=== PATIENT | female | born 1955 | race Caucasian/White ===

== ENCOUNTER 2022-08-07 12:31 | Emergency (ER) | payer MEDICARE, BC, SELFPAY ==
[2022-08-07 12:47] VITALS: BP 170/98; PULSE 79; RESP 18; TEMP 35.9; O2SAT 97
--- NOTE | 2022-08-07 13:27 | ED_ITS ---
HPI - General Adult General Chief complaint: Edema Stated complaint: Swollen legs from heart medication Time Seen by Provider: 08/07/22 13:05 History of Present Illness HPI narrative: This 67-year-old female comes in with a friend and states that she has bilateral lower extremity edema. She is on new medicines for blood pressure and believes that this may be causing some edema. She also has varicose veins and is scheduled for an appointment with a vein clinic in this regard. She does not report any shortness of breath or chest pain. She does not have any orthopnea. She has been wearing compression stockings which have helped her greatly. She has very thin legs and states that she is able to pull the compression stockings all way up to her groin. She states that this is helped and arrives here actually without any evidence of pedal edema. Related Data Home Medications Medication Instructions Recorded Confirmed albuterol sulfate 2.5 mg/3 mL 2.5 mg inhalation PRN 02/23/22 06/22/22 (0.083 %) solution for nebulization albuterol sulfate 90 mcg/actuation 2 inhalation PRN 02/23/22 06/22/22 aerosol inhaler divalproex 500 mg tablet,delayed mg PO DAILY 02/23/22 06/22/22 release esomeprazole magnesium 40 mg 40 mg PO DAILY 02/23/22 06/22/22 capsule,delayed release fluticasone furoate 200 1 inhalation DAILY 02/23/22 06/22/22 mcg-vilanterol 25 mcg/dose inhalation powder levothyroxine 112 mcg tablet 112 mcg PO DIRECTED 02/23/22 06/22/22 lorazepam 0.5 mg tablet 0.5 mg PO .as needed PRN 02/23/22 06/22/22 metoprolol tartrate 50 mg tablet 50 mg PO BID 02/23/22 06/22/22 mirtazapine 7.5 mg tablet 7.5 mg PO .Bedtime 02/23/22 06/22/22 ropinirole 1 mg tablet 1 mg PO DIRECTED 02/23/22 06/22/22 rosuvastatin 5 mg tablet 5 mg PO DAILY 02/23/22 06/22/22 diltiazem HCl 240 mg 240 mg PO QAM 06/22/22 06/22/22 capsule,extended release 24 hr, controlled (DILT-XR) Previous Rx's Medication Instructions Recorded cyclobenzaprine 10 mg tablet 10 mg PO .Bedtime as needed PRN 07/04/22 muscle spasm #30 tabs chlorthalidone 25 mg tablet 25 mg PO DAILY #90 tabs 07/31/22 Allergies Allergy/AdvReac Type Severity Reaction Status Date / Time gabapentin Allergy Intermediate Hives Verified 08/07/22 12:51 lisinopril Allergy Intermediate edema in Verified 08/07/22 12:51 face risperidone Allergy Unknown Verified 08/07/22 12:51 amlodipine AdvReac Mild leg Verified 08/07/22 12:51 swelling quetiapine AdvReac swelling Verified 08/07/22 12:51 Review of Systems Status of ROS: Reports: 10 or more systems reviewed and unremarkable except as noted in History and below Narrative: Constitutional: No fevers, no weight gain or loss. Eyes: No discharge. No vision changes. HENT: No congestion, no sore throat, no ear pain. Cardiovascular: No chest pain, no palpitations. Respiratory: No shortness of breath, no wheezes, no cough. Gastrointestinal: No abdominal pain, no vomiting, no diarrhea. Genitourinary: No dysuria, no hematuria. Musculoskeletal: Normal range of motion. Skin: No rashes, no pruritis. Neurological: No dizziness, weakness, sensory change, speech change. Endo/Heme/Allergies: No bruising or bleeding. No polydipsia. Pysch: no suicidality, no anxiety, no insomnia. All other systems reviewed and are negative. [facility] Medical History (Updated 08/07/22 @ 13:32 by Philip Ramires MD) Bilateral edema of lower extremity Bleeding internal hemorrhoids Chronic neck pain Elevated blood pressure reading Encounter for counseling regarding advance directives (06/21/15) Hepatitis C History of drug abuse (2013) Internal derangement of knee Obstructive chronic bronchitis with exacerbation Obstructive sleep apnea treated with continuous positive airway pressure (CPAP) (~2016) Osteoarthritis Osteopenia (2015) Rectal urgency Unintended weight loss (~11/2021) Varicose veins of both lower extremities Venous insufficiency of both lower extremities Surgical History (Updated 06/22/22 @ 14:44 by Kim Gardner MD) Colon cancer screening (~2015) H/O endoscopy History of abdominoplasty (1996) History of arthroplasty of right knee (2009) History of hysterectomy with oophorectomy (1984) History of medial meniscus repair of left knee (2013) History of ovarian cystectomy History of repair of right rotator cuff (2012) History of right knee joint replacement (2009) Hx of varicose vein ligation and stripping (~2016) Normal colonoscopy (2021) Status post left knee replacement (04/08/19) Family History (Updated 06/22/22 @ 12:41 by Kim Gardner MD) Aunt Breast cancer Mother Ovarian cancer Sister Stomach cancer Other Adopted person Social History (Updated 06/22/22 @ 12:41 by Kim Gardner MD) Narrative: Single, homemaker, lives with cat in town house NF Smokes- hx 30 pack years Does not drink alcohol Exercises 3 to 4 times per week- walks 3M Smoking Status: Current every day smoker What tobacco products do you use: cigarettes Do you use any of these nicotine containing products: None Second hand tobacco smoke exposure: No How often do you have a drink containing alcohol: never AUDIT-C Alcohol total score: 0 Non-prescribed substance use: denies use Exam Narrative: Exam Narrative: Constitutional: Well-developed, well-nourished, no acute distress. HEENT: Normocephalic, atraumatic. Neck: Normal range of motion. Nontender. Supple. Heart: Regular. No murmurs. Normal rate. Intact distal pulses. Lungs: Clear to auscultation. No chest discomfort. No wheezes, rhonchi, or rales. Abdomen: Normal bowel sounds. Nontender. No rebound tenderness. Genitalia: Deferred. Back: No midline tenderness. Normal range of motion. Extremities: Normal range of motion. No injury. She is wearing compression stockings. There is no evidence of pitting edema. Skin: Intact. No rash. Warm. No erythema or pallor. Neurologic: No altered sensation. No weakness. Alert and oriented. Psychiatric: No suicidality. No anxiety or depression. No insomnia. Nursing notes and vitals signs are reviewed. Const: Vital Signs, click to edit/add: Vital Signs - 24 hr 08/07/22 12:47 Temperature 96.7 F L Pulse Rate [Right Pulse Oximeter] 79 Respiratory Rate 18 Blood Pressure [Ri ght Upper Arm] 170/98 H Pulse Oximetry 97 Oxygen Delivery Me thod Room Air Course Vital Signs Vital signs: Initial Vital Signs Temperature 96.7 F L 08/07/22 12:47 Temperature Source Temporal Artery Scan 08/07/22 12:47 Pulse Rate 79 08/07/22 12:47 Pulse Rhythm 08/07/22 12:47 Respiratory Rate 18 08/07/22 12:47 Blood Pressure 170/98 H 08/07/22 12:47 Blood Pressure Mean 122 08/07/22 12:47 Blood Pressure Position Sitting 08/07/22 12:47 Pulse Oximetry 97 08/07/22 12:47 Oxygen Delivery Method 08/07/22 12:47 Vital Signs Temperature 96.7 F L 08/07/22 12:47 Pulse Rate 79 08/07/22 12:47 Respiratory Rate 18 08/07/22 12:47 Blood Pressure 170/98 H 08/07/22 12:47 Pulse Oximetry 97 08/07/22 12:47 Oxygen Delivery Method 08/07/22 12:47 Temperature 96.7 F L 08/07/22 12:47 Pulse Rate 79 08/07/22 12:47 Respiratory Rate 18 08/07/22 12:47 Blood Pressure 170/98 H 08/07/22 12:47 Pulse Oximetry 97 08/07/22 12:47 Oxygen Delivery Method 08/07/22 12:47 Medical Decision Making MDM Narrative Medical decision making narrative: This patient comes in reporting some increased pedal edema that has now been remedied with wearing compression stockings. She believes that this is related to new medication that she is on a for blood pressure. She is taking diltiazem which could explain some pedal edema. She reports that she did not take that medicine today. I did discuss lab and imaging options with the patient but indicated reassurance with normal vital signs and normal exam. In a process of shared decision making she declined any further studies here. She does have an appointment with her psychiatrist tomorrow and with her primary physician in 3 days. I advised her to discontinue the diltiazem and follow-up with her primary physician to review management of blood pressure and appropriate medicines. Discharge Plan Discharge Clinical Impression: Varicose veins of left lower extremity, Hypertension Patient Disposition: Home, Self-Care Condition: Stable Additional Instructions: Hold diltiazem and follow-up with primary physician as scheduled to review blood pressure medications. Return if worsening symptoms happen. Prescriptions: No Action lorazepam 0.5 mg tablet 0.5 mg PO .as needed PRN divalproex 500 mg tablet,delayed release (DR/EC) PO DAILY Rx Instructions: Take 1 tab in the AM and 2 tabs in the PM fluticasone furoate-vilanterol 200-25 mcg/dose blister with device 1 inhalation DAILY rosuvastatin 5 mg tablet 5 mg PO DAILY levothyroxine 112 mcg tablet 112 mcg PO DIRECTED Rx Instructions: 1 tab daily, except no tablet on Sundays metoprolol tartrate 50 mg tablet 50 mg PO BID esomeprazole magnesium 40 mg capsule,delayed release(DR/EC) 40 mg PO DAILY ropinirole 1 mg tablet 1 mg PO DIRECTED Rx Instructions: 1 tab at 1700, 2 tab at HS albuterol sulfate 90 mcg/actuation HFA aerosol inhaler 2 inhalation PRN mirtazapine 7.5 mg tablet 7.5 mg PO .Bedtime albuterol sulfate 2.5 mg /3 mL (0.083 %) solution for nebulization 2.5 mg inhalation PRN diltiazem HCl [DILT-XR] 240 mg capsule,ext.rel 24h degradable 240 mg PO QAM cyclobenzaprine 10 mg tablet 10 mg PO .Bedtime as needed PRN (Reason: muscle spasm) Qty: 30 0RF Rx Instructions: 1 tab at bed time, muscle relaxant chlorthalidone 25 mg tablet 25 mg PO DAILY Qty: 90 1RF Follow Up/Referrals: Kim Gardner MD [Primary Care Provider] - Stand Alone Forms: [facility] Info Instructions
--- NOTE | 2022-08-07 13:46 | ED.NURSE ---
Patient came out of room. Stated I have my discharge and have signed, can I go? Repeated to patient you have received your discharge? She stated yes and was shown to door. Later, assigned RN noted that patient had not received discharge paper work.
== END 2022-08-07 13:53 | disposition home or self-care (01) ==
LOC: ED 13:39
PROVIDERS: Emergency Provider Emergency Medicine Emergency Medical Services; PCP Family Medicine
DX: I83.892 Varicose veins of left lower extremity with other complications (principal)
CPT/HCPCS: 99283; 99284

== ENCOUNTER 2022-08-09 14:36 | Outpatient (CLI) | payer MEDICARE, BC, SELFPAY | END 2022-08-09 14:37 | disposition home or self-care (01) | PROVIDERS: PCP Family Medicine; Visit Provider Family Medicine | DX: I10 Essential (primary) hypertension (principal); E78.5 Hyperlipidemia, unspecified; E03.9 Hypothyroidism, unspecified; R22.40 Localized swelling, mass and lump, unspecified lower limb | CPT/HCPCS: 80053; 80061; 84443 ==

== ENCOUNTER 2022-09-15 09:45 | Outpatient (RCR) | payer MEDICARE, BC, SELFPAY ==
--- NOTE | 2022-05-19 10:52 | PT.OPEX ---
PT [facility] Eval PT [facility] Outpatient Eval Start: 05/19/22 10:36 Freq: Status: Active Protocol: Document 05/19/22 10:36 AC (Rec: 05/19/22 10:52 ACW [id number]) E-signed By Inga Pena, PT, ATC Physical Therapy Outpatient Evaluation Insurance Information Insurance Name Medicare B,Blue [employer] Medical Diagnosis right shoulder pain Treating Diagnosis tight muscles across g-h joint stiff thoracic spine and scapula Referring MD Gardner Subjective Pain Comments 0-9/10 Current Work Status Unemployed Preferred Name [employer] Precautions Weight Bearing Status Full Weight Bearing Therapy Limitations/Systems Review Not Limited Assessment Assessment/Impression pt is a pleasant 67 yo female who has been having right shoulder pain for about 1 year . AT about this same time she fell when standing on a chair and tried catching herself with her right hand. pt describes the pain as a sharp spasm almost in her shoulder than can be relieved if she bends over and shakes out her arm. It is not a constant pain, but she is apprehensive because she doesn't know what brings it on or when it will hit her. today she has full shoulder active ROM and MMTs. her neck is stiff, her spine is very stiff . She isn't able to vacuum, pull anything out of the refrigerator or rotate her arm without fear of the pain. pt will benefit from skilled PT for MT and TE Plan of Care Rehabilitation Potential Good Physical Therapy Goals 1. pt will be competent and compliant with home ex 2. in 4 wks pt will note less frequent and less intense ( max 6/10) pain when moving her arm. 3. in 6 wks pt will be able to reach into her refrigerator to retrieve an item without the sharp pain she has been having 4. in 6 wks pt will be able to pull up her pants with 3/10 max right shoulder pain LTG: to be achieved by the end of July: pt will return to all former ADLs with 2/10 max right shoulder pain Coordination/Communication With Referral Source Treatment Plan/Direct Interventions Manual Therapy,Therapeutic Exercises Patient Will Be Discharged From Therapy Independently Progressing Evaluation Billing Complexity Moderate Certification Information Initial Certification Date 05/19/22 Ending Certification Date 08/16/22 Provider Signature Shows Agreement With POC & Medical Necessity Physician Signature & Date Requested Please Sign/Date Here Physician Comment/Change : Physician NPI Number #
== END 2022-09-15 12:35 | disposition home or self-care (01) ==
PROVIDERS: PCP Family Medicine; Visit Provider Family Medicine
DX: M25.511 Pain in right shoulder (principal); Z51.89 Encounter for other specified aftercare
CPT/HCPCS: 97110; 97140; 97162

== ENCOUNTER 2022-11-07 16:52 | Outpatient (REF) | payer MEDICARE, BC, SELFPAY | END 2022-11-07 16:53 | disposition home or self-care (01) | LOC: NPINS 16:52 | PROVIDERS: PCP Family Medicine; Visit Provider Nurse Practitioner Psychiatric/Mental Health | DX: R19.7 Diarrhea, unspecified (principal); I10 Essential (primary) hypertension | CPT/HCPCS: 80164; 80165 ==

== ENCOUNTER 2023-02-02 13:51 | Outpatient (CLI) | payer MEDICARE, BC, SELFPAY ==
--- NOTE | 2023-02-02 14:00 | CRLHL7_ITS ---
For Patients: As a result of the Century Cures Act, medical imaging exams and procedure reports are released immediately into your electronic medical record. You may view this report before your referring provider. If you have questions, please contact your health care provider. INDICATION: Lung cancer screening. History of smoking. High risk patient with greater than 50 pack-year smoking history. TECHNIQUE: Low-dose lung cancer screening non-contrast CT chest. Dose reduction techniques were used. COMPARISON: 03/23/2021 FINDINGS: NODULES: None. LUNGS AND PLEURA: Mild anterior scarring noted bilaterally. No pleural effusion or infiltrate. MEDIASTINUM: No adenopathy. Vascular calcifications. CORONARY ARTERY CALCIFICATION: Present. LIMITED UPPER ABDOMEN: Normal. MUSCULOSKELETAL: Normal. IMPRESSION: Negative for lung cancer screening purposes. LUNG-RADS CATEGORY: 1: Negative. RADIOLOGIST RECOMMENDATION: Continue annual screening with low-dose CT chest in 12 months. Please note that all CT scans at this facility use dose modulation, iterative reconstruction, and/or weight-based dosing when appropriate to reduce radiation dose to as low as reasonably achievable. Dictated by Gil Jiang MD @ 02/05/2023 10:48:50 AM (Electronically Signed)
== END 2023-02-02 13:52 | disposition home or self-care (01) ==
LOC: CT 13:52
PROVIDERS: PCP Family Medicine; Visit Provider Family Medicine
DX: F17.210 Nicotine dependence, cigarettes, uncomplicated (principal); Z12.2 Encounter for screening for malignant neoplasm of respiratory organs
CPT/HCPCS: 71271

== ENCOUNTER 2023-03-18 16:26 | Inpatient (IN) | payer MEDICARE, BC, SELFPAY ==
[2023-03-18] VITALS (14 sets, daily range): BP systolic 125–160; BP diastolic 71–99; PULSE 73–93; RESP 16–20; TEMP 36.5–36.8; O2SAT 94–98; BMI 23.2; BMI 22.7
--- NOTE | 2023-03-18 17:00 | ED.GENADULT ---
HPI - General Adult General Time Seen by Provider: 17:00 Date Seen: 03/18/23 Chief complaint: Fall/Minor Trauma Stated complaint: fall Time Seen by Provider: 03/18/23 16:52 Source: patient and RN notes reviewed Mode of arrival: ambulatory Limitations: no limitations History of Present Illness HPI narrative: This 68-year-old female is brought in by a friend's that go to [place] with her with concern of her mental status. Berkley did answer her door for 1 of the friends today but this friend was concern. She has bruises on her arms, bruises on her knees. She reportedly fell in her garage last night, admits she may have taken an extra Ativan and Flexeril. Berkley cannot really remember anything. She thinks she may have fallen a couple times in the garage. She denies any alcohol use. She reportedly had the garage shot in the car running and was in the garage with the car this way. This was last night, at some point she must of made it into the house. She also endorses some marijuana use. Patient is somewhat tangential in her speech, will start talking about a blood pressure medicine and causing swelling, not really tracking with conversation. She denies any difficulty with breathing, no significant headache or visual changes, no chest pain. She has no abdominal pain now but her friends report that she has complaints of abdominal symptoms frequently. Had some sort of abdominal surgery and since then has complained of ongoing cramping and abdominal pain. Related Data Home Medications Medication Instructions Recorded Confirmed albuterol sulfate 2.5 mg/3 mL 2.5 mg inhalation PRN 02/23/22 02/21/23 (0.083 %) solution for nebulization divalproex 500 mg tablet,delayed mg PO DAILY 02/23/22 02/21/23 release fluticasone furoate 200 1 inhalation DAILY 02/23/22 02/21/23 mcg-vilanterol 25 mcg/dose inhalation powder lorazepam 0.5 mg tablet 0.5 mg PO .as needed PRN 02/23/22 02/21/23 mirtazapine 7.5 mg tablet 7.5 mg PO .Bedtime 02/23/22 02/21/23 Previous Rx's Medication Instructions Recorded metoprolol succinate 100 mg 100 mg PO BID #180 tabs 08/23/22 tablet,extended release 24 hr ropinirole 1 mg tablet 1 mg PO DIRECTED #270 tabs 08/30/22 loperamide 2 mg capsule (Imodium 4 mg (2 x 2 mg) PO QDAY PRN 11/07/22 A-D) diarrhea #30 caps levothyroxine 112 mcg tablet 112 mcg PO DIRECTED #90 tabs 12/18/22 esomeprazole magnesium 40 mg 40 mg PO DAILY #90 caps 12/27/22 capsule,delayed release rosuvastatin 5 mg tablet 5 mg PO DAILY #90 tabs 01/19/23 chlorthalidone 25 mg tablet 25 mg PO DAILY #90 tabs 01/26/23 hydralazine 25 mg tablet 25 mg PO BID #60 tabs 02/21/23 cyclobenzaprine 10 mg tablet 10 mg PO .Bedtime as needed PRN 02/27/23 muscle spasm #30 tabs albuterol sulfate 90 mcg/actuation 2 puff inhalation Q4H #8.5 grams 03/15/23 aerosol inhaler Allergies Allergy/AdvReac Type Severity Reaction Status Date / Time gabapentin Allergy Intermediate Hives Verified 02/21/23 14:40 lisinopril Allergy Intermediate edema in Verified 02/21/23 14:40 face risperidone Allergy Unknown Verified 02/21/23 14:40 amlodipine AdvReac Mild leg Verified 02/21/23 14:40 swelling quetiapine AdvReac swelling Verified 02/21/23 14:40 Review of Systems Status of ROS: Reports: 6 or more systems reviewed and unremarkable except as noted in History and below [facility] Medical History Obstructive sleep apnea treated with continuous positive airway pressure (CPAP) (~2016) ?G47.33 - Obstructive sleep apnea (adult) (pediatric) (ICD-10) ?Z99.89 - Dependence on other enabling machines and devices (ICD-10) Venous insufficiency of both lower extremities ?I87.2 - Venous insufficiency (chronic) (peripheral) (ICD-10) Varicose veins of both lower extremities ?I83.93 - Asymptomatic varicose veins of bilateral lower extremities (ICD-10) Unintended weight loss (~11/2021) ?R63.4 - Abnormal weight loss (ICD-10) Rectal urgency ?R15.2 - Fecal urgency (ICD-10) Osteopenia (2016) ?M85.80 - Other specified disorders of bone density and structure, unspecified site (ICD-10) Osteoarthritis ?M19.90 - Unspecified osteoarthritis, unspecified site (ICD-10) Obstructive chronic bronchitis with exacerbation ?J44.1 - Chronic obstructive pulmonary disease with (acute) exacerbation (ICD-10) Internal derangement of knee ?M23.90 - Unspecified internal derangement of unspecified knee (ICD-10) History of drug abuse (2013) ?F19.11 - Other psychoactive substance abuse, in remission (ICD-10) Hepatitis C ?B19.20 - Unspecified viral hepatitis C without hepatic coma (ICD-10) Encounter for counseling regarding advance directives (06/21/15) ?Z71.89 - Other specified counseling (ICD-10) Elevated blood pressure reading ?R03.0 - Elevated blood-pressure reading, without diagnosis of hypertension (ICD-10) Chronic neck pain ?M54.2 - Cervicalgia (ICD-10) ?G89.29 - Other chronic pain (ICD-10) Bleeding internal hemorrhoids ?K64.8 - Other hemorrhoids (ICD-10) Bilateral edema of lower extremity ?R60.0 - Localized edema (ICD-10) Surgical History Hx of varicose vein ligation and stripping (~2016) ?Z98.890 - Other specified postprocedural states (ICD-10) Colon cancer screening (~2015) ?Z12.11 - Encounter for screening for malignant neoplasm of colon (ICD-10) Status post left knee replacement (04/08/19) ?Z96.652 - Presence of left artificial knee joint (ICD-10) History of right knee joint replacement (2009) ?Z96.651 - Presence of right artificial knee joint (ICD-10) History of repair of right rotator cuff (~2011) ?Z98.890 - Other specified postprocedural states (ICD-10) History of ovarian cystectomy ?Z98.890 - Other specified postprocedural states (ICD-10) ?Z87.42 - Personal history of other diseases of the female genital tract (ICD-10) History of medial meniscus repair of left knee (2013) ?Z98.890 - Other specified postprocedural states (ICD-10) History of hysterectomy with oophorectomy (1984) History of arthroplasty of right knee (2009) ?Z96.651 - Presence of right artificial knee joint (ICD-10) History of abdominoplasty (1996) ?Z98.890 - Other specified postprocedural states (ICD-10) H/O endoscopy ?Z98.890 - Other specified postprocedural states (ICD-10) Normal colonoscopy (2021) Family History Aunt Breast cancer Mother Ovarian cancer Sister Stomach cancer Other Adopted person Social History Narrative: Single, homemaker, lives with cat in town house NF Smokes- hx 30 pack years Does not drink alcohol Exercises 3 to 4 times per week- walks 3M Smoking Status: Light tobacco smoker What tobacco products do you use: cigarettes Do you use any of these nicotine containing products: None Second hand tobacco smoke exposure: No How often do you have a drink containing alcohol: never AUDIT-C Alcohol total score: 0 Non-prescribed substance use: denies use Little interest or pleasure in doing things: several days Feeling down, depressed, or hopeless: several days Exam Const: Vital Signs, click to edit/add: Vital Signs - 24 hr 03/18/23 16:43 03/18/23 18:21 03/18/23 18:24 Temperature 98.2 F Pulse Rate 84 83 Pulse Rate [Pulse Oximeter] 93 Respiratory Rate 20 Blood Pressure 154/77 H Blood Pressure [Le ft Upper Arm] 132/89 Pulse Oximetry 94 97 95 Oxygen Delivery Me thod Room Air 03/18/23 18:30 03/18/23 18:47 Temperature Pulse Rate 80 83 Pulse Rate [Pulse Oximeter] Respiratory Rate Blood Pressure Blood Pressure [Le ft Upper Arm] Pulse Oximetry 96 96 Oxygen Delivery Me thod Berkley is a 68-year-old female that is alert, interactive. Speech is sometimes slurred. Tangential in her thoughts. She is wears that she is at [facility]. Pupils are equal round reactive, sclera clear, conjugate gaze. No drainage from nares or canals/ears. Symmetrical facial function, do note a bruise with some slight raising consistent with small hematoma on her right frontal forehead, no open skin. No midline tenderness of her neck or the rest of her spine. Does have some ecchymosis in the distribution of the right posterior back overlying the scapula area. Lungs are clear, good air entry, no wheezing or crackles, no tachypnea. No voice hoarseness. CV regular rate and rhythm, normal S1-S2 no S3-S4. No murmur. No anterior chest wall tenderness. Abdomen at this time is soft, nontender, nondistended, no organomegaly. She has bruising over both the medial forearms elbows, both her anterior knees. There is no joint line tenderness in any these joints, no effusions noted. She has full range of motion throughout her upper extremities and lower extremities. Feet look dirty. Documenting provider has reviewed patient's vital signs: yes Course Course ED Course: She does seem mildly altered, will be getting a head CT, full complement of labs. Will do carbon monoxide on her as well given she might have had an exposure to this. She is hemodynamically stable, afebrile. I think infection is less likely than possible ingestion or overuse of medicines. Will make sure she does not have carbon monoxide poisoning, will do toxicology on her as well. Her exam really is nonfocal and not suggestive of an ischemic event, rule out traumatic changes in the brain however with the head CT. Will look at the EKG and troponin. Ultimately this looks like an altered mental status. Reevaluation(s) Time of Reevaluation #1: 19:08 Reevaluation #1: Went in with hospitalist Dr. Lopez to see patient. Reviewed with her that she did have a small subdural hematoma which is a small brain bleed. I am not sure she understood this. She is conversing with us. She states her buttocks are quite sore. Did roll her onto her side, has bruising in the upper tailbone area and on the buttocks. There is no skin breakdown, no ulceration. She has been ambulatory to the bathroom here, does not have any pelvic or hip pain or actual lower extremity pain with ambulation. She also has acute kidney injury, rhabdomyolysis, did initiate IV fluids when I saw her CK come back elevated. Consultations Consultation #1: Waited to talk to the [facility] ED physician, Dr. Bautista. They are taking limited trauma, would only take her if she required actual surgical intervention at this time. He is going to talk to the Neurosurgery Chief on-call, show the head CT images that we have push through. Plan at this time will be for repeat CT in 6 hours, he will confirm any other changes or different plan with me. We will keep her here, our hospitalist is here while I talked to Dr. Bautista. 1929pm Dr. Bautista did call back from [facility]. Did speak with neurosurgery chief Dr. Alexis Cramer, recommended sodium within normal range, 135-145. Repeat head CT in 6 hours. If there is decompensation in neurologic status or significant changes on head CT, contact [facility] back. I have added on a 3 hour EKG and troponin. Her troponin is borderline at 0.04, may reflect her acute kidney injury and rhabdomyolysis. She has been accepted by the hospitalist, also did order her follow-up head CT at midnight. The hospitalist did inform me that when he was interviewing the patient, she did admit to taking a lot more Flexeril in Ativan than she had with her friends or with me. She was doing this because she was feeling depressed. She is not medically stable to do a transfer to psychiatric facility. Thus, no telehealth will be done at this time, hospitalists will be stabilizing her medically and will address mental health status as well. Time: 18:52 Vital Signs Vital signs: Initial Vital Signs Temperature 98.2 F 03/18/23 16:43 Temperature Source Temporal Artery Scan 03/18/23 16:43 Pulse Rate 93 03/18/23 16:43 Pulse Rhythm Regular 03/18/23 16:43 Respiratory Rate 20 03/18/23 16:43 Blood Pressure 132/89 03/18/23 16:43 Blood Pressure Mean 103 03/18/23 16:43 Blood Pressure Position Supine 03/18/23 16:43 Pulse Oximetry 94 03/18/23 16:43 Oxygen Delivery Method Room Air 03/18/23 16:43 Vital Signs Temperature 98.2 F 03/18/23 16:43 Pulse Rate 93 03/18/23 16:43 Respiratory Rate 20 03/18/23 16:43 Blood Pressure 132/89 03/18/23 16:43 Pulse Oximetry 94 03/18/23 16:43 Oxygen Delivery Method Room Air 03/18/23 16:43 Temperature 98.2 F 03/18/23 16:43 Pulse Rate 83 03/18/23 18:47 Respiratory Rate 20 03/18/23 16:43 Blood Pressure 154/77 H 03/18/23 18:24 Pulse Oximetry 96 03/18/23 18:47 Oxygen Delivery Method Room Air 03/18/23 16:43 Medical Decision Making Lab Data Lab results reviewed: Yes I reviewed the patient's lab results Labs: Lab Results 03/18/23 Range/Units 17:34 WBC 10.60 (4.50-11.00) K/uL RBC 3.74 L (4.00-5.20) m/uL Hgb 12.0 (12.0-16.0) gm/dL Hct 34.3 (33.0-51.0) % MCV 92 (80-100) fL MCH 32 (26-34) pg MCHC 35 (32-36) gm/dL RDW Coeff of Jaden 12.7 (11.5-15.5) % Plt Count 297 (140-440) K/uL Neut % (Auto) 68.1 (42.0-72.0) % Lymph % (Auto) 18.1 L (20-44) % Grainger % (Auto) 13.0 H (0.0-11.0) % Eos % (Auto) 0.4 (0.0-7.0) % Baso % (Auto) 0.2 (0.0-3.0) % Neut # (Auto) 7.22 H (1.7-7.0) K/uL Lymph # (Auto) 1.90 (0.90-2.90) K/uL Grainger # (Auto) 1.40 H (0.00-0.90) K/UL Eos # (Auto) 0.04 (0.00-0.50) K/uL Baso # (Auto) 0.02 (0.00-0.30) K/uL Abs Immat Gran (auto) 0.02 (0.00-0.30) K/uL Imm/Tot Granulo (auto) 0.2 % Carboxyhemoglobin 3.3 (0.0-5.0) % Sodium 130 L (135-149) mmol/L Potassium 3.5 L (3.6-5.1) mmol/L Chloride 94 L (96-114) mmol/L Carbon Dioxide 24 (20-32) mmol/L Anion Gap 12 (7-15) mEq/L BUN 40 H (7-30) mg/dL Creatinine 1.5 (0.5-1.5) mg/dL Estimated Creat Clear 30.57 Estimated GFR 37 ml/min Glucose 94 (60-115) mg/dL Lactate 1.0 (0.5-1.9) mmol/L Calcium 8.7 (8.4-10.6) mg/dL Magnesium 1.6 (1.5-2.6) mg/dL Total Bilirubin 1.7 H (0.1-1.5) mg/dL AST 113 H (12-35) U/L ALT 33 (4-35) U/L Alkaline Phosphatase 47 (40-150) U/L Ammonia 28.0 (13.1-30.0) umol/L Total Creatine Kinase 3879 H (41-117) U/L Troponin I 0.04 (0.01-0.04) ng/mL C-Reactive Protein 8.6 H (0.5-1.0) mg/dL Total Protein 7.4 (6.0-8.3) g/dL Albumin 4.2 (3.3-5.0) g/dL Salicylates < 1.0 L (1.0-10) mg/dL Acetaminophen < 10.0 L (10.0-30.0) ug/mL Ethyl Alcohol < 0.01 L (0.01-0.03) % Imaging Data CT scan - head: Attestation: I have reviewed the pertinent imaging results. Radiologist's impression: Patient: JULIANA MOE Facility:?[facility] Patient ID:?[id number] Site Patient ID:?[id number]. Site :?[id number] Study:?CT Head W/O-03/18/2023 6:00:55 PM Ordering Physician:Lou Hoskins Final Report: Indication: Fall, altered mental status Technique: Volumetric multidetector CT images of the head were obtained without the administration of low osmolar intravenous contrast. Comparison: None available Findings: There is demonstration of a left convexity subdural hematoma without evidence of significant mass effect. There is no midline shift. There is age-related cortical atrophy with mild sulcal widening and ex vacuo dilatation of the lateral ventricles. There are chronic small vessel disease changes in the subcortical and periventricular white matter without lost reese-white differentiation. The orbits and their contents are grossly within normal limits. There is a small frontal subgaleal soft tissue hematoma. The bony calvarium is grossly intact. The paranasal sinuses are clear. The mastoid air cells are well aerated. Impression: Small left convexity subdural hematoma without evidence of significant mass effect or midline shift at this time. Otherwise, age-related changes of the brain without acute intracranial abnormality. Findings were discussed with Aidee De La Vega at 6:33 p.m. March 18, [address] note [address] all CT scans at this facility use dose modulation, iterative reconstruction, and/or weight-based dosing when appropriate to reduce radiation dose to as low as reasonably achievable. Dictated by Joseph Atkinson MD @ 03/18/2023 6:35:21 PM (Electronic Signature) Chest x-ray: Attestation: I have reviewed the pertinent imaging results. Radiologist's impression: Patient: JULIANA MOE Facility:?[facility] Patient ID:?[id number] Site Patient ID:?[id number]. Site :?1955 Study:?XRay Chest 1 VIEW-03/18/2023 6:11:43 PM Ordering Physician:Lou Hoskins Final Report: INDICATION: Altered mental status TECHNIQUE: Single view chest. FINDINGS: The lungs are clear. The heart, mediastinum and pulmonary vessels are of normal size. There is no evidence of pleural disease. IMPRESSION: Negative chest. Dictated by Paola Gonzáles MD @ 03/18/2023 6:50:16 PM (Electronic Signature) Discharge Plan Discharge Prescriptions: No Action metoprolol succinate 100 mg tablet extended release 24 hr 100 mg PO BID Qty: 180 4RF loperamide [Imodium A-D] 2 mg capsule 4 mg PO QDAY PRN (Reason: diarrhea) Qty: 30 0RF chlorthalidone 25 mg tablet 25 mg PO DAILY Qty: 90 1RF lorazepam 0.5 mg tablet 0.5 mg PO .as needed PRN divalproex 500 mg tablet,delayed release (DR/EC) PO DAILY Rx Instructions: Take 1 tab in the AM and 2 tabs in the PM fluticasone furoate-vilanterol 200-25 mcg/dose blister with device 1 inhalation DAILY mirtazapine 7.5 mg tablet 7.5 mg PO .Bedtime albuterol sulfate 2.5 mg /3 mL (0.083 %) solution for nebulization 2.5 mg inhalation PRN hydralazine 25 mg tablet 25 mg PO BID Qty: 60 0RF ropinirole 1 mg tablet 1 mg PO DIRECTED Qty: 270 3RF Rx Instructions: 1 tab at 1700, 2 tab at HS levothyroxine 112 mcg tablet 112 mcg PO DIRECTED Qty: 90 2RF Rx Instructions: 1 tab daily, except no tablet on Sundays esomeprazole magnesium 40 mg capsule,delayed release(DR/EC) 40 mg PO DAILY Qty: 90 2RF rosuvastatin 5 mg tablet 5 mg PO DAILY Qty: 90 3RF cyclobenzaprine 10 mg tablet 10 mg PO .Bedtime as needed PRN (Reason: muscle spasm) Qty: 30 1RF Rx Instructions: 1 tab at bed time, muscle relaxant albuterol sulfate 90 mcg/actuation HFA aerosol inhaler 2 puff inhalation Q4H Qty: 8.5 1RF Follow Up/Referrals: Kim Gardner MD [Primary Care Provider] -
--- NOTE | 2023-03-18 17:11 | CRLHL7_ITS ---
For Patients: As a result of the Century Cures Act, medical imaging exams and procedure reports are released immediately into your electronic medical record. You may view this report before your referring provider. If you have questions, please contact your health care provider. Indication: Fall, altered mental status Technique: Volumetric multidetector CT images of the head were obtained without the administration of low osmolar intravenous contrast. Comparison: None available Findings: There is demonstration of a left convexity subdural hematoma without evidence of significant mass effect. There is no midline shift. There is age-related cortical atrophy with mild sulcal widening and ex vacuo dilatation of the lateral ventricles. There are chronic small vessel disease changes in the subcortical and periventricular white matter without lost reese-white differentiation. The orbits and their contents are grossly within normal limits. There is a small frontal subgaleal soft tissue hematoma. The bony calvarium is grossly intact. The paranasal sinuses are clear. The mastoid air cells are well aerated. Impression: Small left convexity subdural hematoma without evidence of significant mass effect or midline shift at this time. Otherwise, age-related changes of the brain without acute intracranial abnormality. Findings were discussed with Aidee De La Vega at 6:33 p.m. March 18, [address] Please note that all CT scans at this facility use dose modulation, iterative reconstruction, and/or weight-based dosing when appropriate to reduce radiation dose to as low as reasonably achievable. Dictated by Joseph Atkinson MD @ 03/18/2023 6:35:21 PM (Electronically Signed)
--- NOTE | 2023-03-18 17:24 | CRLHL7_ITS ---
For Patients: As a result of the Century Cures Act, medical imaging exams and procedure reports are released immediately into your electronic medical record. You may view this report before your referring provider. If you have questions, please contact your health care provider. INDICATION: Altered mental status TECHNIQUE: Single view chest. FINDINGS: The lungs are clear. The heart, mediastinum and pulmonary vessels are of normal size. There is no evidence of pleural disease. IMPRESSION: Negative chest. Dictated by Paola Gonzáles MD @ 03/18/2023 6:50:16 PM (Electronically Signed)
[2023-03-18 17:44] LABS: Basophils Absolute Auto 0.02 K/uL (0.00-0.30); Basophils Percent Auto 0.2 % (0.0-3.0); Carboxyhemoglobin* 3.3 % (0.0-5.0); Eosinophils Absolute Auto 0.04 K/uL (0.00-0.50); Eosinophils Percent Auto 0.4 % (0.0-7.0); Hematocrit 34.3 % (33.0-51.0); Immature Granulocytes Abs Auto 0.02 K/uL (0.00-0.30); Immature Granulocytes Pct Auto 0.2 %; Lymphocytes Percent Auto 18.1 % (20-44); Mean Corpuscular HGB Conc 35 gm/dL (32-36); Mean Corpuscular Hemoglobin 32 pg (26-34); Mean Corpuscular Volume 92 fL (80-100); Neutrophils Absolute Auto 7.22 K/uL (1.7-7.0); Neutrophils Percent Auto 68.1 % (42.0-72.0); Platelet Count* 297 K/uL (140-440); RDW Coefficient of Variation % 12.7 % (11.5-15.5); Red Blood Count 3.74 m/uL (4.00-5.20)
[2023-03-18 17:48] LABS: Slide Review Reflex No
[2023-03-18 18:03] LABS: Albumin* 4.2 g/dL (3.3-5.0); Chloride* 94 mmol/L (96-114); Sodium* 130 mmol/L (135-149)
[2023-03-18 18:04] LABS: Potassium* 3.5 mmol/L (3.6-5.1)
[2023-03-18 18:05] LABS: Magnesium* 1.6 mg/dL (1.5-2.6)
[2023-03-18 18:06] LABS: Alkaline Phosphatase* 47 U/L (40-150); Anion Gap 12 mEq/L (7-15); Aspartate Amino Transferase* 113 U/L (12-35); Bilirubin Total* 1.7 mg/dL (0.1-1.5); Carbon Dioxide* 24 mmol/L (20-32); Creatinine* 1.5 mg/dL (0.5-1.5); Est. Creatinine Clearance* 30.57; Estimated Glomerular Filt Rate 37 ml/min; Total Protein* 7.4 g/dL (6.0-8.3)
[2023-03-18 18:07] LABS: Alanine Aminotransferase* 33 U/L (4-35); Blood Urea Nitrogen* 40 mg/dL (7-30); Calcium* 8.7 mg/dL (8.4-10.6); Glucose* 94 mg/dL (60-115)
[2023-03-18 18:09] LABS: Acetaminophen* < 10.0 ug/mL (10.0-30.0); C Reactive Protein* 8.6 mg/dL (0.5-1.0); Ethanol* < 0.01 % (0.01-0.03); Salicylate* < 1.0 mg/dL (1.0-10)
[2023-03-18 18:18] LABS: Troponin I* 0.04 ng/mL (0.01-0.04)
[2023-03-18 18:24] LABS: Creatine Kinase* 3879 U/L (41-117)
--- OUTSIDE RECORDS SUMMARY | 2023-03-18 18:30 | XMS_ITS | Continuity of Care Document ---
Author Name Unknown Organization [facility] Address [address] [address] [place] [address] Phone Care Team Providers Care Label Printer Name Role Phone Brendan Larson MD, Harry Unavailable Unavailabl e Allergies, Adverse Reactions, Alerts Substance Reaction Status Criticality No Known Allergies Active No Inform ation Medications Medication Instructions Dosage Effective Dates (start - stop) Status Comments DEPAKOTE (unknown strength) take 2 tablet by oral route 2 times every day Not Available - Active KAPSPARGO SPRINKLE (unknown strength) take 0.5 capsule by oral route every day Not Available - Active THALITONE (unknown strength) take 1 tablet by oral route every day Not Available - Active levothyroxine 112 mcg capsule take by Oral route every day Not Available - Active ROSUVASTATIN CALCIUM (unknown strength) take 1 Tablet by ORAL route 3 times every week Not Available - Active mirtazapine 7.5 mg tablet take 1 Tablet by oral route every day at bedtime 7.5 MG - Active Procedures Procedure Date Colonoscopy Flex; W/bx 1/mx Ugi Endo; W/bx 1/mx Level Iv-surg Path Gross/micro Advance Directives Directive Yes / No Effective Date File Name No Information Encounters Encounter Description Practice Location Reason(s) For Visit Diagnoses Date Provider Providers Copied on Encounter [facility], [address] [address], [place], [id number], tel:[phone] [facility] No Information 2 Brendan Mcdonald. [address] [facility], [facility] [address], [place], [place], [id number] , [place]. tel:[phone] [facility], [address] [address], [place], [place], [id number], [place] tel:[phone] [facility] Symptoms or Concerns (chief complaint) Hiatal herniaDiverticulosi s of colonDiarrhea, unspecifiedDysphagi a, unspecifiedDvrtclos of lg int w/o perforation or abscess w/o bleedingDiaphragmat ic hernia without obstruction or gangreneDiarrhea, unspecified 2 Warner Lopez. [address] [facility], [facility] [address], [place], [place], [id number] , [place]. tel:[phone] Kim Gardner MD. tel:[phone] erring Provider: Kim Gardner MD, [address] [place], [address]. tel:[phone] [facility], [address] [address], [place], [id number], [place] tel:[phone] [facility] No Information 2 Brendan Mcdonald. [address] [facility], [facility] [address], [facility] [place], [id number] , [place]. [phone] Family History Family Member Type Diagnosis Age At Onset No Information Immunizations Vaccine Date Status Comments SARS-COV-2 (COVID-19) vaccin e, mRNA, spike protein, LNP, preservative free, 30 mcg/0.3mL dose administered Note: [facility] bi-direct ional interface ; Source: Other Registry influenza, high-dose seasona l, quadrivalent, .7mL dose, preservative free administered Note: [facility] bi-direct ional interface ; Source: Other Registry SARS-COV-2 (COVID-19) vaccin e, mRNA, spike protein, LNP, preservative free, 30 mcg/0.3mL dose administered Note: [facility] bi-direct ional interface ; Source: Other Registry SARS-COV-2 (COVID-19) vaccin e, mRNA, spike protein, LNP, preservative free, 30 mcg/0.3mL dose administered Note: [facility] bi-direct ional interface ; Source: Other Registry zoster vaccine recombinant administered N ote: [facility] bi-directional interface ; Source: Other Registry influenza, high-dose seasona l, quadrivalent, .7mL dose, preservative free administered Note: [facility] bi-direct ional interface ; Source: Other Registry zoster vaccine recombinant administered N ote: [facility] bi-directional interface ; Source: Other Registry influenza, high dose seasona l, preservative-free administered Note: [facility] bi-direct ional interface ; Source: Other Registry Afluria Qd administered Note: [facility] bi-directional interface ; Source: Other Registry Afluria Qd administered Note: [facility] bi-directional interface ; Source: Other Registry Afluria Qd administered Note: [facility] bi-directional interface ; Source: Other Registry tetanus toxoid, reduced diphtheria toxoid, and acellular pertussis vaccine, adsorbed administered Note: [facility] b i-directional interface ; Source: Other Registry Havrix administered Note: [facility] bi-d irectional interface ; Source: Other Registry zoster vaccine, live administered Note: [facility] bi-directional interface ; Source: Other Registry Afluria Qd administered Note: [facility] bi-directional interface ; Source: Other Registry Pneumovax 23 administered Note: [facility] bi-d irectional interface ; Source: Other Registry influenza, high dose seasona l, preservative-free administered Note: [facility] bi-direct ional interface ; Source: Other Registry influenza virus vaccine, unspecified formulation administered Note: [facility] bi-di rectional interface ; Source: Other Registry Influenza, seasonal, injectable administe red Note: [facility] bi- directional interface ; Source: Other Registry Influenza, seasonal, injecta ble, preservative free administered Note: [facility] bi-direct ional interface ; Source: Other Registry Influenza, seasonal, injectable administe red Note: [facility] bi- directional interface ; Source: Other Registry influenza virus vaccine, unspecified formulation administered Note: [facility] bi-di rectional interface ; Source: Other Registry tetanus toxoid, adsorbed administered Not e: [facility] bi-directional interface ; Source: Other Registry tetanus toxoid, reduced diphtheria toxoid, and acellular pertussis vaccine, adsorbed administered Note: [facility] b i-directional interface ; Source: Other Registry hepatitis B vaccine, unspeci fied formulation administered Note: [facility] bi-direct ional interface ; Source: Other Registry hepatitis B vaccine, unspeci fied formulation administered Note: [facility] bi-direct ional interface ; Source: Other Registry hepatitis B vaccine, unspeci fied formulation administered Note: [facility] bi-direct ional interface ; Source: Other Registry Havrix administered Note: [facility] bi-d irectional interface ; Source: Other Registry Payers Payer name Insurance type Covered libertarian ID Authoriza tion(s) [employer] [place] [employer] [id number] Social History Type Description Quantity Date Captured Comments Sex Female Smoking Status No Information Chief Complaint And Reason For Visit No Information Reason For Referral Reason For Referral No Information History Of Present Illness Encounter Date Complaint History Of Prese nt Illness GI Symptoms or Concerns Functional Status Date Functional Assessmen t No Information Instructions Date Instruction Additional Infor mation Diverticulosis/Diverticulitis Re lated to Diverticulosis of colon Colon Cancer Prevention Related to Diverticulosis of colon High Fiber Diet Related to Diver ticulosis of colon Assessments Type Assessment Date No Information Patient Care Teams Name Effective Dates (start - stop) Status Members No Information
--- NOTE | 2023-03-18 19:13 | ED.NURSE ---
pt has bruising bilaterally on wrist, elbows, knees, and feet. bruising also noted on left hip and buttock. pt does not recall any trama or mechanism of injury.
--- NOTE | 2023-03-18 19:22 | ED.NURSE ---
per hospitalist pt can eat. Pt offered a sandwich and drink at this time.
[2023-03-18 19:40] LABS: PCR FLU A Negative PCR FLU A (Negative); PCR FLU B Negative PCR FLU B (Negative); PCR RSV Negative PCR RSV (Negative)
[2023-03-18 19:41] LABS: SARS PCR* Negative SARS-CoV-2 (Negative)
[2023-03-18] MEDS: 0.9 % SODIUM CHLORIDE 1000 ml 1,000 ML 500 ML IV (19:49)
--- NOTE | 2023-03-18 20:19 | ED.NURSE ---
nurse to nurse report given to MS
--- NOTE | 2023-03-18 20:47 | PM.IMPN1 ---
Progress Note: A&P Assessment and plan (1) Fall: Problem details: -due to lorazepam and cyclobenzaprine overdose 03/17/2023 Status: Acute (2) Overdose by ingestion: Problem details: - Lorazepam and cyclobenzaprine on 03/17/2023 - Lorazepam 0.5 mg BID PRN - stop cyclobenzaprine Status: Acute (3) Lorazepam overdose of undetermined intent: Problem details: - on 03/17/2023 - if/when medically stabilized, then obtain DEC assessment Status: Acute (4) Traumatic subdural hematoma: Problem details: - CT head at 1800 on 03/18/2023, s/p fall 03/17/2023: left convexity acute subdural hematoma without mass effect or midline shift - Dr. Jean reviewed with [facility] neurosurgeon, Dr. Espinoza Do: repeat CT head in 6 hours and normalize hyponatremia - neurological assessments every 4 hours, and if worsening then consider repeat CT of head and call neurosurgeon Status: Acute (5) Traumatic ecchymosis of multiple sites: Problem details: - s/p fall 03/17/2023 after overdose of lorazepam and cyclobenzaprine - frontalis, bilateral upper and lower extremities, elbows, knees, right back overlying scapula, left lateral thigh, ischial tuberosities, pre-sacrum Status: Acute (6) Traumatic rhabdomyolysis: Problem details: - Creatine kinase 3,900 03/18/2023 - Normal saline IV infusion and monitor creatine kinase - monitore weight Status: Acute (7) Acute renal failure due to traumatic rhabdomyolysis: Problem details: - baseline Cr 0.5, and on 03/18/2023 Cr 1.5 - monitor creatinine and consider re-check urinalysis Status: Acute (8) Hyponatremia: Problem details: - Na 130 on 03/18/2023 - Normal saline IV infusion - moniotr Na Status: Acute (9) Hypokalemia: Problem details: - K 3.5 on 04/02/2023 - oral potassium supplementation and monitor K Status: Acute (10) Elevated AST (SGOT): Problem details: - AST 130 03/18/2023 - hold statin therapy - monitor Status: Acute (11) Total bilirubin, elevated: Problem details: - T Bili 1.7 03/18/2023 - D Bili is pending as of 03/18/2023 - rehydrate and monitor Status: Acute (12) Elevated troponin I level: Problem details: - Trop I 0.04 03/18/2023 without ischemic changes on ECG - suspect due to TACO - continue to monitor trop I and ECG serially - telemetry for now Status: Acute (13) Marijuana smoker, episodic: Status: Acute (14) Ineffective coping: Problem details: - DEC assessment when medically stable - Continue to work with psychiatrist and therapist in outpatient setting Status: Acute (15) Obstructive sleep apnea treated with continuous positive airway pressure (CPAP): Problem details: - continue with home CPAP Status: Acute (16) Bipolar affective disorder: Problem details: sees Dr gavin Jack, therapist Jada Marker Status: Chronic Subjective Time Seen by Provider: 19:30 Date Seen: 03/18/23 Exam Const: Vital Signs, click to edit/add: Vital Signs - 24 hr 03/18/23 16:43 03/18/23 18:21 03/18/23 18:24 Temperature 98.2 F Pulse Rate 84 83 Pulse Rate [Pulse Oximeter] 93 Respiratory Rate 20 Blood Pressure 154/77 H Blood Pressure [Le ft Upper Arm] 132/89 Pulse Oximetry 94 97 95 Oxygen Delivery Me thod Room Air 03/18/23 18:30 03/18/23 18:47 03/18/23 19:42 Temperature Pulse Rate 80 83 86 Pulse Rate [Pulse Oximeter] Respiratory Rate 18 Blood Pressure 160/78 H Blood Pressure [Le ft Upper Arm] Pulse Oximetry 96 96 97 Oxygen Delivery Me thod 03/18/23 19:43 03/18/23 19:45 03/18/23 20:00 Temperature Pulse Rate 88 84 76 Pulse Rate [Pulse Oximeter] Respiratory Rate Blood Pressure Blood Pressure [Le ft Upper Arm] Pulse Oximetry 97 98 96 Oxygen Delivery Me thod 03/18/23 20:15 03/18/23 20:30 Temperature Pulse Rate 76 73 Pulse Rate [Pulse Oximeter] Respiratory Rate Blood Pressure Blood Pressure [Le ft Upper Arm] Pulse Oximetry 95 96 Oxygen Delivery Me thod Labs Labs: Laboratory Results - last 24 hr 03/18/23 03/18/23 17:34 17:42 WBC 10.60 RBC 3.74 L Hgb 12.0 Hct 34.3 MCV 92 MCH 32 MCHC 35 RDW Coeff of Jaden 12.7 Plt Count 297 Neut % (Auto) 68.1 Lymph % (Auto) 18.1 L Campbell % (Auto) 13.0 H Eos % (Auto) 0.4 Baso % (Auto) 0.2 Neut # (Auto) 7.22 H Lymph # (Auto) 1.90 Campbell # (Auto) 1.40 H Eos # (Auto) 0.04 Baso # (Auto) 0.02 Abs Immat Gran (auto) 0.02 Imm/Tot Granulo (auto) 0.2 Carboxyhemoglobin 3.3 Sodium 130 L Potassium 3.5 L Chloride 94 L Carbon Dioxide 24 Anion Gap 12 BUN 40 H Creatinine 1.5 Estimated Creat Clear 30.57 Estimated GFR 37 Glucose 94 Lactate 1.0 Calcium 8.7 Magnesium 1.6 Total Bilirubin 1.7 H AST 113 H ALT 33 Alkaline Phosphatase 47 Ammonia 28.0 Total Creatine Kinase 3879 H Troponin I 0.04 C-Reactive Protein 8.6 H Total Protein 7.4 Albumin 4.2 Salicylates < 1.0 L Acetaminophen < 10.0 L Ethyl Alcohol < 0.01 L SARS-CoV-2 (PCR) Negative SARS-CoV-2 Influenza Type A (PCR) Negative PCR FLU A Influenza Type B (PCR) Negative PCR FLU B RSV (PCR) Negative PCR RSV
--- NOTE | 2023-03-18 21:03 | P.IMHP_ITS ---
Hospitalist- H&P: HPI History of Present Illness Time Seen by Provider: 19:30 Date Seen: 03/18/23 Chief complaint: fall Narrative: Yamileth Amaya is a 68 year old woman is brought into the emergency department today by 1 of her friends due to concern about the patient's altered mental status. Friend visited the patient this afternoon because of not having seen her earlier in the day. Patient open the door and had multiple bruises on her body and then seemed to be thinking clearly. Friend thus brought patient in for assessment. Patient indicates she has been feeling down since her brother 1 and half years ago. She tells me she has bipolar disorder and she has become gradually increasingly depressed. She tells me she is not suicidal but is having a difficult time coping. She indicates that while she was at home last night she took a lot of extra lorazepam and cyclobenzaprine. She did not want to hurt herself, so she tells me, so she only took 3 tabs of each at a time, but took multiple tabs of both over multiple intervals. She is not able to be more clear with me than this. She vaguely remembers being in the garage and falling over. She thinks she may have left the car running at 1 time and she asked me if she has carbon monoxide poisoning. She vaguely remembers getting back in the house. Our emergency department physician did check a carbon monoxide level and the patient did not have abnormally elevated carbon monoxide levels. Also, she smoked marijuana yesterday. Denies alcohol use. Tells me she has been sober for some time now. Denies any other street or recreational drug use. She does not recall much of what happened last night or today. Review of Systems Status of ROS: Reports: 10 or more systems reviewed and unremarkable except as noted in History and below Narrative: Denies chest heaviness, pressure, tightness, or pain. Denies syncope or near- syncope. Denies nausea or vomiting. Only food she ate all day today was a piece of toast. Did not take her medications today that she is aware of. Denies cough or dyspnea. Denies palpitations or chest fluttering. Denies f ahmet, rigors, diaphoresis. Denies dysuria, urgency, frequency, hematuria. Denies diarrhea or constipation. Does have chronic intermittent abdominal cramping and pain since surgery she had a number of years ago. No focal motor neurologic deficits. [facility] Medical History Obstructive sleep apnea treated with continuous positive airway pressure (CPAP) (~2016) ?G47.33 - Obstructive sleep apnea (adult) (pediatric) (ICD-10) ?Z99.89 - Dependence on other enabling machines and devices (ICD-10) Venous insufficiency of both lower extremities ?I87.2 - Venous insufficiency (chronic) (peripheral) (ICD-10) Varicose veins of both lower extremities ?I83.93 - Asymptomatic varicose veins of bilateral lower extremities (ICD-10) Unintended weight loss (~11/2021) ?R63.4 - Abnormal weight loss (ICD-10) Rectal urgency ?R15.2 - Fecal urgency (ICD-10) Osteopenia (2015) ?M85.80 - Other specified disorders of bone density and structure, unspecified site (ICD-10) Osteoarthritis ?M19.90 - Unspecified osteoarthritis, unspecified site (ICD-10) Obstructive chronic bronchitis with exacerbation ?J44.1 - Chronic obstructive pulmonary disease with (acute) exacerbation (ICD-10) Internal derangement of knee ?M23.90 - Unspecified internal derangement of unspecified knee (ICD-10) History of drug abuse (2013) ?F19.11 - Other psychoactive substance abuse, in remission (ICD-10) Hepatitis C ?B19.20 - Unspecified viral hepatitis C without hepatic coma (ICD-10) Encounter for counseling regarding advance directives (06/21/15) ?Z71.89 - Other specified counseling (ICD-10) Elevated blood pressure reading ?R03.0 - Elevated blood-pressure reading, without diagnosis of hypertension (ICD-10) Chronic neck pain ?M54.2 - Cervicalgia (ICD-10) ?G89.29 - Other chronic pain (ICD-10) Bleeding internal hemorrhoids ?K64.8 - Other hemorrhoids (ICD-10) Bilateral edema of lower extremity ?R60.0 - Localized edema (ICD-10) Surgical History Hx of varicose vein ligation and stripping (~2016) ?Z98.890 - Other specified postprocedural states (ICD-10) Colon cancer screening (~2015) ?Z12.11 - Encounter for screening for malignant neoplasm of colon (ICD-10) Status post left knee replacement (04/08/19) ?Z96.652 - Presence of left artificial knee joint (ICD-10) History of right knee joint replacement (2009) ?Z96.651 - Presence of right artificial knee joint (ICD-10) History of repair of right rotator cuff (~2011) ?Z98.890 - Other specified postprocedural states (ICD-10) History of ovarian cystectomy ?Z98.890 - Other specified postprocedural states (ICD-10) ?Z87.42 - Personal history of other diseases of the female genital tract (ICD-10) History of medial meniscus repair of left knee (2013) ?Z98.890 - Other specified postprocedural states (ICD-10) History of hysterectomy with oophorectomy (1984) History of arthroplasty of right knee (2009) ?Z96.651 - Presence of right artificial knee joint (ICD-10) History of abdominoplasty (1996) ?Z98.890 - Other specified postprocedural states (ICD-10) H/O endoscopy ?Z98.890 - Other specified postprocedural states (ICD-10) Normal colonoscopy (2021) Family History Aunt Breast cancer Mother Ovarian cancer Sister Stomach cancer Other Adopted person Social History Narrative: Single, homemaker, lives with cat in town house NF Smokes- hx 30 pack years Does not drink alcohol Exercises 3 to 4 times per week- walks 3M Smoking Status: Light tobacco smoker What tobacco products do you use: cigarettes Do you use any of these nicotine containing products: None Second hand tobacco smoke exposure: No How often do you have a drink containing alcohol: never AUDIT-C Alcohol total score: 0 Non-prescribed substance use: denies use Little interest or pleasure in doing things: several days Feeling down, depressed, or hopeless: several days Meds Home Medications and Allergies Home Medications Medication Instructions Recorded Confirmed Type albuterol sulfate 2.5 mg/3 mL 2.5 mg inhalation PRN 02/23/22 02/21/23 History (0.083 %) solution for nebulization divalproex 500 mg tablet,delayed mg PO DAILY 02/23/22 02/21/23 History release fluticasone furoate 200 1 inhalation DAILY 02/23/22 02/21/23 History mcg-vilanterol 25 mcg/dose inhalation powder lorazepam 0.5 mg tablet 0.5 mg PO .as needed PRN 02/23/22 02/21/23 History mirtazapine 7.5 mg tablet 7.5 mg PO .Bedtime 02/23/22 02/21/23 History Allergies Allergy/AdvReac Type Severity Reaction Status Date / Time gabapentin Allergy Intermediate Hives Verified 02/21/23 14:40 lisinopril Allergy Intermediate edema in Verified 02/21/23 14:40 face risperidone Allergy Unknown Verified 02/21/23 14:40 amlodipine AdvReac Mild leg Verified 02/21/23 14:40 swelling quetiapine AdvReac swelling Verified 02/21/23 14:40 Exam Narrative: Exam Narrative: I 1st examined the patient in the emergency department. She appears comfortable and in no acute distress. Vision and hearing are grossly normal. Alert, oriented to self, place, time, in part to situation. Again has loss of recollection of several things that happened last night and this morning. Friendly, articulate. Tearful at times and seemingly afraid. States that she was not and is not suicidal but did not know how to cope. Tympanic membranes normal bilaterally. Midline nasal septum. Dry buccal mucosa . Dentition in fair repair. No icterus or conjunctival injection. Conjugate gaze. Pupils equally round and reactive to light and accommodation. No head and neck lymphadenopathy. Neck is supple. Midline trachea. No JVD or hepatojugular reflux. No carotid bruits. Lungs are clear to auscultation bilaterally. Large area of ecchymosis over right scapula in the back. No CVA tenderness. Heart tones with regular rhythm, normal S1-S2, without murmur, gallop, or rub. PMI not laterally displaced. Abdomen with active bowel sounds, soft, nontender. No rebound or guarding. Multiple contusions and ecchymoses including over the frontalis right around the hairline, bilateral elbows and knees, bilateral upper and lower extremities, left lateral proximal thigh, presacral area bilaterally, issue tuberosity bilaterally. No focal motor neurologic deficits. Ambulates with standby assist only. No tremor, asterixis, or ataxia. Const: Vital Signs, click to edit/add: Vital Signs - 24 hr 03/18/23 16:43 03/18/23 18:21 03/18/23 18:24 Temperature 98.2 F Pulse Rate 84 83 Pulse Rate [Pulse Oximeter] 93 Respiratory Rate 20 Blood Pressure 154/77 H Blood Pressure [Le ft Upper Arm] 132/89 Pulse Oximetry 94 97 95 Oxygen Delivery Me thod Room Air 03/18/23 18:30 03/18/23 18:47 03/18/23 19:42 Temperature Pulse Rate 80 83 86 Pulse Rate [Pulse Oximeter] Respiratory Rate 18 Blood Pressure 160/78 H Blood Pressure [Le ft Upper Arm] Pulse Oximetry 96 96 97 Oxygen Delivery Me thod 03/18/23 19:43 03/18/23 19:45 03/18/23 20:00 Temperature Pulse Rate 88 84 76 Pulse Rate [Pulse Oximeter] Respiratory Rate Blood Pressure Blood Pressure [Le ft Upper Arm] Pulse Oximetry 97 98 96 Oxygen Delivery Me thod 03/18/23 20:15 03/18/23 20:30 03/18/23 20:45 Temperature Pulse Rate 76 73 75 Pulse Rate [Pulse Oximeter] Respiratory Rate Blood Pressure Blood Pressure [Le ft Upper Arm] Pulse Oximetry 95 96 98 Oxygen Delivery Me thod Documenting provider has reviewed patient's vital signs: yes Hospitalist - H&P: Result Labs Labs: Short CBC 03/18/23 Range/Units 17:34 WBC 10.60 (4.50-11.00) K/uL Hgb 12.0 (12.0-16.0) gm/dL Hct 34.3 (33.0-51.0) % Plt Count 297 (140-440) K/uL BMP 03/18/23 17:34 Sodium 130 L Potassium 3.5 L Chloride 94 L Carbon Dioxide 24 BUN 40 H Creatinine 1.5 Glucose 94 Calcium 8.7 Cardiac Enzymes 03/18/23 Range/Units 17:34 Total Creatine Kinase 3879 H (41-117) U/L Troponin I 0.04 (0.01-0.04) ng/mL Liver Function 03/18/23 Range/Units 17:34 Total Bilirubin 1.7 H (0.1-1.5) mg/dL AST 113 H (12-35) U/L ALT 33 (4-35) U/L Alkaline Phosphatase 47 (40-150) U/L Albumin 4.2 (3.3-5.0) g/dL ECG Attestation: I personally reviewed and interpreted this ECG as follows: ECG interpretation date: 03/18/23 ECG interpretation time: 19:30 Prior ECG tracings: not available for review Interpretation: Normal sinus rhythm. Nonspecific T-wave abnormalities inferiorly. No ischemic or infarct pattern. Imaging CT scan - head: Attestation: I have reviewed the pertinent imaging results. Radiologist's impression: Impression: Small left convexity subdural hematoma without evidence of significant mass effect or midline shift at this time. Otherwise, age-related changes of the brain without acute intracranial abnormality. Chest x-ray: Attestation: I have reviewed the pertinent imaging results. Radiologist's impression: No acute cardiopulmonary process. No obvious fractures. Assessment and Plan Assessment and plan (1) Fall: Problem comment: -due to lorazepam and cyclobenzaprine overdose 03/17/2023 Status: Acute (2) Overdose by ingestion: Problem comment: - Lorazepam and cyclobenzaprine on 03/17/2023 - Lorazepam 0.5 mg BID PRN - stop cyclobenzaprine Status: Acute (3) Lorazepam overdose of undetermined intent: Problem comment: - on 03/17/2023 - if/when medically stabilized, then obtain DEC assessment Status: Acute (4) Ineffective coping: Problem comment: - DEC assessment when medically stable - Continue to work with psychiatrist and therapist in outpatient setting Status: Acute (5) Traumatic subdural hematoma: Problem comment: - CT head at 1800 on 03/18/2023, s/p fall 03/17/2023: left convexity acute subdural hematoma without mass effect or midline shift - Dr. Jean reviewed with [facility] neurosurgeon, Dr. Espinoza Do: repeat CT head in 6 hours and normalize hyponatremia - neurological assessments every 4 hours, and if worsening then consider repeat CT of head and call neurosurgeon Status: Acute (6) Traumatic ecchymosis of multiple sites: Problem comment: - s/p fall 03/17/2023 after overdose of lorazepam and cyclobenzaprine - frontalis, bilateral upper and lower extremities, elbows, knees, right back overlying scapula, left lateral thigh, ischial tuberosities, pre-sacrum Status: Acute (7) Traumatic rhabdomyolysis: Problem comment: - Creatine kinase 3,900 03/18/2023 - Normal saline IV infusion and monitor creatine kinase - monitore weight Status: Acute (8) Acute renal failure due to traumatic rhabdomyolysis: Problem comment: - baseline Cr 0.5, and on 03/18/2023 Cr 1.5 - monitor creatinine and consider re-check urinalysis Status: Acute (9) Hyponatremia: Problem comment: - Na 130 on 03/18/2023 - Normal saline IV infusion - moniotr Na Status: Acute (10) Hypokalemia: Problem comment: - K 3.5 on 04/02/2023 - oral potassium supplementation and monitor K Status: Acute (11) Elevated AST (SGOT): Problem comment: - AST 130 03/18/2023 - hold statin therapy - monitor Status: Acute (12) Total bilirubin, elevated: Problem comment: - T Bili 1.7 03/18/2023 - D Bili is pending as of 03/18/2023 - rehydrate and monitor Status: Acute (13) Elevated troponin I level: Problem comment: - Trop I 0.04 03/18/2023 without ischemic changes on ECG - suspect due to TACO - continue to monitor trop I and ECG serially - telemetry for now Status: Acute (14) Marijuana smoker, episodic: Status: Acute (15) Bipolar affective disorder: Problem comment: sees Dr gavin Jack, therapist Jada Marker Status: Chronic (16) Obstructive sleep apnea treated with continuous positive airway pressure (CPAP): Problem comment: - continue with home CPAP Status: Acute Plan 1. Reviewed above with patient. Answered her questions. 2. Patient agreeable with above stated plans and recommendations.
[2023-03-18 21:06] LABS: Appearance Urine Clear (Clear); Bilirubin Urine Negative (Negative); Blood Urine Negative (Negative); Color Urine Orange (Yellow); Glucose Urine Negative (Negative); Ketones Urine Negative (Negative); Leukocyte Esterase Urine Negative (Negative); Nitrite Urine Negative (Negative); Protein Urine Negative (Negative); Specific Gravity Urine 1.015 (1.000-1.030); Urobilinogen Urine 0.2 (0.2-1.0); pH Urine 5.5 (5.0-8.5)
[2023-03-18 21:12] LABS: Amphetamine Screen Urine Negative (Negative); Barbiturate Screen Urine Negative (Negative); Benzodiazepines Screen Urine POSITIVE (Negative); Cannabinoid Screen Urine POSITIVE (Negative); Cocaine Screen Urine Negative (Negative); Methadone Screen Urine Negative (Negative); Methamphetamines Screen Urine Negative (Negative); Opiate Screen Urine Negative (Negative); Oxycodone Screen Urine Negative (Negative); Phencyclidine Screen Urine Negative (Negative); Tricyclic Antidepressant Urine POSITIVE (Negative)
[2023-03-18 21:18] LABS: Troponin I* 0.03 ng/mL (0.01-0.04)
[2023-03-18 21:19] LABS: RBC Urine 0-2 (0-2); WBC Urine 0-2 (0-5)
[2023-03-18] MEDS: DIVALPROEX DELAYED RELEASE 250 MG TABLET 1000 MG PO (22:13)
[2023-03-18] MEDS: POTASSIUM BICARB 25 MEQ EFFERVESCENT TAB PO (22:13)
[2023-03-18] MEDS: MIRTAZAPINE 15 MG TABLET 7.5 MG PO (22:14)
[2023-03-18] MEDS: METOPROLOL SUCCINATE (XL) 100 MG TAB PO (22:14)
[2023-03-18] MEDS: 0.9 % SODIUM CHLORIDE 1000 ml 1,000 ML 125 ML IV (22:15)
[2023-03-18] MEDS: ALBUTEROL INHALER 2 PUFF IH (22:22)
[2023-03-18] MEDS: HYDRALAZINE 25 MG TABLET PO (22:23)
[2023-03-18] MEDS: ACETAMINOPHEN 325 MG TABLET 650 MG PO (22:26)
[2023-03-18 23:03] LABS: Bilirubin Direct* 0.4 mg/dL (0.0-0.5)
[2023-03-18] MEDS: ROPINIROLE HCL 1 MG TABLET PO (23:54)
[2023-03-19] VITALS (8 sets, daily range): BP systolic 117–163; BP diastolic 57–82; PULSE 64–73; RESP 16–18; TEMP 36.5–36.7; O2SAT 94–97
--- NOTE | 2023-03-19 | CRLHL7_ITS ---
For Patients: As a result of the Century Cures Act, medical imaging exams and procedure reports are released immediately into your electronic medical record. You may view this report before your referring provider. If you have questions, please contact your health care provider. INDICATION: Follow-up subdural hemorrhage COMPARISON: 03/18/2023 TECHNIQUE: A CT volumetric acquisition was performed of the brain without IV contrast. Please note that all CT scans at this facility use dose modulation, iterative reconstruction, and/or weight-based dosing when appropriate to reduce radiation dose to as low as reasonably achievable. FINDINGS: Left extra-axial lobular hemorrhage is similar, measuring up to 7 millimeters. No midline shift or herniation. Right frontal scalp soft tissue swelling. No fracture. IMPRESSION: Similar left extra-axial subdural hemorrhage. Please note that all CT scans at this facility use dose modulation, iterative reconstruction, and/or weight-based dosing when appropriate to reduce radiation dose to as low as reasonably achievable. Dictated by Gil Jiang MD @ 03/19/2023 9:43:23 AM (Electronically Signed)
[2023-03-19] MEDS: ACETAMINOPHEN 325 MG TABLET 650 MG PO ×3 (05:18→22:48)
[2023-03-19] MEDS: 0.9 % SODIUM CHLORIDE 1000 ml 1,000 ML 125 ML IV ×3 (05:19→21:50)
[2023-03-19] MEDS: ALBUTEROL INHALER 2 PUFF IH ×5 (05:26→20:47)
[2023-03-19] MEDS: LEVOTHYROXINE 112 MCG TABLET PO (05:26)
[2023-03-19 07:43] LABS: HCO3 VBG 25 mmol/L (21-28); Lactate* 0.5 mmol/L (0.5-1.9); PCO2 VBG 35 mmHG (40-50); PO2 VBG 53.9 mmHG (25-47); pH VBG 7.457 (7.32-7.43)
[2023-03-19 07:49] LABS: Hematocrit 28.7 % (33.0-51.0); Hemoglobin* 9.8 gm/dL (12.0-16.0); Mean Corpuscular HGB Conc 34 gm/dL (32-36); Mean Corpuscular Hemoglobin 32 pg (26-34); Mean Corpuscular Volume 94 fL (80-100); Platelet Count* 240 K/uL (140-440); Red Blood Count 3.05 m/uL (4.00-5.20); White Blood Count* 7.04 K/uL (4.50-11.00)
[2023-03-19 07:52] LABS: Slide Review Reflex No
[2023-03-19 07:59] LABS: Chloride* 98 mmol/L (96-114); Sodium* 129 mmol/L (135-149)
[2023-03-19 08:00] LABS: Albumin* 3.2 g/dL (3.3-5.0); Potassium* 3.1 mmol/L (3.6-5.1)
[2023-03-19 08:02] LABS: Creatinine* 0.7 mg/dL (0.5-1.5); Est. Creatinine Clearance* 45.85; Estimated Glomerular Filt Rate 94 ml/min
[2023-03-19 08:03] LABS: Alanine Aminotransferase* 28 U/L (4-35); Alkaline Phosphatase* 38 U/L (40-150); Anion Gap 6 mEq/L (7-15); Aspartate Amino Transferase* 83 U/L (12-35); Bilirubin Direct* 0.2 mg/dL (0.0-0.5); Bilirubin Total* 1.3 mg/dL (0.1-1.5); Blood Urea Nitrogen* 26 mg/dL (7-30); Carbon Dioxide* 25 mmol/L (20-32); Glucose* 83 mg/dL (60-115)
--- NOTE | 2023-03-19 08:03 | PC.NURSE ---
Pt up with SBA. VSS . voiding without difficulty. Minimal pain reported per pt.
[2023-03-19 08:04] LABS: Magnesium* 1.7 mg/dL (1.5-2.6); Phosphorus* 2.6 mg/dL (2.5-4.5)
[2023-03-19 08:15] LABS: Troponin I* 0.02 ng/mL (0.01-0.04)
[2023-03-19 08:17] LABS: NT Pro B Type NatriureticPept* 213 pg/mL
[2023-03-19] MEDS: METOPROLOL SUCCINATE (XL) 100 MG TAB PO ×2 (09:26→20:47)
[2023-03-19] MEDS: DIVALPROEX DELAYED RELEASE 250 MG TABLET 500 MG PO (09:26)
[2023-03-19] MEDS: OMEPRAZOLE 20 MG CAPSULE DR 40 MG PO (09:26)
[2023-03-19] MEDS: HYDRALAZINE 25 MG TABLET PO ×2 (11:32→20:49)
--- NOTE | 2023-03-19 12:02 | P.IMPN_ITS ---
Progress Note: A&P Assessment and plan (1) Fall: Problem details: -reported as multiple resulting in several bruises -due to lorazepam and cyclobenzaprine overdose 03/17/2023 -PT/OT consults Status: Acute (2) Overdose by ingestion: Problem details: - Lorazepam and cyclobenzaprine on 03/17/2023. Patient not forthcoming on accidental versus intentional. Admits to increased stressors, worsening dep ression - continue Lorazepam 0.5 mg BID PRN, monitor for withdrawal symptoms - stop cyclobenzaprine Status: Acute (3) Ineffective coping: Problem details: - Poorly managed depression, increasing stressors - DEC assessment ordered - Continue to work with psychiatrist and therapist in outpatient setting Status: Acute (4) Traumatic subdural hematoma: Problem details: - CT head at 1800 on 03/18/2023, s/p fall 03/17/2023: left convexity acute subdural hematoma without mass effect or midline shift - Dr. Jean reviewed with [facility] neurosurgeon, Dr. Espinoza Do: repeat CT head in 6 hours and normalize hyponatremia - neurological assessments every 4 hours, and if worsening then consider repeat CT of head and call neurosurgeon - stable neuro assessments - repeat [address] unchanged. Mild headache Status: Acute (5) Traumatic ecchymosis of multiple sites: Problem details: - s/p fall 03/17/2023 after overdose of lorazepam and cyclobenzaprine - frontalis, bilateral upper and lower extremities, elbows, knees, right back overlying scapula, left lateral thigh, ischial tuberosities, pre-sacrum - stable Status: Acute (6) Traumatic rhabdomyolysis: Problem details: - Creatine kinase 3,900 03/18/2023, repeat CK pending - IVF hydration - monitor weight Status: Acute (7) Acute renal failure due to traumatic rhabdomyolysis: Problem details: - creatinine 0.7, baseline Cr 0.5. On admission was 1.5 - monitor creatinine Status: Acute (8) Hyponatremia: Problem details: - Na 129, down from 130 on admission - IVF hydration - continue to monitor Status: Acute (9) Hypokalemia: Problem details: - K 3.1 down from 3.5 - oral potassium supplementation and monitor K Status: Acute (10) Elevated AST (SGOT): Problem details: - AST 130 03/18/2023, down trending - hold statin therapy - monitor Status: Acute (11) Total bilirubin, elevated: Problem details: - T Bili 1.3, down from 1.7 on 03/18/2023 - D Bili 0.2 - rehydrate and continue to monitor Status: Acute (12) Elevated troponin I level: Problem details: - Trop I 0.04 03/18/2023 without ischemic changes on ECG - suspect due to TACO - troponin 0.02 on 03/19 - continue telemetry Status: Acute (13) Marijuana smoker, episodic: Problem details: -likely contributing to falls Status: Acute (14) Bipolar affective disorder: Problem details: -current not well managed, sees Dr Lobo Jack, therapist Jada Gregg -will need outpatient follow-up Status: Chronic (15) Obstructive sleep apnea treated with continuous positive airway pressure (CPAP): Problem details: - continue with home CPAP Status: Acute Plan CODE: Full VTE PPX: SCDs, chemical prophylaxis contraindicated in subdural bleed Disposition: Inpatient. Awaiting DEC assessment for further recommendations Time Spent With Patient Total time spent: Total time spent caring for the patient today was 45 minutes. This includes time spent for the visit reviewing the chart, time spent during the visit, time spent after the visit and documentation and planning in coordination of care. Subjective Date Seen: 03/19/23 Interval history: Patient is feeling a little better this morning. Mentation is clearing. Remembers some falls at home and in her garage. Recognizes she is quite bruised. Denies any new pain or injuries. Has a slight headache this morning. Otherwise denies dizziness. Denies chest pain or shortness of breath. Tolerating orals without nausea vomiting. Patient tells me she has been off of her antidepressant and has been feeling more anxious with increase in stressors as of late. Admits taking anxiolytics but is not forthcoming as to whether she took too many by accident or on purpose. Does not directly answer the question of self-harm or wishing to be . Exam Narrative: Exam Narrative: PHYSICAL EXAM General: Sitting up in bed, flat affect, appears in NAD HEENT: Normocephalic, atraumatic, sclera white, EOMI, oral mucosa moist Cardiovascular: RRR, S1S2. No pitting edema Pulmonary: CTA bilaterally without rhonchi, rales, expiratory wheezes. No dyspnea Neurological: Alert, answering questions appropriately, though vague, cranial nerves intact, no focal findings Extremities: No gross joint deformity or swelling. AROMI. Neurovascularly intact Skin: Warm, dry. Const: Vital Signs, click to edit/add: Vital Signs - 24 hr 03/18/23 16:43 03/18/23 18:21 03/18/23 18:24 Temperature 98.2 F Pulse Rate 84 83 Pulse Rate [Pulse Oximeter] 93 Respiratory Rate 20 Blood Pressure 154/77 H Blood Pressure [Le ft Arm] Blood Pressure [Le ft Upper Arm] 132/89 Pulse Oximetry 94 97 95 Oxygen Delivery Me thod Room Air 03/18/23 18:30 03/18/23 18:47 03/18/23 19:42 Temperature Pulse Rate 80 83 86 Pulse Rate [Pulse Oximeter] Respiratory Rate 18 Blood Pressure 160/78 H Blood Pressure [Le ft Arm] Blood Pressure [Le ft Upper Arm] Pulse Oximetry 96 96 97 Oxygen Delivery Me thod 03/18/23 19:43 03/18/23 19:45 03/18/23 20:00 Temperature Pulse Rate 88 84 76 Pulse Rate [Pulse Oximeter] Respiratory Rate Blood Pressure Blood Pressure [Le ft Arm] Blood Pressure [Le ft Upper Arm] Pulse Oximetry 97 98 96 Oxygen Delivery Me thod 03/18/23 20:15 03/18/23 20:30 03/18/23 20:45 Temperature Pulse Rate 76 73 75 Pulse Rate [Pulse Oximeter] Respiratory Rate Blood Pressure Blood Pressure [Le ft Arm] Blood Pressure [Le ft Upper Arm] Pulse Oximetry 95 96 98 Oxygen Delivery Me thod 03/18/23 21:09 03/18/23 23:00 03/18/23 23:00 Temperature 97.7 F 98 F Pulse Rate Pulse Rate [Pulse Oximeter] 79 80 Respiratory Rate 16 Blood Pressure Blood Pressure [Le ft Arm] 152/99 H 125/71 Blood Pressure [Le ft Upper Arm] Pulse Oximetry 97 95 95 Oxygen Delivery Me thod Room Air Room Air Room Air 03/19/23 03:00 03/19/23 04:00 03/19/23 07:00 Temperature 97.7 F Pulse Rate 65 Pulse Rate [Pulse Oximeter] 65 66 Respiratory Rate 18 18 Blood Pressure Blood Pressure [Le ft Arm] 117/57 L Blood Pressure [Le ft Upper Arm] Pulse Oximetry 95 Oxygen Delivery Me thod Room Air 03/19/23 07:00 03/19/23 07:00 03/19/23 07:00 Temperature 97.7 F Pulse Rate 64 Pulse Rate [Pulse Oximeter] 66 Respiratory Rate 18 18 Blood Pressure Blood Pressure [Le ft Arm] 142/61 H Blood Pressure [Le ft Upper Arm] Pulse Oximetry 96 96 Oxygen Delivery Me thod Room Air Room Air 03/19/23 11:00 Temperature 98.0 F Pulse Rate Pulse Rate [Pulse Oximeter] 66 Respiratory Rate 16 Blood Pressure Blood Pressure [Le ft Arm] 140/67 H Blood Pressure [Le ft Upper Arm] Pulse Oximetry 97 Oxygen Delivery Me thod Room Air Labs Labs: Laboratory Results - last 24 hr 03/18/23 03/18/23 03/18/23 17:34 17:42 20:44 WBC 10.60 RBC 3.74 L Hgb 12.0 Hct 34.3 MCV 92 MCH 32 MCHC 35 RDW Coeff of Jaden 12.7 Plt Count 297 Neut % (Auto) 68.1 Lymph % (Auto) 18.1 L Clarke % (Auto) 13.0 H Eos % (Auto) 0.4 Baso % (Auto) 0.2 Neut # (Auto) 7.22 H Lymph # (Auto) 1.90 Clarke # (Auto) 1.40 H Eos # (Auto) 0.04 Baso # (Auto) 0.02 Abs Immat Gran (auto) 0.02 Imm/Tot Granulo (auto) 0.2 VBG pH VBG pCO2 VBG pO2 VBG HCO3 Carboxyhemoglobin 3.3 Sodium 130 L Potassium 3.5 L Chloride 94 L Carbon Dioxide 24 Anion Gap 12 BUN 40 H Creatinine 1.5 Estimated Creat Clear 30.57 Estimated GFR 37 Glucose 94 Lactate 1.0 Calcium 8.7 Phosphorus Magnesium 1.6 Total Bilirubin 1.7 H Direct Bilirubin 0.4 AST 113 H ALT 33 Alkaline Phosphatase 47 Ammonia 28.0 Total Creatine Kinase 3879 H Troponin I 0.04 0.03 C-Reactive Protein 8.6 H NT-Pro-B Natriuret Pep Total Protein 7.4 Albumin 4.2 Urine Color Urine Appearance Urine pH Ur Specific [place] Urine Protein Urine Glucose (UA) Urine Ketones Urine Blood Urine Nitrite Urine Bilirubin Urine Urobilinogen Ur Leukocyte Esterase Urine RBC Urine WBC Ur Squamous Epith Cells Urine Bacteria Salicylates < 1.0 L Urine Opiates Screen Ur Oxycodone Screen Urine Methadone Screen Ur Propoxyphene Screen Acetaminophen < 10.0 L Ur Barbiturates Screen U Tricyclic Antidepress Ur Phencyclidine Scrn Ur Amphetamines Screen U Methamphetamines Scrn U Benzodiazepines Scrn Urine Cocaine Screen U Marijuana (THC) Screen Ur Drug Screen Comment Ethyl Alcohol < 0.01 L SARS-CoV-2 (PCR) Negative SARS-CoV-2 Influenza Type A (PCR) Negative PCR FLU A Influenza Type B (PCR) Negative PCR FLU B RSV (PCR) Negative PCR RSV Lab Acknowledgement 03/18/23 03/18/23 03/19/23 20:55 21:08 07:37 WBC 7.04 RBC 3.05 L Hgb 9.8 L Hct 28.7 L MCV 94 MCH 32 MCHC 34 RDW Coeff of Jaden Plt Count 240 Neut % (Auto) Lymph % (Auto) Clarke % (Auto) Eos % (Auto) Baso % (Auto) Neut # (Auto) Lymph # (Auto) Clarke # (Auto) Eos # (Auto) Baso # (Auto) Abs Immat Gran (auto) Imm/Tot Granulo (auto) VBG pH 7.457 H VBG pCO2 35 L VBG pO2 53.9 H VBG HCO3 25 Carboxyhemoglobin Sodium 129 L Potassium 3.1 L Chloride 98 Carbon Dioxide 25 Anion Gap 6 L BUN 26 Creatinine 0.7 Estimated Creat Clear 45.85 Estimated GFR 94 Glucose 83 Lactate 0.5 Calcium 8.0 L Phosphorus 2.6 Magnesium 1.7 Total Bilirubin 1.3 Direct Bilirubin 0.2 AST 83 H ALT 28 Alkaline Phosphatase 38 L Ammonia Total Creatine Kinase Troponin I 0.02 C-Reactive Protein 19.0 H NT-Pro-B Natriuret Pep 213 Total Protein 6.0 Albumin 3.2 L Urine Color [place] A Urine Appearance Clear Urine pH 5.5 Ur Specific [place] 1.015 Urine Protein Negative Urine Glucose (UA) Negative Urine Ketones Negative Urine Blood Negative Urine Nitrite Negative Urine Bilirubin Negative Urine Urobilinogen 0.2 Ur Leukocyte Esterase Negative Urine RBC 0-2 Urine WBC 0-2 Ur Squamous Epith Cells None Urine Bacteria None Salicylates Urine Opiates Screen Negative Ur Oxycodone Screen Negative Urine Methadone Screen Negative Ur Propoxyphene Screen Negative Acetaminophen Ur Barbiturates Screen Negative U Tricyclic Antidepress POSITIVE A Ur Phencyclidine Scrn Negative Ur Amphetamines Screen Negative U Methamphetamines Scrn Negative U Benzodiazepines Scrn POSITIVE A Urine Cocaine Screen Negative U Marijuana (THC) Screen POSITIVE A Ur Drug Screen Comment See Note Ethyl Alcohol SARS-CoV-2 (PCR) Influenza Type A (PCR) Influenza Type B (PCR) RSV (PCR) Lab Acknowledgement Test Added 03/19/23 12:01 WBC RBC Hgb Hct MCV MCH MCHC RDW Coeff of Jaden Plt Count Neut % (Auto) Lymph % (Auto) Clarke % (Auto) Eos % (Auto) Baso % (Auto) Neut # (Auto) Lymph # (Auto) Clarke # (Auto) Eos # (Auto) Baso # (Auto) Abs Immat Gran (auto) Imm/Tot Granulo (auto) VBG pH VBG pCO2 VBG pO2 VBG HCO3 Carboxyhemoglobin Sodium Potassium Chloride Carbon Dioxide Anion Gap BUN Creatinine Estimated Creat Clear Estimated GFR Glucose Lactate Calcium Phosphorus Magnesium Total Bilirubin Direct Bilirubin AST ALT Alkaline Phosphatase Ammonia Total Creatine Kinase Troponin I C-Reactive Protein NT-Pro-B Natriuret Pep Total Protein Albumin Urine Color Urine Appearance Urine pH Ur Specific [place] Urine Protein Urine Glucose (UA) Urine Ketones Urine Blood Urine Nitrite Urine Bilirubin Urine Urobilinogen Ur Leukocyte Esterase Urine RBC Urine WBC Ur Squamous Epith Cells Urine Bacteria Salicylates Urine Opiates Screen Ur Oxycodone Screen Urine Methadone Screen Ur Propoxyphene Screen Acetaminophen Ur Barbiturates Screen U Tricyclic Antidepress Ur Phencyclidine Scrn Ur Amphetamines Screen U Methamphetamines Scrn U Benzodiazepines Scrn Urine Cocaine Screen U Marijuana (THC) Screen Ur Drug Screen Comment Ethyl Alcohol SARS-CoV-2 (PCR) Influenza Type A (PCR) Influenza Type B (PCR) RSV (PCR) Lab Acknowledgement Test Added
[2023-03-19 12:19] LABS: Creatine Kinase* 2083 U/L (41-117)
[2023-03-19] MEDS: ROPINIROLE HCL 1 MG TABLET PO (16:28)
[2023-03-19] MEDS: POTASSIUM CHLORIDE 10 MEQ CAPSULE ER 40 MEQ PO (19:15)
--- NOTE | 2023-03-19 19:27 | PC.NURSE ---
pt is alert and oriented, VSS, RA, sba with walker and GB to BR, hallway and to chair for meals, IV patent. Denies any pain, pt has bruising bilaterally on wrist, elbows, knees, and feet. bruising also noted on left hip and buttock. pt does not recall how they got there only admits she fell at some point.
[2023-03-19] MEDS: DIVALPROEX DELAYED RELEASE 250 MG TABLET 1000 MG PO (20:48)
[2023-03-19] MEDS: ROPINIROLE HCL 1 MG TABLET 2 MG PO (20:48)
[2023-03-19] MEDS: MIRTAZAPINE 15 MG TABLET 7.5 MG PO (20:49)
--- NOTE | 2023-03-19 22:48 | PC.NURSE ---
[facility] called and spoke with to around 1630. Per MD [facility] stated they were not able to do exam yet. [employer] called around 2130 to get update and [facility] states they were waiting on a call from us because they couldn't get through and there was currently a 3-4 hour wait. Instructed to have our staff call right away in the morning to attempt DEC assessment on 03/20 as patient was going to sleep.
[2023-03-19] MEDS: LORazepam 0.5 MG TABLET PO (23:08)
[2023-03-20] MEDS: ALBUTEROL INHALER 2 PUFF IH ×3 (01:26→08:42)
[2023-03-20 03:00] VITALS: BP 150/71; PULSE 73; RESP 16; TEMP 36.6; O2SAT 97
--- NOTE | 2023-03-20 04:45 | PC.NURSE ---
Shift note:Pt is doing well ambulating with A1, walker and GB. Very steady when up on the walker. At 2230 pt complained of headache and Tylenol 1g was given, icepack applied to forehead. Pt insisted to sit in the recliner. Nurse found patient crying while sitting in the recliner at 2300. Pt said I can do this anymore, I am feeling anxious. Lorazepam 0.5mg PRN was given and this help helped patient ti sleep after going to the BR. Pt demonstrate occasional confusion. Vitally stable. Pt had visited BR 3x [id number]. Refused SCD.
[2023-03-20] MEDS: 0.9 % SODIUM CHLORIDE 1000 ml 1,000 ML 125 ML IV (06:15)
[2023-03-20] MEDS: ACETAMINOPHEN 325 MG TABLET 650 MG PO (06:16)
[2023-03-20] MEDS: LEVOTHYROXINE 112 MCG TABLET PO (06:16)
[2023-03-20 07:00] VITALS: BP 153/77; PULSE 75; RESP 16; TEMP 36.7; O2SAT 96
[2023-03-20 07:19] LABS: Hematocrit 30.3 % (33.0-51.0); Hemoglobin* 10.4 gm/dL (12.0-16.0); Mean Corpuscular HGB Conc 34 gm/dL (32-36); Mean Corpuscular Hemoglobin 33 pg (26-34); Mean Corpuscular Volume 95 fL (80-100); Platelet Count* 281 K/uL (140-440); Red Blood Count 3.19 m/uL (4.00-5.20); White Blood Count* 7.07 K/uL (4.50-11.00)
[2023-03-20 07:22] LABS: Slide Review Reflex No
[2023-03-20 07:28] LABS: Chloride* 99 mmol/L (96-114)
[2023-03-20 07:29] LABS: Potassium* 3.9 mmol/L (3.6-5.1); Sodium* 133 mmol/L (135-149)
[2023-03-20 07:31] LABS: Creatinine* 0.5 mg/dL (0.5-1.5); Est. Creatinine Clearance* 45.85; Estimated Glomerular Filt Rate 101 ml/min
[2023-03-20 07:32] LABS: Anion Gap 5 mEq/L (7-15); Blood Urea Nitrogen* 13 mg/dL (7-30); Calcium* 8.4 mg/dL (8.4-10.6); Carbon Dioxide* 29 mmol/L (20-32); Glucose* 89 mg/dL (60-115)
[2023-03-20 07:35] LABS: Creatine Kinase* 949 U/L (41-117)
[2023-03-20 07:39] LABS: C Reactive Protein* 7.4 mg/dL (0.5-1.0)
[2023-03-20] MEDS: POTASSIUM CHLORIDE 10 MEQ CAPSULE ER 40 MEQ PO (08:42)
[2023-03-20] MEDS: HYDRALAZINE 25 MG TABLET PO (08:42)
[2023-03-20] MEDS: OMEPRAZOLE 20 MG CAPSULE DR 40 MG PO (08:43)
[2023-03-20] MEDS: METOPROLOL SUCCINATE (XL) 100 MG TAB PO (08:43)
[2023-03-20] MEDS: DIVALPROEX DELAYED RELEASE 250 MG TABLET 500 MG PO (08:43)
[2023-03-20] MEDS: SODIUM CHLORIDE 0.9 % (FLUSH) 10 ML SYRINGE 5 ML IVF (08:43)
--- NOTE | 2023-03-20 13:27 | PM.DS1 ---
DS: Providers Provider Date Seen: 03/20/23 Date of admission: 03/18/23 21:08 Primary care physician: Kim Gardner MD Admitting Clinician: Joe Lopez MD Consults: 03/18/23 21:08 Consult to Occupational Therapy [CONS] Routine Comment: Reason(s) for OT Consult:: Evaluate and Treat Any Restrictions?:: No Restrictions Consult to Physical Therapy [CONS] Routine Comment: Reason(s) for PT Consult:: Evaluate and Treat Any Restrictions?:: No Restrictions Consult to [employer] [CONS] Routine Comment: Reason for Consult:: Social Service Consult 03/18/23 21:29 Consult to Physical Therapy [CONS] Routine Comment: Reason(s) for PT Consult:: Recent Falls Any Restrictions?:: No Restrictions Consult to [employer] [CONS] Routine Comment: pt states talia talks down to her Reason for Consult:: Social Service Consult Attending Physician on discharge[facility] JUNE Thomas, [facility] [place] Date of Discharge: 03/20/23 DS: Diagnosis Discharge Diagnosis (1) Overdose by ingestion: Status: Acute Problem details: - Lorazepam and cyclobenzaprine on 03/17/2023. Patient not forthcoming on accidental versus intentional. Admits to increased stressors, worsening depression - continue Lorazepam 0.5 mg BID PRN, monitor for withdrawal symptoms. Tolerated well without withdrawals. - stop cyclobenzaprine - assessed by [facility] telehealth. Per irrigation tax assessor collector, patient does not meet inpatient mental health criteria. Suspect overdose to be accidental in setting of acute pain and stressors. Patient reported not to be of risk to self or others. Reported as not being acutely suicidal. Recommend outpatient follow-up with therapist as scheduled on 03/21/2023 with outpatient follow-up with psychiatrist as soon as possible for further medication management. -recommend outpatient follow-up with therapist and psychiatrist (2) Fall: Status: Acute Problem details: -reported as multiple resulting in several bruises and a subdural hematoma -due to lorazepam and cyclobenzaprine overdose 03/17/2023 -PT/OT consulted. Discharged with a walker. -outpatient follow-up with PCP (3) Traumatic subdural hematoma: Status: Acute Problem details: - CT head at 1800 on 03/18/2023, s/p fall 03/17/2023: left convexity acute subdural hematoma without mass effect or midline shift - Dr. Jean reviewed with [facility] neurosurgeon, Dr. Espinoza Do: repeat CT head in 6 hours and normalize hyponatremia - neurological assessments every 4 hours, and if worsening then consider repeat CT of head and call neurosurgeon - stable neuro assessments - repeat [address] unchanged. Mild headache, intermittent, appropriately managed with Tylenol p.r.n. No new neurological changes. -close outpatient follow-up with PCP (4) Traumatic rhabdomyolysis: Status: Acute Problem details: - Creatine kinase 3,900 03/18/2023 improved to 949 following aggressive IV hydration. -close outpatient follow-up with PCP (5) Acute renal failure due to traumatic rhabdomyolysis: Status: Acute Problem details: - creatinine on admission was 1.5. Nephrotoxic medications were avoided and IV hydration implemented. Improved to baseline, 0.5, on discharge. (6) Hypokalemia: Status: Acute Problem details: - K 3.1 down from 3.5 - oral potassium supplementation -resolved, improved to 3.9 on day of discharge (7) Hyponatremia: Status: Acute Problem details: - Na 129, down from 130 on admission, improving to 133 on day of discharge - IVF hydration, daily monitoring (8) Total bilirubin, elevated: Status: Acute Problem details: - T Bili 1.3, trending down from 1.7 on 03/18/2023 - D Bili 0.2 - rehydrated with IV fluids (9) Elevated AST (SGOT): Status: Acute Problem details: - AST 130 03/18/2023, down trending - hold statin therapy. Follow-up with PCP to restart statin (10) Bipolar affective disorder: Status: Chronic Problem details: -current not well managed, sees Dr Lobo Jack, therapist Jada Gregg -will need outpatient follow-up -continue current home medications including lorazepam 0.5 mg b.i.d. p.r.n.. -Have discontinued cyclobenzaprine as increased risks for sedation, confusion, falls with current medications. (11) Ineffective coping: Status: Acute Problem details: - Poorly managed depression, increasing stressors - DEC assessment recommendations as above - Continue to work with psychiatrist and therapist in outpatient setting - has support group in local friends and scientologist who are willing to help in the short term - social services director assisted with discharge planning. Patient interested in finding [facility] arrangement and medication management assistance. (12) Traumatic ecchymosis of multiple sites: Status: Acute Problem details: - s/p fall 03/17/2023 after overdose of lorazepam and cyclobenzaprine - frontalis, bilateral upper and lower extremities, elbows, knees, right back overlying scapula, left lateral thigh, ischial tuberosities, pre-sacrum - stable -symptomatic cares with Tylenol, ice, rest (13) Hypertension: Status: Chronic Problem details: - increase metoprolol to 100 mg twice a day in addition to chlorthalidone 25 mg daily, hydralazine -outpatient follow-up with PCP DS: Summary Hospital Course Hospital Course: [age] year old female past medical history significant for chronic pain, restless legs syndrome, hypertension, poorly controlled bipolar disorder, marijuana use, COPD, GERD, hypothyroidism was admitted to the medical floor for further management following accidental overdose of lorazepam and cyclobenzaprine resulting in multiple falls resulting in subdural hematoma, rhabdomyolysis, electrolyte derangement, multiple bodily contusions. Course of care and details as noted above. Remainder of chronic medical comorbidities were monitored and managed with home medications. Status at Discharge Overall status at discharge: patient is progressing back to baseline Time Spent with Patient Time attestation: Total time spent providing and/or coordinating discharge services: Time spent: Greater than 30 minutes Exam Narrative: Exam Narrative: PHYSICAL EXAM General: Patient appears much more clear, brighter this morning. NAD HEENT: Contusions, aging. EOMI, oral mucosa moist Cardiovascular: RRR, S1S2. No pitting edema Pulmonary: CTA bilaterally without rhonchi, rales, expiratory wheezes. No dyspnea Neurological: Alert, answering questions appropriately, cranial nerves intact, no focal findings Extremities: No gross joint deformity or swelling. Bruises as previously noted. AROMI. Neurovascularly intact Skin: Warm, dry. Const: Vital Signs, click to edit/add: Vital Signs - 24 hr 03/19/23 14:32 03/19/23 14:32 03/19/23 19:00 Temperature 97.9 F Pulse Rate Pulse Rate [Pulse Oximeter] 73 72 Respiratory Rate 16 16 16 Blood Pressure [Le ft Arm] 141/68 H Pulse Oximetry 97 94 Oxygen Delivery Me thod Room Air Room Air 03/19/23 22:30 03/19/23 22:36 03/19/23 22:36 Temperature 97.9 F Pulse Rate 69 Pulse Rate [Pulse Oximeter] 71 Respiratory Rate 16 16 Blood Pressure [Le ft Arm] 163/82 H Pulse Oximetry 95 95 Oxygen Delivery Me thod Room Air Room Air 03/20/23 03:00 03/20/23 07:00 03/20/23 07:00 Temperature 97.8 F Pulse Rate Pulse Rate [Pulse Oximeter] 73 75 Respiratory Rate 16 16 16 Blood Pressure [Le ft Arm] 150/71 H Pulse Oximetry 97 96 Oxygen Delivery Me thod Room Air Room Air 03/20/23 07:00 Temperature 98.0 F Pulse Rate Pulse Rate [Pulse Oximeter] 75 Respiratory Rate 16 Blood Pressure [Le ft Arm] 153/77 H Pulse Oximetry 96 Oxygen Delivery Me thod Room Air DS: Data Data Completed and Pending Pending studies at discharge: None Labs on day of discharge: Labs from last 24 hours 03/20/23 05:45 WBC 7.07 RBC 3.19 L Hgb 10.4 L Hct 30.3 L MCV 95 MCH 33 MCHC 34 Plt Count 281 Sodium 133 L Potassium 3.9 Chloride 99 Carbon Dioxide 29 Anion Gap 5 L BUN 13 Creatinine 0.5 Estimated Creat Clear 45.85 Estimated GFR 101 Glucose 89 Calcium 8.4 Total Creatine Kinase 949 H C-Reactive Protein 7.4 H Discharge Plan Discharge Disposition: Home, Self-Care Date of Admission: 03/18/23 21:08 Attending Provider on Discharge: Adelaide Lyons Primary Care Provider: Kim Gardner Condition: Improved Anticipated Discharge Date/Time: 03/20/23 12:47 Discharge Medications: Continued metoprolol succinate 100 mg tablet extended release 24 hr 100 mg PO BID Qty: 180 4RF loperamide [Imodium A-D] 2 mg capsule 4 mg PO QDAY PRN (Reason: diarrhea) Qty: 30 0RF chlorthalidone 25 mg tablet 25 mg PO DAILY Qty: 90 1RF lorazepam 0.5 mg tablet 0.5 mg PO .as needed PRN divalproex 500 mg tablet,delayed release (DR/EC) PO DAILY Rx Instructions: Take 1 tab in the AM and 2 tabs in the PM fluticasone furoate-vilanterol 200-25 mcg/dose blister with device 1 inh inhalation DAILY mirtazapine 7.5 mg tablet 7.5 mg PO .Bedtime albuterol sulfate 2.5 mg /3 mL (0.083 %) solution for nebulization 2.5 mg inhalation Q4H PRN hydralazine 25 mg tablet 25 mg PO BID Qty: 60 0RF ropinirole 1 mg tablet 1 mg PO DIRECTED Qty: 270 3RF Rx Instructions: 1 tab at 1700, 2 tab at HS levothyroxine 112 mcg tablet 112 mcg PO DIRECTED Qty: 90 2RF Rx Instructions: 1 tab daily, except no tablet on Sundays esomeprazole magnesium 40 mg capsule,delayed release(DR/EC) 40 mg PO DAILY Qty: 90 2RF albuterol sulfate 90 mcg/actuation HFA aerosol inhaler 2 puff inhalation Q4H Qty: 8.5 1RF Held rosuvastatin 5 mg tablet 5 mg PO DAILY Qty: 90 3RF Hold Instructions: Resume on 03/27/23. Transaminitis on admission. Hold until PCP recommends to restart. Discontinued cyclobenzaprine 10 mg tablet 10 mg PO .Bedtime as needed PRN (Reason: muscle spasm) Qty: 30 1RF Rx Instructions: 1 tab at bed time, muscle relaxant Discharge Orders: Discharge Order (Routine); Ordered 03/20/23 Ordered By: Adelaide Lyons Patient Education: Rhabdomyolysis (GEN), Concussion (GEN), Intracranial Hematoma (GEN), Contusion in Adults (GEN) Additional Instructions: You have a brain bleed and a concussion, in addition to multiple bodily bruises, following multiple falls related to medication misuse. It is important to get plenty of rest. Avoid strenuous physical or mental activity, avoiding long periods of reading, screen time. Stay hydrated. You may take Tylenol as needed for headaches. Do not take any ibuprofen or naproxen products. If you have any new or worsening headache not resolved with Tylenol, rest, ice it is important to follow-up in the emergency department. It is recommended that you get assistance with your medications as there is concern you are not taking your medications as prescribed. FOLLOW-UP WITH YOUR THERAPY APPOINTMENT ON Sunday03/21/2023 PREVIOUSLY SCHEDULED. HAVE SOMEONE DRIVE YOU TO THIS APPOINTMENT. Recommend outpatient follow-up with her psychiatrist in the next 5-7 days. Let them know you were in the hospital. MEDICATION CHANGES HAVE BEEN MADE AT DISCHARGE, PLEASE REVIEW THESE CAREFULLY. IT IS RECOMMENDED YOU USE TYLENOL, LIDOCAINE PATCH, ICE/HEAT FOR YOUR PAIN. AVOID USING NARCOTICS AND MUSCLE RELAXANTS YOU ARE ON MEDICATIONS WHICH CAN CAUSE INCREASED CONFUSION, SEDATION, FALLS. Rosuvastatin has been held until your PCP recommends you restart it as your liver function tests were high. Activity Level: No strenuous activity Discharge Diet: Regular Follow Up Appointments: Kim Gardner MD [Primary Care Provider] - 03/21/23 2:00 pm ([facility] for follow-up.) Forms: [employer] Info Instructions
--- NOTE | 2023-03-20 14:21 | PC.NURSE ---
pt is alert and oriented, VSS, RA, sba with walker and GB to BR, hallway and to chair for meals, IV removed intact. Denies any pain, pt has bruising bilaterally on wrist, elbows, knees, and feet. bruising also noted on left hip. Patient discharged to home today accompanied by friend. Discharge instructions given and patient verbalized understanding of instructions. Patient signed belongings sheet and discharge instructions.
== END 2023-03-20 14:40 | disposition home or self-care (01) | DRG 964 ==
LOC: ED 18:34 → MEDSURG 20:53
PROVIDERS: Physician Assistant; Admitting Provider Internal Medicine; Emergency Provider Family Medicine; PCP Family Medicine; Visit Provider Internal Medicine
DX: S06.5XAA Traumatic subdural hemorrhage with loss of consciousness status unknown, initial encounter (principal); E87.1 Hypo-osmolality and hyponatremia; T79.6XXA Traumatic ischemia of muscle, initial encounter; N17.9 Acute kidney failure, unspecified; T48.1X1A Poisoning by skeletal muscle relaxants [neuromuscular blocking agents], accidental (unintentional), initial encounter; T42.4X1A Poisoning by benzodiazepines, accidental (unintentional), initial encounter; W19.XXXA Unspecified fall, initial encounter; Y92.015 Private garage of single-family (private) house as the place of occurrence of the external cause; E87.6 Hypokalemia; E86.0 Dehydration; R74.01 Elevation of levels of liver transaminase levels; F31.9 Bipolar disorder, unspecified; F43.29 Adjustment disorder with other symptoms; T14.8XXA Other injury of unspecified body region, initial encounter; I10 Essential (primary) hypertension; R41.82 Altered mental status, unspecified; Z72.0 Tobacco use; R77.8 Other specified abnormalities of plasma proteins; F12.929 Cannabis use, unspecified with intoxication, unspecified; E80.7 Disorder of bilirubin metabolism, unspecified; G47.33 Obstructive sleep apnea (adult) (pediatric); J44.9 Chronic obstructive pulmonary disease, unspecified
CPT/HCPCS: 36415; 70450; 71045; 80048; 80053; 80076; 80143; 80179; 80306; 81001; 82077; 82140; 82248; 82375; 82550; 82803; 83605; 83735; 83880; 84100; 84484; 85025; 85027; 86140; 87631; 93005; 94664; 94761; 97110; 97116; 97161; 97166; 97535; 99285; A9270; J7030

== ENCOUNTER 2023-03-21 09:19 | Emergency (ER) | payer MEDICARE, BC, SELFPAY ==
[2023-03-21] VITALS (9 sets, daily range): BP systolic 188–210; BP diastolic 91–96; PULSE 76–85; RESP 18; TEMP 36.6; O2SAT 93–97; BMI 22.3
--- NOTE | 2023-03-21 09:35 | CRLHL7_ITS ---
For Patients: As a result of the Century Cures Act, medical imaging exams and procedure reports are released immediately into your electronic medical record. You may view this report before your referring provider. If you have questions, please contact your health care provider. INDICATION: Recheck subdural hematoma TECHNIQUE: Head CT without contrast. COMPARISON: March 19, 2023 FINDINGS: Evolving left frontoparietal subdural hematoma with decreased density and decreased size, measuring 6 mm, previously 7 mm. No evidence of midline shift. No intraparenchymal hemorrhage. No evidence of herniation. Stable ventricle size. The visualized paranasal sinuses and mastoid air cells demonstrate no acute or significant findings. The visualized orbits are grossly unremarkable. No skull fractures. Decreased right frontal scalp contusion. IMPRESSION: Evolving left frontoparietal subdural hematoma with decreased density and decreased size, measuring 6 mm, previously 7 mm. No evidence of midline shift or herniation. Please note that all CT scans at this facility use dose modulation, iterative reconstruction, and/or weight-based dosing when appropriate to reduce radiation dose to as low as reasonably achievable. Dictated by Bishop Persaud MD @ 03/21/2023 10:52:34 AM (Electronically Signed)
--- NOTE | 2023-03-21 09:40 | ED.GENADULT ---
HPI - General Adult General Chief complaint: Nausea/Vomiting Stated complaint: vomiting Time Seen by Provider: 03/21/23 09:29 History of Present Illness HPI narrative: Patient is a 68 year white female with bipolar disorder, and recent subdural hematoma that was managed in the [facility] with Neurosurgery consult from [facility], and was discharged yesterday to home. Since then she has had nausea and vomiting. No new falls. She reports continued headache. States she has had this for few days. No other significant illness, no chest pain, no shortness of breath, no neurologic complaints. Patient's chart past medical history reviewed Related Data Home Medications Medication Instructions Recorded Confirmed albuterol sulfate 2.5 mg/3 mL 2.5 mg inhalation Q4H PRN 02/23/22 03/19/23 (0.083 %) solution for nebulization divalproex 500 mg tablet,delayed mg PO DAILY 02/23/22 02/21/23 release fluticasone furoate 200 1 inh inhalation DAILY 02/23/22 03/19/23 mcg-vilanterol 25 mcg/dose inhalation powder lorazepam 0.5 mg tablet 0.5 mg PO .as needed PRN 02/23/22 03/19/23 mirtazapine 7.5 mg tablet 7.5 mg PO .Bedtime 02/23/22 03/19/23 Previous Rx's Medication Instructions Recorded metoprolol succinate 100 mg 100 mg PO BID #180 tabs 08/23/22 tablet,extended release 24 hr ropinirole 1 mg tablet 1 mg PO DIRECTED #270 tabs 08/30/22 loperamide 2 mg capsule (Imodium 4 mg (2 x 2 mg) PO QDAY PRN 11/07/22 A-D) diarrhea #30 caps levothyroxine 112 mcg tablet 112 mcg PO DIRECTED #90 tabs 12/18/22 esomeprazole magnesium 40 mg 40 mg PO DAILY #90 caps 12/27/22 capsule,delayed release rosuvastatin 5 mg tablet 5 mg PO DAILY #90 tabs 01/19/23 chlorthalidone 25 mg tablet 25 mg PO DAILY #90 tabs 01/26/23 hydralazine 25 mg tablet 25 mg PO BID #60 tabs 02/21/23 albuterol sulfate 90 mcg/actuation 2 puff inhalation Q4H #8.5 grams 03/15/23 aerosol inhaler Allergies Allergy/AdvReac Type Severity Reaction Status Date / Time gabapentin Allergy Intermediate Hives Verified 02/21/23 14:40 lisinopril Allergy Intermediate edema in Verified 02/21/23 14:40 face risperidone Allergy Unknown Verified 02/21/23 14:40 amlodipine AdvReac Mild leg Verified 02/21/23 14:40 swelling quetiapine AdvReac swelling Verified 02/21/23 14:40 Review of Systems Status of ROS: Reports: 6 or more systems reviewed and unremarkable except as noted in History and below [facility] Medical History Obstructive sleep apnea treated with continuous positive airway pressure (CPAP) (~2016) ?G47.33 - Obstructive sleep apnea (adult) (pediatric) (ICD-10) ?Z99.89 - Dependence on other enabling machines and devices (ICD-10) Venous insufficiency of both lower extremities ?I87.2 - Venous insufficiency (chronic) (peripheral) (ICD-10) Varicose veins of both lower extremities ?I83.93 - Asymptomatic varicose veins of bilateral lower extremities (ICD-10) Unintended weight loss (~11/2021) ?R63.4 - Abnormal weight loss (ICD-10) Rectal urgency ?R15.2 - Fecal urgency (ICD-10) Osteopenia (2015) ?M85.80 - Other specified disorders of bone density and structure, unspecified site (ICD-10) Osteoarthritis ?M19.90 - Unspecified osteoarthritis, unspecified site (ICD-10) Obstructive chronic bronchitis with exacerbation ?J44.1 - Chronic obstructive pulmonary disease with (acute) exacerbation (ICD-10) Internal derangement of knee ?M23.90 - Unspecified internal derangement of unspecified knee (ICD-10) History of drug abuse (2013) ?F19.11 - Other psychoactive substance abuse, in remission (ICD-10) Hepatitis C ?B19.20 - Unspecified viral hepatitis C without hepatic coma (ICD-10) Encounter for counseling regarding advance directives (06/21/15) ?Z71.89 - Other specified counseling (ICD-10) Elevated blood pressure reading ?R03.0 - Elevated blood-pressure reading, without diagnosis of hypertension (ICD-10) Chronic neck pain ?M54.2 - Cervicalgia (ICD-10) ?G89.29 - Other chronic pain (ICD-10) Bleeding internal hemorrhoids ?K64.8 - Other hemorrhoids (ICD-10) Bilateral edema of lower extremity ?R60.0 - Localized edema (ICD-10) Surgical History Hx of varicose vein ligation and stripping (~2016) ?Z98.890 - Other specified postprocedural states (ICD-10) Colon cancer screening (~2015) ?Z12.11 - Encounter for screening for malignant neoplasm of colon (ICD-10) Status post left knee replacement (04/08/19) ?Z96.652 - Presence of left artificial knee joint (ICD-10) History of right knee joint replacement (2009) ?Z96.651 - Presence of right artificial knee joint (ICD-10) History of repair of right rotator cuff (~2011) ?Z98.890 - Other specified postprocedural states (ICD-10) History of ovarian cystectomy ?Z98.890 - Other specified postprocedural states (ICD-10) ?Z87.42 - Personal history of other diseases of the female genital tract (ICD-10) History of medial meniscus repair of left knee (2013) ?Z98.890 - Other specified postprocedural states (ICD-10) History of hysterectomy with oophorectomy (1984) History of arthroplasty of right knee (2009) ?Z96.651 - Presence of right artificial knee joint (ICD-10) History of abdominoplasty (1996) ?Z98.890 - Other specified postprocedural states (ICD-10) H/O endoscopy ?Z98.890 - Other specified postprocedural states (ICD-10) Normal colonoscopy (2021) Family History Aunt Breast cancer Mother Ovarian cancer Sister Stomach cancer Other Adopted person Social History Narrative: Single, homemaker, lives with cat in town house NF Smokes- hx 30 pack years Does not drink alcohol Exercises 3 to 4 times per week- walks 3M What is your current living situation?: I presently have a place to live Problems where you live: no known problems Problems where you live details: none In the past 12 months, utilities in danger of being shut off: no In past 12 months, lack of transportation kept you from medical appts, meetings, work, or getting things needed for daily living: no In the past 12 mos, have been you worried that your food would run out before you had money to buy more?: never true In the past 12 mos, the food you bought just didn't last and you didn't have money to buy more?: never true Smoking Status: Former smoker What tobacco products do you use: cigarettes Years smoked: 50 Smoking quit date/years: <= 15 years ago Do you use any of these nicotine containing products: None Second hand tobacco smoke exposure: No How often do you have a drink containing alcohol: never AUDIT-C Alcohol total score: 0 Non-prescribed substance use: marijuana (any form) Caffeine: Yes How often does anyone, including family, friends and others, physically hurt you: never How often does anyone, including family, friends and others, insult or talk down to you: sometimes How often does anyone, including family, friends and others, threaten you with harm: never How often does anyone, including family, friends and others, scream or curse at you: never Little interest or pleasure in doing things: several days Feeling down, depressed, or hopeless: several days service: No Exam Narrative: Exam Narrative: Objective: Patient's vital signs show elevated blood pressure 200/96 Alert orient x3, no facial asymmetry Multiple bruises over her forehead back chest from her prior falls. She also had rhabdomyolysis. PulseRegular chest clear heart rhythm regular with 2/6 systolic ejection murmur Abdomen benign soft Pelvis stable Lower extremities moves well no marked edema Good peripheral perfusion noted, skin warm and dry. Const: Vital Signs, click to edit/add: Vital Signs - 24 hr 03/21/23 09:25 03/21/23 09:36 03/21/23 10:15 Temperature 97.8 F Pulse Rate 84 79 Pulse Rate [Pulse Oximeter] 85 Respiratory Rate 18 Blood Pressure Blood Pressure [Ri ght Upper Arm] 200/96 H Pulse Oximetry 97 97 93 Oxygen Delivery Me thod Room Air 03/21/23 10:21 03/21/23 10:22 03/21/23 10:30 Temperature Pulse Rate 80 79 76 Pulse Rate [Pulse Oximeter] Respiratory Rate Blood Pressure 188/96 H Blood Pressure [Ri ght Upper Arm] Pulse Oximetry 95 96 94 Oxygen Delivery Me thod 03/21/23 10:31 03/21/23 11:00 03/21/23 11:01 Temperature Pulse Rate 78 81 81 Pulse Rate [Pulse Oximeter] Respiratory Rate Blood Pressure 188/95 H 210/91 H Blood Pressure [Ri ght Upper Arm] Pulse Oximetry 94 95 93 Oxygen Delivery Me thod Course Vital Signs Vital signs: Initial Vital Signs Temperature 97.8 F 03/21/23 09:25 Temperature Source Temporal Artery Scan 03/21/23 09:25 Pulse Rate 85 03/21/23 09:25 Respiratory Rate 18 03/21/23 09:25 Blood Pressure 200/96 H 03/21/23 09:25 Blood Pressure Mean 130 H 03/21/23 09:25 Blood Pressure Position Supine 03/21/23 09:25 Pulse Oximetry 97 03/21/23 09:25 Oxygen Delivery Method Room Air 03/21/23 09:25 Vital Signs Temperature 97.8 F 03/21/23 09:25 Pulse Rate 85 03/21/23 09:25 Respiratory Rate 18 03/21/23 09:25 Blood Pressure 200/96 H 03/21/23 09:25 Pulse Oximetry 97 03/21/23 09:25 Oxygen Delivery Method Room Air 03/21/23 09:25 Temperature 97.8 F 03/21/23 09:25 Pulse Rate 81 03/21/23 11:01 Respiratory Rate 18 03/21/23 09:25 Blood Pressure 210/91 H 03/21/23 11:01 Pulse Oximetry 93 03/21/23 11:01 Oxygen Delivery Method Room Air 03/21/23 09:25 Medical Decision Making MDM Narrative Medical decision making narrative: [age] year white female with recent admission for rhabdomyolysis fall and subdural hematoma. Now with nausea and vomiting. No new falls reported. I think at this point be reasonable to repeat her head CT make sure this has not changed, IV fluid, IV Ativan and Zofran. Will check her labs, if is able to ambulate and feels better likely can go home if hers situation has unchanged with her CT of her head, may need admission for IV fluid and additional nausea treatment for her subdural. Addendum 11:06 a.m.. Patient's EKG by my read shows normal sinus rhythm no acute ST T wave changes some artifact noted possible LVH. The patient's head CT shows the subdural hematoma to be smaller, not enlarging. She feels markedly better after fluids and medication. She can take her morning medications at home today, and light activity light diet recommended. She does have a visiting home nurse that helps her. She can recheck with her primary care doctor in the next couple of days return to ED as needed. Her troponin was negative as well CRP still elevated 4.9, her CK is down from what it was on discharge at 7:38 a.m. she still has multiple bruises and I think [place] is still [place] [address] and hemoglobin is 11.6 her renal function shows a creatinine to be 0.4 her BUN to be 7 her sodium is slightly low at 128. Would recommend recheck with her regular physician within the next few days, to recheck labs, particularly her sodium and potassium. And renal function. She was also asked to restrict her fluid intake to perhaps 4-5 glasses of water a day. She will recheck with Dr. Acevedo in [place] the next few days. Lab Data Labs: Lab Results 03/21/23 Range/Units 09:50 WBC 10.81 (4.50-11.00) K/uL RBC 3.63 L (4.00-5.20) m/uL Hgb 11.6 L (12.0-16.0) gm/dL Hct 33.3 (33.0-51.0) % MCV 92 (80-100) fL MCH 32 (26-34) pg MCHC 35 (32-36) gm/dL RDW Coeff of Jaden 12.6 (11.5-15.5) % Plt Count 290 (140-440) K/uL Neut % (Auto) 85.4 H (42.0-72.0) % Lymph % (Auto) 6.3 L (20-44) % [place] % (Auto) 8.0 (0.0-11.0) % Eos % (Auto) 0.0 (0.0-7.0) % Baso % (Auto) 0.1 (0.0-3.0) % Neut # (Auto) 9.20 H (1.7-7.0) K/uL Lymph # (Auto) 0.70 L (0.90-2.90) K/uL [place] # (Auto) 0.90 (0.00-0.90) K/UL Eos # (Auto) 0.00 (0.00-0.50) K/uL Baso # (Auto) 0.01 (0.00-0.30) K/uL Abs Immat Gran (auto) 0.02 (0.00-0.30) K/uL Imm/Tot Granulo (auto) 0.2 % INR 0.91 (0.91-1.10) APTT 28 (23-33) Seconds Sodium 128 L (135-149) mmol/L Potassium 3.4 L (3.6-5.1) mmol/L Chloride 88 L (96-114) mmol/L Carbon Dioxide 28 (20-32) mmol/L Anion Gap 12 (7-15) mEq/L BUN 7 (7-30) mg/dL Creatinine 0.4 L (0.5-1.5) mg/dL Estimated Creat Clear 45.85 Estimated GFR 107 ml/min Glucose 125 H (60-115) mg/dL Calcium 9.3 (8.4-10.6) mg/dL Total Bilirubin 1.3 (0.1-1.5) mg/dL Direct Bilirubin 0.2 (0.0-0.5) mg/dL AST 84 H (12-35) U/L ALT 39 H (4-35) U/L Alkaline Phosphatase 51 (40-150) U/L Total Creatine Kinase 738 H (41-117) U/L Troponin I < 0.01 L (0.01-0.04) ng/mL C-Reactive Protein 4.9 H (0.5-1.0) mg/dL Total Protein 7.9 (6.0-8.3) g/dL Albumin 4.4 (3.3-5.0) g/dL Amylase 50 (18-89) U/L Discharge Plan Discharge Clinical Impression: Increased nausea and vomiting, Bipolar disorder, SDH (subdural hematoma) Patient Disposition: Home w/ Parent or Adult Condition: Improved Additional Instructions: Light activity, restrict her water intake to perhaps 4 glasses of water a day. Recommend recheck your blood work kidney function and sodium level a as well as potassium in the next week with your regular doctor. Return to the ED sooner problems or concerns. He can take her morning medications today when he got home. Activity Level: Light activity Discharge Diet: Regular Prescriptions: No Action metoprolol succinate 100 mg tablet extended release 24 hr 100 mg PO BID Qty: 180 4RF loperamide [Imodium A-D] 2 mg capsule 4 mg PO QDAY PRN (Reason: diarrhea) Qty: 30 0RF chlorthalidone 25 mg tablet 25 mg PO DAILY Qty: 90 1RF lorazepam 0.5 mg tablet 0.5 mg PO .as needed PRN divalproex 500 mg tablet,delayed release (DR/EC) PO DAILY Rx Instructions: Take 1 tab in the AM and 2 tabs in the PM fluticasone furoate-vilanterol 200-25 mcg/dose blister with device 1 inh inhalation DAILY mirtazapine 7.5 mg tablet 7.5 mg PO .Bedtime albuterol sulfate 2.5 mg /3 mL (0.083 %) solution for nebulization 2.5 mg inhalation Q4H PRN hydralazine 25 mg tablet 25 mg PO BID Qty: 60 0RF ropinirole 1 mg tablet 1 mg PO DIRECTED Qty: 270 3RF Rx Instructions: 1 tab at 1700, 2 tab at HS levothyroxine 112 mcg tablet 112 mcg PO DIRECTED Qty: 90 2RF Rx Instructions: 1 tab daily, except no tablet on Sundays esomeprazole magnesium 40 mg capsule,delayed release(DR/EC) 40 mg PO DAILY Qty: 90 2RF rosuvastatin 5 mg tablet 5 mg PO DAILY Qty: 90 3RF Hold Instructions: Resume on 03/27/23. Transaminitis on admission. Hold until PCP recommends to restart. albuterol sulfate 90 mcg/actuation HFA aerosol inhaler 2 puff inhalation Q4H Qty: 8.5 1RF Follow Up/Referrals: Kim Gardner MD [Primary Care Provider] - Stand Alone Forms: SCOUPY Info Instructions
[2023-03-21 09:55] LABS: Basophils Absolute Auto 0.01 K/uL (0.00-0.30); Basophils Percent Auto 0.1 % (0.0-3.0); Hematocrit 33.3 % (33.0-51.0); Hemoglobin* 11.6 gm/dL (12.0-16.0); Immature Granulocytes Abs Auto 0.02 K/uL (0.00-0.30); Immature Granulocytes Pct Auto 0.2 %; Lymphocytes Percent Auto 6.3 % (20-44); Mean Corpuscular HGB Conc 35 gm/dL (32-36); Mean Corpuscular Hemoglobin 32 pg (26-34); Mean Corpuscular Volume 92 fL (80-100); Neutrophils Percent Auto 85.4 % (42.0-72.0); Platelet Count* 290 K/uL (140-440); RDW Coefficient of Variation % 12.6 % (11.5-15.5); Red Blood Count 3.63 m/uL (4.00-5.20); White Blood Count* 10.81 K/uL (4.50-11.00)
[2023-03-21 09:57] LABS: Slide Review Reflex No
[2023-03-21 10:09] LABS: Albumin* 4.4 g/dL (3.3-5.0); Chloride* 88 mmol/L (96-114)
[2023-03-21 10:10] LABS: Potassium* 3.4 mmol/L (3.6-5.1); Sodium* 128 mmol/L (135-149)
[2023-03-21] MEDS: ONDANSETRON 2 MG/ML inj 4 MG IVP (10:11)
[2023-03-21] MEDS: LORazepam 2 MG/ML inj 0.5 MG IVP (10:11)
[2023-03-21] MEDS: 0.9 % SODIUM CHLORIDE 500 ML 500 ML IV (10:11)
[2023-03-21 10:12] LABS: Amylase* 50 U/L (18-89); Creatinine* 0.4 mg/dL (0.5-1.5); Est. Creatinine Clearance* 45.85; Estimated Glomerular Filt Rate 107 ml/min; INR 0.91 (0.91-1.10); Prothrombin Time 12.8 Seconds
[2023-03-21 10:13] LABS: Alanine Aminotransferase* 39 U/L (4-35); Alkaline Phosphatase* 51 U/L (40-150); Anion Gap 12 mEq/L (7-15); Aspartate Amino Transferase* 84 U/L (12-35); Bilirubin Direct* 0.2 mg/dL (0.0-0.5); Bilirubin Total* 1.3 mg/dL (0.1-1.5); Blood Urea Nitrogen* 7 mg/dL (7-30); Calcium* 9.3 mg/dL (8.4-10.6); Carbon Dioxide* 28 mmol/L (20-32); Creatine Kinase* 738 U/L (41-117); Glucose* 125 mg/dL (60-115); Partial Thromboplastin Time* 28 Seconds (23-33); Total Protein* 7.9 g/dL (6.0-8.3)
[2023-03-21 10:16] LABS: C Reactive Protein* 4.9 mg/dL (0.5-1.0)
[2023-03-21 10:27] LABS: Troponin I* < 0.01 ng/mL (0.01-0.04)
== END 2023-03-21 11:30 | disposition home or self-care (01) ==
PROVIDERS: Emergency Provider Family Medicine; PCP Family Medicine
DX: R11.2 Nausea with vomiting, unspecified (principal); F31.9 Bipolar disorder, unspecified; I62.00 Nontraumatic subdural hemorrhage, unspecified
CPT/HCPCS: 36415; 70450; 80048; 80076; 82150; 82550; 84484; 85025; 85610; 85730; 86140; 93005; 96374; 96375; 99284; 99285; J2060; J2405; J7120

== ENCOUNTER 2023-03-26 10:16 | Emergency (ER) | payer MEDICARE, BC, SELFPAY ==
--- NOTE | 2023-03-26 14:21 | W.ED.CHARTNO ---
ED Chart Note Chart Note Details Date: 03/26/23 Details: Patient refused services and was not seen by provider
== END 2023-03-26 11:25 | disposition left against medical advice (07) ==
PROVIDERS: Emergency Provider Student in an Organized Health Care Education/Training Program; PCP Family Medicine
DX: Z53.21 Procedure and treatment not carried out due to patient leaving prior to being seen by health care provider (principal)

== ENCOUNTER 2023-03-28 09:16 | Outpatient (CLI) | payer MEDICARE, BC, SELFPAY | END 2023-03-28 09:17 | disposition home or self-care (01) | PROVIDERS: PCP Family Medicine; Visit Provider Family Medicine | DX: R53.83 Other fatigue (principal); E87.1 Hypo-osmolality and hyponatremia; E87.6 Hypokalemia; T79.6XXA Traumatic ischemia of muscle, initial encounter | CPT/HCPCS: 80053; 82550 ==

== ENCOUNTER 2023-03-30 10:44 | Outpatient (RCR) | payer SELFPAY | END 2023-04-23 15:46 | disposition home or self-care (01) | LOC: MOW 10:44 | PROVIDERS: PCP Family Medicine; Visit Provider Family Medicine | DX: Z76.0 Encounter for issue of repeat prescription (principal) | CPT/HCPCS: S5170 ==

== ENCOUNTER 2023-04-02 10:27 | Outpatient (CLI) | payer MEDICARE, BC, SELFPAY ==
--- NOTE | 2023-04-02 11:00 | CRLHL7_ITS ---
For Patients: As a result of the Century Cures Act, medical imaging exams and procedure reports are released immediately into your electronic medical record. You may view this report before your referring provider. If you have questions, please contact your health care provider. INDICATION: Traumatic subdural hemorrhage with loss of consciousness follow up COMPARISON: 03/21/2023, 03/19/2023 TECHNIQUE: A CT volumetric acquisition was performed of the brain without IV contrast. Please note that all CT scans at this facility use dose modulation, iterative reconstruction, and/or weight-based dosing when appropriate to reduce radiation dose to as low as reasonably achievable. FINDINGS: Complete or near-complete resolution of the previously noted left convexity subdural hemorrhage. No new hemorrhage. No hydrocephalus. Mild generalized cortical atrophy. No midline shift. No herniation. IMPRESSION: Complete or near complete resolution of the previously noted left-sided subdural hemorrhage. Please note that all CT scans at this facility use dose modulation, iterative reconstruction, and/or weight-based dosing when appropriate to reduce radiation dose to as low as reasonably achievable. Dictated by Gil Jiang MD @ 04/02/2023 12:58:11 PM (Electronically Signed)
== END 2023-04-02 10:28 | disposition home or self-care (01) ==
LOC: CT 10:27
PROVIDERS: PCP Family Medicine; Visit Provider Family Medicine
DX: S06.5XAA Traumatic subdural hemorrhage with loss of consciousness status unknown, initial encounter (principal)
CPT/HCPCS: 70450

== ENCOUNTER 2023-04-27 13:15 | Outpatient (RCR) | payer MEDICARE, BC, SELFPAY ==
--- NOTE | 2023-04-16 07:42 | PT.OPEX ---
PT [place] Outpatient Eval PT [facility] Outpatient Eval Start: 04/13/23 13:14 Freq: Status: Active Protocol: Document 04/13/23 13:14 AMS (Rec: 04/13/23 17:36 AMS [id number]) E-signed By Zainab Bonilla PT Physical Therapy Outpatient Evaluation Insurance Information Recert Due Date 07/07/23 Insurance Name Medicare B,Other; See Comments Insurance Information/Comments [place] Medical Diagnosis Low back pain s/p fall 03/17/23 Treating Diagnosis Low back pain Muscle weakness Impaired balance Referring MD Kim Gardner Subjective Subjective This is a 68 year old patient , who is here today for follow -up on recent hospitalization as well as then another ED visit. Patient was hospitalized at [facility] between March 18 and . She had been falling and was confused she had taken too much Ativan and cyclobenzaprine. Possibly some marijuana which she has been using with the agreement of her therapist. She was falling and was found in the garage. She had hit her head and had a subdural hematoma it was then repeated the CT scan in the emergency room the day after and it has gotten for smaller. She still has a bruising but she has no headaches nausea vomiting She cannot say if she took extra tablets on purpose but she has a does say that her depression has been worse lately. She has bipolar depression and she is having an appointment with her psychiatrist in 2 days this week. She also had acute kidney failure and traumatic rhabdomyolysis does values have improved. Most recently she was hyponatremic in the emergency room Her biggest concern right now is back pain. This is a problem she has had in the past but not so much she has been using some cyclobenzaprine at times for it. After falling as she has now pain in her tailbone and lumbar spine it is not sciatica but she does have some stiffness on the gluteal muscles and the thigh muscles. No bladder or bowel problems . -Dr. Gardner, 03/28/23; confirmed by patient Pt presents to physical therapy after fall on 03/17/23 related to substance use, resulting in hospitalization and subdural hematoma/TACO/ rhabdomyolysis. She was discharged from the hospital on 03/20 with FWW, although still feels a little wobbly today. She also hit her low back/tailbone when she fell, although she can't remember for sure, which is the reason for her visit today. Has had pain in her low back for many years prior to this - forever . Localizes the pain to low back midline/tailbone and describes it as achy. Easing factors include ice, heating pad, and firmer mattress. The pain impacts her sleep. She also describes bilateral leg tightness in the thigh and posterior leg that is terrible. Something is frozen and thawing out slowly. Functional limitations/aggravating factors include reaching, sitting, lifting, sleeping and standing longer periods. Has tried the chiropractor for many years, which was helpful. Sometimes she takes extra strength Tylenol as needed for the pain, but hasn't needed it very much. Used to have N/T unilaterally a few years ago associated with her back pain, but this has not occurred for many years. X-rays were done of pelvis, hip and back, showing no acute fracture or concern; some DDD of lumbar spine noted. Also describes ongoing bilateral lower extremity weakness since being hospitalized as well; has HEP the PT gave her but hasn't done it yet. Used to belong to [employer] and attend personal training/classes; she would like to get back to this. Not able to drive right now, so utilizes bus. Lives in a townhouse alone. PMHx significant for bilateral knee replacements in 2009 and 2021 , bipolar disorder, HTN, COPD, and osteopenia. Pain Comments 6/10 in low back at worst, 2 or 3/10 current 3/10 tightness in legs Date of Last Physician Visit 04/06/23 Current Work Status Retired Preferred Name [employer] Precautions Treatment Precautions/Contraindications Acute kidney failure and rhabdomyolysis 03/17/23 with hyponatremia s/p fall, subdural hematoma 03/17/23 (now stable), bipolar disorder, HTN, COPD, osteopenia Therapy Limitations/Systems Review Affect Objective Other/Pertinent Objective Posture Assessment: Forward head, rounded shoulders. Gait Assessment: Ambulates with mild postural sway, heel- toe gait. No AD. Able to heel and toe walk without difficulty. BALANCE Single leg stance: 3.5 sec B FUNCTIONAL MOBILITY Double leg squat: To 70 deg, no pain LUMBAR ROM Flexion: Fingertips to floor, 100%, no pain Extension: 75% Right Sidebendin% Left Sidebendin%, mild pain Right rotation: 100% Left rotation: 100% HIP ROM (R/L) Flexion: 100/100 Extension: 15/15 Internal Rotation: 10/10 External Rotation: WNL Abduction: WNL KNEE ROM R: 0-0-114 L: 0-0-120 LE MMT Hip flexion: R 4-/5 L 4-/5 Hip Extension: R 4/5 L 4/5 Hip abduction: R 3+/5 L 3+/5 Knee extension: R 4/5 L 4/5 Knee Flexion: R 5/5 L 5/5 Dorsiflexion/heel walk: R 5/5 L 5/5 Plantarflexion/toe walk: Able to toe walk 30 sec STS: 13 Abdominal Strength: fair TrA activation in hooklying JOINT MOBILITY/PALPATION Mild tenderness to palpation over L5-S1 as well as sacrum, TTP over right gluteal region. No other TTP noted SPECIAL TESTS -Straight leg raise: - SI/HIP tests -LORETTA: -, pain in ipsilateral posterior hip bilateral -FADIR: + bilateral for pain -Scour: - -Log roll: - -Stinchfield's: - -Humberto finger sign: - -Hamstring 90-90: + bilateral Functional Test Performed & Score MARK ANTHONY: 13/50 = 26% Assessment Assessment/Impression Pt is a 68-year-old female who presents with concerns of acute on chronic low back/ tailbone pain and low to moderate severity and irritability after a fall related to substance use on , resulting in 3-day hospitalization d/t subdural hematoma, TACO, and traumatic rhabdomyolysis. X-ray of pelvic, hip, and spine show no acute fracture or pathology. On exam, patient also demonstrates notable objective findings including limited hip/knee range of motion, pain with left lumbar sidebending, negative SLR, impaired balance, and decreased bilateral LE strength, leading to difficulties with reaching , sitting longer periods, lifting, sleeping, and standing longer periods. Symptoms also may be influenced by stress in patient's personal life, as she describes mental health concerns and long teran for her brother's estate. Good response to today's session with patient noting decrease in symptoms. Patient is appropriate for skilled physical therapy services to address the above deficits. Pt was agreeable with plan of care and goals established. Primary Functional Limitations reaching, sitting, lifting, sleeping and standing longer periods (enjoys quilting at [employer]) Plan of Care Rehabilitation Potential Good Physical Therapy Goals In 2 sessions: Pt will demonstrate compliance to HEP for self-management of symptoms. In 8-10 sessions: Pt will demonstrate improved hip flexion range of motion to 110 degrees bilaterally for improved hip mobility. Pt will sit for > 1 hour with <2/10 low back pain for improved ability to quilt at [employer]. Pt will lift 10-lb object from the ground with <2/10 pain for improved functional mobility/ability to perform ADLs. Pt will demonstrate SLS to 8 sec bilaterally for improved balance/gait stability and decreased fall risk. Coordination/Communication With Referral Source Treatment Plan/Direct Interventions Gait Training,Joint Mobilization,Manual Therapy, Neuromuscular Re-ed,Self-Care/ Home Management,Therapeutic Activities,Therapeutic Exercises Frequency/Duration 1x/week for 8-10 sessions Patient Will Be Discharged From Therapy Completion of LTG(s), Independent w/HEP, Independently Progressing Evaluation Billing Untimed Code Treatment Minutes 30 Complexity Moderate Certification Information Initial Certification Date 04/13/23 Ending Certification Date 07/07/23 Provider Signature Shows Agreement With POC & Medical Necessity Physician Signature & Date Requested Please Sign/Date Here Physician Comment/Change : Physician NPI Number #
== END 2023-08-25 23:59 | disposition home or self-care (01) ==
PROVIDERS: PCP Family Medicine; Visit Provider Family Medicine
DX: M54.50 Low back pain, unspecified (principal); R26.89 Other abnormalities of gait and mobility; R26.81 Unsteadiness on feet; M62.81 Muscle weakness (generalized); Z51.89 Encounter for other specified aftercare
CPT/HCPCS: 97110; 97162

== ENCOUNTER 2023-05-09 12:15 | Outpatient (REF) | payer MEDICARE, BC, SELFPAY | END 2023-05-09 12:16 | disposition home or self-care (01) | LOC: NPINS 12:15 | PROVIDERS: PCP Family Medicine; Visit Provider Nurse Practitioner Psychiatric/Mental Health | DX: Z79.899 Other long term (current) drug therapy (principal) | CPT/HCPCS: 80053; 80164; 80165; 84443 ==

== ENCOUNTER 2023-05-18 12:53 | Outpatient (CLI) | payer MEDICARE, BC, SELFPAY ==
--- OUTSIDE RECORDS SUMMARY | 2023-05-18 12:57 | XMS_ITS | Continuity of Care Document ---
Author Name Unknown Organization [facility] Address [address] [place] [address] Phone Care Team Providers Care Industrial Health And Safety Professor Name Role Phone Unavailable Unavailable Unavailable Advance Directives Directive Yes / No Effective Date File Name No Information Encounters Encounter Description Practice Location Reason(s) For Visit Diagnoses Date Provider Providers Copied on Encounter [facility], [address], [place], [place], [id number], [place] tel:[phone] [facility] No Information 6200 4 No Information Family History Family Member Type Diagnosis Age At Onset No Information Payers Payer name Insurance type Covered constitution party ID Authoriza tion(s) No Information Social History Type Description Quantity Date Captured Comments Sex Female Smoking Status No Information Chief Complaint And Reason For Visit No Information Reason For Referral Reason For Referral No Information History Of Present Illness Encounter Date Complaint History Of Prese nt Illness No Information Functional Status Date Functional Assessmen t No Information Instructions Date Instruction Additional Infor mation No Information Assessments Type Assessment Date No Information Patient Care Teams Name Effective Dates (start - stop) Status Members No Information
--- NOTE | 2023-05-18 13:00 | CRLHL7_ITS ---
For Patients: As a result of the Cures Act, medical imaging exams and procedure reports are released immediately into your electronic medical record. You may view this report before your referring provider. If you have questions, please contact your health care provider. BILATERAL SCREENING MAMMOGRAM WITH COMPUTER-AIDED DETECTION AND TOMOSYNTHESIS TECHNIQUE: CC and MLO views were obtained. These mammographic images have been obtained using full-field digital technique. These mammographic images were interpreted with the benefit of computer-aided detection. Breast Tomosynthesis was used in this interpretation. COMPARISON FILM: 11/17/21, 10/06/20, 06/18/18. FINDINGS: There are scattered areas of fibroglandular density IMPRESSION: There is no radiographic evidence for malignancy. ASSESSMENT: BI-RADS Category 1: Negative RECOMMENDATION: Routine screening mammogram in 1 year. A lay language report of this examination will be provided to the patient. Gil Jiang M.D. Diagnostic Radiologist [email or web address] DESIREE/marimar / be/Dictated by: Gil Jiang MD @ 05/21/2023 10:00:00 AM (Electronically Signed)
== END 2023-05-18 12:54 | disposition home or self-care (01) ==
LOC: MAMMO 12:55
PROVIDERS: PCP Family Medicine; Visit Provider Family Medicine
DX: Z12.31 Encounter for screening mammogram for malignant neoplasm of breast (principal)
CPT/HCPCS: 77063; 77067

== ENCOUNTER 2023-05-23 09:35 | Day surgery (SDC) | payer MEDICARE, BC, SELFPAY ==
[2023-05-23 10:09] VITALS: BP 171/86; PULSE 69; RESP 16; TEMP 36.3; O2SAT 96; BMI 22.6
[2023-05-23] MEDS: SODIUM CHLORIDE 0.9 % (FLUSH) 10 ML SYRINGE IVF (10:19)
[2023-05-23] MEDS: LACTATED RINGERS 1000 ML 1,000 ML 100 ML IV (10:43)
[2023-05-23] MEDS: TETRACAINE 0.5% OPHTH 1 DROP EYE-LEFT (11:00)
[2023-05-23] MEDS: TETRACAINE 0.5% OPHTH 1 DROP EYE-RIGHT (11:00)
[2023-05-23] MEDS: BUPIVACAINE 0.5 %/EPI 1:200K 30 ML INJECTION (11:02)
[2023-05-23 11:45] VITALS: BP 159/83; PULSE 63; RESP 16; TEMP 36.3; O2SAT 95
--- NOTE | 2023-05-23 11:47 | W.PM.OPTPROC ---
Procedure Note Date of procedure: 05/23/23 Will [facility] bill your pro fee for this procedure?: Yes Procedure Description: SURGEON: Jeannine Garcia MD PREOPERATIVE DIAGNOSIS: Dermatochalasis, bilateral upper eyelids. POSTOPERATIVE DIAGNOSIS: Dermatochalasis, bilateral upper eyelids. NAME OF OPERATION: Bilateral upper eyelid blepharoplasty. ANESTHESIA: Local monitored anesthesia care. ESTIMATED BLOOD LOSS: Less than 2 cc. COMPLICATIONS: None. IMPLANTS: None. INDICATIONS: The patient is seen today for bilateral upper eyelid blepharoplasty. The patient complains of upper eyelids interfering with vision. I reviewed the visual alvarado and facial photographs. Surgery was indicated for functional improvement of vision. The risks, benefits and alternatives were discussed pre-operatively. The risks included pain, infection, bleeding, poor cosmetic result, scarring, asymmetry, need for further treatment including surgery, inability to close lids, dry eyes, decreased vision, loss of vision and loss of eye. The benefits included improvement of symptoms. The alternative was observation and no surgery. All questions were answered to the patient's satisfaction, and the patient elected to proceed with the bilateral upper eyelid blepharoplasty. Informed consent was obtained. PROCEDURE: In a sitting position, the upper eyelid crease was marked with a marking pen, and the pinch technique was used to determine the amount of upper eyelid skin to be excised. A calipers was used to measure for symmetry and to confirm an appropriate amount of remaining skin. The patient was taken to the operating room. 4 cc of anesthetic was injected subcutaneously along the full extent of each upper eyelid. This anesthetic was made with 1:1 of 2% lidocaine with epinephrine and 0.5% bupivacaine. Both eyes were prepped and draped in the usual sterile ophthalmic fashion. The following was performed on both the right and left upper eyelid: A #15 blade was used to incise the skin. Bishops and Carmelo scissors were used to excise the skin and orbicularis muscle. Handheld cautery was used to achieve hemostasis. The eyelids were examined for symmetry. The skin was closed with a running 6-0 nylon suture. Erythromycin ointment was applied to the wounds. The patient tolerated the procedure well. DISPOSITION: The patient was sent to the recovery room and discharged to home in stable condition. The patient was given my postoperative instructions handout. The patient was told to ice as directed. The patient will apply erythromycin ophthalmic ointment to the eyelids three times a day until the sutures are removed, then for another three days. The patient will follow up in one week for suture removal or sooner as needed. The patient was instructed to call me or go to the emergency department with any sudden change, including dramatic loss of vision, excessive bleeding, redness or discharge from the incisions, or severe pain in the eye.
--- NOTE | 2023-05-23 11:47 | W.ANESCHARGE ---
Anesthesia Charges Start Date/Time Anesthesia Start Date: 05/23/23 Anesthesia Start Time: 10:44 Stop Date/Time Anesthesia Stop Date: 05/23/23 Anesthesia Stop Time: 11:48
--- NOTE | 2023-05-23 12:28 | W.ANESCHARGE ---
Anesthesia Charges Start Date/Time Anesthesia Start Date: 05/23/23 Anesthesia Start Time: 10:44 Stop Date/Time Anesthesia Stop Date: 05/23/23 Anesthesia Stop Time: 11:48
== END 2023-05-23 12:29 | disposition home or self-care (01) ==
LOC: OR 09:35
PROVIDERS: PCP Family Medicine; Visit Provider Ophthalmology
PROC: (CPT 15823; principal; 2023-05-23 09:30)
DX: H02.831 Dermatochalasis of right upper eyelid (principal); H02.834 Dermatochalasis of left upper eyelid; H53.8 Other visual disturbances
CPT/HCPCS: 15823; 00103; A9270; J2250; J2704; J3490; J7120

== ENCOUNTER 2023-07-24 10:55 | Outpatient (CLI) | payer MEDICARE, BC, SELFPAY | END 2023-07-24 10:56 | disposition home or self-care (01) | LOC: NFLDREF 07-25 06:22 | PROVIDERS: PCP Family Medicine; Referring Provider Family Medicine; Visit Provider Nurse Practitioner Psychiatric/Mental Health | DX: I10 Essential (primary) hypertension (principal); N18.1 Chronic kidney disease, stage 1; R53.83 Other fatigue; E78.5 Hyperlipidemia, unspecified; E03.9 Hypothyroidism, unspecified; E87.1 Hypo-osmolality and hyponatremia | CPT/HCPCS: 80069; 80164; 80165; 82043; 82088; 82150; 82570; 83835; 84244; 84450; 84460; 87086 ==

== ENCOUNTER 2023-08-17 14:29 | Outpatient (CLI) | payer MEDICARE, BC, SELFPAY ==
--- NOTE | 2023-08-17 15:00 | US_ITS ---
Patient: JULIANA MOE Facility:?[facility] Patient ID:?[id number] Site Patient ID:?[id number]. Site :?[id number] Study:?US-Abdomen/Pelvis RENAL DOPPLER / INTERVENT RAD TO R-08/17/2023 3:55:34 PM Ordering Physician:?DESI XIE JR Final Report: HISTORY: Chronic kidney disease, stage 1 TECHNIQUE: Grayscale ultrasound examination of the kidneys with 2D and spectral analysis and color Doppler interrogation of the renal vessels. COMPARISON: CT 11/23/2021 FINDINGS: Aorta peak systolic velocity 92.7 cm/second. Right renal artery peak systolic velocity measures up to 51 cm/second. Right renal artery ratio 0.6. Normal patency of the renal vein. Resistive indices 0.6- 0.7. Two left renal arteries are present. Peak systolic velocities are 46 cm/second and 59 cm/second. Renal artery ratio 0.6. Renal vein patent. Resistive indices 0.7. The kidneys are normal in size. The right kidney measures 9.7 cm and the left kidney measures 10.4 cm. Right renal cortex measures 1.1 cm and left renal cortex measures 1.2 cm. Simple cyst right kidney measuring 2.2 x 2.3 x 2.4 cm. Normal echogenicity is seen in both kidneys. There is no hydronephrosis. No shadowing echogenic focus is identified to suggest nephrolithiasis. IMPRESSION: No evidence of significant renal artery stenosis. Dictated by Gil Jiang MD @ 08/20/2023 9:17:46 AM Signed by:?Gil Jiang MD @08/20/2023 9:17:46 AM (Electronic Signature)
== END 2023-08-17 14:30 | disposition home or self-care (01) ==
LOC: US 14:31
PROVIDERS: PCP Family Medicine; Visit Provider Internal Medicine Nephrology
DX: N18.1 Chronic kidney disease, stage 1 (principal)
CPT/HCPCS: 76775; 93975

== ENCOUNTER 2023-11-08 14:47 | Outpatient (CLI) | payer MEDICARE, BC, SELFPAY ==
--- OUTSIDE RECORDS SUMMARY | 2023-11-08 14:51 | XMS_ITS | Clinical Summary ---
Author Organization [facility] Address [address] [place] [address] Care Team Providers Care Service Center Supervisor Name Role Phone Jacob Lorenzo MD Unavailable Yon Eason MD Unavailable [phone] Allergies Active Allergy Reactions Criticality Noted Date Comments Cyclobenzaprine Hcl Fatigue Low 12/24/2007 Lisinopril Other (See Comments) 07/04/2019 Facial swelling Risperidone Swelling Medium 12/24/2007 Retain fluid Quetiapine Fumarate Rash Medium 12/22/2010 Carisoprodol Swelling High 12/24/2007 Medications Medication Sig Dispensed Refills Start Date End Date Status SYNTHROID 88 MCG OR TABS 1 TABLET DAILY Active divalproex sodium extended-release (DEPAKOTE ER) 500 MG 24 hr tablet Take 2,000 mg by mouth daily Twice daily Active ibuprofen (ADVIL/MOTRIN) 200 MG tablet Take 200 mg by mouth every 4 hours as needed. Active Multiple Vitamin (MULTI-VITAMIN) per tablet Take 1 tablet by mouth daily. Active albuterol (PROAIR HFA/PROVENTIL HFA/VENTOLIN HFA) 108 (90 Base) MCG/ACT inhaler Inhale 2 puffs into the lungs every 4 hours as needed 03/06/2022 Active chlorthalidone (HYGROTON) 25 MG tablet Take 1 tablet by mouth daily at 2 pm 05/10/2022 Active cyclobenzaprine (FLEXERIL) 10 MG tablet 07/05/2022 Active esomeprazole (NEXIUM) [address] capsule Take 40 mg by mouth daily 05/10/2022 Active fluticasone-vilantero l (BREO ELLIPTA) 200-25 MCG/ACT inhaler Inhale 1 puff into the lungs daily 02/15/2022 Active metoprolol tartrate (LOPRESSOR) 50 MG tablet Take 1 tablet by mouth 2 times daily 07/05/2022 Active mirtazapine (REMERON) 7.5 MG tablet Take 7.5 mg by mouth At Bedtime 06/02/2022 Active rOPINIRole (REQUIP) 1 MG tablet TAKE 1 TABLET BY MOUTH AT 5 PM AND 2 AT BEDTIME DIRECTED 05/10/2022 Active cariprazine (VRAYLAR) 1.5 MG capsule Take by mouth daily A ctive LORazepam (ATIVAN) 0.5 MG tablet Take 0.5 mg by mouth every 6 hours as needed for anxiety Active Active Problems Problem Noted Date Diagnosed Date Bipolar affective disorder, mixed 01/03/2008 Overview: Sees Dr. Del Toro , [facility] [place] ADD (attention deficit disorder) 01/03/2008 Polysubstance dependence 01/03/2008 Overview: In remission Mild intermittent asthma 01/03/2008 Overview: Albuterol prn Back pain 12/24/2007 Immunizations Name Administration Dates Next Due HEPA 03/11/1998 HepB 09/23/1998,04/12/1998,03/12/1998 Influenza (IIV3) PF 03/22/2010,06/14/2009 TDAP Vaccine (Adacel) 10/19/2005 Social History Tobacco Use Types Packs/Day Years Used Date Smoking Tobacco: Some Days Cigarettes Last attempted to quit: 11/11/2012 Smokeless Tobacco: Never Tobacco Cessation:Ready to Q uit: Not Asked; Counseling Given: Not Answered Comments:currentlu using chantix--cut down to 3-4 cigs/day 04/29/10 declined smoking hotline Alcohol Use Standard Drinks/Week Comments No 0 (1 standard drink = 0.6 oz pur e alcohol) Adolescent Education Answer Date Record ed Getting School Help Needed Not on file 03/12 Sex and Gender Information Value Date Recorded Sex Assigned at Not on file Gender Identity Not on file Sexual Orientation Not on file Last Filed Vital Signs Vital Sign Reading Time Taken Comments Blood Pressure 160/100 04/29/2010 3:21 PM [employer] Pulse 72 04/29/2010 3:21 PM [employer] Temperature 36.3 ??C (97.3 ??F) 04/29/2010 3:21 PM CS T Respiratory Rate - - Oxygen Saturation - - Inhaled Oxygen Concentration - - Weight 58.5 kg (129 lb) 04/29/2010 3:21 PM [employer] Height 162.6 cm (5' 4) 04/29/2010 3:21 PM [employer] Body Mass Index 22.14 04/29/2010 3:21 PM [employer] Plan of Treatment Health Maintenance Due Date Last Done Comments ADVANCE CARE PLANNING 1955 ANNUAL REVIEW OF HM ORDERS 1955 ASTHMA ACTION PLAN [address] ASTHMA [address] COLONOGRAPHY 1955 DEXA 1955 FIT 1955 FLEX SIG 1955 sDNA (Cologuard) 1955 HEPATITIS C SCREENING 01/23/1972 LIPID 1994 LUNG CANCER SCREENING 01/23/2004 TSH W/FREE T4 REFLEX 01/21/2012 01/20/2011 RSV VACCINE ( & 60+) (1 - 1-dose 60+ series) 2014 MAMMO SCREENING 10/17/2014 10/17/2012 GLUCOSE 10/17/2015 10/16/2012, 01/09, 01/20/2011 HEPATITIS A IMMUNIZATION (2 of 2 - Risk 2-dose series) 08/16/2016 02/17/2016, 02/17/2016, 03/11/1998, Additional history exists FALL RISK ASSESSMENT 2019 MEDICARE ANNUAL WELLNESS VISIT 2019 Pneumococcal Vaccine: 65+ Years (3 of 3 - PPSV23 or PCV20) 2019 06/28/2013, 03/26/2013 COVID-19 Vaccine ( - season) 2023 04/20/2022, 03/29/2021, 09/14/2020, Additional history exists PHQ-2 (once per calendar year) 2023 INFLUENZA VACCINE (Season Ended) 2024 04/12/2022, 03/24/2021, 05/25/2020, Additional history exists DTAP/TDAP/TD IMMUNIZATION (4 - Td or Tdap) 02/16/2026 02/17/2016, 10/23/2005, 10/19/2005, Additional history exists COLONOSCOPY 12/07/2031 12/06/2021, 06/12/2006 COLORECTAL CANCER SCREENING 12/07/2031 ZOSTER IMMUNIZATION Completed 07/27/2020, 05/25/2020, 02/17/2016 HPV IMMUNIZATION Aged Out No longer e ligible based on patient's age to complete this topic IPV IMMUNIZATION Aged Out No longer e ligible based on patient's age to complete this topic MENINGITIS IMMUNIZATION Aged Out No l onger eligible based on patient's age to complete this topic RSV MONOCLONAL ANTIBODY Aged Out No l onger eligible based on patient's age to complete this topic Procedures Procedure Name Priority Date/Time Associated Diagnosis Comments MA SCREENING DIGITAL BILATERAL Routine 10/17/2012 COMPREHENSIVE METABOLIC PANEL Routine 10/16/2012 TSH Routine 01/20/2011 6:54 AM CDT COLONOSCOPY Routine 06/12/2006 from Last 3 Months or Most Recently Relevant to Health Maintenance Results * MA Screening Digital Bilateral (10/17/2012) MAMMOGRAM Negative [facility] Anatomical Region Laterality Modality Breast Bilateral Other [employer] [facility] MAMMOGRAPHY LONNIE CASTRO * (ABNORMAL) Comprehensive metabolic panel (10/16/2012) Sodium 137.1 mmol/L [facility] Potassium 4.2 mmol/L [facility] Chloride 98 mmol/L [facility] CO2, TOTAL 31.0 mmol/L [facility] Anion Gap 8 mmol/L [facility] Glucose 111(A) 60 - 99 mg/dL [facility] Urea Nitrogen 20 mg/dL [facility] Creatinine 0.70 mg/dL [facility] Calcium 10.1 mg/dL [facility] Protein Total g/dL [facility] Albumin g/dL [facility] Bilirubin Total mg/dL [facility] Alkaline Phosphatase U/L [facility] AST U/L [facility] ALT U/L [facility] Blood specimen (specimen) [employer] LAB - BLOOD ORDERABL ES Performing Organization Address City/[facility]/ZIP Co de Phone Number [facility] * TSH (01/20/2011 6:54 AM CDT) TSH 0.93 0.4 - 5.0 mU/L [facility] 01/20/2011 6:54 AM CDT 01/20/2011 7:01 AM CDT Jairon Gunter MD LAB - BLOOD ORDERABL ES Performing Organization Address [facility]/ZIP Co de Phone Number [facility] [place] [address] * COLONOSCOPY (06/12/2006) [employer] PROCEDURES from Last 3 Months or Most Recently Relevant to Health Maintenance Care Teams Service Center Supervisor Relationship Specialty Start Date End Date Jacob Lorenzo MD PCP - Orthopaedics Orthopedics 02/28/11 Yon Eason MD [address] [place] [address] Assigned Heart and Vascular Provider 08/19/22
--- OUTSIDE RECORDS SUMMARY | 2023-11-08 14:52 | XMS_ITS | Encounter Summary ---
Author Organization [facility] Address [address] [place] [address] Care Team Providers Care Operations Intern Name Role Phone Tesha Nunez MD Primary Care Provider Unavail able Bernard Parekh MD Unavailable Unavailable Encounter Details Date Type Department Care Team (Late st Contact Info) Description 01/19/2011 6:27 AM T [facility] in [address] [phone] Jacob Lorenzo MD [address] [phone] Social History Tobacco Use Types Packs/Day Years Used Date Smoking Tobacco: Some Days Cigarettes Last attempted to quit: 11/11/2012 Smokeless Tobacco: Never Comments:currentlu using baljit ntix--cut down to 3-4 cigs/day 04/29/10 declined smoking hotline Alcohol Use Standard Drinks/Week Comments No 0 (1 standard drink = 0.6 oz pur e alcohol) Sex and Gender Information Value Date Recorded [...] closed using #1 Vicryl in an interrupted [id number]-[id number] fashion followed by copious irrigation of the [...] end of the case. Jacob Lorenzo M.D. [facility]/wong cc: documented in this encounter Plan of Treatment Not on file documented as of this encounter Procedures Procedure Name Priority Date/Time Associated Diagnosis Comments SURGICAL PATHOLOGY EXAM Routine 01/19/2011 8:00 AM CDT documented in this encounter Results * Surgical pathology exam (01/19/2011 8:00 AM CDT) Copath Report Patient Name: YAMILETH AMAYA MR#: [id number] Specimen #: [id number] Collected: 01/19/2011 Received: 01/19/2011 Reported: 01/20/2011 17:47 Ordering Phy(s): JACOB LORENZO SPECIMEN(S): Right knee bone FINAL DIAGNOSIS: Bone from right knee, resected: ? - ??Bone from knee with degenerative articular changes. Electronically signed out by: Alexander Preciado M.D. CLINICAL HISTORY: Specimen, bone from right knee. ??Persistent right knee pain post right knee unicompartmental arthroplasty three years ago. GROSS: The container is labeled with the patient's name, medical record number, date of , and is designated as bone from right knee. ??There are multiple portions of bone aggregated to approximately 70 x 70 x 50 mm. The largest portion of bone is part of the tibial plateau up to 50 x 50 x 20 mm. ??Degenerative articular changes are noted. ??No sections are submitted. MICROSCOPIC: Microscopic examination is not performed. Alexander Preciado MD/luis 01/19/2011 TESTING LAB LOCATION: [address] [address] COLLECTION SITE: Client: [facility] Location: 40 (W) COPATH 01/19/2011 8:00 AM CDT 01/19/2011 12:12 PM CDT Jacob Lorenzo MD LAB - [facility] Organization Address City/State/ZIP Co de Phone Number COPATH documented in this encounter Visit Diagnoses Not on filedocumented in this encounter Care Teams Operations Intern Relationship Specialty Start Date End Date Tesha Nunez MD PCP - General 07/03/00 04/16/13 Bernard Parekh MD RETIRED PCP - Orthopaedics Orthopedics 05/20/10 01/26/11 documented as of this encounter
--- OUTSIDE RECORDS SUMMARY | 2023-11-08 14:52 | XMS_ITS | Clinical Summary ---
Author Organization [facility] Address [place], [place] [address] Care Team Providers Care Food Service Helper Name Role Phone Kim Gardner MD Primary Care Provider + Allergies Active Allergy Reactions Criticality Noted Date Comments Lisinopril Other - Describe In Comment Field 07/04/2019 Facial swelling Risperidone Analogues 12/16/2007 Quetiapine Edema 08/18/2017 Medications Medication Sig Dispensed Refills Start Date End Date Status albuterol HFA (PRO-AIR,VENTOLIN,PRO VENTIL) 90 mcg/actuation inhalerIndications:CO PD (chronic obstructive pulmonary disease) with acute bronchitis (HC) Inhale 2 Puffs by mouth 4 times daily if needed. 1 Inhaler 3 03/09/2015 Active omeprazole (PRILOSEC-OTC) 20 mg tabletIndications:Gas troesophageal reflux disease without esophagitis Take 1 tablet by mouth once daily. 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 30 capsule 11 04/13/2015 Active rOPINIRole (REQUIP) 1 mg tabletIndications:Res tless leg One full pill by mouth at 9pm, half a pill at 4pm. 45 tablet 5 06/16/2015 Active buprenorphine-naloxon e 8 mg-2 mg (SUBOXONE) film sublingual film Place 1 Film under the tongue 2 times daily. Cuts this in half, taking 1/2 in the morning and 1/2 in the evening 0 07/26/2015 Active cyclobenzaprine (FLEXERIL) 10 mg tabletIndications:Low back pain, unspecified back pain laterality, with sciatica presence unspecified Take 1 tablet by mouth 3 times daily if needed for Muscle Spasm. 30 tablets must last 3 months 30 tablet 0 08/06/2015 Active calcium carbonate-cholecalcif abe, 600mg-200 units, (CALTRATE-600 + VIT D) tablet Twice A Day Active fluticasone furoate-vilanterol (BREO ELLIPTA) 200mcg/25mcg inhaler Daily 04/25/2017 Acti ve levothyroxine (SYNTHROID) 112 mcg tablet Daily 07/11/2017 Active escitalopram oxalate (LEXAPRO) 10 mg tabletIndications:Bip olar 1 disorder (HC) Take 1 tablet by mouth once daily. 30 tablet 5 10/09/2018 Active cariprazine (VRAYLAR) 1.5 mg capsule Take 1 capsule by mouth 2 times daily. 0 02/11/2019 Active traZODone (DESYREL) 100 mg tablet Take 1 tablet by mouth at bedtime. 0 07/04/2019 Active metoprolol succinate (TOPROL XL) 100 mg Sustained-Release tablet 07/03/2019 Active LORazepam (ATIVAN) 0.5 mg tab 06/24/2019 Active dilTIAZem (DILACOR XR; DILTIA XT) 240 mg Extended-Release capsuleIndications:HT N (hypertension) Take 1 Capsule (240 mg) by mouth once daily. 90 Capsule 08/01/2022 Active Active Problems Problem Noted Date Diagnosed Date Chronic hepatitis C without hepatic coma 019 Chronic anxiety 08/31/2017 Chronic insomnia 08/31/2017 Bipolar 1 disorder 08/31/2017 Cognitive disorder 08/16/2015 Chronic gout of knee 07/05/2015 Routine adult health maintenance 06/17/2015 Overview: Colonoscopy 06/2015 diverticulosis incomplete to 50 cm, recommend CT colonography Chronic edema 03/04/2015 Gastroesophageal reflux disease without esophagi tis 10/27/2014 ADD (attention deficit disorder) 09/23/2014 Elevated BP 09/23/2014 Hypertension 08/28/2014 History of mixed drug abuse 08/28/2014 Overview: Last relapse 12/2014- opiates. Hypothyroid 06/24/2014 Tobacco abuse 05/25/2014 COPD (chronic obstructive pu lmonary disease) with acute bronchitis 05/12/2014 Back pain 04/28/2010 Hepatitis C carrier 05/13/2009 Resolved Problems Problem Noted Date Diagnosed Date Resolved Date Bipolar disorder, current ep isode mixed, severe, with psychotic features 01/06/2015 04/14/20 Bipolar disorder 09/23/2014 01/06/2015 Major depression 09/23/2014 03/03/2015 Immunizations Name Administration Dates Next Due DTaP 10/19/2005 Hepatitis A (Adult) 02/17/2016,03/11/1998 Hepatitis A, Unspecified 02/17/2016,03/11/1998 Hepatitis B (Adult) 09/23/1998,04/12/1998,1997 Hepatitis B (Peds) 09/23/1998,04/12/1998, 998 Hepatitis B, Unspecified 09/23/1998,09/09,04/12/1998,1997,03/12/1998,03/12/1998 Influenza Virus, Unspecified 03/06/2013, 04/17/2012,03/11/2011,2009,06/14/2009 Influenza, High-dose Inactivated 03/26/2013 Influenza, IIV3 (Age 6-35 mos) 03/07/2011 Influenza, IIV3 (Age >=3 years) 02/17/20 17,03/16/2016,03/22/2014,2012,04/17/2012,03/11/2011,03/22/2010,0 06/14/2009 Influenza, IIV4 02/16/2017,03/16/2016,04/16/2015 Pneumococcal Poly,23-Valent (Pneumovax) 06/28/2013 Pneumococcal, Unspecified 03/26/2013 Tdap 02/17/2016,02/17/2016,10/19/2005 Tetanus Toxoid 10/23/2005 Tetanus/Diptheria 10/19/2005 Zoster (Zostavax-ZVL, live) 02/17/2016, 6 Family History * Patient is adopted Medical History Relation Name Comments Cancer-breast Maternal Aunt materna l aunt Cancer-ovarian Mother mother Relation Name Status Comments Father Maternal Aunt Mother Social History Tobacco Use Types Packs/Day Years Used Date Smoking Tobacco: Former Cigarettes 0.5 15 0 10/11/2002 - 10/11/2017 Smokeless Tobacco: Never Tobacco Cessation:Counseling Given: Yes Alcohol Use Standard Drinks/Week Comments No 0 (1 standard drink = 0.6 oz pur e alcohol) PHQ-2 Answer Date Recorded PHQ-2 Score 3 10/09/2018 Social Connections Answer Date Recorded Frequency of Communication with Friends and Fami ly Not on file 06/11/2021 Financial Resource Strain Answer Date R ecorded Difficulty of Paying Living Expenses Not on file 06/11/2021 Difficulty of Paying Living Expenses Not on file 06/11/2021 Sex and Gender Information Value Date Recorded Sex Assigned at Not on file Gender Identity Not on file Sexual Orientation Not on file Obstetrics History Para Term AB IAB SAB Ectopic Multiple Livin g Live Births 0 0 0 0 0 0 0 0 0 0 Last Filed Vital Signs Vital Sign Reading Time Taken Comments Blood Pressure 121/75 07/04/2019 1:38 PM ADZING AND BORING MACHINE OPERATOR Pulse 62 07/04/2019 1:38 PM ADZING AND BORING MACHINE OPERATOR Temperature 36.3 ??C (97.4 ??F) 08/02/2017 1:24 PM CS T Respiratory Rate 22 10/09/2018 7:59 AM CDT Oxygen Saturation 94% 07/04/2019 1:38 PM ADZING AND BORING MACHINE OPERATOR Inhaled Oxygen Concentration - - Weight 66 kg (145 lb 9.6 oz) 07/04/2019 1:38 PM ADZING AND BORING MACHINE OPERATOR Height 162 cm (5' 3.78) 12/25/2018 12:18 PM CDT Body Mass Index 25.16 12/25/2018 12:18 PM CDT Plan of Treatment Health Maintenance Due Date Last Done Comments Mammogram for age 45-75 12/24/2015 12/23/2014, 12/03 Zoster (shingles) series for age 50+ (2 of 3) 04/13/2016 02/17/2016, 02/17/2016 DEXA/DXA scan for age 65+ 2019 Medicare Wellness for age 65+ 2019 Pneumococcal series for age 65+ (2 of 2 - PCV) 2019 06/28/2013, 03/26/2013 Lipids for age 45-75 07/20/2019 07/20/2014 Depression screening for age 12+ 10/10/2019 10/09/2018, 10/09/2018, 06/19/2018, Additional history exists BMI (ht and wt on same day) for age 18+ 12/26/2019 12/25/2018, 07/12/2018, 08/18/2017, Additional history exists COVID-19 vaccine series (2022- season) 2023 Influenza for age 65+ 02/10/2024 02/16/2017 , 02/16/2017, 03/16/2016, Additional history exists Colonoscopy through age 75 08/08/2025, 06/17/2015, 06/12/2006 (Completed outside of [facility]) Tetanus booster 02/16/2026 02/17/2016, 01/2016, 10/19/2005 Tdap Completed 02/17/2016, 01/2016, 10/19/2005 Hepatitis C screening for ag e 18-79 Completed 07/04/2019, 02/11/2019, 07/24/2018, Additional history exists Procedures Procedure Name Priority Date/Time Associated Diagnosis Comments HCV RNA QUANT Routine 07/04/2019 2:06 PM ADZING AND BORING MACHINE OPERATOR Hepatitis C virus infection without hepatic coma, unspecified chronicity SCAN-COLONOSCOPY 08/09/2015 12:0 0 AM ADZING AND BORING MACHINE OPERATOR XR MAMMO BILAT SCREEN FFDM (IA) Routine 12/23/2014 10:21 AM CDT Other screening mammogram LIPID PANEL W REFLEX MEASURED LDL Routine 07/20/2014 7:59 AM ADZING AND BORING MACHINE OPERATOR Chest pain from Last 3 Months or Most Recently Relevant to Health Maintenance Results * HCV RNA QUANT (07/04/2019 2:06 PM ADZING AND BORING MACHINE OPERATOR) HCV RNA RT-PCR HCV RNA not detected HCV RNA not detected IU/mL 07/08/2019 4:00 PM ADZING AND BORING MACHINE OPERATOR [facility] Blood BLOOD SPECIMEN / Unknown Venipuncture / Unknown 07/04/2019 2:06 PM ADZING AND BORING MACHINE OPERATOR 07/04/2019 2:07 PM ADZING AND BORING MACHINE OPERATOR Narrative [facility] - 07/08/2019 4:00 PM ADZING AND BORING MACHINE OPERATOR Method: ??Abigail HCV Test Prateek Liang MD SEND OUTS [facility] [address] [place] [address], [place] * SCAN-COLONOSCOPY (08/09/2015 12:00 AM ADZING AND BORING MACHINE OPERATOR) Scanner OTHER * XR MAMMO BILAT SCREEN FFDM (12/23/2014 10:21 AM CDT) Anatomical Region Laterality Modality BREASTS, Breast Left, Breast Right Bilateral Mammography Impressions 12/29/2014 12:29 PM CDT ??There is no radiographic evidence for malignancy. ??Recommend annual mammograms. A lay language report of this examination will be provided to the patient. MAMMOGRAM ASSESSMENT: ??ACR 2 Benign Narrative 12/29/2014 12:29 PM CDT XR MAMMO BILAT SCREEN FFDM [G0202.0] CLINICAL HISTORY: ??This is an asymptomatic 59 y.o. patient. INDICATION FOR EXAM: Mammogram Screening. TECHNIQUE: CC & MLO views were obtained. ??This digital study was evaluated with the assistance of Computer-Aided Detection. COMPARISON FILMS: Yes 12/03/13 [facility] 10/17/12 [facility] FINDINGS: ??Mammographically, the breast tissue is almost entirely fat. ??No suspicious masses or microcalcifications. ??Benign appearing asymmetry within left breast. Regina Moulton MD MAMMO * LIPID PANEL W REFLEX MEASURED LDL (07/20/2014 7:59 AM ADZING AND BORING MACHINE OPERATOR) CHOLESTEROL,TOTAL 145 100 - 199 mg/dL 07/20/2014 9:25 AM ADZING AND BORING MACHINE OPERATOR [facility] TRIGLYCERIDES 95 <150 mg/dL 07/20/2014 9:25 AM ADZING AND BORING MACHINE OPERATOR [facility] HDL CHOLESTEROL 51 >40 mg/dL 5 9:25 AM ADZING AND BORING MACHINE OPERATOR [facility] NON-HDL CHOLESTEROL 94 <145 mg/dl 07/20/2014 9:25 AM ADZING AND BORING MACHINE OPERATOR [facility] CHOL/HDL RATIO 2.84 <4.50 07/20/2014 9:25 AM ADZING AND BORING MACHINE OPERATOR [facility] LDL CHOLESTEROL 75 <=130 mg/dL 07/20/2014 9:25 AM ADZING AND BORING MACHINE OPERATOR [facility] PATIENT STATUS FASTING 07/20/2014 9:25 AM ADZING AND BORING MACHINE OPERATOR [facility] Blood specimen (specimen) BLOOD SPECIMEN / Unknown Venipuncture / Unknown 07/20/2014 7:59 AM ADZING AND BORING MACHINE OPERATOR 07/20/2014 7:59 AM ADZING AND BORING MACHINE OPERATOR Regina Moulton MD CHEMISTRY [facility] [address] [facility] [place] [address], [place] [phone] from Last 3 Months or Most Recently Relevant to Health Maintenance Advance Directives Documents on File Type Date Recorded Patient Wooling Machine Operator Expl anation Healthcare Directive 08/02/2018 10:59 AM H EALTHCARE DIRECTIVE, [facility], 06/21/15 Care Teams Food Service Helper Relationship Specialty Start Date End Date Kim Gardner MD [address] [place] [address] PCP - General Family Practice 09/06/15
--- OUTSIDE RECORDS SUMMARY | 2023-11-08 14:52 | XMS_ITS | Referral Summary ---
Author Organization [facility] Address [address] [place] [address] Care Team Providers Care Safety Sealer Name Role Phone Jacob Lorenzo MD Unavailable [phone] Yon Eason MD Unavailable [phone] Allergies Active Allergy Reactions Criticality Noted Date [...] Overview: Sees Dr. Del Toro , Psych Brain ADD (attention deficit disorder) 01/03/2008 Polysubstance dependence [...] Comments Blood Pressure 160/100 04/29/2010 3:21 PM CAMPUS RECEPTIONIST Pulse 72 04/29/2010 3:21 PM CAMPUS RECEPTIONIST Temperature 36.3 ??C (97.3 ??F) 04/29/2010 3:21 PM CS T Respiratory Rate - - Oxygen Saturation - - Inhaled Oxygen Concentration - - Weight 58.5 kg (129 lb) 04/29/2010 3:21 PM CAMPUS RECEPTIONIST Height 162.6 cm (5' 4) 04/29/2010 3:21 PM CAMPUS RECEPTIONIST Body Mass Index 22.14 04/29/2010 3:21 PM CAMPUS RECEPTIONIST Plan of Treatment Not on file Procedures Procedure Name Priority Date/Time Associated Diagnosis Comments MA SCREENING DIGITAL BILATERAL Routine 10/17/2012 COMPREHENSIVE METABOLIC PANEL Routine 10/16/2012 TSH Routine 01/20/2011 6:54 AM CDT COLONOSCOPY Routine 06/12/2006 from Last 3 Months or Most Recently Relevant to Health Maintenance Results * MA Screening Digital Bilateral (10/17/2012) MAMMOGRAM Negative [facility] Anatomical Region Laterality Modality Breast Bilateral Other [employer] [facility] ORDNarendra CASTRO * (ABNORMAL) Comprehensive metabolic panel (10/16/2012) [...] ALT U/L MISYS Blood specimen (specimen) [employer] LAB - BLOOD ORDERABL ES MISYS * TSH (01/20/2011 6:54 AM CDT) TSH 0.93 0.4 - 5.0 mU/L [facility] 01/20/2011 6:54 AM CDT 01/20/2011 7:01 AM CDT Jairon Gunter MD LAB - [facility]LOOD [facility]ABL [facility] [place] [place] [address] * COLONOSCOPY (06/12/2006) [employer] PROCEDURES from Last 3 Months or Most Recently Relevant to Health Maintenance Care Teams Safety Sealer Relationship Specialty Start Date End Date Jacob Lorenzo MD PCP - Orthopaedics Orthopedics 02/28/11 Yon Eason MD [address] [address] Assigned Heart and Vascular Provider 08/19/22
--- OUTSIDE RECORDS SUMMARY | 2023-11-08 14:52 | XMS_ITS | Encounter Summary ---
Author Organization [facility] Address [address] [place] [address] Care Team Providers Care Wellness Nurse Rn Name Role Phone Tesha Nunez MD Primary Care Provider Unavail able Bernard Parekh MD Unavailable Unavailable Deuce Wyman MD Unavailable Jacob Lorenzo MD Unavailable [phone] Kaila Castro MD Primary Care Provider Nayana Bowie MD Primary Care Provider Madison Yon Zelaya MD Unavailable [phone] Encounter Details Date Type Department Care Team (Late st Contact Info) Description 01/19/2011 [facility] in [place] Inpatient Dept [address] [place] [address] Frw, Inpatient Provider Status post total knee replacement (Primary Dx) Social History Tobacco Use Types Packs/Day Years [...] documented as of this encounter Visit Diagnoses Diagnosis Status post total knee replacement- Primary Knee joint replacement by other means documented in this encounter Care Teams Wellness Nurse Rn Relationship Specialty Start Date End Date Tesha Nunez MD PCP - General 07/03/00 04/16/13 Bernard Parekh MD RETIRED PCP - Orthopaedics Orthopedics 05/20/10 01/26/11 Deuce Wyman MD [facility] [place] [address] [place] [address] PCP - Orthopaedics Orthopedics 01/27/11 02/27/11 Jacob Lorenzo MD [facility] [place] [address] [place] [address] PCP - Orthopaedics Orthopedics 02/28/11 Kaila Castro MD [facility] [place] [address] [place] [address] PCP - General Family Practice 04/17/13 05/29/13 Nayana Bowie MD [facility] [place] [address] [place] [address] PCP - General Surgery 07/13/16 07/13/16 Yon Eason MD [address] [address] Assigned Heart and Vascular Provider 08/19/22 documented as of this encounter
--- OUTSIDE RECORDS SUMMARY | 2023-11-08 14:52 | XMS_ITS | Encounter Summary ---
Author Organization [facility] Address [address] [place] [address] Care Team Providers Care Police Sergeant Name Role Phone Tesha Nunez MD Primary Care Provider Unavail able Encounter Details Date Type Department Care Team (Late st Contact Info) Description 03/22/2010 12:19 PM T [facility] in [address] [address] Pierce Hernandes MD NO INFO [...] on filedocumented in this encounter Care Teams Police Sergeant Relationship Specialty Start Date End Date Tesha Nunez MD PCP - General 07/03/00 04/16/13 documented as of this encounter
--- OUTSIDE RECORDS SUMMARY | 2023-11-08 14:52 | XMS_ITS | Continuity of Care Document ---
Author Organization [facility] Address [address] [place] [address] Phone Care Team Providers Care Offbearer Name Role Phone Unavailable Unavailable Unavailable Advance Directives Directive Yes / No Effective Date File Name No Information Encounters Encounter Description Practice Location Reason(s) For Visit Diagnoses Date Provider Providers Copied on Encounter [facility], [address], [place], [place], [id number], [place] tel:[phone] [facility] No Information 6 4 No Information Family History Family Member Type Diagnosis Age At Onset No Information Payers Payer name Insurance type Covered democrat ID Authoriza tion(s) No Information Social History [...]
== END 2023-11-08 14:48 | disposition home or self-care (01) ==
PROVIDERS: PCP Family Medicine; Visit Provider Family Medicine
DX: I10 Essential (primary) hypertension (principal); R53.83 Other fatigue; N18.1 Chronic kidney disease, stage 1; E78.5 Hyperlipidemia, unspecified; R25.2 Cramp and spasm
CPT/HCPCS: 80053; 83735

== ENCOUNTER 2023-12-19 21:35 | Emergency (ER) | payer MEDICARE, BC, SELFPAY ==
--- NOTE | 2023-12-19 21:36 | ED_ITS ---
HPI - General Adult General Chief complaint: Shortness of Breath/Dyspnea Stated complaint: difficulty breathing, oxygen level low Time Seen by Provider: 12/19/23 21:36 History of Present Illness HPI narrative: CC: Shortness of Breath, Cough pt. with h/o COPD, smoker. started having [facility] shortness of breath since this morning. denies fevers, chest pain, n/v , diarrhea. 68-year-old woman presenting to the emergency department with concern of difficulty breathing. Review of records shows she does have a history of COPD. Does have a nebulizer. She does not need oxygen. It sounds as though is only using albuterol for her medication. She does not describe any controller medications. She does also seem to have congested face and she describes using Flonase occasionally. Admittedly when she was 1st prescribed and using it regularly was actually helpful she admits. Records would indicate a controller medication but she there does not seem to be anything else that she describes that she is using daily. She describes some jags of coughing. She did vomit ?g ot sick? the other night but she thinks that was bad pizza or ?I can eat pizza?. She does describe jags of coughing though to the point of needing to throw up. Unclear really help along some of the symptoms have been going on ?over a long time?. Baseline oxygen she thinks is around 94% after a fit of coughing though she thought she should check her oxygen she noted to be about 80%. Has not had any fever. Does admit that chest feels quite tight. She just thought that she should wait any longer and be checked tonight. With reference to her respiratory cares she does note that she is anticipating placement soon to [facility]. I do note initial blood pressure to be rather high. She says she is meeting with the specialist from [place] some point soon. Blood pressure on presentation 197/133 though recheck now 185/88 Related Data Home Medications ?Medication ?Instructions ?Recorded ?Confirmed divalproex 500 mg tablet,delayed 500 mg PO DIRECTED PRN 02/23/22 01/18/24 release fluticasone furoate 200 1 inh inhalation DAILY 02/23/22 01/18/24 mcg-vilanterol 25 mcg/dose inhalation powder mirtazapine 7.5 mg tablet 7.5 mg PO .Bedtime 02/23/22 01/18/24 lorazepam 0.5 mg tablet 0.5 mg PO QDAY PRN 06/06/23 01/18/24 carvedilol 25 mg tablet 12.5 mg PO BID 09/04/23 01/18/24 Previous Rx's ?Medication ?Instructions ?Recorded ropinirole 1 mg tablet 1 mg PO DIRECTED #270 tabs 08/30/23 albuterol sulfate 90 mcg/actuation 2 puff inhalation Q4H #8.5 grams 10/12/23 aerosol inhaler cyclobenzaprine 5 mg tablet 5 mg PO QHS PRN muscle spasm #30 11/08/23 tabs levothyroxine 112 mcg tablet 112 mcg PO DIRECTED #90 tabs 11/21/23 esomeprazole magnesium 40 mg 40 mg PO DAILY #90 caps 11/28/23 capsule,delayed release hydralazine 50 mg tablet 50 mg PO BID #180 tabs 12/05/23 rosuvastatin 5 mg tablet 5 mg PO QDAY #90 tabs 12/11/23 fluticasone furoate 100 1 inh inhalation DAILY #30 ea 12/19/23 mcg-vilanterol 25 mcg/dose inhalation powder ipratropium 0.5 mg-albuterol 3 mg 3 ml inhalation TID PRN #90 mL 12/19/23 (2.5 mg base)/3 mL nebulization soln loperamide 2 mg capsule (Imodium 4 mg (2 x 2 mg) PO QDAY PRN 12/24/23 A-D) diarrhea #30 caps estradiol 0.01% (0.1 mg/gram) 1 g vaginal 2XW #42.5 grams 01/18/24 vaginal cream (Estrace) Allergies Allergy/AdvReac Type Severity Reaction Status Date / Time gabapentin Allergy Intermediate Hives Verified 01/18/24 10:40 lisinopril Allergy Intermediate edema in Verified 01/18/24 10:40 face risperidone Allergy Unknown Verified 01/18/24 10:40 aripiprazole AdvReac Intermediate leg Verified 01/18/24 10:40 swelling amlodipine AdvReac Mild leg Verified 01/18/24 10:40 swelling quetiapine AdvReac swelling Verified 01/18/24 10:40 Review of Systems Status of ROS: Reports: 6 or more systems reviewed and unremarkable except as noted in History and below [facility] Medical History COPD (chronic obstructive pulmonary disease) ?J44.9 - Chronic obstructive pulmonary disease, unspecified (ICD-10) Ineffective coping ?R45.89 - Other symptoms and signs involving emotional state (ICD-10) Hyponatremia ?E87.1 - Hypo-osmolality and hyponatremia (ICD-10) Overdose by ingestion ?T50.901A - Poisoning by unspecified drugs, medicaments and biological substances, accidental (unintentional), initial encounter (ICD-10) Traumatic rhabdomyolysis (~03/2023) ?T79.6XXA - Traumatic ischemia of muscle, initial encounter (ICD-10) Traumatic subdural hematoma ?S06.5XAA - Traumatic subdural hemorrhage with loss of consciousness status unknown, initial encounter (ICD-10) Cigarette smoker ?F17.210 - Nicotine dependence, cigarettes, uncomplicated (ICD-10) Hypokalemia ?E87.6 - Hypokalemia (ICD-10) Acute renal failure due to traumatic rhabdomyolysis ?N17.9 - Acute kidney failure, unspecified (ICD-10) ?T79.6XXA - Traumatic ischemia of muscle, initial encounter (ICD-10) Traumatic ecchymosis of multiple sites ?T14.8XXA - Other injury of unspecified body region, initial encounter (ICD- 10) Marijuana smoker, episodic ?F12.90 - Cannabis use, unspecified, uncomplicated (ICD-10) Elevated troponin I level ?R79.89 - Other specified abnormal findings of blood chemistry (ICD-10) Total bilirubin, elevated ?R17 - Unspecified jaundice (ICD-10) Lorazepam overdose of undetermined intent ?T42.4X4A - Poisoning by benzodiazepines, undetermined, initial encounter (ICD-10) Obstructive sleep apnea treated with continuous positive airway pressure (CPAP) (~2017) ?G47.33 - Obstructive sleep apnea (adult) (pediatric) (ICD-10) ?Z99.89 - Dependence on other enabling machines and devices (ICD-10) Venous insufficiency of both lower extremities ?I87.2 - Venous insufficiency (chronic) (peripheral) (ICD-10) Varicose veins of both lower extremities ?I83.93 - Asymptomatic varicose veins of bilateral lower extremities (ICD-10) Unintended weight loss (~11/2021) ?R63.4 - Abnormal weight loss (ICD-10) Rectal urgency ?R15.2 - Fecal urgency (ICD-10) Osteopenia (2016) ?M85.80 - Other specified disorders of bone density and structure, unspecified site (ICD-10) Osteoarthritis ?M19.90 - Unspecified osteoarthritis, unspecified site (ICD-10) Obstructive chronic bronchitis with exacerbation ?J44.1 - Chronic obstructive pulmonary disease with (acute) exacerbation (ICD-10) Internal derangement of knee ?M23.90 - Unspecified internal derangement of unspecified knee (ICD-10) History of drug abuse (2013) ?F19.11 - Other psychoactive substance abuse, in remission (ICD-10) Hepatitis C ?B19.20 - Unspecified viral hepatitis C without hepatic coma (ICD-10) Encounter for counseling regarding advance directives (06/21/15) ?Z71.89 - Other specified counseling (ICD-10) Elevated blood pressure reading ?R03.0 - Elevated blood-pressure reading, without diagnosis of hypertension (ICD-10) Chronic neck pain ?M54.2 - Cervicalgia (ICD-10) ?G89.29 - Other chronic pain (ICD-10) Bleeding internal hemorrhoids ?K64.8 - Other hemorrhoids (ICD-10) Bilateral edema of lower extremity ?R60.0 - Localized edema (ICD-10) Surgical History Hx of varicose vein ligation and stripping (~2016) ?Z98.890 - Other specified postprocedural states (ICD-10) Colon cancer screening (~2015) ?Z12.11 - Encounter for screening for malignant neoplasm of colon (ICD-10) Status post left knee replacement (04/08/19) ?Z96.652 - Presence of left artificial knee joint (ICD-10) History of right knee joint replacement (2009) ?Z96.651 - Presence of right artificial knee joint (ICD-10) History of repair of right rotator cuff (~2011) ?Z98.890 - Other specified postprocedural states (ICD-10) History of ovarian cystectomy ?Z98.890 - Other specified postprocedural states (ICD-10) ?Z87.42 - Personal history of other diseases of the female genital tract (I CD-10) History of medial meniscus repair of left knee (2013) ?Z98.890 - Other specified postprocedural states (ICD-10) History of hysterectomy with oophorectomy (1984) History of arthroplasty of right knee (2009) ?Z96.651 - Presence of right artificial knee joint (ICD-10) History of abdominoplasty (1996) ?Z98.890 - Other specified postprocedural states (ICD-10) H/O endoscopy ?Z98.890 - Other specified postprocedural states (ICD-10) Normal colonoscopy (2021) Family History Aunt Breast cancer Mother Ovarian cancer Sister Stomach cancer Other Adopted person Social History Narrative: Single, homemaker, lives with Clara in [facility] house [place]. Smokes- hx 30 pack years Does not drink alcohol Exercises 3 to 4 times per week- walks 3M What is your current living situation?: I presently have a place to live Problems where you live: no known problems Problems where you live details: none In the past 12 months, utilities in danger of being shut off: no In past 12 months, lack of transportation kept you from medical appts, meetings, work, or getting things needed for daily living: no In the past 12 mos, have been you worried that your food would run out before you had money to buy more?: never true In the past 12 mos, the food you bought just didn't last and you didn't have money to buy more?: never true Smoking Status: Current every day smoker What tobacco products do you use: cigarettes Years smoked: 50 Do you use any of these nicotine containing products: None Second hand tobacco smoke exposure: No How often do you have a drink containing alcohol: never AUDIT-C Alcohol total score: 0 Non-prescribed substance use: marijuana (any form) Caffeine: Yes How often does anyone, including family, friends and others, physically hurt you : never How often does anyone, including family, friends and others, insult or talk down to you: sometimes How often does anyone, including family, friends and others, threaten you with harm: never How often does anyone, including family, friends and others, scream or curse at you: never Little interest or pleasure in doing things: more than half the days Feeling down, depressed, or hopeless: more than half the days service: No Exam Narrative: Exam Narrative: Does sound rather congested in the nasopharynx. Left TM has a little fluid at least less than the right but both are without inflammation nor are they particularly full. There is no facial swelling erythema or tenderness. Oropharynx is sticky. No JVD. Heart in regular rate and rhythm. Rather distant but without murmur rub or gallop as far as I can determine. Extremities are thin and lower extremities being without edema. She is well-perfused. Mildly labored in her breathing. Generally diminished breath sounds. No wheeze. Abdomen is soft. Little tender across the upper abdomen though I think that is more of a ?sensitive tummy?. Const: Vital Signs, click to edit/add: Vital Signs - 24 hr 12/19/23 21:38 12/19/23 21:40 12/19/23 21:40 Temperature 98.1 F Pulse Rate 86 Pulse Rate [Right Pulse Oximeter] 80 Respiratory Rate 24 Blood Pressure 197/132 H Blood Pressure [Ri ght Upper Arm] 185/88 H Pulse Oximetry 92 92 Oxygen Delivery Me thod Room Air 12/19/23 22:00 12/19/23 22:02 Temperature Pulse Rate 77 Pulse Rate [Right Pulse Oximeter] Respiratory Rate Blood Pressure Blood Pressure [Ri ght Upper Arm] Pulse Oximetry 92 91 Oxygen Delivery Me thod Documenting provider has reviewed patient's vital signs: yes Course Vital Signs Vital signs: Initial Vital Signs Pulse Rate 86 12/19/23 21:38 Pulse Oximetry 92 12/19/23 21:38 Vital Signs Pulse Rate 86 12/19/23 21:38 Pulse Oximetry 92 12/19/23 21:38 Temperature 98.1 F 12/19/23 21:40 Pulse Rate 72 12/19/23 22:30 Respiratory Rate 24 12/19/23 21:40 Blood Pressure 185/88 H 12/19/23 21:40 Pulse Oximetry 95 12/19/23 22:30 Oxygen Delivery Method Room Air 12/19/23 21:40 Medications Administered Medications: Discontinued Medications Generic Name Dose Route Start Last Admin Trade Name Freq PRN Reason Stop Dose Admin Albuterol/Ipratropium 1 neb 12/19/23 22:00 12/19/23 22:20 Iprat-Albut 0.5-2.5 Mg/3 Ml Neb IH 12/19/23 22:01 1 neb ONCE ONE Administration Medical Decision Making MDM Narrative Medical decision making narrative: Differential includes heart failure, pulmonary effusion, pneumonia, ?bronchitis?, cardiovascular injury, COPD exacerbation being most likely. She could also be complicating this with nasopharyngeal congestion. Mucous plugging might be contributing setting of COPD. Unclear she is receiving or at least taking optimal treatment. Will check labs. Chest x-ray. Provide DuoNeb and reassess. Oxygenation improves following DuoNeb. Chest x-ray reviewed by me is without infiltrate and with normal cardiac silhouette. Do not see effusion or edema. Labs are reassuring with normal white count, D-dimer, low normal magnesium, CRP mildly elevated at 2.1 Overall improved. Vitally well/stable. There may been some confusion or inability to obtain refill for controller medications for COPD. Trying to represcribed. Might need to be in a different format for coverage/affordability. See patient discharge plan for further discussion Medical Records Medical records reviewed: Yes I reviewed the patient's medical records Lab Data Lab results reviewed: Yes I reviewed the patient's lab results Labs: Lab Results 12/19/23 12/19/23 Range/Units 22:05 22:08 WBC 10.34 (4.50-11.00) K/uL RBC 4.28 (4.00-5.20) m/uL Hgb 13.4 (12.0-16.0) gm/dL Hct 39.8 (33.0-51.0) % MCV 93 (80-100) fL MCH 31 (26-34) pg MCHC 34 (32-36) gm/dL RDW Coeff of Jaden 12.5 (11.5-15.5) % Plt Count 263 (140-440) K/uL Neut % (Auto) 69.7 (42.0-72.0) % Lymph % (Auto) 19.6 L (20-44) % [place] % (Auto) 8.6 (0.0-11.0) % Eos % (Auto) 1.4 (0.0-7.0) % Baso % (Auto) 0.0 (0.0-3.0) % Neut # (Auto) 7.21 H (1.7-7.0) K/uL Lymph # (Auto) 2.00 (0.90-2.90) K/uL [place] # (Auto) 0.90 (0.00-0.90) K/UL Eos # (Auto) 0.14 (0.00-0.50) K/uL Baso # (Auto) 0.00 (0.00-0.30) K/uL Abs Immat Gran (auto) 0.07 (0.00-0.30) K/uL Imm/Tot Granulo (auto) 0.7 % D-Dimer Quant (PE/DVT) 0.41 (0.00-0.50) ug/ml Sodium 138 (135-149) mmol/L Potassium 3.4 L (3.6-5.1) mmol/L Chloride 99 (96-114) mmol/L Carbon Dioxide 31 (20-32) mmol/L Anion Gap 8 (7-15) mEq/L BUN 21 (7-30) mg/dL Creatinine 0.6 (0.5-1.5) mg/dL Estimated Creat Clear 45.85 Estimated GFR 97 ml/min Glucose 96 (60-115) mg/dL Calcium 9.3 (8.4-10.6) mg/dL Magnesium 1.5 (1.5-2.6) mg/dL Total Bilirubin 0.7 (0.1-1.5) mg/dL Direct Bilirubin 0.4 (0.0-0.5) mg/dL AST 26 (12-35) U/L ALT 12 (4-35) U/L Alkaline Phosphatase 62 (40-150) U/L Troponin I < 0.01 L (0.01-0.04) ng/mL C-Reactive Protein 2.1 H (0.5-1.0) mg/dL NT-Pro-B Natriuret Pep 441 pg/mL Total Protein 7.8 (6.0-8.3) g/dL Albumin 4.5 (3.3-5.0) g/dL POC Troponin I 0.00 L (0.01-0.04) ng/ml Discharge Plan Discharge Clinical Impression: COPD exacerbation, Environmental allergies Patient Disposition: Home, Self-Care Condition: Improved Additional Instructions: Take the neb tubing and a cup with you that you used here today. I am prescribing some new nebulizer medication for you. Is called albuterol- ipratropium bromide. Also known as DuoNebs I would like you to to nebulize this 3 times daily regularly over the next 3 days. Starting you also on prednisone. First dose you can get from the [facility]. It appears to me that you should be on a daily controller medication for your lungs likely called fluticasone furoate - vilanterol. I will send a new prescription for you but if there is a problem getting it filled, will have to discuss this with your primary care provider. Verify also the dosing; that is the same as what you are receiving before. I can not see that at this time. You can use albuterol nebulizer or inhaler for breakthrough shortness of breath. Do not do more than 9 treatments of albuterol in a 24 hour period. Be seen again for persistent and increasing shortness of breath, associated chest pain, fever. Prescriptions: New ipratropium-albuterol 0.5 mg-3 mg(2.5 mg base)/3 mL solution for nebulization 3 ml inhalation TID PRNQty: 90 0RF Rx Instructions: for 3 doses fluticasone furoate-vilanterol 100-25 mcg/dose blister with device 1 inh inhalation DAILY Qty: 30 0RF Rx Instructions: Rinse mouth after inhalation No Action carvedilol 25 mg tablet 12.5 mg PO BID Rx Instructions: must administer with a meal/food estradiol [Estrace] 0.01 % (0.1 mg/gram) cream 1 g vaginal 2XW Qty: 42.5 1RF divalproex 500 mg tablet,delayed release (DR/EC) 500 mg PO DIRECTED PRN Rx Instructions: Take 1 tab in the AM and 2 tabs in the PM fluticasone furoate-vilanterol 200-25 mcg/dose blister with device 1 inh inhalation DAILY mirtazapine 7.5 mg tablet 7.5 mg PO .Bedtime lorazepam 0.5 mg tablet 0.5 mg PO QDAY PRN cyclobenzaprine 5 mg tablet 5 mg PO QHS PRN (Reason: muscle spasm) Qty: 30 0RF Rx Instructions: Use infrequently 1 tablet for muscle cramps will cause sedation. ropinirole 1 mg tablet 1 mg PO DIRECTED Qty: 270 0RF Rx Instructions: 1 tab at 1700, 2 tab at HS albuterol sulfate 90 mcg/actuation HFA aerosol inhaler 2 puff inhalation Q4H Qty: 8.5 1RF levothyroxine 112 mcg tablet 112 mcg PO DIRECTED Qty: 90 0RF Rx Instructions: 1 tab daily, except no tablet on Sundays esomeprazole magnesium 40 mg capsule,delayed release(DR/EC) 40 mg PO DAILY Qty: 90 3RF hydralazine 50 mg tablet 50 mg PO BID Qty: 180 1RF rosuvastatin 5 mg tablet 5 mg PO QDAY Qty: 90 0RF loperamide [Imodium A-D] 2 mg capsule 4 mg PO QDAY PRN (Reason: diarrhea) Qty: 30 0RF Follow Up/Referrals: Kim Gardner MD [Primary Care Provider] - Stand Alone Forms: [employer] Info Instructions
[2023-12-19 21:38] VITALS: PULSE 86; O2SAT 92
[2023-12-19 21:40] VITALS: BP 185/88; BP 197/132; PULSE 80; RESP 24; TEMP 36.7; O2SAT 92; BMI 22.3
[2023-12-19 22:00] VITALS: O2SAT 92
--- NOTE | 2023-12-19 22:00 | CRLHL7_ITS ---
For Patients: As a result of the Cures Act, medical imaging exams and procedure reports are released immediately into your electronic medical record. You may view this report before your referring provider. If you have questions, please contact your health care provider. INDICATION: Shortness of breath. History of COPD. COMPARISON: None. TECHNIQUE: Coronal view of the chest. FINDINGS: Lungs are clear. No pleural effusions. No pneumothorax. Normal cardiomediastinal silhouette. Partially visualized advanced degenerative changes of the right shoulder. Impression : 1. No acute findings. Dictated by Rolando Villalpando MD @ 12/19/2023 10:27:23 PM (Electronically Signed)
[2023-12-19 22:02] VITALS: PULSE 77; O2SAT 91
--- OUTSIDE RECORDS SUMMARY | 2023-12-19 22:04 | XMS_ITS | Clinical Summary ---
Author Organization [facility] Address [address] [place] [address] Care Team Providers Care Electric Motor Fitter Name Role Phone Jacob Lorenzo MD Unavailable [phone] Yon Eason MD Unavailable [phone] Allergies Active Allergy Reactions Criticality Noted Date [...] Comments Blood Pressure 160/100 04/29/2010 3:21 PM DRILL PRESS OPERATOR HELPER Pulse 72 04/29/2010 3:21 PM DRILL PRESS OPERATOR HELPER Temperature 36.3 ??C (97.3 ??F) 04/29/2010 3:21 PM CS T Respiratory Rate - - Oxygen Saturation - - Inhaled Oxygen Concentration - - Weight 58.5 kg (129 lb) 04/29/2010 3:21 PM DRILL PRESS OPERATOR HELPER Height 162.6 cm (5' 4) 04/29/2010 3:21 PM DRILL PRESS OPERATOR HELPER Body Mass Index 22.14 04/29/2010 3:21 PM DRILL PRESS OPERATOR HELPER Plan of Treatment Health Maintenance Due Date [...] or PCV20) 2019 06/28/2013, 03/26/2013 COVID-19 Vaccine (5 - season) 2023 04/20/2022, 03/29/2021, 09/14/2020, Additional history exists PHQ-2 (once per calendar year) 2023 INFLUENZA VACCINE (#1) 2024 2, 03/24/2021, 05/25/2020, Additional history exists DTAP/TDAP/TD IMMUNIZATION [...] Region Laterality Modality Breast Bilateral Other L.C. Tar Processing Technician [facility] LONNIE CASTRO * (ABNORMAL) Comprehensive metabolic [...] ALT U/L MISYS Blood specimen (specimen) L.C. Tar Processing Technician LAB - BLOOD ORDERABL ES Performing Organization Address City/[facility]/ZIP Co de Phone Number MISYS * TSH (01/20/2011 6:54 AM CDT) TSH 0.93 0.4 - 5.0 mU/L [facility] 01/20/2011 6:54 AM CDT 01/20/2011 7:01 AM CDT Jairon Gunter MD LAB - BLOOD ORDERABL ES Performing Organization Address [facility]/ZIP Co de Phone Number [facility] [place] [address] * COLONOSCOPY (06/12/2006) L.C. Tar Processing Technician PROCEDURES from Last 3 Months or Most Recently Relevant to Health Maintenance Care Teams Electric Motor Fitter Relationship Specialty Start Date End Date Jacob Lorenzo MD PCP - Orthopaedics Orthopedics 02/28/11 Yon Eason MD [address] [address] Assigned Heart and Vascular Provider 08/19/22
--- OUTSIDE RECORDS SUMMARY | 2023-12-19 22:04 | XMS_ITS | Encounter Summary ---
Author Organization [facility] Address [address] [place] [address] Care Team Providers Care Radio Dispatcher Name Role Phone Tesha Nunez MD Primary Care Provider Unavail able Bernard Parekh MD Unavailable Unavailable Deuce Wyman MD Unavailable Jacob Lorenzo MD Unavailable [phone] Kaila Castro MD Primary Care Provider [phone] Nayana Bowie MD Primary Care Provider Madison Yon Zelaya MD Unavailable [phone] Encounter Details Date Type Department Care Team (Late st Contact Info) Description 01/19/2011 [facility] [place] Inpatient Dept [address] [place] [address] Frw, Inpatient Provider Status post [...] means documented in this encounter Care Teams Radio Dispatcher Relationship Specialty Start Date End Date Tesha Nunez MD PCP - General 07/03/00 04/16/13 Bernard Parekh MD RETIRED PCP - Orthopaedics Orthopedics 05/20/10 01/26/11 Deuce Wyman MD RETIRED PCP - Orthopaedics Orthopedics 01/27/11 02/27/11 Jacob Lorenzo MD RETIRED PCP - Orthopaedics Orthopedics 02/28/11 Kaila Castro MD [facility] [address] [place] [address] PCP - General Family Practice 04/17/13 05/29/13 Nayana Bowie MD [facility] [address] [place] [address] PCP - General Surgery 07/13/16 07/13/16 Yon Eason MD [address] [address] Assigned Heart and Vascular Provider 08/19/22 documented as of this encounter
--- OUTSIDE RECORDS SUMMARY | 2023-12-19 22:04 | XMS_ITS | Encounter Summary ---
Author Organization [facility] Address [address] [place] [address] Care Team Providers Care Preforms Laminator Name Role Phone Tesha Nunez MD Primary Care Provider Unavail able Bernard Parekh MD Unavailable Unavailable Encounter Details Date Type Department Care Team (Late st Contact Info) Description 01/19/2011 6:27 AM T [facility] in [address] [phone] Jacob Lorenzo MD [address] [phone] Social History Tobacco Use Types Packs/Day Years [...] closed using #1 Vicryl in an interrupted [id number] fashion followed by copious irrigation of the [...] at the end of the case. Jacob Lorenoz M.D. [facility]/wong cc: documented in this encounter Plan of Treatment Not on file documented as of this encounter Procedures Procedure Name Priority Date/Time Associated Diagnosis Comments SURGICAL PATHOLOGY EXAM Routine 01/19/2011 8:00 AM CDT documented in this encounter Results * Surgical pathology exam (01/19/2011 8:00 AM CDT) Copath Report Patient Name: YAMILETH AMAYA MR#: [id number] Specimen #: [id number] Collected: 01/19/2011 Received: 01/19/2011 Reported: 01/20/2011 17:47 [...] Alexander Preciado MD/luis 01/19/2011 TESTING LAB LOCATION: [address] [address] COLLECTION SITE: Client: [facility] Location: 40 (W) COPATH 01/19/2011 8:00 AM CDT 01/19/2011 12:12 PM CDT Jacob Lorenzo MD LAB - [facility] Organization Address City/State/ZIP Co de Phone Number COPATH documented in this encounter Visit Diagnoses Not on filedocumented in this encounter Care Teams Preforms Laminator Relationship Specialty Start Date End Date Tesha Nunez MD PCP - General 07/03/00 04/16/13 Bernard Parekh MD RETIRED PCP - Orthopaedics Orthopedics 05/20/10 01/26/11 documented as of this encounter
--- OUTSIDE RECORDS SUMMARY | 2023-12-19 22:04 | XMS_ITS | Referral Summary ---
Author Organization [facility] Address [address] [place] [address] Care Team Providers Care Dietitian Research Name Role Phone Jacob Lorenzo MD Unavailable [phone] Yon Eason MD Unavailable [phone] Allergies Active Allergy Reactions Criticality Noted Date [...] Overview: Sees Dr. Del Toro , [facility] [place] ADD (attention deficit disorder) 01/03/2008 Polysubstance dependence [...] Comments Blood Pressure 160/100 04/29/2010 3:21 PM ALGORITHM DESIGN ENGINEER Pulse 72 04/29/2010 3:21 PM ALGORITHM DESIGN ENGINEER Temperature 36.3 ??C (97.3 ??F) 04/29/2010 3:21 PM CS T Respiratory Rate - - Oxygen Saturation - - Inhaled Oxygen Concentration - - Weight 58.5 kg (129 lb) 04/29/2010 3:21 PM ALGORITHM DESIGN ENGINEER Height 162.6 cm (5' 4) 04/29/2010 3:21 PM ALGORITHM DESIGN ENGINEER Body Mass Index 22.14 04/29/2010 3:21 PM ALGORITHM DESIGN ENGINEER Plan of Treatment Not on file Procedures [...] Region Laterality Modality Breast Bilateral Other L.C. Paint Roller Covermaker [facility] [place] ORDNarendra CASTRO * (ABNORMAL) Comprehensive metabolic [...] ALT U/L [facility] Blood specimen (specimen) L.C. Paint Roller Covermaker LAB - BLOOD ORDERABL ES [facility] * TSH (01/20/2011 6:54 AM CDT) TSH 0.93 0.4 - 5.0 mU/L [facility] 01/20/2011 6:54 AM CDT 01/20/2011 7:01 AM CDT Jairon Gunter MD LAB - BLOOD ORDERABL ES [facility] [place] [place] [address] * COLONOSCOPY (06/12/2006) L.C. Paint Roller Covermaker PROCEDURES from Last 3 Months or Most Recently Relevant to Health Maintenance Care Teams Dietitian Research Relationship Specialty Start Date End Date Jacob Lorenzo MD PCP - Orthopaedics Orthopedics 02/28/11 Yon Eason MD [address] [address] Assigned Heart and Vascular Provider 08/19/22
--- OUTSIDE RECORDS SUMMARY | 2023-12-19 22:05 | XMS_ITS | Encounter Summary ---
Author Organization [facility] Address [address] [place] [address] Care Team Providers Care Dean Of Chapel Name Role Phone Tesha Nunez MD Primary Care Provider Unavail able Encounter Details Date Type Department Care Team ([facility] st Contact Info) Description 03/22/2010 12:19 PM T [facility] in [address] [address] Pierce Hernandes MD NO INFO [...] on filedocumented in this encounter Care Teams Dean Of Chapel Relationship Specialty Start Date End Date Tesha Nunez MD PCP - General 07/03/00 04/16/13 documented as of this encounter
--- OUTSIDE RECORDS SUMMARY | 2023-12-19 22:05 | XMS_ITS | Clinical Summary ---
Author Organization [facility] Address [place], [place] [address] Care Team Providers Care Auto Body Straightener Name Role Phone Kim Gardner MD Primary [...] tablet by mouth once daily. Ok for detention use 30 tablet 5 04/13/2015 Active omega-3 [...] Comments Blood Pressure 121/75 07/04/2019 1:38 PM RADIOLOGIC TECHNOLOGY PROGRAM DIRECTOR Pulse 62 07/04/2019 1:38 PM RADIOLOGIC TECHNOLOGY PROGRAM DIRECTOR Temperature 36.3 ??C (97.4 ??F) 08/02/2017 1:24 PM CS T Respiratory Rate 22 10/09/2018 7:59 AM CDT Oxygen Saturation 94% 07/04/2019 1:38 PM RADIOLOGIC TECHNOLOGY PROGRAM DIRECTOR Inhaled Oxygen Concentration - - Weight 66 kg (145 lb 9.6 oz) 07/04/2019 1:38 PM RADIOLOGIC TECHNOLOGY PROGRAM DIRECTOR Height 162 cm (5' 3.78) 12/25/2018 12:18 [...] 75 08/08/2025, 06/17/2015, 06/12/2006 (Completed outside of [facility]) Tetanus booster 02/16/2026 02/17/2016, 01/2016, 10/19/2005 Tdap Completed 02/17/2016, 01/2016, 10/19/2005 Hepatitis C screening for ag e 18-79 Completed 07/04/2019, 02/11/2019, 07/24/2018, Additional history exists Procedures Procedure Name Priority Date/Time Associated Diagnosis Comments HCV RNA QUANT Routine 07/04/2019 2:06 PM RADIOLOGIC TECHNOLOGY PROGRAM DIRECTOR Hepatitis C virus infection without hepatic coma, unspecified chronicity SCAN-COLONOSCOPY 08/09/2015 12:0 0 AM RADIOLOGIC TECHNOLOGY PROGRAM DIRECTOR XR MAMMO BILAT SCREEN FFDM (IA) Routine 12/23/2014 10:21 AM CDT Other screening mammogram LIPID PANEL W REFLEX MEASURED LDL Routine 07/20/2014 7:59 AM RADIOLOGIC TECHNOLOGY PROGRAM DIRECTOR Chest pain from Last 3 Months or Most Recently Relevant to Health Maintenance Results * HCV RNA QUANT (07/04/2019 2:06 PM RADIOLOGIC TECHNOLOGY PROGRAM DIRECTOR) HCV RNA RT-PCR HCV RNA not detected HCV RNA not detected IU/mL 07/08/2019 4:00 PM RADIOLOGIC TECHNOLOGY PROGRAM DIRECTOR [facility] Blood BLOOD SPECIMEN / Unknown Venipuncture / Unknown 07/04/2019 2:06 PM RADIOLOGIC TECHNOLOGY PROGRAM DIRECTOR 07/04/2019 2:07 PM RADIOLOGIC TECHNOLOGY PROGRAM DIRECTOR Narrative [facility] - 07/08/2019 4:00 PM RADIOLOGIC TECHNOLOGY PROGRAM DIRECTOR Method: ??Abigail HCV Test Prateek Liang MD SEND OUTS [facility] [address] [place] [address], [place] * SCAN-COLONOSCOPY (08/09/2015 12:00 AM RADIOLOGIC TECHNOLOGY PROGRAM DIRECTOR) Scanner OTHER * XR MAMMO BILAT SCREEN [...] of Computer-Aided Detection. COMPARISON FILMS: Yes 12/03/13 [facility] 10/17/12 [facility] FINDINGS: ??Mammographically, the breast tissue is almost entirely fat. ??No suspicious masses or microcalcifications. ??Benign appearing asymmetry within left breast. Regina Moulton MD MAMMO * LIPID PANEL W REFLEX MEASURED LDL (07/20/2014 7:59 AM RADIOLOGIC TECHNOLOGY PROGRAM DIRECTOR) CHOLESTEROL,TOTAL 145 100 - 199 mg/dL 07/20/2014 9:25 AM RADIOLOGIC TECHNOLOGY PROGRAM DIRECTOR [facility] TRIGLYCERIDES 95 <150 mg/dL 07/20/2014 9:25 AM RADIOLOGIC TECHNOLOGY PROGRAM DIRECTOR [facility] HDL CHOLESTEROL 51 >40 mg/dL 5 9:25 AM RADIOLOGIC TECHNOLOGY PROGRAM DIRECTOR [facility] NON-HDL CHOLESTEROL 94 <145 mg/dl 07/20/2014 9:25 AM RADIOLOGIC TECHNOLOGY PROGRAM DIRECTOR [facility] CHOL/HDL RATIO 2.84 <4.50 07/20/2014 9:25 AM RADIOLOGIC TECHNOLOGY PROGRAM DIRECTOR [facility] LDL CHOLESTEROL 75 <=130 mg/dL 07/20/2014 9:25 AM RADIOLOGIC TECHNOLOGY PROGRAM DIRECTOR [facility] PATIENT STATUS FASTING 07/20/2014 9:25 AM RADIOLOGIC TECHNOLOGY PROGRAM DIRECTOR [facility] Blood specimen (specimen) BLOOD SPECIMEN / Unknown Venipuncture / Unknown 07/20/2014 7:59 AM RADIOLOGIC TECHNOLOGY PROGRAM DIRECTOR 07/20/2014 7:59 AM RADIOLOGIC TECHNOLOGY PROGRAM DIRECTOR Regina Moulton MD CHEMISTRY [facility] [address] [place] [address], [place] [phone] from Last 3 Months or Most Recently Relevant to Health Maintenance Advance Directives Documents on File Type Date Recorded Patient Coin Machine Servicer Repairer Expl anation Healthcare Directive 08/02/2018 10:59 AM H EALTHCARE DIRECTIVE, [facility], 06/21/15 Care Teams Auto Body Straightener Relationship Specialty Start Date End Date Kim Gardner MD [address] [place] [address] PCP - General Family Practice 09/06/15
[2023-12-19] MEDS: IPRAT-ALBUT 0.5-2.5 MG/3 ML NEB 1 NEB IH (22:20)
[2023-12-19 22:30] VITALS: PULSE 72; O2SAT 95
[2023-12-19 22:36] LABS: Albumin* 4.5 g/dL (3.3-5.0); Chloride* 99 mmol/L (96-114); Sodium* 138 mmol/L (135-149)
[2023-12-19 22:37] LABS: Potassium* 3.4 mmol/L (3.6-5.1)
[2023-12-19 22:38] LABS: Creatinine* 0.6 mg/dL (0.5-1.5); Est. Creatinine Clearance* 45.85; Estimated Glomerular Filt Rate 97 ml/min
[2023-12-19 22:39] LABS: Alanine Aminotransferase* 12 U/L (4-35); Alkaline Phosphatase* 62 U/L (40-150); Anion Gap 8 mEq/L (7-15); Aspartate Amino Transferase* 26 U/L (12-35); Bilirubin Direct* 0.4 mg/dL (0.0-0.5); Bilirubin Total* 0.7 mg/dL (0.1-1.5); Blood Urea Nitrogen* 21 mg/dL (7-30); Carbon Dioxide* 31 mmol/L (20-32); Glucose* 96 mg/dL (60-115); Total Protein* 7.8 g/dL (6.0-8.3)
[2023-12-19 22:40] LABS: Calcium* 9.3 mg/dL (8.4-10.6); Magnesium* 1.5 mg/dL (1.5-2.6)
[2023-12-19 22:41] LABS: Eosinophils Absolute Auto 0.14 K/uL (0.00-0.50); Eosinophils Percent Auto 1.4 % (0.0-7.0); Hematocrit 39.8 % (33.0-51.0); Hemoglobin* 13.4 gm/dL (12.0-16.0); Immature Granulocytes Abs Auto 0.07 K/uL (0.00-0.30); Immature Granulocytes Pct Auto 0.7 %; Lymphocytes Percent Auto 19.6 % (20-44); Mean Corpuscular HGB Conc 34 gm/dL (32-36); Mean Corpuscular Hemoglobin 31 pg (26-34); Mean Corpuscular Volume 93 fL (80-100); Monocytes Percent Auto 8.6 % (0.0-11.0); Neutrophils Absolute Auto 7.21 K/uL (1.7-7.0); Neutrophils Percent Auto 69.7 % (42.0-72.0); Platelet Count* 263 K/uL (140-440); RDW Coefficient of Variation % 12.5 % (11.5-15.5); Red Blood Count 4.28 m/uL (4.00-5.20); White Blood Count* 10.34 K/uL (4.50-11.00)
[2023-12-19 22:42] LABS: C Reactive Protein* 2.1 mg/dL (0.5-1.0)
[2023-12-19 22:46] LABS: D Dimer Quantitative* 0.41 ug/ml (0.00-0.50)
[2023-12-19 22:52] LABS: NT Pro B Type NatriureticPept* 441 pg/mL; Slide Review Reflex No; Troponin I* < 0.01 ng/mL (0.01-0.04)
== END 2023-12-19 23:35 | disposition home or self-care (01) ==
PROVIDERS: Emergency Provider Family Medicine; PCP Family Medicine
DX: J44.1 Chronic obstructive pulmonary disease with (acute) exacerbation (principal); J30.2 Other seasonal allergic rhinitis
CPT/HCPCS: 36415; 71045; 80048; 80076; 83735; 83880; 84484; 85025; 85379; 86140; 94640; 94761; 99284

== ENCOUNTER 2024-01-18 10:32 | Outpatient (CLI) | payer MEDICARE, BC, SELFPAY ==
--- OUTSIDE RECORDS SUMMARY | 2024-01-22 18:43 | XMS_ITS | Clinical Summary ---
Author Organization [facility] Address [address] [place] [address] Care Team Providers Care Dye Range Operator Name Role Phone Jacob Lorenzo MD Unavailable [phone] Yon Eason MD Unavailable [phone] Allergies Active Allergy Reactions Criticality Noted Date [...] Comments Blood Pressure 160/100 04/29/2010 3:21 PM DRUG ENFORCEMENT AGENT Pulse 72 04/29/2010 3:21 PM DRUG ENFORCEMENT AGENT Temperature 36.3 ??C (97.3 ??F) 04/29/2010 3:21 PM CS T Respiratory Rate - - Oxygen Saturation - - Inhaled Oxygen Concentration - - Weight 58.5 kg (129 lb) 04/29/2010 3:21 PM DRUG ENFORCEMENT AGENT Height 162.6 cm (5' 4) 04/29/2010 3:21 PM DRUG ENFORCEMENT AGENT Body Mass Index 22.14 04/29/2010 3:21 PM DRUG ENFORCEMENT AGENT Plan of Treatment Health Maintenance Due Date [...] Region Laterality Modality Breast Bilateral Other L.C. Base Draw Operator [facility] LONNIE CASTRO * (ABNORMAL) Comprehensive metabolic [...] ALT U/L [facility] Blood specimen (specimen) L.C. Base Draw Operator LAB - BLOOD ORDERABL ES Performing Organization Address City/[facility]/ZIP Co de Phone Number MISYS * TSH (01/20/2011 6:54 AM CDT) TSH 0.93 0.4 - 5.0 mU/L [facility] [place] [facility]/RAD 01/20/2011 6:54 AM CDT 01/20/2011 7:01 AM CDT Jairon Gunter MD LAB - BLOOD ORDERABL ES Performing Organization Address [facility]/ZIP Co de Phone Number [facility] LAB/[place] [address] * COLONOSCOPY (06/12/2006) L.C. Base Draw Operator PROCEDURES from Last 3 Months or Most Recently Relevant to Health Maintenance Care Teams Dye Range Operator Relationship Specialty Start Date End Date Jacob Lorenzo MD PCP - Orthopaedics Orthopedics 02/28/11 Yon Eason MD [address] [address] Assigned Heart and Vascular Provider 08/19/22
--- OUTSIDE RECORDS SUMMARY | 2024-01-22 18:44 | XMS_ITS | Clinical Summary ---
Author Organization [facility] Address [place], [place] [address] Care Team Providers Care Mortgage Loan Processor Name Role Phone Kim Gardner MD Primary [...] tablet by mouth once daily. Ok for penitentiary use 30 tablet 5 04/13/2015 Active omega-3 [...] Comments Blood Pressure 121/75 07/04/2019 1:38 PM FIELD SUPPORT SPECIALIST Pulse 62 07/04/2019 1:38 PM FIELD SUPPORT SPECIALIST Temperature 36.3 ??C (97.4 ??F) 08/02/2017 1:24 PM CS T Respiratory Rate 22 10/09/2018 7:59 AM CDT Oxygen Saturation 94% 07/04/2019 1:38 PM FIELD SUPPORT SPECIALIST Inhaled Oxygen Concentration - - Weight 66 kg (145 lb 9.6 oz) 07/04/2019 1:38 PM FIELD SUPPORT SPECIALIST Height 162 cm (5' 3.78) 12/25/2018 12:18 [...] 75 08/08/2025, 06/17/2015, 06/12/2006 (Completed outside of [facility]) Tetanus booster 02/16/2026 02/17/2016, 01/2016, 10/19/2005 Tdap Completed 02/17/2016, 01/2016, 10/19/2005 Hepatitis C screening for ag e 18-79 Completed 07/04/2019, 02/11/2019, 07/24/2018, Additional history exists Procedures Procedure Name Priority Date/Time Associated Diagnosis Comments HCV RNA QUANT Routine 07/04/2019 2:06 PM FIELD SUPPORT SPECIALIST Hepatitis C virus infection without hepatic coma, unspecified chronicity SCAN-COLONOSCOPY 08/09/2015 12:0 0 AM FIELD SUPPORT SPECIALIST XR MAMMO BILAT SCREEN FFDM (IA) Routine 12/23/2014 10:21 AM CDT Other screening mammogram LIPID PANEL W REFLEX MEASURED LDL Routine 07/20/2014 7:59 AM FIELD SUPPORT SPECIALIST Chest pain from Last 3 Months or Most Recently Relevant to Health Maintenance Results * HCV RNA QUANT (07/04/2019 2:06 PM FIELD SUPPORT SPECIALIST) HCV RNA RT-PCR HCV RNA not detected HCV RNA not detected IU/mL 07/08/2019 4:00 PM FIELD SUPPORT SPECIALIST [facility] Blood BLOOD SPECIMEN / Unknown Venipuncture / Unknown 07/04/2019 2:06 PM FIELD SUPPORT SPECIALIST 07/04/2019 2:07 PM FIELD SUPPORT SPECIALIST Narrative [facility] - 07/08/2019 4:00 PM FIELD SUPPORT SPECIALIST Method: ??Abigail HCV Test Prateek Liang MD SEND OUTS [facility] [address] [place] [address], [place] * SCAN-COLONOSCOPY (08/09/2015 12:00 AM FIELD SUPPORT SPECIALIST) Scanner OTHER * XR MAMMO BILAT SCREEN [...] of Computer-Aided Detection. COMPARISON FILMS: Yes 12/03/13 [facility] 10/17/12 [facility] FINDINGS: ??Mammographically, the breast tissue is almost entirely fat. ??No suspicious masses or microcalcifications. ??Benign appearing asymmetry within left breast. Regina Moulton MD MAMMO * LIPID PANEL W REFLEX MEASURED LDL (07/20/2014 7:59 AM FIELD SUPPORT SPECIALIST) CHOLESTEROL,TOTAL 145 100 - 199 mg/dL 07/20/2014 9:25 AM FIELD SUPPORT SPECIALIST [facility] TRIGLYCERIDES 95 <150 mg/dL 07/20/2014 9:25 AM FIELD SUPPORT SPECIALIST [facility] HDL CHOLESTEROL 51 >40 mg/dL 5 9:25 AM FIELD SUPPORT SPECIALIST [facility] NON-HDL CHOLESTEROL 94 <145 mg/dl 07/20/2014 9:25 AM FIELD SUPPORT SPECIALIST [facility] CHOL/HDL RATIO 2.84 <4.50 07/20/2014 9:25 AM FIELD SUPPORT SPECIALIST [facility] LDL CHOLESTEROL 75 <=130 mg/dL 07/20/2014 9:25 AM FIELD SUPPORT SPECIALIST [facility] PATIENT STATUS FASTING 07/20/2014 9:25 AM FIELD SUPPORT SPECIALIST [facility] Blood specimen (specimen) BLOOD SPECIMEN / Unknown Venipuncture / Unknown 07/20/2014 7:59 AM FIELD SUPPORT SPECIALIST 07/20/2014 7:59 AM FIELD SUPPORT SPECIALIST Regina Moulton MD CHEMISTRY [facility] [address] [facility] [place] [address], [place] [phone] from Last 3 Months or Most Recently Relevant to Health Maintenance Advance Directives Documents on File Type Date Recorded Patient Sr. Manager Marketing Expl anation Healthcare Directive 08/02/2018 10:59 AM H EALTHCARE DIRECTIVE, [facility], 06/21/15 Care Teams Mortgage Loan Processor Relationship Specialty Start Date End Date Kim Gardner MD [address] [place] [address] PCP - General Family Practice 09/06/15
--- OUTSIDE RECORDS SUMMARY | 2024-01-22 18:44 | XMS_ITS | Referral Summary ---
Author Organization [facility] Address [address] [place] [address] Care Team Providers Care Track Machine Operator Repairer Name Role Phone Jacob Lorenzo MD Unavailable [phone] Yon Eason MD Unavailable [phone] Allergies Active Allergy Reactions Criticality Noted Date [...] Comments Blood Pressure 160/100 04/29/2010 3:21 PM PENS AND PENCILS DIPPER Pulse 72 04/29/2010 3:21 PM PENS AND PENCILS DIPPER Temperature 36.3 ??C (97.3 ??F) 04/29/2010 3:21 PM CS T Respiratory Rate - - Oxygen Saturation - - Inhaled Oxygen Concentration - - Weight 58.5 kg (129 lb) 04/29/2010 3:21 PM PENS AND PENCILS DIPPER Height 162.6 cm (5' 4) 04/29/2010 3:21 PM PENS AND PENCILS DIPPER Body Mass Index 22.14 04/29/2010 3:21 PM PENS AND PENCILS DIPPER Plan of Treatment Not on file Procedures [...] Region Laterality Modality Breast Bilateral Other L.C. Environmental Health Aide [facility] MAMMOGRAPHY ORDNarendra CASTRO * (ABNORMAL) Comprehensive metabolic [...] ALT U/L [facility] Blood specimen (specimen) L.C. Environmental Health Aide LAB - BLOOD ORDERABL ES [facility] * TSH (01/20/2011 6:54 AM CDT) TSH 0.93 0.4 - 5.0 mU/L [facility] 01/20/2011 6:54 AM CDT 01/20/2011 7:01 AM CDT Jairon Gunter MD LAB - [facility]LOOD [facility]ABL [facility] [place] [address] * COLONOSCOPY (06/12/2006) L.C. Environmental Health Aide PROCEDURES from Last 3 Months or Most Recently Relevant to Health Maintenance Care Teams Track Machine Operator Repairer Relationship Specialty Start Date End Date Jacob Lorenzo MD PCP - Orthopaedics Orthopedics 02/28/11 Yon Eason MD [address] [address] Assigned Heart and Vascular Provider 08/19/22
--- OUTSIDE RECORDS SUMMARY | 2024-01-22 18:44 | XMS_ITS | Encounter Summary ---
Author Organization [facility] Address [address] [place] [address] Care Team Providers Care Privacy Manager Name Role Phone Tesha Nunez MD Primary Care Provider Unavail able Bernard Parekh MD Unavailable Unavailable Deuce Wyman MD Unavailable Jacob Lorenzo MD Unavailable [phone] Kaila Castro MD Primary Care Provider [phone] Nayana Bowie MD Primary Care Provider Madison Yon Zelaya MD Unavailable [phone] Encounter Details Date Type Department Care Team (Late st Contact Info) Description 01/19/2011 [facility] in [place] Inpatient Dept [address] [place] [address] Frw, Inpatient Provider Status post [...] means documented in this encounter Care Teams Privacy Manager Relationship Specialty Start Date End Date Tesha Nunez MD PCP - General 07/03/00 04/16/13 Bernard Parekh MD RETIRED PCP - Orthopaedics Orthopedics 05/20/10 01/26/11 Deuce Wyman MD RETIRED PCP - Orthopaedics Orthopedics 01/27/11 02/27/11 Jacob Lorenzo MD RETIRED PCP - Orthopaedics Orthopedics 02/28/11 Kaila Castro MD [facility] [address] [place] [address] PCP - General Family Practice 04/17/13 05/29/13 Nayana Bowie MD [facility] [address] [place] [address] PCP - General Surgery 07/13/16 07/13/16 Yon Eason MD [address] [address] Assigned Heart and Vascular Provider 08/19/22 documented as of this encounter
--- OUTSIDE RECORDS SUMMARY | 2024-01-22 18:44 | XMS_ITS | Encounter Summary ---
Author Organization [facility] Address [address] [place] [address] Care Team Providers Care Loader Unloader Name Role Phone Tesha Nunez MD Primary Care Provider Unavail able Bernard Parekh MD Unavailable Unavailable Encounter Details Date Type Department Care Team (Late st Contact Info) Description 01/19/2011 6:27 AM T [facility] in [address] [phone] Jacob Lorenzo MD [address] [phone] Social History Tobacco Use Types Packs/Day Years [...] closed using #1 Vicryl in an interrupted [id number] fashion followed by copious irrigation of the [...] end of the case. Jacob Lorenzo M.D. [facility]/wong cc: documented in this encounter Plan of Treatment Not on file documented as of this encounter Procedures Procedure Name Priority Date/Time Associated Diagnosis Comments SURGICAL PATHOLOGY EXAM Routine 01/19/2011 8:00 AM CDT documented in this encounter Results * Surgical pathology exam (01/19/2011 8:00 AM CDT) Copath Report Patient Name: YAMILETH AMAYA MR#: [id number] Specimen #: [id number] Collected: 01/19/2011 Received: 01/19/2011 Reported: 01/20/2011 17:47 [...] Alexander Preciado MD/luis 01/19/2011 TESTING LAB LOCATION: [address] [address] COLLECTION SITE: Client: [facility] Location: 40 (W) COPATH 01/19/2011 8:00 AM CDT 01/19/2011 12:12 PM CDT Jacob Lorenzo MD LAB - [facility] Organization Address City/State/ZIP Co de Phone Number COPATH documented in this encounter Visit Diagnoses Not on filedocumented in this encounter Care Teams Loader Unloader Relationship Specialty Start Date End Date Tesha Nunez MD PCP - General 07/03/00 04/16/13 Bernard Parekh MD RETIRED PCP - Orthopaedics Orthopedics 05/20/10 01/26/11 documented as of this encounter
--- OUTSIDE RECORDS SUMMARY | 2024-01-22 18:44 | XMS_ITS | Encounter Summary ---
Author Organization [facility] Address [address] [place] [address] Care Team Providers Care Broadcast Operations Director Name Role Phone Tesha Nunez MD Primary Care Provider Unavail able Encounter Details Date Type Department Care Team ([facility] st Contact Info) Description 03/22/2010 12:19 PM T [facility] in [address] [address] Pierce Hernandes MD NO INFO [...] on filedocumented in this encounter Care Teams Broadcast Operations Director Relationship Specialty Start Date End Date Tesha Nunez MD PCP - General 07/03/00 04/16/13 documented as of this encounter
== END 2024-01-18 10:33 | disposition home or self-care (01) ==
LOC: NFLDREF 01-22 18:42
PROVIDERS: PCP Family Medicine; Referring Provider Family Medicine; Visit Provider Obstetrics & Gynecology
DX: N39.41 Urge incontinence (principal)
CPT/HCPCS: 87086

== ENCOUNTER 2024-03-05 08:24 | Outpatient (CLI) | payer MEDICARE, BC, SELFPAY ==
--- OUTSIDE RECORDS SUMMARY | 2024-03-09 05:44 | XMS_ITS | Clinical Summary ---
Author Organization [facility] Address [address] [place] [address] Care Team Providers Care Stack Yield Engineer Name Role Phone Unavailable Primary Care Provider Unavailabl e Source Comments Patient records contain information from all sites at [facility]. For routine questions regarding patient records, call [phone] during business hours, M-F 8:00 AM - 5:00 PM Central Time. Record requests for emergency care only can be directed to [phone] at any time.[facility] Allergies Active Allergy Reactions Criticality Noted Date Comments Amlodipine Edema 07/24/2023 Lisinopril Angioedema with othe r systemic symptoms especially skin reaction High 07/24/2023 Medications Medication Sig Dispensed Refills Start Date End Date Status carvediloL (COREG) 25 mg tablet Take 0.5 tablets (12.5 mg total) by mouth 2 (two) times a day with meals. 90 tablet 3 07/24/2023 07/23/2024 Active hydrALAZINE (APRESOLINE) 50 mg tablet Take 1 tablet (50 mg total) by mouth 2 (two) times a day. 07/24/2023 07/23/2024 Active Active Problems Problem Noted Date Diagnosed Date Hypertension Essential Primary 07/24/2023 Asthma NOS 09/06/2013 Overview (10/31/2016): Asthma, Unspecified Mild intermittent asthma Albuterol prn Bipolar I Mixed 06/18/2013 Depression/Zohreh/Bipolar NOS 01/16/2007 Overview (10/31/2016): Mood Disorder Dependence Polysubstance 04/22/2004 Bipolar Disorder Encounters Date Type Department Care Team Description 01/09/2024 3:30 PM CDT External Outreach Division of Nephrology and Hypertension in [place], [place] [address] [place] [address] Rm Camacho Jr., D.O. 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) from Last 3 Months Immunizations Name Administration Dates Next Due DTaP (Infanrix, Tripedia) 10/19/2005 HepA Adult 03/11/1998,03/11/1998 HepB (discontinued) adolesce nt/high risk infant 09/23/1998,04/12/1998,03/12/1998 Influenza Split 03/26/2013 Influenza, Unspecified 03/06/2013,2011,03/11/2011,2009,06/14/2009 PPSV23 06/28/2013 Pneumococcal, Unspecified 03/26/2013 Tdap 10/19/2005 Tetanus Toxoid, Adsorbed (discontinued) 10/23/2005 Family History Medical History Relation Name Comments Ovarian cancer Mother Cancer Sister Relation Name Status Comments Mother Sister Social History Tobacco Use Types Packs/Day Years Used Date Smoking Tobacco: Some Days Nutrition Answer Date Recorded Nutrition: EVOO Fat Source Unknown 08/09 Nutrition: Servings of Fruits/Vegetables per Day Not on file 08/09/2020 Dental Answer Date Recorded Dental: Regular Dentist Unknown 08/10/19 21 Sex and Gender Information Value Date Recorded Sex Assigned at Not on file Gender Identity Not on file Sexual Orientation Not on file Last Filed Vital Signs Vital Sign Reading Time Taken Comments Blood Pressure 183/92 01/09/2024 3:50 PM CDT Pulse 88 01/09/2024 3:50 PM CDT Temperature - - Respiratory Rate 16 07/29/2015 1:50 PM ASSISTANT COMMUNITY DIRECTOR Oxygen Saturation - - Inhaled Oxygen Concentration - - Weight 56.2 kg (123 lb 14.4 oz) 01/09/2024 3:50 PM CDT Height 162 cm (5' 3.78) 07/24/2023 10: 38 AM ASSISTANT COMMUNITY DIRECTOR Body Mass Index 21.41 07/24/2023 10:38 AM ASSISTANT COMMUNITY DIRECTOR Plan of Treatment Health Maintenance Due Date Last Done Comments CT Colonography 1954 Cologuard 1954 FIT 1954 Tobacco Cessation counseling 1954 Pneumococcal vaccine (65+ ye ars) (2 of 2 - PCV) 06/28/2014 06/28/2013, 03/26/2013, 03/26/2013 Mammogram 12/03/2014 12/03/2013, 0502/2013, 09/18/2011, Additional history exists Creatinine Level (Kidney Fun ction Test) 03/02/2015 03/02/2014, 11/13/2013, 07/23/2013, Additional history exists Potassium Level 03/02/2015 03/02/2014, 10/2013, 07/23/2013, Additional history exists Sodium Level 03/02/2015 03/02/2014, 060 10/2013, 07/23/2013, Additional history exists Fasting Glucose for Diabetes Screening 03/02/2017 03/02/2014, 11/13/2013, 07/23/2013, Additional history exists Depression Screening (Annual PHQ-2) 06/11/2023 Fall Risk Screen (Annual) 06/11/2023 COVID-19 Vaccine (2023-2 5 season) 2024 09/04/2023, 04/06/2023, 04/20/2022, Additional history exists Influenza Vaccine (#1) 2024 , 04/12/2022, 03/24/2021, Additional history exists Office Visit for Blood Press ure Check / Re-check 04/10/2024 01/09/2024 Colonoscopy 08/08/2025 08/09/2015, 07/13, 07/29/2015, Additional history exists Colorectal Cancer Screening 08/08/2025 DTaP,Tdap,and Td Vaccines (4 - Td or Tdap) 02/16/2026 02/17/2016, 10/19/2005, 10/19/2005 Hepatitis C Screening Completed 05/14/2002 Hepatitis A Vaccines Completed 02/17/2016, 03/11/1998, 03/11/1998 Zoster Vaccines Completed 07/27/2020, 05/11, 02/17/2016 Medical Devices Implanted Type Area Steam Tender Device Identifier Shelf Expiration Date Model / Serial / Lot Conversions - Default Historical Implant Device Implanted:2015 (Quantity not on file) Knee Implant Description:Device Status Te xt - Knee Imp. right knee. Procedures Procedure Name Priority Date/Time Associated Diagnosis Comments COLONOSCOPY Routine 08/09/2015 12:32 PM ASSISTANT COMMUNITY DIRECTOR COMPREHENSIVE METABOLIC PANEL, S/P Routine 03/02/2014 3:00 PM CDT BI BREAST SCREENING BILATERAL Routine 12/03/2013 10:29 AM CDT from Last 3 Months or Most Recently Relevant to Health Maintenance Results * Colonoscopy (08/09/2015 12:32 PM ASSISTANT COMMUNITY DIRECTOR) 08/09/2015 12:3 2 PM ASSISTANT COMMUNITY DIRECTOR Yaneli Grier APRNN.P., M.S. [facility] [place] OCEDURE ORDERABLES [address] * (ABNORMAL) CMP (Comprehensive Metabolic Panel) (03/02/2014 3:00 PM CDT) Anion Gap 13 10 - 20 MMOLL POWERCHART Alkaline Phosphatase, S 79 46 - 118 UL POWERCHART Alanine Amniotransferase, LD 21 15 - 37 UL POWERCHART Aspartate Aminotransferase (AST), S 40(H) 12 - 31 UL POWERCHART Bilirubin, Total, S 0.5 0.1 - 1.0 MGDL POWERCHART BUN (Blood Urea Nitrogen), S 18 7 - 18 MGDL POWERCHART Chloride, S 101 98 - 107 MMOLL POWERCHART CO2 Total 25.2 23.0 - 29.0 MMOLL POWERCHART Creatinine 0.50(L) 0.60 - 1.30 MGDL POWERCHART Total Protein, S 7.1 6.3 - 7.9 GDL POWERCHART Glucose 90 70 - 139 MGDL POWERCHART Calcium, Total, S 8.9 8.8 - 10.2 MGDL POWERCHART Sodium, S 135.2 135.0 - 145.0 MML POWERCHART Potassium, S 3.9 3.6 - 4.8 MMOLL POWERCHART Albumin, S 4.1 3.5 - 5.0 GDL POWERCHART HXeGFR (MDRD) >60 >=60 [id number] 2 POWERCHART eGFR Black/ >60 >=60 [id number] 2 POWERCHART Blood 03/02/2014 3:00 PM CDT Margaret Storey APRN C.N.PLai, D.N.P. LAB BLOOD ADD-ON POWERCHART * BI Breast Screening Bilateral (12/03/2013 10:29 AM CDT) Anatomical Region Laterality Modality Breast Bilateral Mammography 12/03/2013 10:2 9 AM CDT Impressions 12/03/2013 12:50 PM CDT NEGATIVE There is no mammographic evidence of malignancy. ?? RECOMMENDATION: A 1 year screening mammogram is recommended. ?? The patient will receive a letter notifying her of the results. ?? Jennifer Black M.D. ? tlh/penrad:12/03/2013 12:49:21 ?? letter sent: 1S/2S - Negative Screen ?? Mammogram BI-RADS: 1 Negative Electronically signed by: ?? TL Sofia HUMMEL [id number] 03-Dec-2013 12:50 Narrative 12/03/2013 12:50 PM CDT 03-Dec-2013 10:29:00 ??Exam: Mammo Screen Bilat Indications: screening ORIGINAL REPORT - 03-Dec-2013 12:50:00 EXAM: BILATERAL DIGITAL SCREENING MAMMOGRAM WITH CAD: 12/03/2013 HISTORY/INDICATION: Screening. ?? Current study was also evaluated with a Computer Aided Detection (CAD) system. ?? COMPARISON: ??Comparison is made to prior exams. ?? DENSITY: ??(D1) The tissue of both breasts is almost entirely fat. FINDINGS: ??No significant masses, calcifications, or other findings ?? are seen in either breast. ?? Procedure Note Jennifer Black M.D. - 09/07/2017 03-Dec-2013 10:29:00 Exam: Mammo Screen Bilat Indications: screening ORIGINAL REPORT - 03-Dec-2013 12:50:00 EXAM: BILATERAL DIGITAL SCREENING MAMMOGRAM WITH CAD: 12/03/2013 HISTORY/INDICATION: Screening. Current study was also evaluated with a Computer Aided Detection (CAD) system. COMPARISON: Comparison is made to prior exams. DENSITY: (D1) The tissue of both breasts is almost entirely fat. FINDINGS: No significant masses, calcifications, or other findings are seen in either breast. IMPRESSION: NEGATIVE There is no mammographic evidence of malignancy. RECOMMENDATION: A 1 year screening mammogram is recommended. The patient will receive a letter notifying her of the results. Jennifer law/collette:12/03/2013 12:49:21 letter sent: 1S/2S - Negative Screen Mammogram BI-RADS: 1 Negative Electronically signed by: CLARIBEL Black MD [id number] 03-Dec-2013 12:50 Margaret Storey APRN, C.N.PLai, D.N.P. IMG BI PROCEDURES from Last 3 Months or Most Recently Relevant to Health Maintenance Advance Directives For more information, please contact: [phone] Documents on File Type Date Recorded Patient Flash Developer Expl anation Advance Directives 11/13/2010 12:00 AM Lega cy document. See document viewer. Advance Directives 12/01/2009 12:00 AM Leg acy document. See document viewer.
--- OUTSIDE RECORDS SUMMARY | 2024-03-09 05:44 | XMS_ITS | Clinical Summary ---
Author Organization [facility] Address [address] [place] [address] Care Team Providers Care Steam Oven Operator Name Role Phone Jacob Lorenzo MD Unavailable [phone] Allergies Active Allergy Reactions Criticality Noted Date [...] Comments Blood Pressure 160/100 04/29/2010 3:21 PM SAP BASIS Pulse 72 04/29/2010 3:21 PM SAP BASIS Temperature 36.3 ??C (97.3 ??F) 04/29/2010 3:21 PM CS T Respiratory Rate - - Oxygen Saturation - - Inhaled Oxygen Concentration - - Weight 58.5 kg (129 lb) 04/29/2010 3:21 PM SAP BASIS Height 162.6 cm (5' 4) 04/29/2010 3:21 PM SAP BASIS Body Mass Index 22.14 04/29/2010 3:21 PM SAP BASIS Plan of Treatment Health Maintenance Due Date Last Done Comments ADVANCE CARE PLANNING 1955 ANNUAL REVIEW OF HM ORDERS 1954 ASTHMA ACTION PLAN 1954 ASTHMA CONTROL TEST [address] CT COLONOGRAPHY 1954 DEXA 1954 FIT 1954 FLEX SIG 1954 sDNA (Cologuard) 1955 HEPATITIS C SCREENING 01/23/1972 LIPID 1994 LUNG CANCER SCREENING 01/23/2004 TSH W/FREE T4 REFLEX 01/21/2012 01/20/2011 RSV VACCINE (1 - Risk 60-74 years 1-dose series) 2014 MAMMO SCREENING 10/17/2014 10/17/2012 GLUCOSE 10/17/2015 10/16/2012, 01/09, 01/20/2011 HEPATITIS A IMMUNIZATION (2 of 2 - Risk 2-dose series) 08/16/2016 02/17/2016, 02/17/2016, 03/11/1998, Additional history exists FALL RISK ASSESSMENT 2019 MEDICARE ANNUAL WELLNESS VISIT 2019 Pneumococcal Vaccine: 65+ Years (3 of 3 - PPSV23 or PCV20) 2019 06/28/2013, 03/26/2013 PHQ-2 (once per calendar year) 2023 COVID-19 Vaccine ( season) 2024 04/20/2022, 03/29/2021, 09/14/2020, Additional history exists INFLUENZA VACCINE (#1) 2024 2, 03/24/2021, 05/25/2020, [...] Region Laterality Modality Breast Bilateral Other L.C. Promos Executive Producer [facility] MAMMOGRAPHY ORDE GLORIA * (ABNORMAL) Comprehensive metabolic panel (10/16/2012) Sodium [...] ALT U/L MISYS Blood specimen (specimen) L.C. Promos Executive Producer LAB - BLOOD ORDERABL ES MISYS * TSH (01/20/2011 6:54 AM CDT) TSH 0.93 0.4 - 5.0 mU/L [facility] 01/20/2011 6:54 AM CDT 01/20/2011 7:01 AM CDT Jairon Gunter MD LAB - BLOOD ORDERABL ES [facility] [address] * COLONOSCOPY (06/12/2006) L.C. Promos Executive Producer PROCEDURES from Last 3 Months or Most Recently Relevant to Health Maintenance Care Teams Steam Oven Operator Relationship Specialty Start Date End Date Jacob Lorenzo MD PCP - Orthopaedics Orthopedics 02/28/11
--- OUTSIDE RECORDS SUMMARY | 2024-03-09 05:44 | XMS_ITS | Continuity of Care Document ---
Author Organization [facility] Address [address] [place] [address] Phone Care Team Providers Care Manager Environmental Health Name Role Phone Unavailable Unavailable Unavailable Advance Directives Directive Yes / No Effective Date File Name No Information Encounters Encounter Description Practice Location Reason(s) For Visit Diagnoses Date Provider Providers Copied on Encounter [facility], [address], [place], [place], [id number], [place] tel:[phone] [facility] No Information 6 4 No [...]
--- OUTSIDE RECORDS SUMMARY | 2024-03-09 05:44 | XMS_ITS | Continuity of Care Document ---
Author Organization [facility] Address [address] [address] [place] [address] Phone Care Team Providers Care Bond Analyst Name Role Phone Brendan Larson MD, [place] [...] Diagnoses Date Provider Providers Copied on Encounter [facility], [address] [address], [place], [id number], [place] tel:[phone] [facility] No Information 2 Brendan Mcdonald. [address] [address], [place], [place], [id number] , [place]. [phone] [facility], [address] [address], [place], [place], [id number], [place] tel:[phone] [facility] GI Symptoms or Concerns (chief complaint) Hiatal herniaDiverticulosi s of colonDiarrhea, unspecifiedDysphagi a, unspecifiedDvrtclos of lg int w/o perforation or abscess w/o bleedingDiaphragmat ic hernia without obstruction or gangreneDiarrhea, unspecified 2 Warner Lopez. [address] [facility] [address], [place], [place], [id number] , [place]. tel:[phone] Kim Gardner MD. tel:[phone] erring Provider: Kim Gardner MD, [address] [place], [address]. tel:[phone] [facility], [address] [address], [place], [place], [id number], [place] tel:[phone] [facility] No Information 2 Brendan Mcdonald. [address] [facility] [address], [place], [place], [id number] , [place]. [phone] Family History Family Member Type Diagnosis Age [...] Registry Payers Payer name Insurance type Covered democrat ID Authoriza tion(s) Blue Cross [place] [employer] BL [id number] Social History Type Description Quantity Date Captured [...]
--- OUTSIDE RECORDS SUMMARY | 2024-03-09 05:44 | XMS_ITS ---
Author Organization [facility] Address [address] [place] [address] Care Team Providers Care Direct Sales Consultant Name Role Phone Unavailable Unavailable Unavailable Surgery Details Not on file Complications Check Surgery Details section. Procedure Estimated Blood Loss Check Surgery Details section. Procedure Findings Check Surgery Details section. Procedure Specimens Taken Check Surgery Details section.
--- OUTSIDE RECORDS SUMMARY | 2024-03-09 05:44 | XMS_ITS | Encounter Summary ---
Author Organization [facility] Address [address] [place] [address] Care Team Providers Care Brim Pouncer Name Role Phone Tesha Nunez MD Primary Care Provider Unavail able Encounter Details Date Type Department Care Team (Late st Contact Info) Description 03/22/2010 12:19 PM T [facility] in [address] [address] Pierce Hernandes MD NO INFO [...] on filedocumented in this encounter Care Teams Brim Pouncer Relationship Specialty Start Date End Date Tesha Nunez MD PCP - General 07/03/00 04/16/13 documented as of this encounter
--- OUTSIDE RECORDS SUMMARY | 2024-03-09 05:44 | XMS_ITS | Clinical Summary ---
Author Organization [employer] Address [place], [place] [address] Care Team Providers Care Bank Secrecy Act Officer Name Role Phone Kim Gardner MD Primary [...] tablet by mouth once daily. Ok for longterm use 30 tablet 5 04/13/2015 Active omega-3 [...] knee 07/05/2015 Routine adult health maintenance 06/17/2015 Overview (06/17/2015): Colonoscopy 06/2015 diverticulosis incomplete to 50 cm, recommend CT colonography Chronic edema 03/04/2015 Gastroesophageal reflux disease without esophagi tis 10/27/2014 ADD (attention deficit disorder) 09/23/2014 Elevated BP 09/23/2014 Hypertension 08/28/2014 History of mixed drug abuse 08/28/2014 Overview (01/05/2015): Last relapse 12/2014- opiates. Hypothyroid 06/24/2014 Tobacco [...] Comments Blood Pressure 121/75 07/04/2019 1:38 PM CLEARING HAND Pulse 62 07/04/2019 1:38 PM CLEARING HAND Temperature 36.3 ??C (97.4 ??F) 08/02/2017 1:24 PM CS T Respiratory Rate 22 10/09/2018 7:59 AM CDT Oxygen Saturation 94% 07/04/2019 1:38 PM CLEARING HAND Inhaled Oxygen Concentration - - Weight 66 kg (145 lb 9.6 oz) 07/04/2019 1:38 PM CLEARING HAND Height 162 cm (5' 3.78) 12/25/2018 12:18 [...] 08/18/2017, Additional history exists COVID-19 vaccine series ( season) 2024 Influenza for age 65+ 02/10/2024 02/16/2017 , 02/16/2017, 03/16/2016, Additional history exists Colonoscopy through age 75 08/08/2025, 06/17/2015, 06/12/2006 (Completed outside of [facility]) Tetanus booster 02/16/2026 02/17/2016, 01/2016, 10/19/2005 Tdap Completed 02/17/2016, 01/2016, 10/19/2005 Hepatitis C screening for ag e 18-79 Completed 07/04/2019, 02/11/2019, 07/24/2018, Additional history exists Procedures Procedure Name Priority Date/Time Associated Diagnosis Comments HCV RNA QUANT Routine 07/04/2019 2:06 PM CLEARING HAND Hepatitis C virus infection without hepatic coma, unspecified chronicity SCAN-COLONOSCOPY 08/09/2015 12:0 0 AM CLEARING HAND XR MAMMO BILAT SCREEN FFDM (IA) Routine 12/23/2014 10:21 AM CDT Other screening mammogram LIPID PANEL W REFLEX MEASURED LDL Routine 07/20/2014 7:59 AM CLEARING HAND Chest pain from Last 3 Months or Most Recently Relevant to Health Maintenance Results * HCV RNA QUANT (07/04/2019 2:06 PM CLEARING HAND) HCV RNA RT-PCR HCV RNA not detected HCV RNA not detected IU/mL 07/08/2019 4:00 PM CLEARING HAND [facility] Blood BLOOD SPECIMEN / Unknown Venipuncture / Unknown 07/04/2019 2:06 PM CLEARING HAND 07/04/2019 2:07 PM CLEARING HAND Narrative [facility] - 07/08/2019 4:00 PM CLEARING HAND Method: ??Abigail HCV Test Prateek Liang MD SEND OUTS [facility] [address] [place] [address], [place] * SCAN-COLONOSCOPY (08/09/2015 12:00 AM CLEARING HAND) Scanner OTHER * XR MAMMO BILAT SCREEN [...] of Computer-Aided Detection. COMPARISON FILMS: Yes 12/03/13 [facility] 10/17/12 [facility] FINDINGS: ??Mammographically, the breast tissue is almost entirely fat. ??No suspicious masses or microcalcifications. ??Benign appearing asymmetry within left breast. Regina Moulton MD MAMMO * LIPID PANEL W REFLEX MEASURED LDL (07/20/2014 7:59 AM CLEARING HAND) CHOLESTEROL,TOTAL 145 100 - 199 mg/dL 07/20/2014 9:25 AM CLEARING HAND [facility] TRIGLYCERIDES 95 <150 mg/dL 07/20/2014 9:25 AM CLEARING HAND [facility] HDL CHOLESTEROL 51 >40 mg/dL 5 9:25 AM CLEARING HAND [facility] NON-HDL CHOLESTEROL 94 <145 mg/dl 07/20/2014 9:25 AM CLEARING HAND [facility] CHOL/HDL RATIO 2.84 <4.50 07/20/2014 9:25 AM CLEARING HAND [facility] LDL CHOLESTEROL 75 <=130 mg/dL 07/20/2014 9:25 AM CLEARING HAND [facility] PATIENT STATUS FASTING 07/20/2014 9:25 AM CLEARING HAND [facility] Blood specimen (specimen) BLOOD SPECIMEN / Unknown Venipuncture / Unknown 07/20/2014 7:59 AM CLEARING HAND 07/20/2014 7:59 AM CLEARING HAND Regina Moulton MD CHEMISTRY [facility] [address] [place] [address], from Last 3 Months or Most Recently Relevant to Health Maintenance Advance Directives Documents on File Type Date Recorded Patient Primary Care Physician Expl anation Healthcare Directive 08/02/2018 10:59 AM H EALTHCARE DIRECTIVE, [facility], 06/21/15 Care Teams Bank Secrecy Act Officer Relationship Specialty Start Date End Date Kim Gardner MD [address] [place] [address] PCP - General Family Practice 09/06/15
--- OUTSIDE RECORDS SUMMARY | 2024-03-09 05:44 | XMS_ITS | Referral Summary ---
Author Organization [facility] Address [address] [place] [address] Care Team Providers Care Box Blank Machine Operator Name Role Phone Unavailable Primary Care Provider Unavailabl e Source Comments Patient records contain information from all sites at [facility]. For routine questions regarding patient records, call [phone] during business hours, M-F 8:00 AM - 5:00 PM Central Time. Record requests for emergency care only can be directed to [phone] at any time.[facility] Encounters Date Type Department Care Team Description 01/09/2024 3:30 PM CDT External Outreach Division of Nephrology and Hypertension in [place], [place] [address] [place] [address] Rm Camacho Jr., D.O. 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) from Last 3 Months Allergies Active Allergy Reactions Criticality Noted Date [...] Mood Disorder Dependence Polysubstance 04/22/2004 Bipolar Disorder Immunizations Name Administration Dates Next Due DTaP (Infanrix, Tripedia) 10/19/2005 HepA Adult 03/11/1998,03/11/1998 HepB (discontinued) adolesce nt/high risk 09/23/1998,04/12/1998,03/12/1998 Influenza Split 03/26/2013 Influenza, Unspecified 03/06/2013,2011,03/11/2011,2009,06/14/2009 PPSV23 06/28/2013 Pneumococcal, Unspecified 03/26/2013 Tdap 10/19/2005 Tetanus Toxoid, Adsorbed (discontinued) 10/23/2005 Social History Tobacco Use Types Packs/Day Years [...] - Respiratory Rate 16 07/29/2015 1:50 PM ITALIAN TUTOR Oxygen Saturation - - Inhaled Oxygen Concentration - - Weight 56.2 kg (123 lb 14.4 oz) 01/09/2024 3:50 PM CDT Height 162 cm (5' 3.78) 07/24/2023 10: 38 AM ITALIAN TUTOR Body Mass Index 21.41 07/24/2023 10:38 AM ITALIAN TUTOR Plan of Treatment Not on file Medical Devices Implanted Type Area Fabric Worker Supervisor Device Identifier Shelf Expiration Date Model / Serial / Lot Conversions - Default Historical Implant Device Implanted:2015 (Quantity not on file) Knee Implant Description:Device Status Te xt - Knee Imp. right knee. Procedures Procedure Name Priority Date/Time Associated Diagnosis Comments COLONOSCOPY Routine 08/09/2015 12:32 PM ITALIAN TUTOR COMPREHENSIVE METABOLIC PANEL, S/P Routine 03/02/2014 3:00 PM CDT BI BREAST SCREENING BILATERAL Routine 12/03/2013 10:29 AM CDT from Last 3 Months or Most Recently Relevant to Health Maintenance Results * Colonoscopy (08/09/2015 12:32 PM ITALIAN TUTOR) 08/09/2015 12:3 2 PM ITALIAN TUTOR Russ Cornejo APRN C.N.P., M.S. GI PA OCEDURE ORDERABLES Performing Organization Address City/State/[facility] Co de Phone Number [address] * (ABNORMAL) CMP (Comprehensive Metabolic Panel) [...] 5.0 GDL POWERCHART HXeGFR (MDRD) >60 >=60 [id number] 2 POWERCHART eGFR Black/ >60 >=60 [id number] 2 POWERCHART Blood 03/02/2014 3:00 PM CDT Margaret Nirmala Ni APRN.N.P., D.N.P. LAB BLOOD ADD-ON POWERCHART * BI [...] the results. ?? Jennifer Black M.D. ? thanh/paolarad:12/03/2013 12:49:21 ?? letter sent: 1S/2S - Negative Screen ?? Mammogram BI-RADS: 1 Negative Electronically signed by: ?? TL Sofia HUMMEL [id number] 03-Dec-2013 12:50 Narrative 12/03/2013 12:50 PM CDT [...] Negative Electronically signed by: CLARIBEL Black MD [id number] 03-Dec-2013 12:50 Nirmala Pham APRN.N.PLai, D.N.P. IMG BI PROCEDURES from Last 3 Months or Most Recently Relevant to Health Maintenance Advance Directives For more information, please contact: [phone] Documents on File Type Date Recorded Patient Health Club Attendant Expl anation Advance Directives 11/13/2010 12:00 AM Lega cy document. See document viewer. Advance Directives 12/01/2009 12:00 AM Leg acy document. See document viewer.
--- OUTSIDE RECORDS SUMMARY | 2024-03-09 05:44 | XMS_ITS | Encounter Summary ---
Author Organization [place] Address [address] [place] [address] Care Team Providers Care Typing Secretary Name Role Phone Tesha Nunez MD Primary Care Provider Unavail able Bernard Parekh MD Unavailable Unavailable Encounter Details Date Type Department Care Team (Late st Contact Info) Description 01/19/2011 6:27 AM T [facility] in [address] [phone] Jacob Lorenzo MD [address] [phone] Social History Tobacco Use Types Packs/Day Years [...] closed using #1 Vicryl in an interrupted jodtrk-bn-hjucc fashion followed by copious irrigation of the [...] end of the case. Jacob Lorenzo M.D. [facility]/wong cc: documented in this encounter Plan of Treatment Not on file documented as of this encounter Procedures Procedure Name Priority Date/Time Associated Diagnosis Comments SURGICAL PATHOLOGY EXAM Routine 01/19/2011 8:00 AM CDT documented in this encounter Results * Surgical pathology exam (01/19/2011 8:00 AM CDT) Copath Report Patient Name: YAMILETH AMAYA MR#: [id number] Specimen #: [id number] Collected: 01/19/2011 Received: 01/19/2011 Reported: 01/20/2011 17:47 [...] Alexander Preciado MD/luis 01/19/2011 TESTING LAB LOCATION: [address] [address] COLLECTION SITE: Client: [facility] Location: 40 (W) COPATH 01/19/2011 8:00 AM CDT 01/19/2011 12:12 PM CDT Jacob Lroenzo MD LAB - [facility] Organization Address City/State/ZIP Co de Phone Number COPATH documented in this encounter Visit Diagnoses Not on filedocumented in this encounter Care Teams Typing Secretary Relationship Specialty Start Date End Date Tesha Nunez MD PCP - General 07/03/00 04/16/13 Bernard Parekh MD RETIRED PCP - Orthopaedics Orthopedics 05/20/10 01/26/11 documented as of this encounter
--- OUTSIDE RECORDS SUMMARY | 2024-03-09 05:44 | XMS_ITS | Encounter Summary ---
Author Organization [place] Address [address] [place] [address] Care Team Providers Care Hr Operations Advisor Name Role Phone Tesha Nunez MD Primary Care Provider Unavail able Bernard Parekh MD Unavailable Unavailable Deuce Wyman MD Unavailable [phone] Jacob Lorenzo MD Unavailable Kaila Castro MD Primary Care Provider [phone] Nayana Bowie MD Primary Care Provider Madison Yon Zelaya MD Unavailable [phone] Encounter Details Date Type Department Care Team (Late st Contact Info) Description 01/19/2011 [facility] in [place] Inpatient Dept [address] [place] [address] Frw, Inpatient Provider Status post [...] means documented in this encounter Care Teams Hr Operations Advisor Relationship Specialty Start Date End Date Tesha Nunez MD PCP - General 07/03/00 04/16/13 Bernard Parekh MD RETIRED PCP - Orthopaedics Orthopedics 05/20/10 01/26/11 Deuce Wyman MD RETIRED PCP - Orthopaedics Orthopedics 01/27/11 02/27/11 Jacob Lorenzo MD RETIRED PCP - Orthopaedics Orthopedics 02/28/11 Kaila Castro MD [facility] [place] [address] [place] [address] PCP - General Family Practice 04/17/13 05/29/13 Nayana Bowie MD [facility] [place] [address] [place] [address] PCP - General Surgery 07/13/16 07/13/16 Yon Eason MD [address] [address] Assigned Heart and Vascular Provider 08/19/22 03/02/24 documented as of this encounter
--- OUTSIDE RECORDS SUMMARY | 2024-03-09 05:44 | XMS_ITS | Encounter Summary ---
Author Organization [facility] Address [address] [place] [address] Care Team Providers Care Farm Equipment Technician Name Role Phone Unavailable Primary Care Provider Unavailabl e Reason for Visit * Appointment Request (Routine) - Closed Specialty Diagnoses / Procedures Referred By Suzie alejandra Referred To Contact Nephrology and Hypertension Referral ID Status Reason Start Date Expiration Date Visits Re quested Visits Authorized [id number] Closed 11/23/2023 11/22/2024 1 1 Encounter Details Date Type Department Care Team (Latest Contact Info) Description 01/09/2024 3:30 PM CDT External Outreach Division of Nephrology and Hypertension in [place], [place] [address] [place] [address] Rm Camacho Jr., D.O. 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 - 01/09/2024 3:30 PM CDT Referring Provider: No primary care provider on file. SUBJECTIVE REASON FOR VISIT [place] out reach [facility] Follow-up regards severe hypertension HISTORY OF PRESENT ILLNESS Ms. Amaya is a 68 y.o. female who presents with very elevated blood pressure. Please see my priornotes. She struggles with mental illness, and more recently has been self isolating, on the background of multiple complicated issues. She is quite concerned about incontinence. As she read through her medication list she was quite upset to know that she is on chlorthalidone and this was a diuretic hence she stopped this. And it appears as though she is having substantial struggles with anxiety currently, and decided tostop all of her medications, and she is currently hoping to get back 3rd psychiatrist regards the Ativan dose. She is quite tearful when we arrived, visibly agitated, pacing, unable to sit. I note that her blood pressures were initially in the 190s over 100s, and came down gradually through the visit to the last levels we checked which were in the 170s over 88. She has had no paroxysms. I do note however that her serum potassium level is slightly low during her recent emergency room visit, fortunately her chemistries CBC were normal. She is still smoking cigarettes, and had in fact a flare of her COPD/asthma, requiring antibiotics recently. We had a long discussion. She is struggling with urge incontinence, no frequency no dysuria EM she did increase her liquid intake recently, and has now cut back again. She is strongly desiring to see a urogynecologist, and initially a work checker's regards her urinary issues. It could took quite some time to figure out whether she was using her antihypertensive agents are not today, ultimately this was clear, she became much more calm during the visit today as we exploredher issues together. No past medical history on file. Current Outpatient Medications: carvediloL (COREG) 25 mg tablet, Take 0.5 tablets (12.5 mg total) by mouth 2 (two) times a day withmeals., Disp: 90 tablet, Rfl: 3 hydrALAZINE (APRESOLINE) 50 mg tablet, Take 1 tablet (50 mg total) by mouth 2 (two) times a day., Disp: , Rfl: REVIEW OF SYSTEMS All other systems reviewed and are negative. OBJECTIVE BP (!) 183/92 Pulse 88 Wt 56.2 kg BMI 21.41 kg/m?? PHYSICAL EXAMINATION General: Awake alert oriented HEENT: MERLINE, EOMI, Mucous membranes moist, no oral lesions Neck: No Masses, No Bruits Lungs: Clear to ascultation Heart: Regular Rate and Rhythm, No ectopy Murmurs or rubs Abdomen: Soft, Non-tender Extremities: No cyanosis, No clubbing: No edema Neuro: Cranial Nerves intact, Gait is normal, strength grossly normal Skin: no suspicious lesions identified Psychiatric: Normal affect DIAGNOSTICS Note normal CBC, normal creatinine level, no microalbuminuria, serum potassium slightly low at 3.5 mg/dL ASSESSMENT / PLAN #1 Hypertension Essential Primary Difficult to control, she also has multiple medical and medication sensitivities. Her anxiety disorders not withstanding and tobacco use as well, we will proceed as follows: 1. She will resume carvedilol 12.5 mg orally twice daily 2. She will resume hydralazine 50 mg orally twice daily I would like for her to resume low-dose chlorthalidone, she is unwilling. 3. I have asked her to cut back on her tobacco as much as she can 4. I will see her back in hypertension clinic in 6 months. #2 Asthma Mild Intermittent (HCC) Strongly encouraged her to do her best to cut back a bit on the cigarettes. 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 #4 Incontinence I expect this is urge incontinence, she would desperately like to see Urogynecology, I will place consult for this. To the extent that this may be due to her diuretics I did not refill her chlorthalidone, she is slightly hypokalemic, if we were to reinitiate this agent we would like to either make t his combination triamterene/HCTZ, or add a high potassium diet or potassium supplement to her regimen. Challenging interaction today, I believe though that she left much more calm. Total time: 30 minutes Counseling Time: 25 minutes Rm Camacho Jr., D.O. 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
--- OUTSIDE RECORDS SUMMARY | 2024-03-09 05:44 | XMS_ITS | Referral Summary ---
Author Organization [place] Address [address] [place] [address] Care Team Providers Care Special Warfare Boat Operator Name Role Phone Jacob Lorenzo MD Unavailable [phone] Allergies Active Allergy Reactions Criticality Noted Date [...] Comments Blood Pressure 160/100 04/29/2010 3:21 PM APPLIANCE WORKER Pulse 72 04/29/2010 3:21 PM APPLIANCE WORKER Temperature 36.3 ??C (97.3 ??F) 04/29/2010 3:21 PM CS T Respiratory Rate - - Oxygen Saturation - - Inhaled Oxygen Concentration - - Weight 58.5 kg (129 lb) 04/29/2010 3:21 PM APPLIANCE WORKER Height 162.6 cm (5' 4) 04/29/2010 3:21 PM APPLIANCE WORKER Body Mass Index 22.14 04/29/2010 3:21 PM APPLIANCE WORKER Plan of Treatment Not on file Procedures [...] Region Laterality Modality Breast Bilateral Other L.C. Special Education Tutor [facility] ORDNarendra CASTRO * (ABNORMAL) Comprehensive metabolic [...] ALT U/L MISYS Blood specimen (specimen) L.C. Special Education Tutor LAB - BLOOD ORDERABL ES MISYS * TSH (01/20/2011 6:54 AM CDT) TSH 0.93 0.4 - 5.0 mU/L [facility] 01/20/2011 6:54 AM CDT 01/20/2011 7:01 AM CDT Jairon Gunter MD LAB - BLOOD ORDERABL ES [facility] K[place]I [place]ann [address] * COLONOSCOPY (06/12/2006) L.C. Special Education Tutor PROCEDURES from Last 3 Months or Most Recently Relevant to Health Maintenance Care Teams Special Warfare Boat Operator Relationship Specialty Start Date End Date Jacob Lorenzo MD PCP - Orthopaedics Orthopedics 02/28/11
== END 2024-03-05 08:25 | disposition home or self-care (01) ==
LOC: NFLDREF 03-09 05:42
PROVIDERS: PCP Family Medicine; Referring Provider Family Medicine; Visit Provider Family Medicine
DX: E78.5 Hyperlipidemia, unspecified (principal); G25.81 Restless legs syndrome; E03.9 Hypothyroidism, unspecified; I1A.0 Resistant hypertension
CPT/HCPCS: 80053; 80061; 82728; 84439; 84443

== ENCOUNTER 2024-03-11 10:45 | Outpatient (CLI) | payer MEDICARE, BC, SELFPAY ==
--- NOTE | 2024-03-11 11:00 | CRLHL7_ITS ---
For Patients: As a result of the Century Cures Act, medical imaging exams and procedure reports are released immediately into your electronic medical record. You may view this report before your referring provider. If you have questions, please contact your health care provider. INDICATION: Lung cancer screening. History of smoking. TECHNIQUE: Low-dose lung cancer screening non-contrast CT chest. Dose reduction techniques were used. COMPARISON: 02/02/2023 FINDINGS: NODULES: 2 millimeter nodule left upper lobe, series 3, image 28 LUNGS AND PLEURA: Emphysema. Mild patchy areas of scarring again noted. MEDIASTINUM: Similar appearance of the thyroid. No adenopathy. CORONARY ARTERY CALCIFICATION: Present. LIMITED UPPER ABDOMEN: Unremarkable. MUSCULOSKELETAL: Unremarkable. IMPRESSION: Negative for lung cancer screening purposes. LUNG-RADS CATEGORY: 2: Benign. RADIOLOGIST RECOMMENDATION: Continue annual screening with low-dose CT chest in 12 months. Please note that all CT scans at this facility use dose modulation, iterative reconstruction, and/or weight-based dosing when appropriate to reduce radiation dose to as low as reasonably achievable. Dictated by Gil Jiang MD @ 03/12/2024 9:43:15 AM (Electronically Signed)
== END 2024-03-11 10:46 | disposition home or self-care (01) ==
PROVIDERS: PCP Family Medicine; Visit Provider Family Medicine
DX: Z12.2 Encounter for screening for malignant neoplasm of respiratory organs (principal); F17.210 Nicotine dependence, cigarettes, uncomplicated; Z72.0 Tobacco use
CPT/HCPCS: 71271; 97110; 97535

== ENCOUNTER 2024-03-13 08:59 | Emergency (ER) | payer MEDICARE, BC, SELFPAY ==
[2024-03-13 09:16] VITALS: BP 201/91; PULSE 87; RESP 18; TEMP 36.3; O2SAT 92; BMI 21.8
--- NOTE | 2024-03-13 09:25 | ED_ITS ---
HPI - General Adult General Time Seen by Provider: 09:26 Date Seen: 03/13/24 Chief complaint: Extremity Pain/Injury, Lower Stated complaint: leg pain/lump Time Seen by Provider: 03/13/24 09:14 Source: patient and RN notes reviewed Mode of arrival: ambulatory Limitations: no limitations History of Present Illness HPI narrative: This 69-year-old female is coming in with concern of swelling that is been happening in her right lower extremity that is no longer going down as well as some pain. She notes that she feels a lump on the backside of this leg in the upper leg. She has never had a history of a blood clot. This knee has been replaced in this leg, states it was in 2009. She has old thigh-high compression stockings that she has been wearing. She states the swelling is worse by the end of the day and then she will have ankle and foot pain from the swelling. She does have pain along the ?lump? in her thigh and behind her knee. She denies any shortness of breath with this, no chest pain with this. She has a root canal scheduled for tomorrow, wanted to make sure that this was not a blood clot. Patient notes that she did not take her blood pressure medicines this morning. Related Data Home Medications ?Medication ?Instructions ?Recorded ?Confirmed divalproex 500 mg tablet,delayed 500 mg PO DIRECTED PRN 02/23/22 03/13/24 release mirtazapine 7.5 mg tablet 7.5 mg PO .Bedtime 02/23/22 03/13/24 amoxicillin 875 mg tablet 875 mg PO BID 03/13/24 03/13/24 divalproex 250 mg tablet,delayed 250 mg PO QAM 03/13/24 03/13/24 release lorazepam 0.5 mg tablet 0.5 mg PO DAILY PRN panic attack 03/13/24 03/13/24 Previous Rx's ?Medication ?Instructions ?Recorded estradiol 0.01% (0.1 mg/gram) 1 g vaginal 2XW #42.5 grams 01/18/24 vaginal cream (Estrace) cyclobenzaprine 5 mg tablet 5 mg PO QHS PRN muscle spasm #30 02/13/24 tabs loperamide 2 mg capsule (Imodium 4 mg (2 x 2 mg) PO QDAY PRN 02/13/24 A-D) diarrhea #30 caps albuterol sulfate 90 mcg/actuation 2 puff inhalation Q4H #8.5 grams 03/12/24 aerosol inhaler carvedilol 25 mg tablet 12.5 mg (1/2 x 25 mg) PO BID #90 03/12/24 tabs esomeprazole magnesium 40 mg 40 mg PO DAILY #90 caps 03/12/24 capsule,delayed release fluticasone furoate 100 1 inh inhalation DAILY #30 ea 03/12/24 mcg-vilanterol 25 mcg/dose inhalation powder hydralazine 50 mg tablet 50 mg PO BID #180 tabs 03/12/24 levothyroxine 112 mcg tablet 112 mcg PO DIRECTED #90 tabs 03/12/24 ropinirole 1 mg tablet 1 mg PO DIRECTED #270 tabs 03/12/24 rosuvastatin 5 mg tablet 5 mg PO QDAY #90 tabs 03/12/24 Allergies Allergy/AdvReac Type Severity Reaction Status Date / Time gabapentin Allergy Intermediate Hives Verified 03/13/24 09:21 lisinopril Allergy Intermediate edema in Verified 03/13/24 09:21 face risperidone Allergy Unknown Verified 03/13/24 09:21 aripiprazole AdvReac Intermediate leg Verified 03/13/24 09:21 swelling amlodipine AdvReac Mild leg Verified 03/13/24 09:21 swelling quetiapine AdvReac swelling Verified 03/13/24 09:21 Review of Systems Status of ROS: Reports: 6 or more systems reviewed and unremarkable except as noted in History and below [facility] Medical History Hypertension ?I10 - Essential (primary) hypertension (ICD-10) COPD (chronic obstructive pulmonary disease) ?J44.9 - Chronic obstructive pulmonary disease, unspecified (ICD-10) Ineffective coping ?R45.89 - Other symptoms and signs involving emotional state (ICD-10) Hyponatremia ?E87.1 - Hypo-osmolality and hyponatremia (ICD-10) Overdose by ingestion ?T50.901A - Poisoning by unspecified drugs, medicaments and biological substances, accidental (unintentional), initial encounter (ICD-10) Traumatic rhabdomyolysis (~03/2023) ?T79.6XXA - Traumatic ischemia of muscle, initial encounter (ICD-10) Traumatic subdural hematoma ?S06.5XAA - Traumatic subdural hemorrhage with loss of consciousness status unknown, initial encounter (ICD-10) Cigarette smoker ?F17.210 - Nicotine dependence, cigarettes, uncomplicated (ICD-10) Hypokalemia ?E87.6 - Hypokalemia (ICD-10) Acute renal failure due to traumatic rhabdomyolysis ?N17.9 - Acute kidney failure, unspecified (ICD-10) ?T79.6XXA - Traumatic ischemia of muscle, initial encounter (ICD-10) Traumatic ecchymosis of multiple sites ?T14.8XXA - Other injury of unspecified body region, initial encounter (ICD- 10) Marijuana smoker, episodic ?F12.90 - Cannabis use, unspecified, uncomplicated (ICD-10) Elevated troponin I level ?R79.89 - Other specified abnormal findings of blood chemistry (ICD-10) Total bilirubin, elevated ?R17 - Unspecified jaundice (ICD-10) Lorazepam overdose of undetermined intent ?T42.4X4A - Poisoning by benzodiazepines, undetermined, initial encounter (ICD-10) Obstructive sleep apnea treated with continuous positive airway pressure (CPAP) (~2016) ?G47.33 - Obstructive sleep apnea (adult) (pediatric) (ICD-10) ?Z99.89 - Dependence on other enabling machines and devices (ICD-10) Venous insufficiency of both lower extremities ?I87.2 - Venous insufficiency (chronic) (peripheral) (ICD-10) Varicose veins of both lower extremities ?I83.93 - Asymptomatic varicose veins of bilateral lower extremities (ICD-10) Unintended weight loss (~11/2021) ?R63.4 - Abnormal weight loss (ICD-10) Rectal urgency ?R15.2 - Fecal urgency (ICD-10) Osteopenia (2016) ?M85.80 - Other specified disorders of bone density and structure, unspecified site (ICD-10) Osteoarthritis ?M19.90 - Unspecified osteoarthritis, unspecified site (ICD-10) Obstructive chronic bronchitis with exacerbation ?J44.1 - Chronic obstructive pulmonary disease with (acute) exacerbation (ICD-10) Internal derangement of knee ?M23.90 - Unspecified internal derangement of unspecified knee (ICD-10) History of drug abuse (2013) ?F19.11 - Other psychoactive substance abuse, in remission (ICD-10) Hepatitis C ?B19.20 - Unspecified viral hepatitis C without hepatic coma (ICD-10) Encounter for counseling regarding advance directives (06/21/15) ?Z71.89 - Other specified counseling (ICD-10) Chronic neck pain ?M54.2 - Cervicalgia (ICD-10) ?G89.29 - Other chronic pain (ICD-10) Bleeding internal hemorrhoids ?K64.8 - Other hemorrhoids (ICD-10) Bilateral edema of lower extremity ?R60.0 - Localized edema (ICD-10) Surgical History Hx of varicose vein ligation and stripping (~2016) ?Z98.890 - Other specified postprocedural states (ICD-10) Colon cancer screening (~2015) ?Z12.11 - Encounter for screening for malignant neoplasm of colon (ICD-10) Status post left knee replacement (04/08/19) ?Z96.652 - Presence of left artificial knee joint (ICD-10) History of right knee joint replacement (2009) ?Z96.651 - Presence of right artificial knee joint (ICD-10) History of repair of right rotator cuff (~2011) ?Z98.890 - Other specified postprocedural states (ICD-10) History of ovarian cystectomy ?Z98.890 - Other specified postprocedural states (ICD-10) ?Z87.42 - Personal history of other diseases of the female genital tract (ICD-10) History of medial meniscus repair of left knee (2013) ?Z98.890 - Other specified postprocedural states (ICD-10) History of hysterectomy with oophorectomy (1984) History of arthroplasty of right knee (2009) ?Z96.651 - Presence of right artificial knee joint (ICD-10) History of abdominoplasty (1996) ?Z98.890 - Other specified postprocedural states (ICD-10) H/O endoscopy ?Z98.890 - Other specified postprocedural states (ICD-10) Normal colonoscopy (2021) Family History Aunt Breast cancer Mother Ovarian cancer Sister Stomach cancer Other Adopted person Social History Narrative: Single, homemaker, lives with Clara in town house [place]. Smokes- hx 30 pack years Does not drink alcohol Exercises 3 to 4 times per week- walks 3M What is your current living situation?: I presently have a place to live Problems where you live: pests, such as bugs, ants, or mice Problems where you live details: none In the past 12 months, utilities in danger of being shut off: no In past 12 months, lack of transportation kept you from medical appts, meetings, work, or getting things needed for daily living: no In the past 12 mos, have been you worried that your food would run out before you had money to buy more?: never true In the past 12 mos, the food you bought just didn't last and you didn't have money to buy more?: never true Smoking Status: Current every day smoker What tobacco products do you use: cigarettes Years smoked: 50 Do you use any of these nicotine containing products: None Second hand tobacco smoke exposure: No How often do you have a drink containing alcohol: never AUDIT-C Alcohol total score: 0 Non-prescribed substance use: marijuana (any form) Caffeine: Yes How often does anyone, including family, friends and others, physically hurt you : never How often does anyone, including family, friends and others, insult or talk down to you: never How often does anyone, including family, friends and others, threaten you with harm: never How often does anyone, including family, friends and others, scream or curse at you: never Little interest or pleasure in doing things: more than half the days Feeling down, depressed, or hopeless: more than half the days service: No Exam Const: Vital Signs, click to edit/add: Vital Signs - 24 hr 03/13/24 09:16 Temperature 97.4 F L Pulse Rate [Right Pulse Oximeter] 87 Respiratory Rate 18 Blood Pressure [Ri ght Upper Arm] 201/91 H Pulse Oximetry 92 Oxygen Delivery Me thod Room Air This 69-year-old female is up ambulatory in the room, changing into her gown when I come in. She has the thigh-high compression stockings on but they are not very compressive, her underlying lower extremities are overall thin and slender. We removed the stocking from her right lower extremity, she has varicosities that are noted, the varicosity that she is feeling goes from behind the popliteal fossa up the posterior right thigh. It is torturous but there is no overlying erythema, does not appear to be thrombosed but certainly is a definite varicose vein. She has scarring over the right knee but no joint line effusion. She has full range of motion of this right knee without any pain, full range of motion of her right ankle without any pain. There is no significant edema in this right lower extremity at this time. She has excellent peripheral pulses, normal light touch sensation. There is some hemosiderin staining in the lower right lower extremity skin that would signify a she certainly has edema at times. Her gait is normal. She is able to speak in complete sentences. Face atraumatic. CV regular rate and rhythm, 2/6 systolic ejection murmur heard at upper sternal borders. Lungs clear anteriorly, no tachypnea, no wheezing or crackles. Documenting provider has reviewed patient's vital signs: yes Course Course ED Course: Reviewed with patient that what we can achieve here today is make sure that there is no underlying blood clot. She does have varicose veins which does put her at risk of swelling from backflow. She also has had a surgery in this leg with a knee replacement which is also a risk for subsequent edema. We can rule out any acute blood clot and if this is negative, she will need to follow up in clinic for further discussion. She states she thinks she needs a new pair of compression stockings, reviewed with her that she can obtain this prescription through her primary provider. Reevaluation(s) Time of Reevaluation #1: 10:27 Reevaluation #1: Provided patient copy of her ultrasound report. We reviewed that there is no evidence of blood clots. Varicose veins it can be painful. It does sound is if she has seen someone for varicose vein treatment before, states she went to [place]. At this time, patient is safe to discharge to home to follow up with her primary care provider. Vital Signs Vital signs: Initial Vital Signs Temperature 97.4 F L 03/13/24 09:16 Temperature Source Temporal Artery Scan 03/13/24 09:16 Pulse Rate 87 03/13/24 09:16 Pulse Rhythm Regular 03/13/24 09:16 Respiratory Rate 18 03/13/24 09:16 Blood Pressure 201/91 H 03/13/24 09:16 Blood Pressure Mean 127 H 03/13/24 09:16 Blood Pressure Position Sitting 03/13/24 09:16 Pulse Oximetry 92 03/13/24 09:16 Oxygen Delivery Method Room Air 03/13/24 09:16 Vital Signs Temperature 97.4 F L 03/13/24 09:16 Pulse Rate 87 03/13/24 09:16 Respiratory Rate 18 03/13/24 09:16 Blood Pressure 201/91 H 03/13/24 09:16 Pulse Oximetry 92 03/13/24 09:16 Oxygen Delivery Method Room Air 03/13/24 09:16 Temperature 97.4 F L 03/13/24 09:16 Pulse Rate 87 03/13/24 09:16 Respiratory Rate 18 03/13/24 09:16 Blood Pressure 201/91 H 03/13/24 09:16 Pulse Oximetry 92 03/13/24 09:16 Oxygen Delivery Method Room Air 03/13/24 09:16 Medical Decision Making Imaging Data Venous US: Attestation: I have reviewed the pertinent imaging results. Radiologist's impression: Patient: JULIANA MOE Facility:?[facility] Patient ID:?[id number] Site Patient ID:?[id number]. Site :?[id number] Study:?US-Extremity Right venous-03/13/2024 10:19:26 AM Ordering Physician:?Ceferino Hoskins Final Report: Indication: Swelling and pain. Venous varicosities. Technique: Grayscale, grayscale compression, color Doppler, spectral Doppler and augmentation technique was utilized for evaluating the right lower extremity deep venous system. The left common femoral vein was also studied. The superficial veins in the area of indicated concern by the patient were also studied Comparison: None Findings: There is no evidence of right lower extremity deep venous thrombosis. The left common femoral vein is patent. At the area of concern in the right leg, are superficial venous varicosities without evidence of thrombosis Impression: 1. No evidence of right lower extremity deep venous thrombosis. 2. Superficial venous varicosities on the right at the indicated area of pain. There is no evidence of superficial venous thrombosis in this area. Dictated by Harry Caraballo MD @ 03/13/2024 10:25:49 AM (Electronic Signature) Discharge Plan Discharge Clinical Impression: Varicose vein of leg Qualifiers: Varicose vein complication: pain Laterality: right Qualified Code(s): I83.811 - Varicose veins of right lower extremity with pain Patient Disposition: Home, Self-Care Condition: Stable Instructions: Venous Insufficiency (DC) Additional Instructions: Thankfully the ultrasound is not showing any blood clot. Varicose veins can become painful in of themselves. Do recommend continuing to wear the compression stocking to help with the edema you are experiencing. Varicose veins can lead to edema, your history of knee replacement on this side also complete should increase risk of chronic lower extremity edema. Please schedule a follow-up appointment in clinic with your primary care provider, they can order new compression stockings for you and discuss further management of edema. Elevating your legs to heart level or above when you are resting can help decrease edema throughout day as well. Activity Level: Activity as Tolerated Prescriptions: No Action estradiol [Estrace] 0.01 % (0.1 mg/gram) cream 1 g vaginal 2XW Qty: 42.5 1RF carvedilol 25 mg tablet 12.5 mg PO BID Qty: 90 3RF Rx Instructions: must administer with a meal/food hydralazine 50 mg tablet 50 mg PO BID Qty: 180 3RF esomeprazole magnesium 40 mg capsule,delayed release(DR/EC) 40 mg PO DAILY Qty: 90 3RF fluticasone furoate-vilanterol 100-25 mcg/dose blister with device 1 inh inhalation DAILY Qty: 30 12RF Rx Instructions: Rinse mouth after inhalation albuterol sulfate 90 mcg/actuation HFA aerosol inhaler 2 puff inhalation Q4H Qty: 8.5 12RF rosuvastatin 5 mg tablet 5 mg PO QDAY Qty: 90 3RF ropinirole 1 mg tablet 1 mg PO DIRECTED Qty: 270 3RF Rx Instructions: 1 tab at 1700, 2 tab at HS levothyroxine 112 mcg tablet 112 mcg PO DIRECTED Qty: 90 3RF Rx Instructions: 1 tab daily, except no tablet on Sundays divalproex 500 mg tablet,delayed release (DR/EC) 500 mg PO DIRECTED PRN Rx Instructions: Take 1 tab in the AM and 2 tabs in the PM mirtazapine 7.5 mg tablet 7.5 mg PO .Bedtime divalproex 250 mg tablet,delayed release (DR/EC) 250 mg PO QAM amoxicillin 875 mg tablet 875 mg PO BID lorazepam 0.5 mg tablet 0.5 mg PO DAILY PRN (Reason: panic attack) cyclobenzaprine 5 mg tablet 5 mg PO QHS PRN (Reason: muscle spasm) Qty: 30 0RF Rx Instructions: Use infrequently 1 tablet for muscle cramps will cause sedation. loperamide [Imodium A-D] 2 mg capsule 4 mg PO QDAY PRN (Reason: diarrhea) Qty: 30 0RF Follow Up/Referrals: Kim Gardner MD [Primary Care Provider] - Stand Alone Forms: [employer] Info Instructions
--- NOTE | 2024-03-13 09:30 | US_ITS ---
Patient: JULIANA MOE Facility:?[facility] Patient ID:?[id number] Site Patient ID:?[id number]. Site :?[id number] Study:?US-Extremity Right venous-03/13/2024 10:19:26 AM Ordering Physician:Lou Hoskins Final Report: Indication: Swelling and pain. Venous varicosities. Technique: Grayscale, grayscale compression, color Doppler, spectral Doppler and augmentation technique was utilized for evaluating the right lower extremity deep venous system. The left common femoral vein was also studied. The superficial veins in the area of indicated concern by the patient were also studied Comparison: None Findings: There is no evidence of right lower extremity deep venous thrombosis. The left common femoral vein is patent. At the area of concern in the right leg, are superficial venous varicosities without evidence of thrombosis Impression: 1. No evidence of right lower extremity deep venous thrombosis. 2. Superficial venous varicosities on the right at the indicated area of pain. There is no evidence of superficial venous thrombosis in this area. Dictated by Harry Caraballo MD @ 03/13/2024 10:25:49 AM Signed by:?Harry Caraballo MD @03/13/2024 10:25:49 AM (Electronic Signature)
== END 2024-03-13 10:42 | disposition home or self-care (01) ==
PROVIDERS: Emergency Provider Family Medicine; PCP Family Medicine
DX: I83.811 Varicose veins of right lower extremity with pain (principal)
CPT/HCPCS: 93971; 99283

== ENCOUNTER 2024-04-22 09:30 | Outpatient (RCR) | payer MEDICARE, BC, SELFPAY ==
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
== END 2024-07-16 12:48 | disposition home or self-care (01) ==
PROVIDERS: PCP Family Medicine; Visit Provider Obstetrics & Gynecology
DX: N39.46 Mixed incontinence (principal); Z51.89 Encounter for other specified aftercare
CPT/HCPCS: 97110; 97162; 97535

== ENCOUNTER 2024-07-09 11:28 | Outpatient (CLI) | payer MEDICARE, BC, SELFPAY ==
[2024-07-09 12:36] LABS: Creatinine* 0.6 mg/dL (0.5-1.5); Estimated Glomerular Filt Rate 97 ml/min
[2024-07-09 12:37] LABS: Blood Urea Nitrogen* 22 mg/dL (7-30)
[2024-07-12 17:52] LABS: Valproic Acid, Free 24 ug/mL (7-23); Valproic Acid, Percent Free 19 % (5-18); Valproic Acid, Total 125 ug/mL (50-125)
== END 2024-07-09 11:29 | disposition home or self-care (01) ==
LOC: NPINS 11:30
PROVIDERS: PCP Family Medicine; Visit Provider Nurse Practitioner Psychiatric/Mental Health
DX: Z79.899 Other long term (current) drug therapy (principal)
CPT/HCPCS: 80053; 80164; 80165; 82565; 84100; 84520

== ENCOUNTER 2024-07-17 08:21 | Outpatient (CLI) | payer MEDICARE, BC, SELFPAY | END 2024-07-17 08:22 | disposition home or self-care (01) | LOC: NFLDREF 07-23 01:10 | PROVIDERS: PCP Family Medicine; Referring Provider Family Medicine; Visit Provider Internal Medicine Nephrology | DX: N18.1 Chronic kidney disease, stage 1 (principal); E03.9 Hypothyroidism, unspecified | CPT/HCPCS: 80069; 82043; 82570; 84443; 84550; 86140 ==

== ENCOUNTER 2024-09-22 08:44 | Outpatient (CLI) | payer MEDICARE, BC, SELFPAY | END 2024-09-22 08:45 | disposition home or self-care (01) | LOC: NFLDREF 09-24 06:45 | PROVIDERS: PCP Family Medicine; Referring Provider Family Medicine; Visit Provider Family Medicine | DX: I10 Essential (primary) hypertension (principal); I1A.0 Resistant hypertension; E03.9 Hypothyroidism, unspecified | CPT/HCPCS: 80053; 84443 ==

== ENCOUNTER 2024-10-11 10:17 | Outpatient (CLI) | payer MEDICARE, BC, SELFPAY | END 2024-10-11 10:18 | disposition home or self-care (01) | LOC: NFLDREF 10-16 18:46 | PROVIDERS: PCP Family Medicine; Referring Provider Family Medicine; Visit Provider Nurse Practitioner Family | DX: N30.01 Acute cystitis with hematuria (principal); B96.20 Unspecified Escherichia coli [E. coli] as the cause of diseases classified elsewhere | CPT/HCPCS: 87086 ==

== ENCOUNTER 2024-12-18 14:30 | Outpatient (CLI) | payer MEDICARE, BC, SELFPAY | END 2024-12-18 14:31 | disposition home or self-care (01) | LOC: NFLDREF 12-22 18:03 | PROVIDERS: PCP Family Medicine; Referring Provider Family Medicine; Visit Provider Internal Medicine | DX: N30.00 Acute cystitis without hematuria (principal) | CPT/HCPCS: 87086 ==

== ENCOUNTER 2024-12-31 09:06 | Outpatient (CLI) | payer MEDICARE, BC, SELFPAY | END 2024-12-31 09:07 | disposition home or self-care (01) | LOC: NFLDREF 09:09 | PROVIDERS: PCP Family Medicine; Visit Provider Family Medicine | DX: I10 Essential (primary) hypertension (principal); I1A.0 Resistant hypertension | CPT/HCPCS: 80048; 87086 ==

== ENCOUNTER 2025-01-13 08:43 | Day surgery (SDC) | payer MEDICARE, BC, SELFPAY ==
[2025-01-13] VITALS (29 sets, daily range): BP systolic 106–225; BP diastolic 63–148; PULSE 61–80; RESP 12–18; TEMP 35.3–36.6; O2SAT 91–99; BMI 24.9
[2025-01-13] MEDS: LACTATED RINGERS 1000 ML 1,000 ML 100 ML IV ×2 (09:05→12:59)
[2025-01-13] MEDS: SODIUM CHLORIDE 0.9 % (FLUSH) 10 ML SYRINGE IVF (10:30)
--- NOTE | 2025-01-13 10:32 | SUR.PREOP ---
Discussed blood pressure with MDA. No action required at this time.
[2025-01-13] MEDS: CELECOXIB 200 MG CAPSULE PO (11:30)
[2025-01-13] MEDS: ACETAMINOPHEN 500 MG TABLET 1000 MG PO ×3 (11:30→18:00)
[2025-01-13] MEDS: MIDAZOLAM HCL 1 MG/ML inj IVP (11:30)
[2025-01-13] MEDS: OXYCODONE (CR) 10 MG TAB.ER.12H PO (11:30)
--- NOTE | 2025-01-13 11:40 | W.PM.NB ---
Nerve Block Nerve Block Time Seen by Provider: 11:33 Date Seen: 01/13/25 Type of block requested by surgeon for post-operative analgesia: supraclavicular Side: right Time out performed: Yes Verification of patient name: Yes Verification of date of : Yes Site marking: site marked Name of person performing procedure: Geo Continuous monitoring Was continuous monitoring of O2 sat, B/P, cardiac rehabilitation specialist, recorded every 15 minutes?: Yes Procedure Checklist: sterile prep, needles and gloves Ultrasound guided. Images saved: Yes Medications given in 5ml increments after negative aspiration: Ropivicaine %: 0.5 mL: 15 Needle gauge: 22 Precedex (mcg): 25 Patient tolerated procedure well: Yes Block Charges Block Charge (with Pro Fee): Brachial Plexus Use of Ultrasound Machine for Block: Yes- US Guidance/pain block
--- NOTE | 2025-01-13 11:41 | P.ANES_ITS ---
Anesthesia Charges Start Date/Time Anesthesia Start Date: 01/13/25 Anesthesia Start Time: 12:03 Stop Date/Time Anesthesia Stop Date: 01/13/25 Anesthesia Stop Time: 15:14 Summary Extremes of Age - Over 70 or under 1: MDA Coding CPT Codes CPT Codes: ANESTH SHOULDER REPLACEMENT - 92075 ([id number]) P3 - PATIENT W/SEVERE SYS DISEASE, QK - SUPERVISOR REINFORCED STEEL PLACING 2-4 CNCRNT ANES PROC, QX - SIGN POSTER SVC W/ MD MED DIRECTION Additional Codes: Summary - Extremes of Age - Over 70 or under 1: MDA ([id number])
--- NOTE | 2025-01-13 11:41 | W.ANESCHARGE ---
Anesthesia Charges Start Date/Time Anesthesia Start Date: 01/13/25 Anesthesia Start Time: 12:03 Stop Date/Time Anesthesia Stop Date: 01/13/25 Anesthesia Stop Time: 15:14 Summary Extremes of Age - Over 70 or under 1: MDA Coding CPT Codes CPT Codes: ANESTH SHOULDER REPLACEMENT - 43717 ([id number]) P3 - PATIENT W/SEVERE SYS DISEASE, QK - FRINGE KNOTTER 2-4 CNCRNT ANES PROC, QX - SENIOR STORAGE ADMINISTRATOR SVC W/ MD MED DIRECTION Additional Codes: Summary - Extremes of Age - Over 70 or under 1: MDA ([id number])
--- NOTE | 2025-01-13 11:49 | PC.SOCIAL ---
Discharge planning: ADRIÁN called Antoinette at [facility] to confirm that patient will be returning to the [facility]. Antoinette states that everything is planned and ready. Antoinette explains that she will need discharge summary and OP OT/PT orders so that she can arrange OT/PT there. Antoinette states that patient will manage her own meds but would like the orders sent still in case patient needs assistance at all. Antoinette reports that [facility] van is set for 1100 pickup from the hospital. ADRIÁN notified charge poster with this information. ADRIÁN to continue to assist with discharge planning.
[2025-01-13] MEDS: TRANEXAMIC ACID 100 MG/ML INJ 1000 MG IV (12:18)
--- NOTE | 2025-01-13 14:14 | CRLHL7_ITS ---
For Patients: As a result of the Cures Act, medical imaging exams and procedure reports are released immediately into your electronic medical record. You may view this report before your referring provider. If you have questions, please contact your health care provider. Indication: POST OP RSA Technique: Two views right shoulder Findings/Impression: Hardware from a right reverse total shoulder arthroplasty is in satisfactory position. Bone alignment is normal. No sign of acute fracture. Postop changes are within normal limits. Dictated by Gil Jiang MD @ 01/14/2025 11:07:22 AM (Electronically Signed)
--- NOTE | 2025-01-13 14:21 | PM.ORPRC ---
Procedure Note Date of procedure: 01/13/25 Procedure: PREOPERATIVE DIAGNOSIS: Right shoulder rotator cuff tear arthropathy POSTOPERATIVE DIAGNOSIS: Right shoulder rotator cuff tear arthropathy NAME OF OPERATION: Right upper extremity reverse shoulder arthroplasty, biceps tenodesis SURGEON: Denis Garcia MD CORPORATE ADMINISTRATOR: Katty Gleason PA-C ANESTHESIA: General endotracheal ESTIMATED BLOOD LOSS: 100 mL COMPLICATIONS: None SPECIMENS: None DRAINS: None PREOPERATIVE ANTIBIOTICS: Ancef 1 grams IMPLANTS: 1. Tornier 25mm x 30mm baseplate 2. 36mm standard glenosphere 3. 3B humeral stem 4. High eccentric +0 humeral tray 5. 36mm +6 polyethylene INDICATIONS: The patient is a 69-year-old with a longstanding history of severe, unrelenting right shoulder pain secondary to rotator cuff tear arthropathy. Despite appropriate nonoperative management, including activity modification, anti-inflammatories, [id number] pain medication, physical therapy, and injections they continue to have pain and disability. Operative intervention was offered. The risks, benefits and expected outcomes were discussed in detail. These included but were not limited to: Infection, bleeding, injury to blood vessel or nerve, venous thromboembolism. All questions were answered to their satisfaction. Use of an pharmacy innovation assistant was necessary throughout the case for patient positioning and safety, soft tissue retraction, and closure. PROCEDURE: General anesthesia was administered. The patient was placed in the lazy beach chair position on the operating room table. The right upper extremity was prepped and draped in the usual sterile fashion. A standard deltopectoral incision was made. Subcutaneous dissection was taken with electrocautery to the deltopectoral interval. The cephalic vein was mobilized, lateral branches were cauterized. The vein was taken medially with the pectoralis. We bluntly entered the deltopectoral interval. We freed up the deltoid. The upper 1/3 of the insertion of the pectoralis was divided with cautery. The static retractor was placed. The clavipectoral fascia and CA ligament were divided. The circumflex vessels were controlled with electrocautery. The biceps was dissected out of the bicipital groove, was tagged with a #2 FiberWire suture and divided proximally. A fiberWire suture was placed in the subscapularis. The subscap was subperiosteally elevated off of the lesser tuberosity. The humeral head was delivered into the wound. The intramedullary humeral cutting guide was placed. We made the cut at the anatomic neck, in 30? of retroversion. Humeral sounds were used to assess the diameter of the canal. The broach was placed and had good rotational stability. The calcar reamer was used and the protective base plate cover was placed. Attention was then turned to the glenoid. Hohmann retractors were placed posteriorly. The labrum and biceps stump were sharply debrided. The origin of the inferior glenohumeral ligaments were subperiosteally released off of the glenoid. The drill guide was placed. The guide pin was placed in 0? of cephalic tilt. The reamer was used to bleeding bone. The central drill was used x2. The standard base plate was placed. This had excellent purchase. Locking screws x 2 were placed. The glenosphere was placed, the set screw was tightened. Attention then returned to the humerus. We placed a high eccentric standard base plate and standard poly. We reduced the shoulder and took it through a range of motion. It was found to be stable with appropriate soft tissue tension. Trial humeral components were removed. The biceps was tenodesed in the bicipital groove with drill holes and our previously placed FiberWire suture. We placed #2 FiberWire sutures in the lesser tuberosity for subsequent subscap repair. We assembled the humeral component on the back table. We placed it in the center of our subscapularis repair sutures and tapped it down to our humeral cut. This had excellent purchase. The shoulder was reduced and again was found to be stable with appropriate soft tissue tension. We did a 3 min dilute Betadine solution soak. We irrigated the wound with 3 L of normal saline via pulse lavage. We repaired the subscapularis to the lesser tuberosity with our previously placed FiberWire sutures. The deltopectoral interval was loosely reapproximated with an 0 Vicryl in an interrupted [id number] fashion. Subcutaneous tissues were closed with the 2-0 Vicryl and a running 3-0 Monocryl suture. The skin was sealed with glue. A dry dressing and sling were applied. Sponge and needle counts were correct x2. The patient tolerated the procedure well, there were no apparent complications. They were awakened and extubated in the operating room, taken to the postanesthesia care unit in satisfactory condition. PLAN: The patient will be mobilized with physical therapy. The sling will be used for 6 weeks postoperatively. Active range of motion in forward flexion and abduction as tolerates. No external rotation greater than 0? for 6 weeks postoperatively. They will be discharged to home once medically appropriate.
--- NOTE | 2025-01-13 15:18 | P.ANES_ITS ---
Anesthesia Charges Start Date/Time Anesthesia Start Date: 01/13/25 Anesthesia Start Time: 12:03 Stop Date/Time Anesthesia Stop Date: 01/13/25 Anesthesia Stop Time: 15:14 Coding CPT Codes CPT Codes: ANESTH SHOULDER REPLACEMENT - 69602 ([id number]) P3 - PATIENT W/SEVERE SYS DISEASE, QK - DATA ARCHITECT 2-4 CNCRNT ANES PROC, QX - ABSORBER OPERATOR SVC W/ MD MED DIRECTION
--- NOTE | 2025-01-13 15:18 | W.ANESCHARGE ---
Anesthesia Charges Start Date/Time Anesthesia Start Date: 01/13/25 Anesthesia Start Time: 12:03 Stop Date/Time Anesthesia Stop Date: 01/13/25 Anesthesia Stop Time: 15:14 Coding CPT Codes CPT Codes: ANESTH SHOULDER REPLACEMENT - 98177 ([id number]) P3 - PATIENT W/SEVERE SYS DISEASE, QK - CRM SOLUTION ARCHITECT 2-4 CNCRNT ANES PROC, QX - GLASS BLOWER HELPER SVC W/ MD MED DIRECTION
--- NOTE | 2025-01-13 16:08 | SUR.PHASEI ---
patient met discharge criteria per anesthesia
[2025-01-13] MEDS: LACTATED RINGERS 1000 ML 1,000 ML 75 ML IV (17:51)
[2025-01-13] MEDS: CEFAZOLIN 1 GM in 0.9 % SODIUM CHLORIDE Mini-bag 100 ML IVPB (18:38)
[2025-01-13] MEDS: HYDRALAZINE 25 MG TABLET 50 MG PO (21:06)
[2025-01-13] MEDS: SENNOSIDES 1 TAB TABLET 2 TAB PO (21:06)
--- NOTE | 2025-01-13 22:19 | PM.IMCN1 ---
Date of Consult Patient: [facility] Patient Consult date: 01/13/25 Requesting Physician: Orthopedics Primary Care Provider: Kim Gardner MD Consult Narrative Reason for consult: Postoperative medical care Narrative: Yamileth Amaya is a 69 year old woman status post elective Right upper extremity reverse shoulder arthroplasty and biceps tenodesis on 01/13/[address] Benedict Garcia, [facility], [place], [place]. Uneventful procedure without apparent complications. Now recovering. Estimated blood loss 100 mL. Pain control still good. Denies dyspnea at rest or dyspnea with exertion. Review of Systems Status of ROS: Reports: 6 or more systems reviewed and unremarkable except as noted in History and below Narrative: No recent illness, trauma, injury. Will discharge to assisted living facility when ready to discharge from hospital. [facility] Medical History Hypertension ?I10 - Essential (primary) hypertension (ICD-10) COPD (chronic obstructive pulmonary disease) ?J44.9 - Chronic obstructive pulmonary disease, unspecified (ICD-10) Ineffective coping ?R45.89 - Other symptoms and signs involving emotional state (ICD-10) Hyponatremia ?E87.1 - Hypo-osmolality and hyponatremia (ICD-10) Overdose by ingestion ?T50.901A - Poisoning by unspecified drugs, medicaments and biological substances, accidental (unintentional), initial encounter (ICD-10) Traumatic rhabdomyolysis (~03/2023) ?T79.6XXA - Traumatic ischemia of muscle, initial encounter (ICD-10) Traumatic subdural hematoma ?S06.5XAA - Traumatic subdural hemorrhage with loss of consciousness status unknown, initial encounter (ICD-10) Cigarette smoker ?F17.210 - Nicotine dependence, cigarettes, uncomplicated (ICD-10) Acute renal failure due to traumatic rhabdomyolysis ?N17.9 - Acute kidney failure, unspecified (ICD-10) ?T79.6XXA - Traumatic ischemia of muscle, initial encounter (ICD-10) Traumatic ecchymosis of multiple sites ?T14.8XXA - Other injury of unspecified body region, initial encounter (ICD-10) Marijuana smoker, episodic ?F12.90 - Cannabis use, unspecified, uncomplicated (ICD-10) Elevated troponin I level ?R79.89 - Other specified abnormal findings of blood chemistry (ICD-10) Total bilirubin, elevated ?R17 - Unspecified jaundice (ICD-10) Lorazepam overdose of undetermined intent ?T42.4X4A - Poisoning by benzodiazepines, undetermined, initial encounter (ICD-10) Obstructive sleep apnea treated with continuous positive airway pressure (CPAP) (~2016) ?G47.33 - Obstructive sleep apnea (adult) (pediatric) (ICD-10) ?Z99.89 - Dependence on other enabling machines and devices (ICD-10) Venous insufficiency of both lower extremities ?I87.2 - Venous insufficiency (chronic) (peripheral) (ICD-10) Varicose veins of both lower extremities ?I83.93 - Asymptomatic varicose veins of bilateral lower extremities (ICD-10) Unintended weight loss (~11/2021) ?R63.4 - Abnormal weight loss (ICD-10) Rectal urgency ?R15.2 - Fecal urgency (ICD-10) Osteopenia (2015) ?M85.80 - Other specified disorders of bone density and structure, unspecified site (ICD-10) Osteoarthritis ?M19.90 - Unspecified osteoarthritis, unspecified site (ICD-10) Obstructive chronic bronchitis with exacerbation ?J44.1 - Chronic obstructive pulmonary disease with (acute) exacerbation (ICD-10) Internal derangement of knee ?M23.90 - Unspecified internal derangement of unspecified knee (ICD-10) History of drug abuse (2013) ?F19.11 - Other psychoactive substance abuse, in remission (ICD-10) Hepatitis C ?B19.20 - Unspecified viral hepatitis C without hepatic coma (ICD-10) Encounter for counseling regarding advance directives (06/21/15) ?Z71.89 - Other specified counseling (ICD-10) Chronic neck pain ?M54.2 - Cervicalgia (ICD-10) ?G89.29 - Other chronic pain (ICD-10) Bleeding internal hemorrhoids ?K64.8 - Other hemorrhoids (ICD-10) Bilateral edema of lower extremity ?R60.0 - Localized edema (ICD-10) Surgical History History of esophagogastroduodenoscopy (EGD) (11/2021) ?Z98.890 - Other specified postprocedural states (ICD-10) Hx of varicose vein ligation and stripping (~2016) ?Z98.890 - Other specified postprocedural states (ICD-10) Colon cancer screening (~2015) ?Z12.11 - Encounter for screening for malignant neoplasm of colon (ICD-10) Status post left knee replacement (04/08/19) ?Z96.652 - Presence of left artificial knee joint (ICD-10) History of right knee joint replacement (2009) ?Z96.651 - Presence of right artificial knee joint (ICD-10) History of repair of right rotator cuff (~2011) ?Z98.890 - Other specified postprocedural states (ICD-10) History of ovarian cystectomy ?Z98.890 - Other specified postprocedural states (ICD-10) ?Z87.42 - Personal history of other diseases of the female genital tract (ICD-10) History of medial meniscus repair of left knee (2013) ?Z98.890 - Other specified postprocedural states (ICD-10) History of hysterectomy with oophorectomy (1984) History of arthroplasty of right knee (2009) ?Z96.651 - Presence of right artificial knee joint (ICD-10) History of abdominoplasty (1996) ?Z98.890 - Other specified postprocedural states (ICD-10) H/O endoscopy ?Z98.890 - Other specified postprocedural states (ICD-10) Normal colonoscopy (2021) Family History Aunt Breast cancer Mother Ovarian cancer Sister Stomach cancer Other Adopted person Psoriasis Social History Narrative: Single, homemaker, lives with cat Clara independent [facility] quit 07/2024- hx 30 pack years Does not drink alcohol 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 [employer] What is your current living situation?: I presently have a place to live Problems where you live: pests, such as bugs, ants, or mice Problems where you live details: none In the past 12 months, utilities in danger of being shut off: no In past 12 months, lack of transportation kept you from medical appts, meetings, work, or getting things needed for daily living: no In the past 12 mos, have been you worried that your food would run out before you had money to buy more?: never true In the past 12 mos, the food you bought just didn't last and you didn't have money to buy more?: never true Smoking Status: Current every day smoker What tobacco products do you use: cigarettes Years smoked: 50 Do you use any of these nicotine containing products: None Second hand tobacco smoke exposure: No How often do you have a drink containing alcohol: never AUDIT-C Alcohol total score: 0 Non-prescribed substance use: marijuana (any form) Caffeine: Yes How often does anyone, including family, friends and others, physically hurt you: never How often does anyone, including family, friends and others, insult or talk down to you: never How often does anyone, including family, friends and others, threaten you with harm: never How often does anyone, including family, friends and others, scream or curse at you: never service: No Health Related Social Needs: Inadequate housing (Z59.1) Meds Home Medications and Allergies Home Medications ?Medication ?Instructions ?Recorded ?Confirmed ?Type divalproex 500 mg tablet,delayed 500 - 1,000 mg PO BID 02/23/22 01/13/25 History release carvedilol 25 mg tablet 12.5 mg (1/2 x 25 mg) PO BID #90 03/12/24 01/13/25 Rx tabs esomeprazole magnesium 40 mg 40 mg PO DAILY #90 caps 03/12/24 01/13/25 Rx capsule,delayed release fluticasone furoate 100 1 inh inhalation DAILY #30 ea 03/12/24 01/13/25 Rx mcg-vilanterol 25 mcg/dose inhalation powder hydralazine 50 mg tablet 50 mg PO BID #180 tabs 03/12/24 01/13/25 Rx divalproex 250 mg tablet,delayed 250 mg PO QAM 03/13/24 01/13/25 History release lorazepam 0.5 mg tablet 0.5 mg PO BID PRN 04/18/24 01/13/25 History albuterol sulfate 90 mcg/actuation 2 puff inhalation Q4H PRN 09/29/24 01/13/25 History aerosol inhaler acetaminophen 500 mg capsule 500 - 1,000 mg (1 - 2 x 500 mg) PO 01/13/25 Rx Q6H PRN pain #100 caps cyclobenzaprine 5 mg tablet 5 mg PO HS PRN muscle spasm 01/13/25 01/13/25 History levothyroxine 112 mcg tablet 112 mcg PO DAILY 01/13/25 01/13/25 History oxycodone 5 mg tablet 2.5 - 5 mg (0.5 - 1 x 5 mg) PO 01/13/25 Rx Q4-6H PRN Pain #30 tabs ropinirole 1 mg tablet 1 - 2 mg PO BID@17,21 01/13/25 01/13/25 History rosuvastatin 5 mg tablet 5 mg PO DAILY 01/13/25 01/13/25 History sennosides 8.6 mg tablet (Senna 17.2 mg (2 x 8.6 mg) PO BID PRN 01/13/25 Rx Lax) constipation #100 tabs Allergies Allergy/AdvReac Type Severity Reaction Status Date / Time gabapentin Allergy Intermediate Hives Verified 01/13/25 09:28 lisinopril Allergy Intermediate edema in Verified 01/13/25 09:28 face risperidone Allergy Unknown Verified 01/13/25 09:28 aripiprazole AdvReac Intermediate leg Verified 01/13/25 09:28 swelling amlodipine AdvReac Mild leg Verified 01/13/25 09:28 swelling quetiapine AdvReac swelling Verified 01/13/25 09:28 Exam Narrative: Exam Narrative: Examine her in her hospital room. Appears comfortable and in no acute distress. Vision and hearing are adequate. Alert and oriented x4. Right upper extremity in sling with ice over shoulder. Able to move fingers of right upper extremity. Lungs are clear to auscultation. Heart tones with regular rhythm. Abdomen with active bowel sounds, soft, nontender. Able to ambulate to bathroom. Const: Vital Signs, click to edit/add: Vital Signs - 24 hr 01/13/25 09:55 01/13/25 10:31 01/13/25 10:47 Temperature 96.8 F L Pulse Rate 65 Pulse Rate [Right Pulse Oximeter] Respiratory Rate 16 Blood Pressure 204/105 H 200/102 H 199/105 H Blood Pressure [Le ft Arm] Pulse Oximetry 96 Oxygen Delivery Me thod Room Air Oxygen Flow Rate 01/13/25 11:30 01/13/25 11:35 01/13/25 11:40 Temperature Pulse Rate 64 65 63 Pulse Rate [Right Pulse Oximeter] Respiratory Rate 16 14 16 Blood Pressure 225/111 H 141/104 H 150/98 H Blood Pressure [Le ft Arm] Pulse Oximetry 95 95 95 Oxygen Delivery Me thod Nasal Cannula Oxygen Flow Rate 2 01/13/25 11:45 01/13/25 11:50 01/13/25 15:09 Temperature 97 F L Pulse Rate 62 61 80 Pulse Rate [Right Pulse Oximeter] Respiratory Rate 14 14 17 Blood Pressure 134/80 106/64 195/115 H Blood Pressure [Le ft Arm] Pulse Oximetry 97 97 91 Oxygen Delivery Me thod Nasal Cannula Room Air Oxygen Flow Rate 2 01/13/25 15:15 01/13/25 15:20 01/13/25 15:25 Temperature 97 F L 97 F L 97 F L Pulse Rate 73 75 70 Pulse Rate [Right Pulse Oximeter] Respiratory Rate 15 16 13 Blood Pressure 181/148 H 191/96 H 187/118 H Blood Pressure [Le ft Arm] Pulse Oximetry 91 92 91 Oxygen Delivery Me thod Room Air Room Air Room Air Oxygen Flow Rate 01/13/25 15:30 01/13/25 15:35 01/13/25 15:40 Temperature 97 F L 97 F L 97 F L Pulse Rate 69 71 69 Pulse Rate [Right Pulse Oximeter] Respiratory Rate 17 14 17 Blood Pressure 213/108 H 194/109 H 202/90 H Blood Pressure [Le ft Arm] Pulse Oximetry 93 93 91 Oxygen Delivery Me thod Room Air Room Air Room Air Oxygen Flow Rate 01/13/25 15:45 01/13/25 15:59 01/13/25 16:07 Temperature 97 F L 95.8 F L 97.2 F L Pulse Rate 73 73 Pulse Rate [Right Pulse Oximeter] 70 Respiratory Rate 12 16 14 Blood Pressure 165/93 H 182/100 H Blood Pressure [Le ft Arm] 165/95 H Pulse Oximetry 91 92 92 Oxygen Delivery Me thod Room Air Room Air Room Air Oxygen Flow Rate 01/13/25 16:15 01/13/25 16:30 01/13/25 16:45 Temperature 95.5 F L 96 F L 96.1 F L Pulse Rate Pulse Rate [Right Pulse Oximeter] 70 68 70 Respiratory Rate 16 16 16 Blood Pressure Blood Pressure [Le ft Arm] 170/102 H 168/97 H 158/96 H Pulse Oximetry 95 94 94 Oxygen Delivery Me thod Room Air Room Air Room Air Oxygen Flow Rate 01/13/25 17:00 01/13/25 17:30 01/13/25 18:00 Temperature 95.7 F L Pulse Rate Pulse Rate [Right Pulse Oximeter] 75 74 76 Respiratory Rate 16 16 16 Blood Pressure Blood Pressure [Le ft Arm] 156/77 H 150/72 H 149/87 H Pulse Oximetry 93 94 94 Oxygen Delivery Me thod Room Air Room Air Room Air Oxygen Flow Rate 01/13/25 19:23 01/13/25 20:00 01/13/25 21:00 Temperature 97.9 F 97.9 F 98 F Pulse Rate Pulse Rate [Right Pulse Oximeter] 70 71 80 Respiratory Rate 16 16 16 Blood Pressure Blood Pressure [Le ft Arm] 160/70 H 170/87 H 150/91 H Pulse Oximetry 96 99 98 Oxygen Delivery Me thod Room Air Room Air Room Air Oxygen Flow Rate Assessment and Plan Assessment and plan (1) Right rotator cuff tear arthropathy: Problem comment: - status post Right upper extremity reverse shoulder arthroplasty, biceps tenodesis per Dr. Benedict Garcia, 01/13/2025, [facility] Status: Acute (2) COPD (chronic obstructive pulmonary disease): Status: Chronic (3) Resistant hypertension: Problem comment: Did see Dr. Jarad webb: Did switch to Coreg 12.5 mg twice a day and hydralazine 50 mg twice a day Status: Acute (4) Cigarette smoker: Problem comment: quit smoking 07/2024 Status: Acute (5) CKD (chronic kidney disease) stage 1, GFR 90 ml/min or greater: Status: Acute (6) White coat syndrome with diagnosis of hypertension: Status: Acute (7) Bipolar affective disorder: Problem comment: sees Dr Lobo Jack, therapist Jada Gregg Status: Chronic Plan 1. Reviewed impression, plan, recommendations with patient 2. Answered her questions are satisfaction 3. Continue with supportive efforts 4. Patient agreeable to above stated plans and recommendations Total Time Spent Total Time Spent: 50 minutes
[2025-01-13] MEDS: ALBUTEROL SULFATE 2.5 MG/3 ML VIAL.NEB NEB (22:55)
[2025-01-14] MEDS: ACETAMINOPHEN 500 MG TABLET 1000 MG PO (00:46)
[2025-01-14] MEDS: CEFAZOLIN 1 GM in 0.9 % SODIUM CHLORIDE Mini-bag 100 ML IVPB (02:12)
[2025-01-14 02:23] VITALS: BP 149/69; PULSE 83; RESP 16; TEMP 36.6; O2SAT 98
[2025-01-14] MEDS: ONDANSETRON 2 MG/ML inj 4 MG IVP (06:23)
[2025-01-14] MEDS: LEVOTHYROXINE 112 MCG TABLET PO (06:34)
[2025-01-14 08:00] VITALS: BP 124/62; PULSE 74; RESP 16; TEMP 35.7; O2SAT 90; O2SAT 98
--- NOTE | 2025-01-14 09:07 | PM.ORPN ---
Subjective Subjective Time Seen by Provider: 08:20 Date Seen: 01/14/25 Principal diagnosis: Day 1 s/p right reverse shoulder arthroplasty Interval history: Berkley is doing well this morning and resting comfortably in her recliner. She c/o 7 out of 10 right shoulder pain that is well managed with icing, acetaminophen and oxycodone PRN. Denies: fever, chills, chest pain, SOB. Berkley's block remains in place with her right upper extremity numb this morning. She is able to wiggle her right fingers slightly. Berkley also reports nausea that improved with crackers and ondansetron PRN. No acute events overnight. Ortho Exam Narrative Exam Narrative: Incision/Dressing: Dressing appears clean and dry. No drainage present. Mepilex intact. Right shoulder appears moderately swollen but supple with no obvious erythema, fluctuance or excessive warmth. Ecchymosis present near medial aspect of dressing. Ice is being utilized as needed. CMS: Intact distally with 2+ Radial pulse. Right upper extremity remains numb from peripheral block. Constitutional: Patient is alert and oriented x3. Patient is in no acute distress and converses without labored breathing. Patient is able to make decisions and demonstrates good insight. Patient is pleasant and cooperative. Affect is full range and appropriate for the circumstances. Other: Patient is wearing their sling during this visit. Const Vital Signs, click to edit/add: Vital Signs - 24 hr 01/13/25 09:55 01/13/25 10:31 01/13/25 10:47 Temperature 96.8 F L Pulse Rate 65 Pulse Rate [Right Pulse Oximeter] Respiratory Rate 16 Blood Pressure 204/105 H 200/102 H 199/105 H Blood Pressure [Left Arm] Pulse Oximetry 96 Oxygen Delivery Method Room Air Oxygen Flow Rate 01/13/25 11:30 01/13/25 11:35 01/13/25 11:40 Temperature Pulse Rate 64 65 63 Pulse Rate [Right Pulse Oximeter] Respiratory Rate 16 14 16 Blood Pressure 225/111 H 141/104 H 150/98 H Blood Pressure [Left Arm] Pulse Oximetry 95 95 95 Oxygen Delivery Method Nasal Cannula Oxygen Flow Rate 2 01/13/25 11:45 01/13/25 11:50 01/13/25 15:09 Temperature 97 F L Pulse Rate 62 61 80 Pulse Rate [Right Pulse Oximeter] Respiratory Rate 14 14 17 Blood Pressure 134/80 106/64 195/115 H Blood Pressure [Left Arm] Pulse Oximetry 97 97 91 Oxygen Delivery Method Nasal Cannula Room Air Oxygen Flow Rate 2 01/13/25 15:15 01/13/25 15:20 01/13/25 15:25 Temperature 97 F L 97 F L 97 F L Pulse Rate 73 75 70 Pulse Rate [Right Pulse Oximeter] Respiratory Rate 15 16 13 Blood Pressure 181/148 H 191/96 H 187/118 H Blood Pressure [Left Arm] Pulse Oximetry 91 92 91 Oxygen Delivery Method Room Air Room Air Room Air Oxygen Flow Rate 01/13/25 15:30 01/13/25 15:35 01/13/25 15:40 Temperature 97 F L 97 F L 97 F L Pulse Rate 69 71 69 Pulse Rate [Right Pulse Oximeter] Respiratory Rate 17 14 17 Blood Pressure 213/108 H 194/109 H 202/90 H Blood Pressure [Left Arm] Pulse Oximetry 93 93 91 Oxygen Delivery Method Room Air Room Air Room Air Oxygen Flow Rate 01/13/25 15:45 01/13/25 15:59 01/13/25 16:07 Temperature 97 F L 95.8 F L 97.2 F L Pulse Rate 73 73 Pulse Rate [Right Pulse Oximeter] 70 Respiratory Rate 12 16 14 Blood Pressure 165/93 H 182/100 H Blood Pressure [Left Arm] 165/95 H Pulse Oximetry 91 92 92 Oxygen Delivery Method Room Air Room Air Room Air Oxygen Flow Rate 01/13/25 16:15 01/13/25 16:30 01/13/25 16:45 Temperature 95.5 F L 96 F L 96.1 F L Pulse Rate Pulse Rate [Right Pulse Oximeter] 70 68 70 Respiratory Rate 16 16 16 Blood Pressure Blood Pressure [Left Arm] 170/102 H 168/97 H 158/96 H Pulse Oximetry 95 94 94 Oxygen Delivery Method Room Air Room Air Room Air Oxygen Flow Rate 01/13/25 17:00 01/13/25 17:30 01/13/25 18:00 Temperature 95.7 F L Pulse Rate Pulse Rate [Right Pulse Oximeter] 75 74 76 Respiratory Rate 16 16 16 Blood Pressure Blood Pressure [Left Arm] 156/77 H 150/72 H 149/87 H Pulse Oximetry 93 94 94 Oxygen Delivery Method Room Air Room Air Room Air Oxygen Flow Rate 01/13/25 19:23 01/13/25 20:00 01/13/25 21:00 Temperature 97.9 F 97.9 F 98 F Pulse Rate Pulse Rate [Right Pulse Oximeter] 70 71 80 Respiratory Rate 16 16 16 Blood Pressure Blood Pressure [Left Arm] 160/70 H 170/87 H 150/91 H Pulse Oximetry 96 99 98 Oxygen Delivery Method Room Air Room Air Room Air Oxygen Flow Rate 01/13/25 22:00 01/13/25 23:00 01/13/25 23:00 Temperature 97.9 F 97.9 F Pulse Rate Pulse Rate [Right Pulse Oximeter] 71 68 Respiratory Rate 18 18 Blood Pressure Blood Pressure [Left Arm] 150/88 H 150/63 H Pulse Oximetry 98 97 97 Oxygen Delivery Method Room Air Room Air Room Air Oxygen Flow Rate 01/14/25 02:23 01/14/25 08:00 01/14/25 08:00 Temperature 98 F 96.3 F L Pulse Rate Pulse Rate [Right Pulse Oximeter] 83 74 Respiratory Rate 16 16 16 Blood Pressure Blood Pressure [Left Arm] 149/69 H 124/62 Pulse Oximetry 98 98 90 Oxygen Delivery Method Room Air Room Air Room Air Oxygen Flow Rate 01/14/25 08:00 Temperature Pulse Rate Pulse Rate [Right Pulse Oximeter] 74 Respiratory Rate 16 Blood Pressure Blood Pressure [Left Arm] Pulse Oximetry Oxygen Delivery Method Oxygen Flow Rate Assessment and Plan Assessment and plan (1) Status post reverse arthroplasty of right shoulder: Problem details: DOS: 01/13/25, Dr. Garcia Status: Acute Assessment and Plan: Sling use x 6 weeks postoperative. May remove to work on elbow/hand/wrist ROM. Right shoulder forward flexion and abduction as tolerates. No external rotation of the right shoulder past 0? x 6 weeks. For pain management, Oxycodone and acetaminophen PRN in addition to frequent icing. Minimize use of narcotics. Dressing is waterproof. May shower. Keep dressing in place until f/u appt with Deanna Reddy PA-C on 01/21 at 10am. Follow-up with Dr. Garcia at 6 weeks postoperative. Phone Orthopedics with any questions or concerns. [phone].
[2025-01-14] MEDS: SENNOSIDES 1 TAB TABLET 2 TAB PO (09:08)
[2025-01-14] MEDS: HYDRALAZINE 25 MG TABLET 50 MG PO (09:08)
[2025-01-14] MEDS: ROSUVASTATIN CALCIUM 10 MG TABLET 5 MG PO (09:08)
[2025-01-14] MEDS: OMEPRAZOLE 20 MG CAPSULE DR 40 MG PO (09:08)
[2025-01-14] MEDS: DIVALPROEX DELAYED RELEASE 250 MG TABLET 750 MG PO (09:09)
--- NOTE | 2025-01-14 11:08 | PC.NURSE ---
discharge. pt has been pleasant. she is alert x4 with anxiety. she got po pain meds and anxiety/nausea meds. SL was d/c intact. she worked with pt and ot . went over discharge . pt right arm is numb. it is in a sling. she got a ride out with [facility]. [facility] van
--- NOTE | 2025-01-14 14:41 | PC.SOCIAL ---
Discharge planning: ADRIÁN met with patient to discuss discharge to [facility]. Patient is aware that SW will be sending information to Antoinette at [facility] and has no concerns with this. SW discussed medication information and if she would like this sent. Patient states she would as she is concerned about getting her meds on time due to her limited mobility and them typically being sent to her apartment. ADRIÁN called Antoinette and left voicemail inquiring about options. Antoinette left vm for ADRIÁN stating that the meds can be sent to [facility] and then they can assist. ADRIÁN updated charge auditor. ADRIÁN faxed notes and orders to Antoinette.
== END 2025-01-14 11:10 ==
LOC: OR 08:44 → MEDSURG 08:45
PROVIDERS: PCP Family Medicine; Visit Provider Orthopaedic Surgery
PROC: 0RRJ0JZ Replacement of Right Shoulder Joint with Synthetic Substitute, Open Approach (ICD-10-PCS; CPT 23472; principal; 2025-01-13 11:30)
DX: M75.101 Unspecified rotator cuff tear or rupture of right shoulder, not specified as traumatic (principal); G89.18 Other acute postprocedural pain; J44.9 Chronic obstructive pulmonary disease, unspecified; G47.33 Obstructive sleep apnea (adult) (pediatric); Z99.89 Dependence on other enabling machines and devices; Z59.19 Other inadequate housing; I12.9 Hypertensive chronic kidney disease with stage 1 through stage 4 chronic kidney disease, or unspecified chronic kidney disease; N18.1 Chronic kidney disease, stage 1; I1A.0 Resistant hypertension; F31.9 Bipolar disorder, unspecified; Z87.891 Personal history of nicotine dependence
CPT/HCPCS: 23472; 23430; 01638; 51702; 64415; 73030; 76942; 94640; 97110; 97165; 97535; 99100; A9270; C1713; C1776; J0360; J0690; J1100; J2250; J2371; J2405; J2704; J2710; J2795; J3010; J3490; J7120; L3670

== ENCOUNTER 2025-01-18 17:28 | Outpatient (CLI) | payer MEDICARE, BC, SELFPAY | END 2025-01-18 17:29 | disposition home or self-care (01) | PROVIDERS: PCP Family Medicine; Visit Provider Family Medicine | DX: R53.1 Weakness (principal) | CPT/HCPCS: A0425; A0427 ==

== ENCOUNTER 2025-01-18 17:57 | Inpatient (IN) | payer MEDICARE, BC, SELFPAY ==
--- OUTSIDE RECORDS SUMMARY | 2010-03-22 12:19 | XMS_ITS | Encounter Summary ---
Author Organization [facility] Address [address] [place] [id number] Care Team Providers Care Printing And Stamping Supervisor Name Role Phone Tesha Nunez MD Primary Care Provider Unavail able Encounter Details Date Type Department Care Team (Late st Contact Info) Description 03/22/2010 12:19 PM T [facility] in [address] [phone] Pierce Hernandes MD NO INFO AVAILABLE 08/14/2023 Social History Tobacco Use Types Packs/Day Years Used Date Smoking Tobacco: Some Days Cigarettes Last attempted to quit: 11/11/2012 Smokeless Tobacco: Never Comments:currentlu using baljit ntix--cut down to 3-4 cigs/day 04/29/10 declined smoking hotline Alcohol Use Standard Drinks/Week Comments No 0 (1 standard drink = 0.6 oz pur e alcohol) Comments No Sex and Gender Information Value Date Recorded Sex Assigned at Not on file 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
--- OUTSIDE RECORDS SUMMARY | 2011-01-19 06:27 | XMS_ITS | Encounter Summary ---
Author Organization [facility] Address [address] [place] [id number] Care Team Providers Care Compliance Technician Name Role Phone Tesha Nunez MD Primary Care Provider Unavail able Bernard Parekh MD Unavailable Unavailable Encounter Details Date Type Department Care Team (Late st Contact Info) Description 01/19/2011 6:[address] 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 Severe osteoarthritis, the patient was admitted for revision and replacement of her right total knee. DISCHARGE DIAGNOSES: 1. Status post revision and replacement of right total knee. 2. Acute blood loss anemia. 3. Bipolar disorder. HOSPITAL COURSE: The patient was admitted to Dr. Lorenzo service for total knee arthroplasty and revision. Her postoperative course was only complicated by acute blood loss anemia. Her behavioral status was stable and she did proceed with total joint replacement therapy and did very well. Because of her drop in hemoglobin to 7.4 she did receive two units of packed red blood cells and she will be discharged home on iron replacement therapy. The iron replacement therapy would stay on for two months. She will be discharged to her cousin's home with outpatient physical therapy and home health. Jairon Gunter M.D. cc: Litzy * Jairon Gunter MD - 2011 11:27 AM CDTPROGRESS NOTES DATE OF VISIT: 01/22/11 SUBJECTIVE: Yamileth is a 56-year-old female who had total hip arthroplasty on the left performed on January 19. She feels stable; however there is some orthostatic hypotension and lightheadedness. Her hemoglobin this morning was only 7.6. PHYSICAL EXAMINATION: Pale female in no acute distress. Alert and oriented times three. Vitals are stable but blood pressure is 94/57. ASSESSMENT: 1. Status post right knee arthroplasty. 2. Acute blood loss anemia. 3. Bipolar disorder. PLAN: 1. Continue total joint protocol. 2. Transfuse two units of packed RBCs. 3. Continue bipolar medications. 4. If stable anticipation of discharge in 24 hours. Jairon Gunter M.D. Litzy cc: * Jairon Gunter MD - 01/21/2011 10:45 AM CDTPROGRESS NOTES DATE OF VISIT: 01/21/11 SUBJECTIVE: Yamileth had a right total knee arthroplasty by Dr. Lorenzo. I was consulted because of behavioral problems. There are no major issues on this patient. Behaviors are stable. There is some blister formation on the right knee which was brought to my attention by physical therapy. The patient voices no significant problems with it. PHYSICAL EXAMINATION: female in no apparent distress. Stable vitals, blood pressure 85/50, pulse 79, saturation 96% on room air, temperature 97.6. LABS: Hemoglobin is 9.1, hematocrit 27.7, platelets 150, glucose 99, BUN 19 and creatinine 0.46. ASSESSMENT: 1. Bipolar disorder. 2. Postoperative acute blood loss anemia, no need for transfusion. 3. Status post total knee arthroplasty. PLAN: 1. Continue current regimen for her total joint. 2. Continue monitoring her CBC and kidney function. 3. Medicine service signing off as her bipolar disorder which was the primary reason for her consult is stable. Dino Fisher/david cc: * Jairon Gunter MD - 01/20/2011 2:55 PM CDTPROGRESS NOTES DATE OF VISIT: 01/20/2011 SUBJECTIVE: Yamileth is a 55-year-old female who had right knee revision of unicompartmental total knee arthroplasty. I was consulted because of her bipolar disorder. The patient has been stable participating in a total joint protocol. She voices no specific complaints. OBJECTIVE: Physical examination revealed female in no acute distress. VITAL SIGNS: Stable. Afebrile. DIAGNOSTICS: Hemoglobin is 9.8, hematocrit 29.9, MCV 103. Normal INR at 1.03. Normal thyroid function. Depakote level was also therapeutic. ASSESSMENT AND PLAN: 1. Total knee replacement on the right. Continue joint protocol. 2. Bipolar disorder stable. Will continue to follow up along with Orthopedics but for right now the patient appears to be very stable. Dino Fisher/marjorie cc: * Jairon Gunter MD - 01/19/2011 3:19 PM CDTCONSULTATION This is a consultation requested by Dr. Lorenzo. The reason for consultation is her severe bipolar disorder, history of hepatitis C and anemia, as well as hypothyroidism. HISTORY OF PRESENT ILLNESS: Yamileth is a 55-year-old female who did undergo today, by Dr. Lorenzo, right total knee arthroplasty. The procedure was uneventful. She denies any significant pain after the procedure. She voices no suicidal ideation, no manic episode. She is planning to be discharged to her cousin upon completion of hospitalization. She has never had a total joint protocol before. She says that her bipolar disorder is stable and hepatitis C, according to her has undetectable viral load. REVIEW OF SYSTEMS: CONSTITUTIONAL: Negative. HENT: Negative. EYES: Negative. RESPIRATORY: Negative. CARDIOVASCULAR: Negative. GASTROINTESTINAL: Constipation, no nausea and vomiting. GENITOURINARY: Negative. MUSCULOSKELETAL: Lower back pain and right knee pain. PSYCHIATRIC: History of bipolar disorder. No suicidal ideation or hallucinations. NEUROLOGIC: Negative. HEMATOLOGIC: Negative. ALLERGIES: PERCOCET, SEROQUEL, SOMA, FLEXERIL AND RISPERDAL. MEDICATIONS: Abilify 30 milligrams daily; Tylenol as needed for pain; dextroamphetamine 10 milligrams daily; Depakote 500 milligram tablets, 2,000 milligrams per day which is 4 tablets daily; iron sulfate 325 milligrams daily; ibuprofen as needed for pain 200 milligrams; Synthroid 88 micrograms daily; multivitamin daily; Requip 1 milligram daily; tramadol as needed for pain; Xanax 0.25 milligrams three times a day as needed anxiety. PAST MEDICAL HISTORY: Bipolar disorder, trochanteric bursitis, hypothyroidism, history of polysubstance abuse and alcohol abuse, restless leg syndrome, partial knee replacement 3 years ago, hysterectomy, thyroidectomy, liposuction. PHYSICAL EXAMINATION: GENERAL: female, alert and oriented x3. VITAL SIGNS: Blood pressure is 123/63, saturation 100% on 3 liters of nasal cannula, pulse 66, respirations 16, weight 151, height 64 inches with body mass index of 22.14. LUNGS: Clear to auscultation bilaterally. CARDIOVASCULAR EXAM: Regular heart rate and rhythm. Normal S1, S2. ABDOMEN: Benign. No hepatomegaly noted. EXTREMITIES: There is some stressing in her right knee. No leg edema noted. HEENT/NECK: Pupils equal and react to light bilaterally. NEURO: The patient is alert and oriented x3 with appropriate responses to my questions, appropriate mood and affect. ASSESSMENT: 1. Right knee replacement. 2. Bipolar disorder. 3. Hypothyroidism. PLAN: 1. Continue total joint protocol. 2. Resume all of her medications and continue monitoring behaviors. 3. Continue monitoring liver function tests to make sure that there is no worsening or the patient does not go into liver failure. Thank you very much to allow me to participate in this patient's care. Jairon Gunter M.D. VIPUL/patricia cc: * Jacob Lorenzo MD - 01/19/2011 12:07 PM CDT PROCEDURE/OPERATIVE REPORT Date of Procedure: 01/19/2011 PREOPERATIVE DIAGNOSIS: Right knee pain status post unicompartmental arthroplasty. POSTOPERATIVE DIAGNOSIS: Right knee pain status post unicompartmental arthroplasty. OPERATION: Right knee revision of unicompartmental arthroplasty to total knee arthroplasty. SURGEON: Jacob Lorenzo M.D. ANESTHESIA: Spinal anesthesia. ESTIMATED BLOOD LOSS: Minimal. INDICATIONS: Yamileth is a 55-year-old woman who has been suffering with degenerative changes to her right knee. She underwent a unicompartmental arthroplasty approximately three years and had subsequently pain that persisted to the medial and anterior aspect of her knee, and despite conservative measures had no significant improvement in her symptoms. We discussed risks, benefits and alternatives to conversion of unicompartmental arthroplasty to total knee arthroplasty with her, she understands these and desires to proceed with surgery. OPERATIVE SUMMARY: The patient was brought to the operating room and placed on the operating table in the seated position. Spinal anesthesia was smoothly induced. She was then placed in the supine position. A tourniquet was placed around her right thigh. Right leg was then prepped and draped in sterile fashion. Leg was then exsanguinated and tourniquet inflated to 350 mmHg. A straight longitudinal just medial to the midline incision was then made. This was brought down through the subcutaneous tissue to the extensor mechanism. The extensor mechanism was cleared off medially and laterally. Standard medial parapatellar arthrotomy was then performed. Immediate release was then done off the tibia. The unicompartmental arthroplasty was visualized and the poly was removed. We noted that there were some signs of impingement anteriorly on the femur and degenerative changes of the patellofemoral joint. Once that was completed an osteotome was then used to remove the femoral component. This came out without incident. The tibial component was also freed up using osteotome. The cement from underneath the partial replacement pieces was then removed. Once that was completed we then turned our attention to the femur. A drill was then used to gain access to the distal aspect of the femur. Intramedullary guide was then placed. We placed it 6 degrees of valgus at 9 mm of resection. The bony pieces were then removed. Once that was completed the external rotation sizing device was then placed in the distal aspect of the femur and measured to be a size 62.5 and placed in appropriate rotation and alignment. This was then pinned into place and the 62.5 was then placed in the distal aspect of the femur. Anterior, posterior and chamfer cuts were then performed and bony pieces were then removed. Once that was completed the tibia was then subluxed anteriorly. The ACL had been cut and the PCL was slightly recessed. We then placed our tibial guide around the ankle, measured off from the medial side and an additional 2 mm of bone was taken in order to remove the cement off the medial side. An oscillating saw was then used to cut this off. Once that was completed we then checked our flexion and extension gaps and seemed to have nicely balanced flexion and extension gaps. The lateral menisci was then removed in its entirety. We then subluxed the tibia anteriorly and a 67 punch guide was then placed in the proximal aspect of the tibia. This was then placed in appropriate rotation and punched. Once that was completed the trial tibia was then pounded into position followed by the trial femur and the 10 mm poly and we had excellent flexion and extension with good medial and lateral balance with the 10 mm poly. The patella was then everted. Soft tissue from around the patella was then removed. Approximately 10 mm of bone was then cut from the undersurface of the patella. A size 31 was then chosen, snapped into place and drilled. Following this the 31 trial was then snapped into position and the knee was put through range of motion. We did have some lateral tilting of the patella and a lateral release was performed. Once that was completed all the trial components were then removed. The knee was again copiously irrigated and suctioned out. Cement was then first placed on the tibia. The tibial component was then pounded into position with remaining cement removed. Cement was then placed on the femur. The femoral component was then pounded into position with remaining cement removed. Poly was then snapped into place as the knee was held in just short of full extension with pressure from distal to proximal compressing the cement. Cement was then placed on the undersurface of the patella. The patellar component was then snapped into position with remaining cement removed. Once the cement had hardened the knee was again copiously irrigated and suctioned out. The extensor mechanism was then closed using #1 Vicryl in an interrupted [id number] fashion followed by copious irrigation of the subcutaneous tissue and closure of the subcutaneous tissue using 2-0 Vicryl and the skin was then closed using 4-0 Monocryl. The incision was then washed and dried. Steri-Strips were applied followed by a nonadherent dressing and Armond bandage. Tourniquet was let down. The patient was transferred to the recovery room in good condition. Needle and sponge counts were correct at the end of the case. Jacob Lorenzo M.D. [facility]/wong cc: documented in this encounter Plan of Treatment Not on file documented as of this encounter Procedures Procedure Name Priority Date/Time Associated Diagnosis Comments SURGICAL PATHOLOGY EXAM Routine 01/19/2011 8:00 AM CDT documented in this encounter Results * Surgical pathology exam (01/19/2011 8:00 AM CDT) Copath Report Patient Name: YAMILETH AMAYA MR#: [id number] Specimen #: [id number] Collected: 01/19/2011 Received: 01/19/2011 Reported: 01/20/2011 17:47 Ordering Phy(s): JACOB LORENZO SPECIMEN(S): Right knee bone FINAL DIAGNOSIS: Bone from right knee, resected: - Bone from knee with degenerative articular changes. Electronically signed out by: Alexander Preciado M.D. CLINICAL HISTORY: Specimen, bone from right knee. Persistent right knee pain post right knee unicompartmental arthroplasty three years ago. GROSS: The container is labeled with the patient's name, medical record number, date of , and is designated as bone from right knee. There are multiple portions of bone aggregated to approximately 70 x 70 x 50 mm. The largest portion of bone is part of the tibial plateau up to 50 x 50 x 20 mm. Degenerative articular changes are noted. No sections are submitted. MICROSCOPIC: Microscopic examination is not performed. Alexander Preciado MD/luis 01/19/2011 TESTING LAB LOCATION: [address] [place] [id number] COLLECTION SITE: Client: [facility] Location: 40 (W) COPATH 01/19/2011 8:00 AM CDT 01/19/2011 12:12 PM CDT us Jacob Lorenzo MD LAB - [facility] AP Final Result [facility] documented in this encounter Visit Diagnoses Not on filedocumented in this encounter Care Teams Compliance Technician Relationship Specialty Start Date End Date Tesha Nunez MD PCP - General 07/03/00 04/16/13 Bernard Parekh MD RETIRED PCP - Orthopaedics Orthopedics 05/20/10 01/26/11 documented as of this encounter
[2025-01-18] VITALS (19 sets, daily range): BP systolic 100–126; BP diastolic 41–61; PULSE 77–84; RESP 11–40; TEMP 36.3–36.8; O2SAT 88–98; BMI 27.8
--- OUTSIDE RECORDS SUMMARY | 2025-01-18 18:00 | XMS_ITS | Encounter Summary ---
Author Organization [facility] Address [address] [place] [id number] Care Team Providers Care Climatology Teacher Name Role Phone Tesha Nunez MD Primary Care Provider Unavail able Bernard Parekh MD Unavailable Unavailable Deuce Wyman MD Unavailable Jacob Lorenzo MD Unavailable [phone] Kaila Castro MD Primary Care Provider Nayana Bowie MD Primary Care Provider Madison Yon Zelaya MD Unavailable [phone] Encounter Details Date Type Department Care Team (Late st Contact Info) Description 01/19/2011 [facility] [place] Inpatient Dept [address] [place] [address] Frw, Inpatient Provider Status post [...] on file Legal Sex Female 3:32 AM DRIVER GUIDE Gender Identity Not on file Sexual Orientation Not on file documented as of this encounter Plan of Treatment Not on file documented as of this encounter Visit Diagnoses Diagnosis Status post total knee replacement- Primary Knee joint replacement by other means documented in this encounter Care Teams Climatology Teacher Relationship Specialty Start Date End Date Tesha Nunez MD PCP - General 07/03/00 04/16/13 Bernard Parekh MD RETIRED PCP - Orthopaedics Orthopedics 05/20/10 01/26/11 Deuce Wyman MD RETIRED PCP - Orthopaedics Orthopedics 01/27/11 02/27/11 Jacob Lorenzo MD RETIRED PCP - Orthopaedics Orthopedics 02/28/11 Kaila Castro MD [facility] [address] [facility] [address] [place] [address] PCP - General Family Practice 04/17/13 05/29/13 Nayana Bowie MD [facility] [address] [facility] [address] [place] [address] PCP - General Surgery 07/13/16 07/13/16 Yon Eason MD [id number] [id number] Assigned Heart and Vascular Provider 08/19/22 03/02/24 documented as of this encounter
--- OUTSIDE RECORDS SUMMARY | 2025-01-18 18:00 | XMS_ITS | Clinical Summary ---
Author Organization [facility] Address [address] [place] [address] Care Team Providers Care Welding Machine Operator Helper Arc Name Role Phone Unavailable Primary Care Provider Unavailabl e Source Comments Patient records contain information from all sites at [facility]. For routine questions regarding patient records, call [phone] during business hours, M-F 8:00 AM - 5:00 PM Central Time. Record requests for emergency care only can be directed to [phone] at any time.[facility] Allergies Active Allergy Reactions Criticality Noted Date Comments Amlodipine Edema 07/24/2023 Lisinopril Angioedema with othe r systemic symptoms especially skin reaction High 07/24/2023 Medications carvediloL (COREG) 25 mg tablet Take 0.5 tablets (12.5 mg total) by mouth 2 (two) times a day with meals. 90 tablet 3 07/24/2023 Active hydrALAZINE (APRESOLINE) 50 mg tablet Take 1 tablet (50 mg total) by mouth 2 (two) times a day. 07/24/2023 Active Active Problems Problem Noted Date Diagnosed Date Hypertension Essential Primary 07/24/2023 Asthma NOS 09/06/2013 Overview (10/31/2016): Asthma, Unspecified Mild intermittent asthma Albuterol prn Depression/Zohreh/Bipolar NOS 01/16/2007 Overview (10/31/2016): Mood Disorder Dependence Polysubstance 04/22/2004 Bipolar Disorder Resolved Problems Problem Noted Date Diagnosed Date Resolved Date Bipolar I Mixed 06/18/2013 07/22/2024 Immunizations Immunization Administration Dates Next Due DTaP (Infanrix, Tripedia) [...] Years Used Date Smoking Tobacco: Some Days Comments Unknown Sex and Gender Information Value Date Recorded Sex Assigned at Not on file Legal Sex Female 6:38 AM DIRECTOR OF FINANCIAL REPORTING Gender Identity Not on file Sexual Orientation Not on file Last Filed Vital Signs Vital Sign Reading Time Taken Comments Blood Pressure 171/91 07/22/2024 9:02 AM DIRECTOR OF FINANCIAL REPORTING Pulse 71 07/22/2024 9:02 AM DIRECTOR OF FINANCIAL REPORTING Temperature - - Respiratory Rate 16 07/29/2015 1:50 PM DIRECTOR OF FINANCIAL REPORTING Oxygen Saturation - - Inhaled Oxygen Concentration - - Weight 58.5 kg (128 lb 15.5 oz) 07/22/2024 9:02 AM DIRECTOR OF FINANCIAL REPORTING Height 162.5 cm (5' 3.98) 07/22/2024 9:02 AM CS T Body Mass Index 22.15 07/22/2024 9:02 AM DIRECTOR OF FINANCIAL REPORTING Plan of Treatment Health Maintenance Due Date Last Done Comments Bone Density Scan (Osteoporosis Screen) 1954 CT Colonography 1954 Cologuard 1954 FIT 1954 Tobacco Cessation counseling 1954 Mammogram 12/03/2014 12/03/2013, 0502/2013, 09/18/2011, Additional history exists Depression Screening (Annual PHQ-2) 06/11/2024 Fall Risk Screen (Annual) 06/11/2024 COVID-19 Vaccine ( season) 2024 03/12/2024, 09/04/2023, 04/06/2023, Additional history exists Office Visit for Blood Pressure Check / Re-check 10/19/2024 07/22/2024 Influenza Vaccine (#1) 2025 , 04/06/2023, 04/12/2022, Additional history exists Creatinine Level (Kidney Function Test) 07/17/2025 07/17/2024, 03/02/2014, 11/13/2013, Additional history exists Potassium Level 07/17/2025 07/17/2024, 02/10, 11/13/2013, Additional history exists Sodium Level 07/17/2025 07/17/2024, 02/10, 11/13/2013, Additional history exists Colonoscopy 08/08/2025 08/09/2015, 07/13, 07/29/2015, Additional history exists Colorectal Cancer Screening 08/08/2025 DTaP,Tdap,and Td Vaccines (4 - Td or Tdap) 02/16/2026 02/17/2016, 10/19/2005, 10/19/2005 Fasting Glucose for Diabetes Screening 07/17/2027 07/17/2024, 03/02/2014, 11/13/2013, Additional history exists Hepatitis C Screening Completed 05/14/2002 Hepatitis A Vaccines Completed 02/17/2016, 03/11/1998, 03/11/1998 Hepatitis B Screening Discontinued 07/24/2018 Zoster Vaccines Completed 07/27/2020, 05/11, 02/17/2016 RSV vaccine - (32-36 weeks) or 60+ years Completed 05/02/2024 Pneumococcal vaccine (50+ years) Completed 07/15/2024, 06/28/2013, 03/26/2013 IPV Vaccines Aged Out No longer eligi ble based on patient's age to complete this topic Medical Devices Implanted Type Area Metal Engraver Device Identifier Shelf Expiration Date Model / Serial / Lot Conversions - Default Historical Implant Device Implanted:2015 (Quantity not on file) Knee Implant Description:Device Status Te xt - Knee Imp. right knee. Procedures Procedure Name Priority Date/Time Associated Diagnosis Comments RENAL FUNCTION PANEL, S Routine 07/17/2024 8:21 AM DIRECTOR OF FINANCIAL REPORTING COLONOSCOPY Routine 08/09/2015 12:32 PM DIRECTOR OF FINANCIAL REPORTING BI BREAST SCREENING BILATERAL Routine 12/03/2013 10:29 AM CDT from Last 3 Months or Most Recently Relevant to Health Maintenance Results * (ABNORMAL) Renal Function Panel (07/17/2024 8:21 AM DIRECTOR OF FINANCIAL REPORTING) EXT Sodium 139 135 - 149 mmol/L [facility] EXT Potassium 4.0 3.6 - 5.1 mmol/L [facility] EXT Chloride 98 96 - 114 mmol/L [facility] EXT CO2 34(H) 20 - 32 mmol/L [facility] EXT Anion Gap 7 7 - 15 mEq/L [facility] EXT BUN (Blood Urea Nitrogen) 18 7 - 30 mg/dL [facility] EXT Creatinine 0.6 0.5 - 1.5 mg/dL [facility] EXT Estimated GFR (eGFR) 97 ML [facility] EXT Calcium, Total 9.0 8.4 - 10.6 mg/dL [facility] EXT Glucose 84 60 - 115 mg/dL [facility] EXT Albumin 4.2 3.3 - 5.0 g/dL [facility] EXT Phosphorus (Inorganic), S 4.2 2.5 - 4.5 mg/dL [facility] 07/17/2024 8:21 AM DIRECTOR OF FINANCIAL REPORTING Narrative [employer] [facility] - 07/17/2024 1:27 PM DIRECTOR OF FINANCIAL REPORTING Source result document attached to Order Number [id number] ([id number]) dated 07/17/2024. External results verified in Extract by Veronica Orellana on 07/17/2024 at 01:25 PM. us Ordering Provider External M.D. LAB BLOOD ADD-ON Final Result [employer] [facility] [address] [place] [address] * Colonoscopy (08/09/2015 12:32 PM DIRECTOR OF FINANCIAL REPORTING) 08/09/2015 12:3 2 PM DIRECTOR OF FINANCIAL REPORTING us Russ Cornejo APRN, C.N.P., M.S. GI PROCEDURE ORDERABLES Final Result [facility] [address] [place] [address], [facility] * BI Breast Screening Bilateral (12/03/2013 10:29 AM CDT) Anatomical Region Laterality Modality Breast Bilateral Mammography 12/03/2013 10:2 9 AM CDT Impressions 12/03/2013 12:50 PM CDT NEGATIVE There is no mammographic evidence of malignancy. RECOMMENDATION: A 1 year screening mammogram is recommended. The patient will receive a letter notifying her of the results. Jennifer contreras/collette:12/03/2013 12:49:21 letter sent: 1S/2S - Negative Screen Mammogram BI-RADS: 1 Negative Electronically signed by: CLARIBEL Black MD [id number] 03-Dec-2013 12:50 Narrative 12/03/2013 12:50 PM CDT 03-Dec-2013 10:29:00 Exam: Mammo Screen Bilat Indications: [...] other findings are seen in either breast. Procedure Note Jennifer Black M.D. - 09/07/2017 [...] Negative Electronically signed by: CLARIBEL Black MD [id number] 03-Dec-2013 12:50 Margaret Storey APRN, C.N.P., D.N.P. IMG BI P ROCEDURES Final Result from Last 3 Months or Most Recently Relevant to Health Maintenance Insurance [facility] MEDICARE Advance Directives For more information, please contact: [phone] Documents on File Type Date Recorded Patient Guard Range Expl anation Advance Directives 11/13/2010 12:00 AM Lega cy document. See document viewer. Advance Directives 12/01/2009 12:00 AM Leg acy document. See document viewer.
--- OUTSIDE RECORDS SUMMARY | 2025-01-18 18:00 | XMS_ITS | Clinical Summary ---
Author Organization [facility] Address [address] [place] [address] Care Team Providers Care Intermodal Customer Service Name Role Phone Jacob Lorenzo MD Unavailable [phone] Allergies Active Allergy Reactions Criticality Noted Date Comments Cyclobenzaprine Hcl Fatigue Low 12/24/2007 Lisinopril Other (See Comments) 07/04/2019 Facial swelling Risperidone Swelling Medium 12/24/2007 Retain fluid Quetiapine Fumarate Rash Medium 12/22/2010 Carisoprodol Swelling High 12/24/2007 Medications SYNTHROID 88 MCG OR TABS 1 TABLET DAILY Active divalproex sodium extended-releas e (DEPAKOTE ER) 500 MG 24 hr tablet [...] 40 mg by mouth daily 05/10/2022 Active fluticasone-yajaira anterol (BREO ELLIPTA) 200-25 MCG/ACT inhaler Inhale 1 [...] 1.5 MG capsule Take by mouth daily Active LORazepam (ATIVAN) 0.5 MG tablet Take 0.5 mg by mouth every 6 hours as needed for anxiety Active Active Problems Problem Noted Date Diagnosed Date Bipolar affective disorder, mixed 01/03/2008 Overview (01/03/2008): Sees Dr. Del Toro , [facility] ADD (attention deficit disorder) 01/03/2008 Polysubstance dependence 01/03/2008 Overview (01/03/2008): In remission Mild intermittent asthma 01/03/2008 Overview (01/03/2008): Albuterol prn Back pain 12/24/2007 Immunizations Immunization Administration Dates Next Due HEPA 03/11/1998 HepB [...] School Help Needed Not on file 03/12 Comments No Sex and Gender Information Value Date Recorded Sex Assigned at Not on file Legal Sex Female 3:32 AM DIRECTOR OF SALES AND MARKETING Gender Identity Not on file Sexual Orientation Not on file Last Filed Vital Signs Vital Sign Reading Time Taken Comments Blood Pressure 160/100 04/29/2010 3:21 PM DIRECTOR OF SALES AND MARKETING Pulse 72 04/29/2010 3:21 PM DIRECTOR OF SALES AND MARKETING Temperature 36.3 C (97.3 F) 04/29/2010 3:21 PM DIRECTOR OF SALES AND MARKETING Respiratory Rate - - Oxygen Saturation - - Inhaled Oxygen Concentration - - Weight 58.5 kg (129 lb) 04/29/2010 3:21 PM DIRECTOR OF SALES AND MARKETING Height 162.6 cm (5' 4) 04/29/2010 3:21 PM DIRECTOR OF SALES AND MARKETING Body Mass Index 22.14 04/29/2010 3:21 PM DIRECTOR OF SALES AND MARKETING Plan of Treatment Health Maintenance Due Date [...] 1-dose series) 2014 MAMMO SCREENING 10/17/2014 10/17/2012 DIABETES SCREENING 10/17/2015 10/16/2012, 0 01/21/2011, 01/20/2011 HEPATITIS A VACCINE (2 of 2 - Risk 2-dose series) 08/16/2016 02/17/2016, 02/17/2016, 09/23/1998, Additional history exists PNEUMOCOCCAL VACCINE 50+ YEARS (3 of 3 - PCV20 or PCV21) 06/28/2018 06/28/2013, 03/26/2013 FALL RISK ASSESSMENT 2019 MEDICARE ANNUAL WELLNESS VISIT 2019 COVID-19 VACCINE ( - season) 2024 04/20/2022, 03/29/2021, 09/14/2020, Additional history exists PHQ-2 (once per calendar year) 2024 INFLUENZA VACCINE (#1) 2025 2, 03/24/2021, 05/25/2020, Additional history exists DTAP/TDAP/TD VACCINE (4 - Td or Tdap) 02/16/2026 02/17/2016, 10/23/2005, 10/19/2005, Additional history exists COLONOSCOPY 12/07/2031 12/06/2021, 06/12/2006 COLORECTAL CANCER SCREENING 12/07/2031 ZOSTER VACCINE Completed 07/27/2020, 05/11, 02/17/2016 HPV VACCINE (No Doses Required) Completed MENINGITIS VACCINE Aged Out No longer eligible based on patient's age to complete [...] Anatomical Region Laterality Modality Breast Bilateral Other us L.C. Construction Management Assistant IMG MAMMOGRAPHY ORDERABLES Final Result * (ABNORMAL) Comprehensive metabolic panel (10/16/2012) Sodium [...] MISYS ALT U/L [facility] Blood specimen (specimen) us L.C. Construction Management Assistant LAB - BLOOD ORDERABLES Final Res ult MISYS * TSH (01/20/2011 6:54 AM CDT) TSH 0.93 0.4 - 5.0 mU/L [facility] 01/20/2011 6:54 AM CDT 01/20/2011 7:01 AM CDT Jairon Gunter MD LAB - BLOOD ORDERABLES Final Res ult [facility] [address] * COLONOSCOPY (06/12/2006) us L.C. Construction Management Assistant PROCEDURES Final Result from Last 3 Months or Most Recently Relevant to Health Maintenance Insurance [facility] MEDICARE Care Teams Intermodal Customer Service Relationship Specialty Start Date End Date Jacob Lorenzo MD PCP - Orthopaedics Orthopedics 02/28/11
--- OUTSIDE RECORDS SUMMARY | 2025-01-18 18:00 | XMS_ITS | Clinical Summary ---
Author Organization [employer] [facility] Address [address] [place] [address] Care Team Providers Care Lamp Mechanic Name Role Phone Kim Gardner MD Primary Care Provider + Allergies Active Allergy Reactions Criticality Noted Date Comments Lisinopril Other - Describe In Comment Field 07/04/2019 Facial swelling Risperidone Analogues 12/16/2007 Quetiapine Edema 08/18/2017 Medications albuterol HFA (PRO-AIR,VENTOLI N,PROVENTIL) 90 mcg/actuation inhalerIndicatio ns:COPD (chronic obstructive pulmonary disease) with acute bronchitis (HC) Inhale 2 Puffs by mouth 4 times daily if needed. 1 Inhaler 3 03/09/2015 Active omeprazole (PRILOSEC-OTC) 20 mg tabletIndication s:Gastroesophage al reflux disease without esophagitis Take 1 tablet by mouth once daily. Ok for watermelon inspector use 30 tablet 5 04/13/2015 Active omega-3 fatty acids-vitamin E (FISH OIL) 1,000 mg capIndications:R estless leg Take 1 capsule by mouth once daily. 30 capsule 11 04/13/2015 Active rOPINIRole (REQUIP) 1 mg tabletIndication s:Restless leg One full pill by mouth at 9pm, half a pill at 4pm. 45 tablet 5 06/16/2015 Active buprenorphine-na loxone 8 mg-2 mg (SUBOXONE) film sublingual film Place 1 Film under the tongue 2 times daily. Cuts this in half, taking 1/2 in the morning and 1/2 in the evening 0 07/26/2015 Active cyclobenzaprine (FLEXERIL) 10 mg tabletIndication s:Low back pain, unspecified back pain laterality, with sciatica presence unspecified Take 1 tablet by mouth 3 times daily if needed for Muscle Spasm. 30 tablets must last 3 months 30 tablet 0 08/06/2015 Active calcium carbonate-cholec alciferol, 600mg-200 units, (CALTRATE-600 + VIT D) tablet Twice A Day Acti ve fluticasone furoate-vilanter ol (BREO ELLIPTA) 200mcg/25mcg inhaler Daily 04/25/2017 Active levothyroxine (SYNTHROID) 112 mcg tablet Daily 07/11/2017 Active escitalopram oxalate (LEXAPRO) 10 mg tabletIndication s:Bipolar 1 disorder (HC) Take 1 tablet by mouth once daily. 30 tablet 5 10/09/2018 Active cariprazine (VRAYLAR) 1.5 mg capsule Take 1 capsule by mouth 2 times daily. 0 02/11/2019 Active traZODone (DESYREL) 100 mg tablet Take 1 tablet by mouth at bedtime. 0 07/04/2019 Active metoprolol succinate (TOPROL XL) 100 mg Sustained-Releas e tablet 07/03/2019 Active LORazepam (ATIVAN) 0.5 mg tab 06/24/2019 Active dilTIAZem (DILACOR XR; DILTIA XT) 240 mg Extended-Release capsuleIndicatio ns:HTN (hypertension) Take 1 Capsule (240 mg) by [...] 09/23/2014 01/06/2015 Major depression 09/23/2014 03/03/2015 Immunizations Immunization Administration Dates Next Due DTaP 10/19/2005 Hepatitis [...] Paying Living Expenses Not on file 06/11/2021 Comments No Sex and Gender Information Value Date Recorded Sex Assigned at Not on file Legal Sex Female 7:01 AM FOCUSING MACHINE OPERATOR Gender Identity Not on file Sexual Orientation Not on file Obstetrics History Para Term AB IAB SAB Ectopic Multiple Livin g Live Births 0 0 0 0 0 0 0 0 0 0 Last Filed Vital Signs Vital Sign Reading Time Taken Comments Blood Pressure 121/75 07/04/2019 1:38 PM FOCUSING MACHINE OPERATOR Pulse 62 07/04/2019 1:38 PM FOCUSING MACHINE OPERATOR Temperature 36.3 C (97.4 F) 08/02/2017 1:24 PM FOCUSING MACHINE OPERATOR Respiratory Rate 22 10/09/2018 7:59 AM CDT Oxygen Saturation 94% 07/04/2019 1:38 PM FOCUSING MACHINE OPERATOR Inhaled Oxygen Concentration - - Weight 66 kg (145 lb 9.6 oz) 07/04/2019 1:38 PM FOCUSING MACHINE OPERATOR Height 162 cm (5' 3.78) 12/25/2018 12:18 PM CDT Body Mass Index 25.16 12/25/2018 12:18 PM CDT Plan of Treatment Health Maintenance Due Date Last Done Comments RSV vaccine for adults or (1 - Risk 60-74 years 1-dose series) 2014 Pneumococcal series for age 50+ (2 of 2 - PCV) 06/28/2014 06/28/2013, 03/26/2013 Mammogram for age 45-75 12/24/2015 12/23/2014, 12/03 Zoster (shingles) series for age 50+ (2 of 3) 04/13/2016 02/17/2016, 02/17/2016 DEXA/DXA scan for age 65+ 2019 Medicare Wellness for age 65+ 2019 Lipids for age 45-75 07/20/2019 07/20/2014 Depression screening for age 12+ 10/10/2019 10/09/2018, 10/09/2018, 06/19/2018, Additional history exists BMI (ht and wt on same day) for age 18+ 12/26/2019 12/25/2018, 07/12/2018, 08/18/2017, Additional history exists COVID-19 vaccine series ( - 2023- season) 2024 Influenza Vaccine (#1) 2025 7, 02/16/2017, 03/16/2016, Additional history exists Colonoscopy through age 75 08/08/2025, 06/17/2015, 06/12/2006 (Completed outside of [facility]) Tetanus booster 02/16/2026 02/17/2016, 0901/2016, 10/19/2005 Hepatitis B series for 19+ Completed 09/23, 09/23/1998, 09/23/1998, Additional history exists Hepatitis C screening for ag e 18-79 Completed 07/04/2019, 02/11/2019, 07/24/2018, Additional history exists Procedures Procedure Name Priority Date/Time Associated Diagnosis Comments HCV RNA QUANT Routine 07/04/2019 2:06 PM FOCUSING MACHINE OPERATOR Hepatitis C virus infection without hepatic coma, unspecified chronicity SCAN-COLONOSCOPY 08/09/2015 12:0 0 AM FOCUSING MACHINE OPERATOR XR MAMMO BILAT SCREEN FFDM (IA) Routine 12/23/2014 10:21 AM CDT Other screening mammogram LIPID PANEL W REFLEX MEASURED LDL Routine 07/20/2014 7:59 AM FOCUSING MACHINE OPERATOR Chest pain from Last 3 Months or Most Recently Relevant to Health Maintenance Results * HCV RNA QUANT (07/04/2019 2:06 PM FOCUSING MACHINE OPERATOR) HCV RNA RT-PCR HCV RNA not detected HCV RNA not detected IU/mL 07/08/2019 4:00 PM FOCUSING MACHINE OPERATOR [facility] Blood BLOOD SPECIMEN / Unknown Venipuncture / Unknown 07/04/2019 2:06 PM FOCUSING MACHINE OPERATOR 07/04/2019 2:07 PM FOCUSING MACHINE OPERATOR Narrative [facility] - 07/08/2019 4:00 PM FOCUSING MACHINE OPERATOR Method: Abigail HCV Test us Prateek Liang MD SEND OUTS Final Res ult [facility] [address] [place] [address], [place] * SCAN-COLONOSCOPY (08/09/2015 12:00 AM FOCUSING MACHINE OPERATOR) us Scanner OTHER Final Result * XR MAMMO BILAT SCREEN FFDM (12/23/2014 10:21 AM CDT) Anatomical Region Laterality Modality BREASTS, Breast Left, Breast Right Bilateral Mammography Impressions 12/29/2014 12:29 PM CDT There is no radiographic evidence for malignancy. Recommend annual mammograms. A lay language report of this examination will be provided to the patient. MAMMOGRAM ASSESSMENT: ACR 2 Benign Narrative 12/29/2014 12:29 PM CDT XR MAMMO BILAT SCREEN FFDM [G0202.0] CLINICAL HISTORY: This is an asymptomatic 59 y.o. patient. INDICATION FOR EXAM: Mammogram Screening. TECHNIQUE: CC & MLO views were obtained. This digital study was evaluated with the assistance of Computer-Aided Detection. COMPARISON FILMS: Yes 12/03/13 [facility] 10/17/12 [facility] FINDINGS: Mammographically, the breast tissue is almost entirely fat. No suspicious masses or microcalcifications. Benign appearing asymmetry within left breast. us Regina Moulton MD MAMMO Gabbie l Result * LIPID PANEL W REFLEX MEASURED LDL (07/20/2014 7:59 AM FOCUSING MACHINE OPERATOR) CHOLESTEROL,TOTAL 145 100 - 199 mg/dL 07/20/2014 9:25 AM FOCUSING MACHINE OPERATOR [facility] TRIGLYCERIDES 95 <150 mg/dL 07/20/2014 9:25 AM FOCUSING MACHINE OPERATOR [facility] HDL CHOLESTEROL 51 >40 mg/dL 5 9:25 AM FOCUSING MACHINE OPERATOR [facility] NON-HDL CHOLESTEROL 94 <145 mg/dl 07/20/2014 9:25 AM FOCUSING MACHINE OPERATOR [facility] CHOL/HDL RATIO 2.84 <4.50 07/20/2014 9:25 AM FOCUSING MACHINE OPERATOR [facility] LDL CHOLESTEROL 75 <=130 mg/dL 07/20/2014 9:25 AM FOCUSING MACHINE OPERATOR [facility] PATIENT STATUS FASTING 07/20/2014 9:25 AM FOCUSING MACHINE OPERATOR [facility] Blood specimen (specimen) BLOOD SPECIMEN / Unknown Venipuncture / Unknown 07/20/2014 7:59 AM FOCUSING MACHINE OPERATOR 07/20/2014 7:59 AM FOCUSING MACHINE OPERATOR Regina Moulton MD CHEMISTRY Gabbie l Result [facility] [address] [place] [address], from Last 3 Months or Most Recently Relevant to Health Maintenance Insurance [employer] [place] [employer] MR [place] ONLY Advance Directives Documents on File Type Date Recorded Patient Air Conditioning Manager Expl anation Healthcare Directive 08/02/2018 10:59 AM H EALTHCARE DIRECTIVE, [facility], 06/21/15 Care Teams Lamp Mechanic Relationship Specialty Start Date End Date Kim Gardner MD [address] [place] [address] (work) PCP - General Family Practice 09/06/15
--- NOTE | 2025-01-18 18:33 | CRLHL7_ITS ---
For Patients: As a result of the Century Cures Act, medical imaging exams and procedure reports are released immediately into your electronic medical record. You may view this report before your referring provider. If you have questions, please contact your health care provider. INDICATION: Weakness TECHNIQUE: Single-view chest. COMPARISON: No comparison FINDINGS: The lungs are clear. The heart, mediastinum and pulmonary vessels are of normal size. There is no evidence of pleural disease. Right humeral arthroplasty. IMPRESSION: Negative chest. Dictated by Paola Gonzáles MD @ 01/18/2025 6:54:32 PM (Electronically Signed)
--- NOTE | 2025-01-18 18:33 | ED.SOB ---
HPI - SOB/Dyspnea General Chief Complaint: Shortness of Breath/Dyspnea Stated Complaint: weakness Time Seen by Provider: 01/18/25 18:19 History of Present Illness HPI Narrative: This 6-year-old female comes in reporting shortness of breath and anxiety. She does have a history of smoking but quit 6 months ago. She is not normally on oxygen. She arrives here with oximetry at 88% on room air with increased respirations at around 40 breaths per minute. Other vital signs are normal. She did have a reverse shoulder operation on her right shoulder within the last week and now has developed edema in her right upper extremity and report of shortness of breath. She does not report any chest pain. She states that she takes Ativan occasionally as needed and has not had any since the surgery. She does report a fair amount of anxiety currently. Related Data Home Medications ?Medication ?Instructions ?Recorded ?Confirmed divalproex 500 mg tablet,delayed 500 - 1,000 mg PO BID 02/23/22 01/13/25 release divalproex 250 mg tablet,delayed 250 mg PO QAM 03/13/24 01/13/25 release lorazepam 0.5 mg tablet 0.5 mg PO BID PRN 04/18/24 01/13/25 albuterol sulfate 90 mcg/actuation 2 puff inhalation Q4H PRN 09/29/24 01/13/25 aerosol inhaler cyclobenzaprine 5 mg tablet 5 mg PO HS PRN muscle spasm 01/13/25 01/13/25 levothyroxine 112 mcg tablet 112 mcg PO DAILY 01/13/25 01/13/25 ropinirole 1 mg tablet 1 - 2 mg PO BID@17,21 01/13/25 01/13/25 rosuvastatin 5 mg tablet 5 mg PO DAILY 01/13/25 01/13/25 Previous Rx's ?Medication ?Instructions ?Recorded carvedilol 25 mg tablet 12.5 mg (1/2 x 25 mg) PO BID #90 03/12/24 tabs esomeprazole magnesium 40 mg 40 mg PO DAILY #90 caps 03/12/24 capsule,delayed release fluticasone furoate 100 1 inh inhalation DAILY #30 ea 03/12/24 mcg-vilanterol 25 mcg/dose inhalation powder hydralazine 50 mg tablet 50 mg PO BID #180 tabs 03/12/24 acetaminophen 500 mg capsule 500 - 1,000 mg (1 - 2 x 500 mg) PO 01/13/25 Q6H PRN pain #100 caps oxycodone 5 mg tablet 2.5 - 5 mg (0.5 - 1 x 5 mg) PO 01/13/25 Q4-6H PRN Pain #30 tabs sennosides 8.6 mg tablet (Senna 17.2 mg (2 x 8.6 mg) PO BID PRN 01/13/25 Lax) constipation #100 tabs ondansetron 4 mg disintegrating 4 mg PO Q6H PRN nausea and 01/15/25 tablet vomiting #15 tabs Allergies Allergy/AdvReac Type Severity Reaction Status Date / Time gabapentin Allergy Intermediate Hives Verified 01/18/25 20:10 lisinopril Allergy Intermediate edema in Verified 01/18/25 20:10 face risperidone Allergy Unknown Verified 01/18/25 20:10 aripiprazole AdvReac Intermediate leg Verified 01/18/25 20:10 swelling amlodipine AdvReac Mild leg Verified 01/18/25 20:10 swelling quetiapine AdvReac swelling Verified 01/18/25 20:10 Review of Systems Status of ROS: Reports: 10 or more systems reviewed and unremarkable except as noted in History and below Narrative: Constitutional: No fevers, no weight gain or loss. Eyes: No discharge. No vision changes. HENT: No congestion, no sore throat, no ear pain. Cardiovascular: No chest pain, no palpitations. Respiratory: No wheezes, no cough. Shortness of breath as described above. Gastrointestinal: No abdominal pain, no vomiting, no diarrhea. Genitourinary: No dysuria, no hematuria. Musculoskeletal: Normal range of motion. Skin: No rashes, no pruritis. Neurological: No dizziness, weakness, sensory change, speech change. Endo/Heme/Allergies: No bruising or bleeding. No polydipsia. Pysch: no suicidality. She reports anxiety symptoms as described above. All other systems reviewed and are negative. [facility] Medical History Hypertension ?I10 - Essential (primary) hypertension (ICD-10) COPD (chronic obstructive pulmonary disease) ?J44.9 - Chronic obstructive pulmonary disease, unspecified (ICD-10) Ineffective coping ?R45.89 - Other symptoms and signs involving emotional state (ICD-10) Hyponatremia ?E87.1 - Hypo-osmolality and hyponatremia (ICD-10) Overdose by ingestion ?T50.901A - Poisoning by unspecified drugs, medicaments and biological substances, accidental (unintentional), initial encounter (ICD-10) Traumatic rhabdomyolysis (~03/2023) ?T79.6XXA - Traumatic ischemia of muscle, initial encounter (ICD-10) Traumatic subdural hematoma ?S06.5XAA - Traumatic subdural hemorrhage with loss of consciousness status unknown, initial encounter (ICD-10) Cigarette smoker ?F17.210 - Nicotine dependence, cigarettes, uncomplicated (ICD-10) Acute renal failure due to traumatic rhabdomyolysis ?N17.9 - Acute kidney failure, unspecified (ICD-10) ?T79.6XXA - Traumatic ischemia of muscle, initial encounter (ICD-10) Traumatic ecchymosis of multiple sites ?T14.8XXA - Other injury of unspecified body region, initial encounter (ICD-10) Marijuana smoker, episodic ?F12.90 - Cannabis use, unspecified, uncomplicated (ICD-10) Elevated troponin I level ?R79.89 - Other specified abnormal findings of blood chemistry (ICD-10) Total bilirubin, elevated ?R17 - Unspecified jaundice (ICD-10) Lorazepam overdose of undetermined intent ?T42.4X4A - Poisoning by benzodiazepines, undetermined, initial encounter (ICD-10) Obstructive sleep apnea treated with continuous positive airway pressure (CPAP) (~2016) ?G47.33 - Obstructive sleep apnea (adult) (pediatric) (ICD-10) ?Z99.89 - Dependence on other enabling machines and devices (ICD-10) Venous insufficiency of both lower extremities ?I87.2 - Venous insufficiency (chronic) (peripheral) (ICD-10) Varicose veins of both lower extremities ?I83.93 - Asymptomatic varicose veins of bilateral lower extremities (ICD-10) Unintended weight loss (~11/2021) ?R63.4 - Abnormal weight loss (ICD-10) Rectal urgency ?R15.2 - Fecal urgency (ICD-10) Osteopenia (2016) ?M85.80 - Other specified disorders of bone density and structure, unspecified site (ICD-10) Osteoarthritis ?M19.90 - Unspecified osteoarthritis, unspecified site (ICD-10) Obstructive chronic bronchitis with exacerbation ?J44.1 - Chronic obstructive pulmonary disease with (acute) exacerbation (ICD-10) Internal derangement of knee ?M23.90 - Unspecified internal derangement of unspecified knee (ICD-10) History of drug abuse (2013) ?F19.11 - Other psychoactive substance abuse, in remission (ICD-10) Hepatitis C ?B19.20 - Unspecified viral hepatitis C without hepatic coma (ICD-10) Encounter for counseling regarding advance directives (06/21/15) ?Z71.89 - Other specified counseling (ICD-10) Chronic neck pain ?M54.2 - Cervicalgia (ICD-10) ?G89.29 - Other chronic pain (ICD-10) Bleeding internal hemorrhoids ?K64.8 - Other hemorrhoids (ICD-10) Bilateral edema of lower extremity ?R60.0 - Localized edema (ICD-10) Surgical History History of esophagogastroduodenoscopy (EGD) (11/2021) ?Z98.890 - Other specified postprocedural states (ICD-10) Hx of varicose vein ligation and stripping (~2016) ?Z98.890 - Other specified postprocedural states (ICD-10) Colon cancer screening (~2015) ?Z12.11 - Encounter for screening for malignant neoplasm of colon (ICD-10) Status post left knee replacement (04/08/19) ?Z96.652 - Presence of left artificial knee joint (ICD-10) History of right knee joint replacement (2009) ?Z96.651 - Presence of right artificial knee joint (ICD-10) History of repair of right rotator cuff (~2011) ?Z98.890 - Other specified postprocedural states (ICD-10) History of ovarian cystectomy ?Z98.890 - Other specified postprocedural states (ICD-10) ?Z87.42 - Personal history of other diseases of the female genital tract (ICD-10) History of medial meniscus repair of left knee (2013) ?Z98.890 - Other specified postprocedural states (ICD-10) History of hysterectomy with oophorectomy (1984) History of arthroplasty of right knee (2009) ?Z96.651 - Presence of right artificial knee joint (ICD-10) History of abdominoplasty (1996) ?Z98.890 - Other specified postprocedural states (ICD-10) H/O endoscopy ?Z98.890 - Other specified postprocedural states (ICD-10) Normal colonoscopy (2021) Family History Aunt Breast cancer Mother Ovarian cancer Sister Stomach cancer Other Adopted person Psoriasis Social History Narrative: Single, homemaker, lives with cat Clara independent [employer] quit 07/2024- hx 30 pack years Does not drink alcohol 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 [employer] What is your current living situation?: I presently have a place to live Problems where you live: pests, such as bugs, ants, or mice Problems where you live details: none In the past 12 months, utilities in danger of being shut off: no In past 12 months, lack of transportation kept you from medical appts, meetings, work, or getting things needed for daily living: no In the past 12 mos, have been you worried that your food would run out before you had money to buy more?: never true In the past 12 mos, the food you bought just didn't last and you didn't have money to buy more?: never true Smoking Status: Current every day smoker What tobacco products do you use: cigarettes Years smoked: 50 Do you use any of these nicotine containing products: None Second hand tobacco smoke exposure: No How often do you have a drink containing alcohol: never AUDIT-C Alcohol total score: 0 Non-prescribed substance use: marijuana (any form) Caffeine: Yes How often does anyone, including family, friends and others, physically hurt you: never How often does anyone, including family, friends and others, insult or talk down to you: never How often does anyone, including family, friends and others, threaten you with harm: never How often does anyone, including family, friends and others, scream or curse at you: never service: No Health Related Social Needs: Inadequate housing (Z59.1) Exam Narrative: Exam Narrative: Constitutional: Well-developed, well-nourished, no acute distress. HEENT: Normocephalic, atraumatic. Neck: Normal range of motion. Nontender. Supple. Heart: Regular. No murmurs. Normal rate. Intact distal pulses. Lungs: Clear to auscultation. No chest discomfort. No wheezes, rhonchi, or rales. Abdomen: Normal bowel sounds. Nontender. No rebound tenderness. Genitalia: Deferred. Back: No midline tenderness. Normal range of motion. Extremities: Recent right shoulder replacement surgery. Her right arm is in a sling. She has significant edema in her right hand. Skin: Intact. No rash. Warm. No erythema or pallor. Neurologic: No altered sensation. No weakness. Alert and oriented. Psychiatric: No suicidality. No anxiety or depression. No insomnia. Nursing notes and vitals signs are reviewed. Const: Vital Signs, click to edit/add: Vital Signs - 24 hr 01/18/25 18:07 01/18/25 18:07 01/18/25 18:32 Temperature 97.3 F L Pulse Rate 82 81 Pulse Rate [Left P ulse Oximeter] 80 Respiratory Rate 40 H 19 20 Blood Pressure 110/41 L 111/55 L Blood Pressure [Le ft Upper Arm] 110/41 L Pulse Oximetry 88 95 96 Oxygen Delivery Me thod Room Air Course Vital Signs Vital signs: Initial Vital Signs Temperature 97.3 F L 01/18/25 18:07 Temperature Source Temporal Artery Scan 01/18/25 18:07 Pulse Rate 82 01/18/25 18:07 Respiratory Rate 40 H 01/18/25 18:07 Blood Pressure 110/41 L 01/18/25 18:07 Blood Pressure Mean 64 L 01/18/25 18:07 Blood Pressure Position Sitting 01/18/25 18:07 Pulse Oximetry 88 01/18/25 18:07 Oxygen Delivery Method Room Air 01/18/25 18:07 Vital Signs Temperature 97.3 F L 01/18/25 18:07 Pulse Rate 82 01/18/25 18:07 Respiratory Rate 40 H 01/18/25 18:07 Blood Pressure 110/41 L 01/18/25 18:07 Pulse Oximetry 88 01/18/25 18:07 Oxygen Delivery Method Room Air 01/18/25 18:07 Temperature 97.3 F L 01/18/25 18:07 Pulse Rate 81 01/18/25 18:32 Respiratory Rate 20 01/18/25 18:32 Blood Pressure 111/55 L 01/18/25 18:32 Pulse Oximetry 96 01/18/25 18:32 Oxygen Delivery Method Room Air 01/18/25 18:07 MDM - SOB/Dyspnea MDM Narrative Medical decision making narrative: This patient comes in with shortness of breath as described above. She also is reporting some anxiety symptoms. She did receive an oral dose of Ativan 0.5 mg. The patient is placed on 2 L of nasal cannula oxygen which brought her oximetry up to the mid 90s and her respiratory rate normalized. An IV was established and labs are acquired and remarkably her hemoglobin returns at 5.2. Her previous hemoglobin less than 3 weeks ago was 11.5. The patient does not know of any blood loss. She does have swelling in her right upper extremity. Additionally a D-dimer returns elevated at 2.2. This is most likely related to her surgery but we yet cannot rule out a blood clot. The patient is not on any anticoagulants. I did speak with the hospitalist on-call and decided to order CT imaging with PE protocol and also CT with IV contrast of the abdomen and pelvis. This CT of her chest is going to be expanded to include her shoulder region to look for hematoma or a site of ongoing bleeding. I did place order for 2 units of packed red blood cells. I did speak with the orthopedic physician's legal support assistant defensive fire control systems operator regarding this plan. Dr. Lopez accepts this patient into the hospital. Lab Data Labs: Lab Results 01/18/25 Range/Units 18:40 WBC 11.71 H (4.50-11.00) K/uL RBC 1.59 L (4.00-5.20) m/uL Hgb 5.2 L* (12.0-16.0) gm/dL Hct 16.1 L (33.0-51.0) % MCV 101 H (80-100) fL MCH 33 (26-34) pg MCHC 32 (32-36) gm/dL RDW Coeff of Jaden 14.4 (11.5-15.5) % Plt Count 302 (140-440) K/uL Neut % (Auto) 55.3 (42.0-72.0) % Lymph % (Auto) 23.7 (20-44) % Duval % (Auto) 13.2 H (0.0-11.0) % Eos % (Auto) 0.9 (0.0-7.0) % Baso % (Auto) 0.2 (0.0-3.0) % Neut # (Auto) 6.50 (1.7-7.0) K/uL Lymph # (Auto) 2.80 (0.90-2.90) K/uL Duval # (Auto) 1.50 H (0.00-0.90) K/UL Eos # (Auto) 0.10 (0.00-0.50) K/uL Baso # (Auto) 0.00 (0.00-0.30) K/uL Abs Immat Gran (auto) 0.80 H (0.00-0.30) K/uL Imm/Tot Granulo (auto) 6.7 % D-Dimer Quant (PE/DVT) 2.12 H (0.00-0.50) ug/ml Sodium 133 L (135-149) mmol/L Potassium 4.2 (3.6-5.1) mmol/L Chloride 98 (96-114) mmol/L Carbon Dioxide 32 (20-32) mmol/L Anion Gap 3 L (7-15) mEq/L BUN 26 (7-30) mg/dL Creatinine 0.7 (0.5-1.5) mg/dL Estimated GFR 93 ml/min Glucose 104 (60-115) mg/dL Calcium 8.3 L (8.4-10.6) mg/dL Imaging Data Chest x-ray: Radiologist's impression: Negative chest. ECG Data Attestation: I personally reviewed and interpreted this ECG as follows: Interpretation: Normal sinus rhythm. Rate is 80 beats per minute. There are no ST or T-wave abnormalities. Discharge Plan Discharge Clinical Impression: Anemia Patient Disposition: Admitted As Observation Condition: Unchanged
[2025-01-18 19:00] LABS: Hematocrit* 16.1 % (33.0-51.0); Immature Granulocytes Pct Auto 6.7 %; Mean Corpuscular HGB Conc 32 gm/dL (32-36); Mean Corpuscular Hemoglobin 33 pg (26-34); Mean Corpuscular Volume 101 fL (80-100); RDW Coefficient of Variation % 14.4 % (11.5-15.5); Red Blood Count* 1.59 m/uL (4.00-5.20); White Blood Count* 11.71 K/uL (4.50-11.00)
[2025-01-18 19:16] LABS: Chloride* 98 mmol/L (96-114); Hemoglobin* 5.2 gm/dL (12.0-16.0); Immature Granulocytes Abs Auto 0.80 K/uL (0.00-0.30); Lymphocytes Absolute Auto 2.80 K/uL (0.90-2.90); Potassium* 4.2 mmol/L (3.6-5.1); Slide Review Reflex No; Sodium* 133 mmol/L (135-149)
[2025-01-18 19:19] LABS: Anion Gap 3 mEq/L (7-15); Blood Urea Nitrogen* 26 mg/dL (7-30); Carbon Dioxide* 32 mmol/L (20-32); Creatinine* 0.7 mg/dL (0.5-1.5); Estimated Glomerular Filt Rate 93 ml/min
[2025-01-18 19:20] LABS: Calcium* 8.3 mg/dL (8.4-10.6); Glucose* 104 mg/dL (60-115)
[2025-01-18 19:23] LABS: D Dimer Quantitative* 2.12 ug/ml (0.00-0.50)
--- NOTE | 2025-01-18 19:40 | CRLHL7_ITS ---
For Patients: As a result of the Century Cures Act, medical imaging exams and procedure reports are released immediately into your electronic medical record. You may view this report before your referring provider. If you have questions, please contact your health care provider. INDICATION: Hemoglobin down. TECHNIQUE: CT abdomen and pelvis with 95 mL Isovue 370 intravenous contrast. COMPARISON: None. FINDINGS: Lower chest: Lingular and right basilar atelectasis. Liver: Normal in size and attenuation. No suspicious masses. Gallbladder and bile ducts: No stones or inflammation. No biliary dilatation. Pancreas: Unremarkable. No mass or inflammation. Spleen: Normal in size. No masses. Adrenal glands: Normal in size. No nodules. Kidneys: Right renal cysts. Additional too small to characterize low-attenuation lesions bilaterally GI tract: Moderate hiatal hernia. Diverticulosis. There is mild wall thickening and minimal inflammatory changes sigmoid colon which could represent very mild diverticulitis Periaortic lymph node Vasculature: Abdominal aorta is normal in caliber. Lymph nodes: Mildly prominent paraesophageal lymph node. Pelvis: Unremarkable. No pelvic masses. Bones: Unremarkable for age. IMPRESSION: 1. There is mild wall thickening of the sigmoid colon with minimal inflammatory stranding which could represent very mild diverticulitis versus colitis. 2. No findings for intra-abdominal or retroperitoneal hemorrhage. Please note that all CT scans at this facility use dose modulation, iterative reconstruction, and/or weight-based dosing when appropriate to reduce radiation dose to as low as reasonably achievable. Dictated by Paola Gonzáles MD @ 01/18/2025 8:43:31 PM (Electronically Signed)
--- NOTE | 2025-01-18 19:48 | CRLHL7_ITS ---
For Patients: As a result of the Century Cures Act, medical imaging exams and procedure reports are released immediately into your electronic medical record. You may view this report before your referring provider. If you have questions, please contact your health care provider. INDICATION: Pulmonary embolism suspected, high probability. TECHNIQUE: CT chest PE was acquired with 100 cc Omnipaque 350 IV contrast. COMPARISON: CT chest on March 11, 2024. FINDINGS: Heart and vasculature: Contrast opacification of the pulmonary arterial tree is adequate. No acute pulmonary embolism to the level of the proximal subsegmental pulmonary arteries.. Heart size is normal. Thoracic aorta and pulmonary artery are normal in caliber. Lungs and pleura: Small right lower lobe hypodense patchy consolidation. Compared to CT chest dated March 11, 2024, no new or enlarging solid pulmonary. Stable solid, noncalcified pulmonary nodule in the right lower lobe measuring 2 mm (7/128). Previously described left upper lobe 2 mm solid pulmonary nodule is less conspicuous. Mild apical predominant centrilobular and paraseptal emphysema. No pleural effusion or pneumothorax. Patent central airways. Lymph nodes/mediastinum: No mediastinal, hilar, or axillary adenopathy. Small hiatal hernia. Chest wall: No masses. Scattered subcutaneous air in the right anterior chest wall. Upper abdomen: No acute findings. Right renal simple cysts. Bones: Status post right shoulder arthroplasty with postsurgical changes including fluid, edema and scattered subcutaneous air. IMPRESSION: 1. No acute pulmonary embolism to the level of the proximal subsegmental pulmonary arteries. 2. Small right lower lobe hypodense patchy consolidation compatible with aspiration and/or pneumonia. 3. Compared to CT chest dated March 11, 2024, no new or enlarging solid pulmonary nodule. Stable solid, noncalcified pulmonary nodule in the right lower lobe measuring 2 mm. Previously described left upper lobe 2 mm solid pulmonary nodule is less conspicuous. 4. Status post right shoulder arthroplasty with expected postsurgical changes. Please note that all CT scans at this facility use dose modulation, iterative reconstruction, and/or weight-based dosing when appropriate to reduce radiation dose to as low as reasonably achievable. Dictated by Keyana Oscar MD @ 01/18/2025 8:30:13 PM (Electronically Signed)
--- NOTE | 2025-01-18 20:51 | PC.NURSE ---
spoke to nurse Wills at [facility] [phone] aware pt being admitted, will conbtact legal guardian tomorrow
[2025-01-18 21:50] LABS: Albumin* 2.5 g/dL (3.3-5.0)
--- NOTE | 2025-01-18 21:52 | P.IMHP_ITS ---
Assessment and Plan Assessment and plan (1) Postoperative anemia: Problem comment: - etiology not yet determined. The concern is that she may have had acute blood loss versus hemolysis. - no apparent history or physical exam findings supporting acute blood loss. No obvious radiographic findings supporting acute blood loss. Concerning for possible hemolysis. - check labs for assessment of possible hemolysis - will transfuse with 2 units of packed red blood cells - will notify orthopedic surgeon, Dr. Benedict Garcia Status: Acute (2) Dyspnea: Problem comment: - increased dyspnea with evolving postop anemia - underlying COPD contributing in part to dyspnea but not actively problematic at this time - continue to assess etiology of anemia - transfuse 2 units packed red blood cells - continue with supportive efforts for COPD Status: Acute (3) Status post reverse arthroplasty of right shoulder: Problem comment: - DOS: 01/13/25, Dr. Garcia - will check right upper extremity venous ultrasound to rule out deep venous thrombosis, and so forth Status: Acute (4) Right rotator cuff tear arthropathy: Problem comment: - status post Right upper extremity reverse shoulder arthroplasty, biceps tenodesis per Dr. Benedict Garcia, 01/13/2025, [facility] Status: Acute (5) COPD (chronic obstructive pulmonary disease): Status: Chronic (6) Cigarette smoker: Problem comment: quit smoking 07/2024 Status: Acute (7) Bipolar affective disorder: Problem comment: sees Dr Lobo Shields [place], therapist Jada Gregg Status: Chronic (8) Hepatitis C: Problem comment: was treated by Dr Liang, virus free 2018 Status: Chronic Plan 1. Reviewed impression, plans, recommendations with patient 2. Answered her questions are satisfaction 3. Patient agreeable with above stated plans and recommendations Total Time Spent Total Time Spent: 65 minutes Hospitalist- H&P: HPI History of Present Illness Date Seen: 01/18/25 Chief complaint: weakness Narrative: Yamileth Amaya is a 69 year old woman presents 5 days status post elective right shoulder arthroplasty with complaint of increased dyspnea. Has chronic obstructive pulmonary disease. History of tobacco use disorder, quit in July 2024. Notes increased right hand and arm swelling status post surgery. Denies lower extremity edema. Denies acute blood loss of any sort including hemoptysis, hematemesis, melena, hematochezia, epistaxis, abnormal uterine bleeding, or any other form of blood loss. Denies chest heaviness, pressure, tightness, pain. Denies syncope or near-syncope. Denies nausea or vomiting. Denies abdominal pain. Denies palpitations. Denies fevers, rigors, diaphoresis. Taking medications as prescribed. Review of Systems Status of ROS: Reports: 6 or more systems reviewed and unremarkable except as noted in History and below Medical Decision Making Medical Decision Making Code Status: She requests full resuscitation at this time even though previously she requested DNR DNI Has patient completed a Health Care Directive: Yes During This Stay, Who Would You Like To Make Decisions For You In The Event You Are Unable To Make Them For Yourself?: Karina Pineda, her friend [facility] Medical History Hypertension ?I10 - Essential (primary) hypertension (ICD-10) COPD (chronic obstructive pulmonary disease) ?J44.9 - Chronic obstructive pulmonary disease, unspecified (ICD-10) Ineffective coping ?R45.89 - Other symptoms and signs involving emotional state (ICD-10) Hyponatremia ?E87.1 - Hypo-osmolality and hyponatremia (ICD-10) Overdose by ingestion ?T50.901A - Poisoning by unspecified drugs, medicaments and biological substances, accidental (unintentional), initial encounter (ICD-10) Traumatic rhabdomyolysis (~03/2023) ?T79.6XXA - Traumatic ischemia of muscle, initial encounter (ICD-10) Traumatic subdural hematoma ?S06.5XAA - Traumatic subdural hemorrhage with loss of consciousness status unknown, initial encounter (ICD-10) Cigarette smoker ?F17.210 - Nicotine dependence, cigarettes, uncomplicated (ICD-10) Acute renal failure due to traumatic rhabdomyolysis ?N17.9 - Acute kidney failure, unspecified (ICD-10) ?T79.6XXA - Traumatic ischemia of muscle, initial encounter (ICD-10) Traumatic ecchymosis of multiple sites ?T14.8XXA - Other injury of unspecified body region, initial encounter (ICD- 10) Marijuana smoker, episodic ?F12.90 - Cannabis use, unspecified, uncomplicated (ICD-10) Elevated troponin I level ?R79.89 - Other specified abnormal findings of blood chemistry (ICD-10) Total bilirubin, elevated ?R17 - Unspecified jaundice (ICD-10) Lorazepam overdose of undetermined intent ?T42.4X4A - Poisoning by benzodiazepines, undetermined, initial encounter (ICD-10) Obstructive sleep apnea treated with continuous positive airway pressure (CPAP) (~2016) ?G47.33 - Obstructive sleep apnea (adult) (pediatric) (ICD-10) ?Z99.89 - Dependence on other enabling machines and devices (ICD-10) Venous insufficiency of both lower extremities ?I87.2 - Venous insufficiency (chronic) (peripheral) (ICD-10) Varicose veins of both lower extremities ?I83.93 - Asymptomatic varicose veins of bilateral lower extremities (ICD-10) Unintended weight loss (~11/2021) ?R63.4 - Abnormal weight loss (ICD-10) Rectal urgency ?R15.2 - Fecal urgency (ICD-10) Osteopenia (2015) ?M85.80 - Other specified disorders of bone density and structure, unspecified site (ICD-10) Osteoarthritis ?M19.90 - Unspecified osteoarthritis, unspecified site (ICD-10) Obstructive chronic bronchitis with exacerbation ?J44.1 - Chronic obstructive pulmonary disease with (acute) exacerbation (ICD-10) Internal derangement of knee ?M23.90 - Unspecified internal derangement of unspecified knee (ICD-10) History of drug abuse (2013) ?F19.11 - Other psychoactive substance abuse, in remission (ICD-10) Hepatitis C ?B19.20 - Unspecified viral hepatitis C without hepatic coma (ICD-10) Encounter for counseling regarding advance directives (06/21/15) ?Z71.89 - Other specified counseling (ICD-10) Chronic neck pain ?M54.2 - Cervicalgia (ICD-10) ?G89.29 - Other chronic pain (ICD-10) Bleeding internal hemorrhoids ?K64.8 - Other hemorrhoids (ICD-10) Bilateral edema of lower extremity ?R60.0 - Localized edema (ICD-10) Surgical History History of esophagogastroduodenoscopy (EGD) (11/2021) ?Z98.890 - Other specified postprocedural states (ICD-10) Hx of varicose vein ligation and stripping (~2016) ?Z98.890 - Other specified postprocedural states (ICD-10) Colon cancer screening (~2015) ?Z12.11 - Encounter for screening for malignant neoplasm of colon (ICD-10) Status post left knee replacement (04/08/19) ?Z96.652 - Presence of left artificial knee joint (ICD-10) History of right knee joint replacement (2009) ?Z96.651 - Presence of right artificial knee joint (ICD-10) History of repair of right rotator cuff (~2011) ?Z98.890 - Other specified postprocedural states (ICD-10) History of ovarian cystectomy ?Z98.890 - Other specified postprocedural states (ICD-10) ?Z87.42 - Personal history of other diseases of the female genital tract (ICD-10) History of medial meniscus repair of left knee (2013) ?Z98.890 - Other specified postprocedural states (ICD-10) History of hysterectomy with oophorectomy (1984) History of arthroplasty of right knee (2009) ?Z96.651 - Presence of right artificial knee joint (ICD-10) History of abdominoplasty (1996) ?Z98.890 - Other specified postprocedural states (ICD-10) H/O endoscopy ?Z98.890 - Other specified postprocedural states (ICD-10) Normal colonoscopy (2021) Family History Aunt Breast cancer Mother Ovarian cancer Sister Stomach cancer Other Adopted person Psoriasis Social History Narrative: Single, homemaker, lives with cat Clara independent [facility] [place] quit 07/2024- hx 30 pack years Does not drink alcohol 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 [employer] What is your current living situation?: I presently have a place to live Problems where you live: no known problems Problems where you live details: n/a In the past 12 months, utilities in danger of being shut off: no In past 12 months, lack of transportation kept you from medical appts, meetings, work, or getting things needed for daily living: no In the past 12 mos, have been you worried that your food would run out before you had money to buy more?: never true In the past 12 mos, the food you bought just didn't last and you didn't have money to buy more?: never true Smoking Status: Former smoker What tobacco products do you use: cigarettes Years smoked: 50 Smoking quit date/years: <= 15 years ago Do you use any of these nicotine containing products: None Second hand tobacco smoke exposure: No How often do you have a drink containing alcohol: never AUDIT-C Alcohol total score: 0 Non-prescribed substance use: marijuana (any form) Caffeine: Yes How often does anyone, including family, friends and others, physically hurt you : never How often does anyone, including family, friends and others, insult or talk down to you: never How often does anyone, including family, friends and others, threaten you with harm: never How often does anyone, including family, friends and others, scream or curse at you: never service: No Meds Home Medications and Allergies Home Medications ?Medication ?Instructions ?Recorded ?Confirmed ?Type divalproex 500 mg tablet,delayed 500 - 1,000 mg PO BID 02/23/22 01/13/25 History release carvedilol 25 mg tablet 12.5 mg (1/2 x 25 mg) PO BID #90 03/12/24 01/13/25 Rx tabs esomeprazole magnesium 40 mg 40 mg PO DAILY #90 caps 1 01/13/25 Rx capsule,delayed release fluticasone furoate 100 1 inh inhalation DAILY #30 e a 03/12/24 01/13/25 Rx mcg-vilanterol 25 mcg/dose inhalation powder hydralazine 50 mg tablet 50 mg PO BID #180 tabs 03/1201/13/25 Rx divalproex 250 mg tablet,delayed 250 mg PO QAM 4 01/13/25 History release lorazepam 0.5 mg tablet 0.5 mg PO BID PRN 04/18/24 0 01/13/25 History albuterol sulfate 90 mcg/actuation 2 puff inhalation Q 4H PRN 09/29/24 01/13/25 History aerosol inhaler acetaminophen 500 mg capsule 500 - 1,000 mg (1 - 2 x 5 00 mg) PO 01/13/25 Rx Q6H PRN pain #100 caps cyclobenzaprine 5 mg tablet 5 mg PO HS PRN muscle spas m 01/13/25 01/13/25 History levothyroxine 112 mcg tablet 112 mcg PO DAILY 01/13/25 01/13/25 History oxycodone 5 mg tablet 2.5 - 5 mg (0.5 - 1 x 5 mg) PO 01/13/25 Rx Q4-6H PRN Pain #30 tabs ropinirole 1 mg tablet 1 - 2 mg PO BID@17,21 01/13/25 History rosuvastatin 5 mg tablet 5 mg PO DAILY 01/13/2501/13 History sennosides 8.6 mg tablet (Senna 17.2 mg (2 x 8.6 mg) P O BID PRN 01/13/25 Rx Lax) constipation #100 tabs ondansetron 4 mg disintegrating 4 mg PO Q6H PRN nausea and 01/15/25 Rx tablet vomiting #15 tabs Allergies Allergy/AdvReac Type Severity Reaction Status Date / Time gabapentin Allergy Intermediate Hives Verified 01/18/25 20:10 lisinopril Allergy Intermediate edema in Verified 01/18/25 20:10 face risperidone Allergy Unknown Verified 01/18/25 20:10 aripiprazole AdvReac Intermediate leg Verified 01/18/25 20:10 swelling amlodipine AdvReac Mild leg Verified 01/18/25 20:10 swelling quetiapine AdvReac swelling Verified 01/18/25 20:10 Exam Narrative: Exam Narrative: Examine her in the emergency department and on the hospital floor. Pale complexion. Appears comfortable and in no acute distress. Breathing is comfortable at 16 breaths per minute. Lungs are remarkably clear to auscultation. No wheezing or rhonchi. No rales. Heart tones with regular rhythm, normal S1-S2. Abdomen with active bowel sounds, soft, nontender. Right hand forearm and arm edema with ecchymosis around shoulder. Right upper extremity in sling. Moves all digits of right hand. No other areas of ecchymosis on scanning her skin. Palpable pulses bilateral lower extremities and bilateral upper extremities. No focal motor neurologic deficits. Const: Vital Signs, click to edit/add: Vital Signs - 24 hr 01/18/25 18:07 01/18/25 18:07 01/18/25 18:32 Temperature 97.3 F L Pulse Rate 82 81 Pulse Rate [Left P ulse Oximeter] 80 Pulse Rate [Pulse Oximeter] Respiratory Rate 40 H 19 20 Blood Pressure 110/41 L 111/55 L Blood Pressure [Le ft Arm] Blood Pressure [Le ft Upper Arm] 110/41 L Pulse Oximetry 88 95 96 Oxygen Delivery Me thod Room Air Oxygen Flow Rate 01/18/25 19:00 01/18/25 19:02 01/18/25 19:15 Temperature Pulse Rate 80 79 81 Pulse Rate [Left P ulse Oximeter] Pulse Rate [Pulse Oximeter] Respiratory Rate 18 20 15 Blood Pressure 117/54 L Blood Pressure [Le ft Arm] Blood Pressure [Le ft Upper Arm] Pulse Oximetry 95 96 95 Oxygen Delivery Me thod Oxygen Flow Rate 01/18/25 19:30 01/18/25 19:32 01/18/25 19:45 Temperature Pulse Rate 81 80 Pulse Rate [Left P ulse Oximeter] Pulse Rate [Pulse Oximeter] Respiratory Rate 27 H 21 11 L Blood Pressure 106/61 Blood Pressure [Le ft Arm] Blood Pressure [Le ft Upper Arm] Pulse Oximetry 96 96 Oxygen Delivery Me thod Oxygen Flow Rate 01/18/25 20:12 01/18/25 20:15 01/18/25 20:30 Temperature Pulse Rate 84 84 81 Pulse Rate [Left P ulse Oximeter] Pulse Rate [Pulse Oximeter] Respiratory Rate 19 18 18 Blood Pressure Blood Pressure [Le ft Arm] Blood Pressure [Le ft Upper Arm] Pulse Oximetry 96 97 98 Oxygen Delivery Me thod Oxygen Flow Rate 01/18/25 20:35 01/18/25 20:36 01/18/25 21:03 Temperature 97.6 F Pulse Rate 80 79 Pulse Rate [Left P ulse Oximeter] Pulse Rate [Pulse Oximeter] 83 Respiratory Rate 19 17 16 Blood Pressure Blood Pressure [Le ft Arm] 126/53 L Blood Pressure [Le ft Upper Arm] Pulse Oximetry 98 98 97 Oxygen Delivery Me thod Nasal Cannula Oxygen Flow Rate 2 Hospitalist - H&P: Result Labs Labs: Short CBC 01/18/25 Range/Units 18:40 WBC 11.71 H (4.50-11.00) K/uL Hgb 5.2 L* (12.0-16.0) gm/dL Hct 16.1 L (33.0-51.0) % Plt Count 302 (140-440) K/uL BMP 08/10/25 18:40 Sodium 133 L Potassium 4.2 Chloride 98 Carbon Dioxide 32 BUN 26 Creatinine 0.7 Glucose 104 Calcium 8.3 L Imaging Chest x-ray: Attestation: I have reviewed the pertinent imaging results. Radiologist's impression: No acute abnormalities noted. CT angiogram of chest: Attestation: I have reviewed the pertinent imaging results. Radiologist's impression: IMPRESSION: 1. No acute pulmonary embolism to the level of the proximal subsegmental pulmonary arteries. 2. Small right lower lobe hypodense patchy consolidation compatible with aspiration and/or pneumonia. 3. Compared to CT chest dated March 11, 2024, no new or enlarging solid pulmonary nodule. Stable solid, noncalcified pulmonary nodule in the right lower lobe measuring 2 mm. Previously described left upper lobe 2 mm solid pulmonary nodule is less conspicuous. 4. Status post right shoulder arthroplasty with expected postsurgical changes. CT abdomen and pelvis: Attestation: I have reviewed the pertinent imaging results. Radiologist's impression: IMPRESSION: 1. There is mild wall thickening of the sigmoid colon with minimal inflammatory stranding which could represent very mild diverticulitis versus colitis. 2. No findings for intra-abdominal or retroperitoneal hemorrhage.
[2025-01-18 21:53] LABS: Alanine Aminotransferase* 19 U/L (4-35); Alkaline Phosphatase* 40 U/L (40-150); Aspartate Amino Transferase* 44 U/L (12-35); Bilirubin Direct* 0.4 mg/dL (0.0-0.5); Bilirubin Total* 0.5 mg/dL (0.1-1.5); Total Protein* 4.7 g/dL (6.0-8.3)
[2025-01-18 21:56] LABS: Hematocrit* 16.1 % (33.0-51.0); Immature Reticulocyte Fraction 46.5 % (3.0-15.9); Mean Corpuscular HGB Conc 32 gm/dL (32-36); Mean Corpuscular Hemoglobin 32 pg (26-34); Mean Corpuscular Volume 102 fL (80-100); Red Blood Count* 1.58 m/uL (4.00-5.20); Reticulocyte Hemoglobin Equivi 36.8 pg (29.0-35.0); Reticulocytes Absolute 0.14 # (0.03-0.08); White Blood Count* 12.58 K/uL (4.50-11.00)
[2025-01-18 21:59] LABS: Hemoglobin* 5.1 gm/dL (12.0-16.0)
[2025-01-18 22:01] LABS: Slide Review Reflex No
[2025-01-18 22:36] LABS: NT Pro B Type NatriureticPept* 2500 pg/mL (See Note)
[2025-01-18] MEDS: ACETAMINOPHEN 325 MG TABLET 650 MG PO (22:45)
[2025-01-18] MEDS: FUROSEMIDE 10 MG/ML inj 20 MG IV (23:04)
[2025-01-18] MEDS: SODIUM CHLORIDE 0.9 % (FLUSH) 10 ML SYRINGE 5 ML IVF (23:05)
[2025-01-19] VITALS (27 sets, daily range): BP systolic 90–141; BP diastolic 46–72; PULSE 69–80; RESP 15–18; TEMP 36.4–36.8; O2SAT 90–96; BMI 28.3
[2025-01-19] MEDS: SENNOSIDES/DOCUSATE TABLET 2 TAB PO ×2 (00:32→09:11)
[2025-01-19] MEDS: LEVOTHYROXINE 112 MCG TABLET PO (06:55)
[2025-01-19 07:53] LABS: Hematocrit* 25.0 % (33.0-51.0); Hemoglobin* 8.3 gm/dL (12.0-16.0); Immature Granulocytes Abs Auto 1.10 K/uL (0.00-0.30); Immature Granulocytes Pct Auto 10.7 %; Lymphocytes Absolute Auto 2.37 K/uL (0.90-2.90); Mean Corpuscular HGB Conc 33 gm/dL (32-36); Mean Corpuscular Hemoglobin 32 pg (26-34); Mean Corpuscular Volume 95 fL (80-100); RDW Coefficient of Variation % 15.8 % (11.5-15.5); Red Blood Count* 2.63 m/uL (4.00-5.20); White Blood Count* 10.31 K/uL (4.50-11.00)
[2025-01-19] MEDS: OMEPRAZOLE 20 MG CAPSULE DR PO ×2 (07:54→17:55)
[2025-01-19 07:55] LABS: Chloride* 100 mmol/L (96-114); Potassium* 3.8 mmol/L (3.6-5.1); Sodium* 135 mmol/L (135-149)
[2025-01-19 07:58] LABS: Blood Urea Nitrogen* 21 mg/dL (7-30); Creatinine* 0.6 mg/dL (0.5-1.5); Est. Creatinine Clearance* 37.60; Estimated Glomerular Filt Rate 97 ml/min
[2025-01-19 07:59] LABS: Anion Gap 6 mEq/L (7-15); Calcium* 8.4 mg/dL (8.4-10.6); Carbon Dioxide* 29 mmol/L (20-32); Glucose* 89 mg/dL (60-115)
[2025-01-19 08:01] LABS: Slide Review Reflex No
[2025-01-19] MEDS: ACETAMINOPHEN 325 MG TABLET 650 MG PO ×3 (08:04→22:15)
[2025-01-19] MEDS: ONDANSETRON ODT 4 MG TAB PO (08:04)
--- NOTE | 2025-01-19 08:37 | PC.NURSE ---
Addendum entered by Sahara Navarrete RN 01/19/25 08:37: IV to left?AC infiltrated and was discontinued. New IV placed in left forearm.? Original Note: Shift note ([id number]): Patient admitted last night from ED. Pleasant, alert and oriented with occasional confusion. Has remained in bed this shift. Given?ice chips overnight, has otherwise been NPO since midnight. 2 units of blood given per MD orders. Pt tolerated well. Purewick applied. Good urine output. ?
[2025-01-19] MEDS: HYDRALAZINE 25 MG TABLET 50 MG PO ×2 (09:10→20:35)
[2025-01-19] MEDS: DIVALPROEX DELAYED RELEASE 250 MG TABLET 750 MG PO (09:11)
[2025-01-19] MEDS: SODIUM CHLORIDE 0.9 % (FLUSH) 10 ML SYRINGE 5 ML IVF ×2 (09:15→20:37)
--- NOTE | 2025-01-19 10:24 | PC.SOCIAL ---
Addendum entered and electronically signed by Brandi Edwards LCSW 01/19/25 11:55: ADRIÁN met with Karina, patient's friend and emergency contact, to discuss patient's concerns with going back to [facility] vs home. Karina states that she thinks patient will go back after they talk. Karina states she grew up with patient and knows her very well. Karina states that she will talk more with patient about how it would be best for her to go back to the [facility], so that she can have more success in being independent after some more support and rehab. Original Note: Discharge planning: ADRIÁN called Antoinette at [facility] to determine plan with [facility]. Antoinette states the plan had been for patient to stay at [facility] until today and then return home. Antoinette states they still have room if patient would like to return, but it is patient's choice. ADRIÁN met with patient who explains that she thought she was going to and is now fearful to return to [facility]'s [facility]. Patient states she's unsure of what to do, either go home or something else. Patient reports that her friend and emergency contact is coming at 1030. ADRIÁN states that a friend could bring her meals to heat in the microwave if needed. ADRIÁN informed therapies of patient's hesitation to go back if this were to be recommended.
[2025-01-19 12:04] LABS: Appearance Urine Clear (Clear)
--- NOTE | 2025-01-19 12:40 | P.ANES_ITS ---
Anesthesia Charges Start Date/Time Anesthesia Start Date: 01/19/25 Anesthesia Start Time: 13:23 Stop Date/Time Anesthesia Stop Date: 01/19/25 Anesthesia Stop Time: 13:49 Summary Extremes of Age - Over 70 or under 1: MDA Coding CPT Codes CPT Codes: ANES UPR GI NDSC PX NOS - 01881 ([id number]) P3 - PATIENT W/SEVERE SYS DISEASE, QK - RADIO TELEVISION TECHNICAL DIRECTOR 2-4 CNCRNT ANES PROC, QX - SENIOR CLINICAL PROJECT MANAGER SVC W/ MD MED DIRECTION Additional Codes: Summary - Extremes of Age - Over 70 or under 1: MDA ([id number])
--- NOTE | 2025-01-19 12:40 | W.ANESCHARGE ---
Anesthesia Charges Start Date/Time Anesthesia Start Date: 01/19/25 Anesthesia Start Time: 13:23 Stop Date/Time Anesthesia Stop Date: 01/19/25 Anesthesia Stop Time: 13:49 Summary Extremes of Age - Over 70 or under 1: MDA Coding CPT Codes CPT Codes: ANES UPR GI NDSC PX NOS - 21945 ([id number]) P3 - PATIENT W/SEVERE SYS DISEASE, QK - HORSE WRANGLER 2-4 CNCRNT ANES PROC, QX - COAL GASIFICATION TECHNICIAN SVC W/ MD MED DIRECTION Additional Codes: Summary - Extremes of Age - Over 70 or under 1: MDA ([id number])
--- NOTE | 2025-01-19 13:58 | P.ANES_ITS ---
Anesthesia Charges Start Date/Time Anesthesia Start Date: 01/19/25 Anesthesia Start Time: 13:23 Stop Date/Time Anesthesia Stop Date: 01/19/25 Anesthesia Stop Time: 13:49 Summary Extremes of Age - Over 70 or under 1: WINDERMAN Coding CPT Codes CPT Codes: ANES UPR GI NDSC PX NOS - 29191 ([id number]) P3 - PATIENT W/SEVERE SYS DISEASE, QK - BOWLING ALLEY REFINISHER 2-4 CNCRNT ANES PROC, QX - WINDERMAN SVC W/ MD MED DIRECTION Additional Codes: Summary - Extremes of Age - Over 70 or under 1: WINDERMAN ([id number])
--- NOTE | 2025-01-19 13:58 | W.ANESCHARGE ---
Anesthesia Charges Start Date/Time Anesthesia Start Date: 01/19/25 Anesthesia Start Time: 13:23 Stop Date/Time Anesthesia Stop Date: 01/19/25 Anesthesia Stop Time: 13:49 Summary Extremes of Age - Over 70 or under 1: UNITIZER Coding CPT Codes CPT Codes: ANES UPR GI NDSC PX NOS - 02235 ([id number]) P3 - PATIENT W/SEVERE SYS DISEASE, QK - REIMBURSEMENT AUDITOR 2-4 CNCRNT ANES PROC, QX - UNITIZER SVC W/ MD MED DIRECTION Additional Codes: Summary - Extremes of Age - Over 70 or under 1: UNITIZER ([id number])
--- NOTE | 2025-01-19 15:31 | PC.NURSE ---
Pt is alert and oriented. Pt had 8 out of 10 pain during the shift, managed with PRN oxycodone and ice packs. Swelling noted under right collar bone, right shoulder, down to the right hand. Dressing clean, dry, and intact. CMS wnl. Lung sounds clear. Pt is assist of 1 with cane, tolerated well. Pt went to endo around 1145 returned around 1330. vss. Echo upon return. Pt is stable and in bed resting.
--- NOTE | 2025-01-19 16:20 | P.IMPN_ITS ---
Assessment and Plan Assessment and plan (1) Postoperative anemia: Problem comment: Suspicious for postop bleeding into the shoulder. Evaluation for other sites of occult bleeding including upper endoscopy and CT chest abdomen and pelvis show no other obvious site of bleeding. Not likely hemolysis. Status: Acute (2) Dyspnea: Problem comment: Dyspnea likely due to acute blood loss anemia plus underlying COPD and coronary artery disease. Dyspnea resolved with blood transfusion Status: Acute (3) Non-STEMI (non-ST elevated myocardial infarction): Problem comment: Patient has elevated troponin likely due to undiagnosed coronary artery disease in the context of acute blood loss anemia. Clinically improved with blood transfusion. No chest pain. Normal EKG. Echo pending Status: Acute (4) Status post reverse arthroplasty of right shoulder: Problem comment: Right upper extremity reverse shoulder arthroplasty, biceps tenodesis (01/13/25, Dr. Garcia) Status: Acute (5) COPD (chronic obstructive pulmonary disease): Problem comment: Appears well managed at this point Status: Chronic Plan Continue in hospital for evaluation management of acute blood loss anemia in the context of heart disease and lung disease. Pending orthopedic consultation and plan of care. Total Time Spent Total Time Spent: Total time spent today is 60 minutes in review of outside records, coordination of care, discussion with patient, endoscopy, Orthopedics ongoing evaluation and management of acute blood loss anemia Subjective Date Seen: 01/19/25 Interval history: 69-year-old female 5 days post right reverse total shoulder arthroplasty presents with progressive dyspnea, anxiety, pain and swelling in her right shoulder. She had an uncomplicated shoulder surgery on January 13. Postoperatively she has had swelling in her right shoulder with pain and has also developed dyspnea and anxiety. Evaluation on admission to the hospital included the discovery of a hemoglobin of 5.1 compared to a preop hemoglobin from 12/31/2024 of 11.5. The cause for this was not obviously apparent. There was concern that this was an occult GI bleed verses bleeding into the soft tissue around her shoulder. She had a chest CTA and abdominal CT which were unremarkable. She underwent upper endoscopy which showed no active bleeding. She also had elevated troponin at 0.15. No previous history of coronary disease. Electrocardiogram was normal. She had no chest pain. Exam Narrative: Exam Narrative: She is alert and appears in no obvious distress at rest. She gives her own history. Respirations are clear to auscultation. Cardiovascular: S1, S2, regular rate and rhythm. Abdomen: Bowel sounds active. Abdomen is soft without tenderness or mass. No apparent abdominal distension. Inspection of her shoulder shows moderate edema extending from the shoulder down to the hand. Some associated bruising in the dependent aspects of her arm. She has intact pulses and her fingers are edematous but warm to touch. Const: Vital Signs, click to edit/add: Vital Signs - 24 hr 01/18/25 18:07 01/18/25 18:07 01/18/25 18:32 Temperature 97.3 F L Pulse Rate 82 81 Pulse Rate [Left P ulse Oximeter] 80 Pulse Rate [Pulse Oximeter] Respiratory Rate 40 H 19 20 Blood Pressure 110/41 L 111/55 L Blood Pressure [Le ft Arm] Blood Pressure [Le ft Upper Arm] 110/41 L Pulse Oximetry 88 95 96 Oxygen Delivery Me thod Room Air Oxygen Flow Rate 01/18/25 19:00 01/18/25 19:02 01/18/25 19:15 Temperature Pulse Rate 80 79 81 Pulse Rate [Left P ulse Oximeter] Pulse Rate [Pulse Oximeter] Respiratory Rate 18 20 15 Blood Pressure 117/54 L Blood Pressure [Le ft Arm] Blood Pressure [Le ft Upper Arm] Pulse Oximetry 95 96 95 Oxygen Delivery Me thod Oxygen Flow Rate 01/18/25 19:30 01/18/25 19:32 01/18/25 19:45 Temperature Pulse Rate 81 80 Pulse Rate [Left P ulse Oximeter] Pulse Rate [Pulse Oximeter] Respiratory Rate 27 H 21 11 L Blood Pressure 106/61 Blood Pressure [Le ft Arm] Blood Pressure [Le ft Upper Arm] Pulse Oximetry 96 96 Oxygen Delivery Me thod Oxygen Flow Rate 01/18/25 20:12 01/18/25 20:15 01/18/25 20:30 Temperature Pulse Rate 84 84 81 Pulse Rate [Left P ulse Oximeter] Pulse Rate [Pulse Oximeter] Respiratory Rate 19 18 18 Blood Pressure Blood Pressure [Le ft Arm] Blood Pressure [Le ft Upper Arm] Pulse Oximetry 96 97 98 Oxygen Delivery Me thod Oxygen Flow Rate 01/18/25 20:35 01/18/25 20:36 01/18/25 21:03 Temperature 97.6 F Pulse Rate 80 79 Pulse Rate [Left P ulse Oximeter] Pulse Rate [Pulse Oximeter] 83 Respiratory Rate 19 17 16 Blood Pressure Blood Pressure [Le ft Arm] 126/53 L Blood Pressure [Le ft Upper Arm] Pulse Oximetry 98 98 97 Oxygen Delivery Me thod Nasal Cannula Oxygen Flow Rate 2 01/18/25 22:38 01/18/25 22:40 01/18/25 22:58 Temperature 98.2 F 98.2 F Pulse Rate 83 Pulse Rate [Left P ulse Oximeter] Pulse Rate [Pulse Oximeter] 83 Respiratory Rate 16 16 16 Blood Pressure 112/44 L Blood Pressure [Le ft Arm] 112/44 L Blood Pressure [Le ft Upper Arm] Pulse Oximetry 94 95 95 Oxygen Delivery Me thod Nasal Cannula Nasal Cannula Nasal Cannula Oxygen Flow Rate 2 2 2 01/18/25 23:00 01/18/25 23:29 01/19/25 00:00 Temperature 97.8 F 98.1 F 97.8 F Pulse Rate 81 77 79 Pulse Rate [Left P ulse Oximeter] Pulse Rate [Pulse Oximeter] Respiratory Rate 17 16 16 Blood Pressure 107/60 100/54 L 105/55 L Blood Pressure [Le ft Arm] Blood Pressure [Le ft Upper Arm] Pulse Oximetry 95 95 95 Oxygen Delivery Me thod Nasal Cannula Nasal Cannula Nasal Cannula Oxygen Flow Rate 1 2 1 01/19/25 00:28 01/19/25 01:00 01/19/25 01:30 Temperature 97.9 F 97.9 F 97.8 F Pulse Rate 79 79 80 Pulse Rate [Left P ulse Oximeter] Pulse Rate [Pulse Oximeter] Respiratory Rate 16 17 16 Blood Pressure 107/64 106/72 113/57 L Blood Pressure [Le ft Arm] Blood Pressure [Le ft Upper Arm] Pulse Oximetry 96 94 94 Oxygen Delivery Me thod Nasal Cannula Nasal Cannula Nasal Cannula Oxygen Flow Rate 1 1 1 01/19/25 02:00 01/19/25 02:15 01/19/25 03:17 Temperature 97.8 F 97.7 F 97.8 F Pulse Rate 79 73 76 Pulse Rate [Left P ulse Oximeter] Pulse Rate [Pulse Oximeter] Respiratory Rate 17 16 17 Blood Pressure 121/55 L 116/58 L 101/57 L Blood Pressure [Le ft Arm] Blood Pressure [Le ft Upper Arm] Pulse Oximetry 93 92 90 Oxygen Delivery Me thod Room Air Room Air Room Air Oxygen Flow Rate 01/19/25 03:18 01/19/25 03:18 01/19/25 03:35 Temperature 97.8 F 97.8 F 97.6 F Pulse Rate 76 71 Pulse Rate [Left P ulse Oximeter] Pulse Rate [Pulse Oximeter] 76 Respiratory Rate 17 17 15 Blood Pressure 101/57 L 90/47 L Blood Pressure [Le ft Arm] 101/57 L Blood Pressure [Le ft Upper Arm] Pulse Oximetry 90 90 90 Oxygen Delivery Me thod Room Air Room Air Room Air Oxygen Flow Rate 01/19/25 04:05 01/19/25 04:29 01/19/25 04:38 Temperature 98.1 F 97.7 F 97.9 F Pulse Rate 69 73 72 Pulse Rate [Left P ulse Oximeter] Pulse Rate [Pulse Oximeter] Respiratory Rate 16 17 16 Blood Pressure 98/54 L 114/52 L 116/51 L Blood Pressure [Le ft Arm] Blood Pressure [Le ft Upper Arm] Pulse Oximetry 92 90 93 Oxygen Delivery Me thod Room Air Room Air Room Air Oxygen Flow Rate 01/19/25 05:00 01/19/25 05:30 01/19/25 06:00 Temperature 97.5 F L 97.8 F 97.6 F Pulse Rate 72 71 71 Pulse Rate [Left P ulse Oximeter] Pulse Rate [Pulse Oximeter] Respiratory Rate 17 16 15 Blood Pressure 123/63 125/62 99/50 L Blood Pressure [Le ft Arm] Blood Pressure [Le ft Upper Arm] Pulse Oximetry 92 94 92 Oxygen Delivery Me thod Room Air Room Air Oxygen Flow Rate 01/19/25 06:05 01/19/25 07:00 01/19/25 07:00 Temperature 97.6 F 98.1 F Pulse Rate 69 Pulse Rate [Left P ulse Oximeter] Pulse Rate [Pulse Oximeter] 75 Respiratory Rate 17 18 18 Blood Pressure 102/46 L Blood Pressure [Le ft Arm] 137/63 Blood Pressure [Le ft Upper Arm] Pulse Oximetry 91 94 94 Oxygen Delivery Me thod Room Air Room Air Room Air Oxygen Flow Rate 01/19/25 07:30 01/19/25 11:00 01/19/25 15:00 Temperature 98.1 F 98.2 F Pulse Rate 75 Pulse Rate [Left P ulse Oximeter] Pulse Rate [Pulse Oximeter] 70 Respiratory Rate 18 16 18 Blood Pressure 137/63 Blood Pressure [Le ft Arm] 107/47 L Blood Pressure [Le ft Upper Arm] Pulse Oximetry 94 92 93 Oxygen Delivery Me thod Room Air Room Air Room Air Oxygen Flow Rate 01/19/25 15:00 Temperature 97.9 F Pulse Rate Pulse Rate [Left P ulse Oximeter] Pulse Rate [Pulse Oximeter] 76 Respiratory Rate 18 Blood Pressure Blood Pressure [Le ft Arm] 141/60 H Blood Pressure [Le ft Upper Arm] Pulse Oximetry 93 Oxygen Delivery Me thod Room Air Oxygen Flow Rate Documenting provider has reviewed patient's vital signs: yes Labs Labs: Laboratory Results - last 24 hr 01/18/25 01/18/25 01/18/25 09:48 18:40 20:24 WBC 12.58 H 11.71 H RBC 1.58 L 1.59 L Hgb 5.1 L* 5.2 L* Hct 16.1 L 16.1 L MCV 102 H 101 H MCH 32 33 MCHC 32 32 RDW Coeff of Jaden 14.4 Plt Count 292 302 Neut % (Auto) 55.3 Lymph % (Auto) 23.7 [place] % (Auto) 13.2 H Eos % (Auto) 0.9 Baso % (Auto) 0.2 Neut # (Auto) 6.50 Lymph # (Auto) 2.80 [place] # (Auto) 1.50 H Eos # (Auto) 0.10 Baso # (Auto) 0.00 Abs Immat Gran (auto) 0.80 H Imm/Tot Granulo (auto) 6.7 Absolute Retic 0.14 H Percent Retic 8.9 H Immature Retic Fraction 46.5 H Retic Hgb Equivalent 36.8 H D-Dimer Quant (PE/DVT) 2.12 H Sodium 133 L Potassium 4.2 Chloride 98 Carbon Dioxide 32 Anion Gap 3 L BUN 26 Creatinine 0.7 Estimated Creat Clear Estimated GFR 93 Glucose 104 Calcium 8.3 L Total Bilirubin Direct Bilirubin AST ALT Alkaline Phosphatase Lactate Dehydrogenase Troponin I 0.15 H* C-Reactive Protein NT-Pro-B Natriuret Pep 2500 H Total Protein Albumin Urine Color Urine Appearance Urine pH Ur Specific [place] Urine Protein Urine Glucose (UA) Urine Ketones Urine Blood Urine Nitrite Urine Bilirubin Urine Urobilinogen Ur Leukocyte Esterase Urine RBC Urine WBC Ur Squamous Epith Cells Urine Bacteria Lab Acknowledgement Blood Type O Positive Antibody Screen NEGATIVE Crossmatch (AHG) See Detail 01/18/25 01/18/25 01/18/25 21:48 22:11 22:59 WBC RBC Hgb Hct MCV MCH MCHC RDW Coeff of Jaden Plt Count Neut % (Auto) Lymph % (Auto) [place] % (Auto) Eos % (Auto) Baso % (Auto) Neut # (Auto) Lymph # (Auto) [place] # (Auto) Eos # (Auto) Baso # (Auto) Abs Immat Gran (auto) Imm/Tot Granulo (auto) Absolute Retic Percent Retic Immature Retic Fraction Retic Hgb Equivalent D-Dimer Quant (PE/DVT) Sodium Potassium Chloride Carbon Dioxide Anion Gap BUN Creatinine Estimated Creat Clear Estimated GFR Glucose Calcium Total Bilirubin 0.5 Direct Bilirubin 0.4 AST 44 H ALT 19 Alkaline Phosphatase 40 Lactate Dehydrogenase 193 Troponin I 0.15 H* C-Reactive Protein NT-Pro-B Natriuret Pep Total Protein 4.7 L Albumin 2.5 L Urine Color Urine Appearance Urine pH Ur Specific [place] Urine Protein Urine Glucose (UA) Urine Ketones Urine Blood Urine Nitrite Urine Bilirubin Urine Urobilinogen Ur Leukocyte Esterase Urine RBC Urine WBC Ur Squamous Epith Cells Urine Bacteria Lab Acknowledgement Test Added Test Added Blood Type Antibody Screen Crossmatch (AHG) 01/19/25 01/19/25 07:24 11:52 WBC 10.31 RBC 2.63 L Hgb 8.3 L Hct 25.0 L MCV 95 MCH 32 MCHC 33 RDW Coeff of Jaden 15.8 H Plt Count 250 Neut % (Auto) 50.7 Lymph % (Auto) 23.0 [place] % (Auto) 14.4 H Eos % (Auto) 1.1 Baso % (Auto) 0.1 Neut # (Auto) 5.24 Lymph # (Auto) 2.37 [place] # (Auto) 1.50 H Eos # (Auto) 0.11 Baso # (Auto) 0.01 Abs Immat Gran (auto) 1.10 H Imm/Tot Granulo (auto) 10.7 Absolute Retic Percent Retic Immature Retic Fraction Retic Hgb Equivalent D-Dimer Quant (PE/DVT) Sodium 135 Potassium 3.8 Chloride 100 Carbon Dioxide 29 Anion Gap 6 L BUN 21 Creatinine 0.6 Estimated Creat Clear 37.60 Estimated GFR 97 Glucose 89 Calcium 8.4 Total Bilirubin Direct Bilirubin AST ALT Alkaline Phosphatase Lactate Dehydrogenase Troponin I 0.12 H* C-Reactive Protein 7.1 H NT-Pro-B Natriuret Pep Total Protein Albumin Urine Color Dark yellow Urine Appearance Clear Urine pH 5.5 Ur Specific [place] 1.010 Urine Protein Negative Urine Glucose (UA) Negative Urine Ketones Negative Urine Blood Negative Urine Nitrite Negative Urine Bilirubin Negative Urine Urobilinogen 1.0 Ur Leukocyte Esterase Negative Urine RBC 0-2 Urine WBC 0-2 Ur Squamous Epith Cells None Urine Bacteria None Lab Acknowledgement Blood Type Antibody Screen Crossmatch (AHG)
[2025-01-19 16:23] LABS: Hemoglobin* 8.4 gm/dL (12.0-16.0)
[2025-01-19 16:49] LABS: Fecal Occult Blood* Positive (Negative)
[2025-01-19] MEDS: DIVALPROEX DELAYED RELEASE 250 MG TABLET 1000 MG PO (17:56)
--- NOTE | 2025-01-19 18:08 | PM.ORCN ---
History of Present Illness HPI Date Seen: 01/19/25 Chief complaint: weakness Narrative: Berkley is seen for her right shoulder. She underwent reverse shoulder arthroplasty on 01/13/2025. She was admitted with weakness and acute anemia. A source for the bleeding has not been identified. She has undergone CT angiogram of her chest and upper endoscopy. She reports pain and swelling in her shoulder, arm, forearm, hand and fingers. The hemoglobin has gone from 5 to 8 after a couple of units of blood. Review of Systems Narrative: The patient denies: Fever, night sweats, shaking chills, nausea, vomiting, diarrhea, chest pain, chest pressure, shortness of breath, no rash, no change in hearing or vision, no issues with bleeding or clotting [facility] Medical History Hypertension ?I10 - Essential (primary) hypertension (ICD-10) COPD (chronic obstructive pulmonary disease) ?J44.9 - Chronic obstructive pulmonary disease, unspecified (ICD-10) Ineffective coping ?R45.89 - Other symptoms and signs involving emotional state (ICD-10) Hyponatremia ?E87.1 - Hypo-osmolality and hyponatremia (ICD-10) Overdose by ingestion ?T50.901A - Poisoning by unspecified drugs, medicaments and biological substances, accidental (unintentional), initial encounter (ICD-10) Traumatic rhabdomyolysis (~03/2023) ?T79.6XXA - Traumatic ischemia of muscle, initial encounter (ICD-10) Traumatic subdural hematoma ?S06.5XAA - Traumatic subdural hemorrhage with loss of consciousness status unknown, initial encounter (ICD-10) Cigarette smoker ?F17.210 - Nicotine dependence, cigarettes, uncomplicated (ICD-10) Acute renal failure due to traumatic rhabdomyolysis ?N17.9 - Acute kidney failure, unspecified (ICD-10) ?T79.6XXA - Traumatic ischemia of muscle, initial encounter (ICD-10) Traumatic ecchymosis of multiple sites ?T14.8XXA - Other injury of unspecified body region, initial encounter (ICD-10) Marijuana smoker, episodic ?F12.90 - Cannabis use, unspecified, uncomplicated (ICD-10) Elevated troponin I level ?R79.89 - Other specified abnormal findings of blood chemistry (ICD-10) Total bilirubin, elevated ?R17 - Unspecified jaundice (ICD-10) Lorazepam overdose of undetermined intent ?T42.4X4A - Poisoning by benzodiazepines, undetermined, initial encounter (ICD-10) Obstructive sleep apnea treated with continuous positive airway pressure (CPAP) (~2016) ?G47.33 - Obstructive sleep apnea (adult) (pediatric) (ICD-10) ?Z99.89 - Dependence on other enabling machines and devices (ICD-10) Venous insufficiency of both lower extremities ?I87.2 - Venous insufficiency (chronic) (peripheral) (ICD-10) Varicose veins of both lower extremities ?I83.93 - Asymptomatic varicose veins of bilateral lower extremities (ICD-10) Unintended weight loss (~11/2021) ?R63.4 - Abnormal weight loss (ICD-10) Rectal urgency ?R15.2 - Fecal urgency (ICD-10) Osteopenia (2015) ?M85.80 - Other specified disorders of bone density and structure, unspecified site (ICD-10) Osteoarthritis ?M19.90 - Unspecified osteoarthritis, unspecified site (ICD-10) Obstructive chronic bronchitis with exacerbation ?J44.1 - Chronic obstructive pulmonary disease with (acute) exacerbation (ICD-10) Internal derangement of knee ?M23.90 - Unspecified internal derangement of unspecified knee (ICD-10) History of drug abuse (2013) ?F19.11 - Other psychoactive substance abuse, in remission (ICD-10) Hepatitis C ?B19.20 - Unspecified viral hepatitis C without hepatic coma (ICD-10) Encounter for counseling regarding advance directives (06/21/15) ?Z71.89 - Other specified counseling (ICD-10) Chronic neck pain ?M54.2 - Cervicalgia (ICD-10) ?G89.29 - Other chronic pain (ICD-10) Bleeding internal hemorrhoids ?K64.8 - Other hemorrhoids (ICD-10) Bilateral edema of lower extremity ?R60.0 - Localized edema (ICD-10) Surgical History History of esophagogastroduodenoscopy (EGD) (11/2021) ?Z98.890 - Other specified postprocedural states (ICD-10) Hx of varicose vein ligation and stripping (~2016) ?Z98.890 - Other specified postprocedural states (ICD-10) Colon cancer screening (~2015) ?Z12.11 - Encounter for screening for malignant neoplasm of colon (ICD-10) Status post left knee replacement (04/08/19) ?Z96.652 - Presence of left artificial knee joint (ICD-10) History of right knee joint replacement (2009) ?Z96.651 - Presence of right artificial knee joint (ICD-10) History of repair of right rotator cuff (~2011) ?Z98.890 - Other specified postprocedural states (ICD-10) History of ovarian cystectomy ?Z98.890 - Other specified postprocedural states (ICD-10) ?Z87.42 - Personal history of other diseases of the female genital tract (ICD-10) History of medial meniscus repair of left knee (2013) ?Z98.890 - Other specified postprocedural states (ICD-10) History of hysterectomy with oophorectomy (1984) History of arthroplasty of right knee (2009) ?Z96.651 - Presence of right artificial knee joint (ICD-10) History of abdominoplasty (1996) ?Z98.890 - Other specified postprocedural states (ICD-10) H/O endoscopy ?Z98.890 - Other specified postprocedural states (ICD-10) Normal colonoscopy (2021) Family History Aunt Breast cancer Mother Ovarian cancer Sister Stomach cancer Other Adopted person Psoriasis Social History Narrative: Single, homemaker, lives with cat Clara independent [facility] quit 07/2024- hx 30 pack years Does not drink alcohol 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 [employer] What is your current living situation?: I presently have a place to live Problems where you live: no known problems Problems where you live details: n/a In the past 12 months, utilities in danger of being shut off: no In past 12 months, lack of transportation kept you from medical appts, meetings, work, or getting things needed for daily living: no In the past 12 mos, have been you worried that your food would run out before you had money to buy more?: never true In the past 12 mos, the food you bought just didn't last and you didn't have money to buy more?: never true Smoking Status: Former smoker What tobacco products do you use: cigarettes Years smoked: 50 Smoking quit date/years: <= 15 years ago Do you use any of these nicotine containing products: None Second hand tobacco smoke exposure: No How often do you have a drink containing alcohol: never AUDIT-C Alcohol total score: 0 Non-prescribed substance use: marijuana (any form) Caffeine: Yes How often does anyone, including family, friends and others, physically hurt you: never How often does anyone, including family, friends and others, insult or talk down to you: never How often does anyone, including family, friends and others, threaten you with harm: never How often does anyone, including family, friends and others, scream or curse at you: never service: No Meds Home Medications and Allergies Home Medications ?Medication ?Instructions ?Recorded ?Confirmed ?Type divalproex 500 mg tablet,delayed 1,000 mg PO HS 02/23/22 01/19/25 History release carvedilol 25 mg tablet 12.5 mg (1/2 x 25 mg) PO BID #90 03/12/24 01/19/25 Rx tabs esomeprazole magnesium 40 mg 40 mg PO DAILY #90 caps 03/12/24 01/19/25 Rx capsule,delayed release fluticasone furoate 100 1 inh inhalation DAILY #30 ea 03/12/24 01/19/25 Rx mcg-vilanterol 25 mcg/dose inhalation powder hydralazine 50 mg tablet 50 mg PO BID #180 tabs 03/12/24 01/19/25 Rx divalproex 250 mg tablet,delayed 750 mg PO QAM 03/13/24 01/19/25 History release lorazepam 0.5 mg tablet 0.5 mg PO BID PRN 04/18/24 01/19/25 History albuterol sulfate 90 mcg/actuation 2 puff inhalation Q4H PRN 09/29/24 01/19/25 History aerosol inhaler acetaminophen 500 mg capsule 500 - 1,000 mg (1 - 2 x 500 mg) PO 01/13/25 01/19/25 Rx Q6H PRN pain #100 caps cyclobenzaprine 5 mg tablet 5 mg PO HS PRN muscle spasm 01/13/25 01/19/25 History levothyroxine 112 mcg tablet 112 mcg PO DAILY 01/13/25 01/19/25 History oxycodone 5 mg tablet 2.5 - 5 mg (0.5 - 1 x 5 mg) PO 01/13/25 01/19/25 Rx Q4-6H PRN Pain #30 tabs ropinirole 1 mg tablet 1 - 2 mg PO BID@17,21 01/13/25 01/19/25 History rosuvastatin 5 mg tablet 5 mg PO DAILY 01/13/25 01/19/25 History sennosides 8.6 mg tablet (Senna 17.2 mg (2 x 8.6 mg) PO BID PRN 01/13/25 01/19/25 Rx Lax) constipation #100 tabs ondansetron 4 mg disintegrating 4 mg PO Q6H PRN nausea and 01/15/25 01/19/25 Rx tablet vomiting #15 tabs Allergies Allergy/AdvReac Type Severity Reaction Status Date / Time gabapentin Allergy Intermediate Hives Verified 01/18/25 20:10 lisinopril Allergy Intermediate edema in Verified 01/18/25 20:10 face risperidone Allergy Unknown Verified 01/18/25 20:10 aripiprazole AdvReac Intermediate leg Verified 01/18/25 20:10 swelling amlodipine AdvReac Mild leg Verified 01/18/25 20:10 swelling quetiapine AdvReac swelling Verified 01/18/25 20:10 Ortho Exam Narrative Exam Narrative: The patient is examined seated in the hospital bed. The right shoulder dressing is clean and dry. There is postop appropriate swelling of the shoulder, arm, forearm, hand and fingers. Swelling is not excessive. The arm and forearm are soft, nontender to palpation. CMS to the hand is normal. There is no pain with passive range of motion of the wrist and fingers. Const Vital Signs, click to edit/add: Vital Signs - 24 hr 01/18/25 18:32 01/18/25 19:00 01/18/25 19:02 Temperature Pulse Rate 81 80 79 Pulse Rate [Pulse Oximeter] Respiratory Rate 20 18 20 Blood Pressure 111/55 L 117/54 L Blood Pressure [Left Arm] Pulse Oximetry 96 95 96 Oxygen Delivery Method Oxygen Flow Rate 01/18/25 19:15 01/18/25 19:30 01/18/25 19:32 Temperature Pulse Rate 81 81 80 Pulse Rate [Pulse Oximeter] Respiratory Rate 15 27 H 21 Blood Pressure 106/61 Blood Pressure [Left Arm] Pulse Oximetry 95 96 96 Oxygen Delivery Method Oxygen Flow Rate 01/18/25 19:45 01/18/25 20:12 01/18/25 20:15 Temperature Pulse Rate 84 84 Pulse Rate [Pulse Oximeter] Respiratory Rate 11 L 19 18 Blood Pressure Blood Pressure [Left Arm] Pulse Oximetry 96 97 Oxygen Delivery Method Oxygen Flow Rate 01/18/25 20:30 01/18/25 20:35 01/18/25 20:36 Temperature Pulse Rate 81 80 79 Pulse Rate [Pulse Oximeter] Respiratory Rate 18 19 17 Blood Pressure Blood Pressure [Left Arm] Pulse Oximetry 98 98 98 Oxygen Delivery Method Oxygen Flow Rate 01/18/25 21:03 01/18/25 22:38 01/18/25 22:40 Temperature 97.6 F 98.2 F 98.2 F Pulse Rate 83 Pulse Rate [Pulse Oximeter] 83 83 Respiratory Rate 16 16 16 Blood Pressure 112/44 L Blood Pressure [Left Arm] 126/53 L 112/44 L Pulse Oximetry 97 94 95 Oxygen Delivery Method Nasal Cannula Nasal Cannula Nasal Cannula Oxygen Flow Rate 2 2 2 01/18/25 22:58 01/18/25 23:00 01/18/25 23:29 Temperature 97.8 F 98.1 F Pulse Rate 81 77 Pulse Rate [Pulse Oximeter] Respiratory Rate 16 17 16 Blood Pressure 107/60 100/54 L Blood Pressure [Left Arm] Pulse Oximetry 95 95 95 Oxygen Delivery Method Nasal Cannula Nasal Cannula Nasal Cannula Oxygen Flow Rate 2 1 2 01/19/25 00:00 01/19/25 00:28 01/19/25 01:00 Temperature 97.8 F 97.9 F 97.9 F Pulse Rate 79 79 79 Pulse Rate [Pulse Oximeter] Respiratory Rate 16 16 17 Blood Pressure 105/55 L 107/64 106/72 Blood Pressure [Left Arm] Pulse Oximetry 95 96 94 Oxygen Delivery Method Nasal Cannula Nasal Cannula Nasal Cannula Oxygen Flow Rate 1 1 1 01/19/25 01:30 01/19/25 02:00 01/19/25 02:15 Temperature 97.8 F 97.8 F 97.7 F Pulse Rate 80 79 73 Pulse Rate [Pulse Oximeter] Respiratory Rate 16 17 16 Blood Pressure 113/57 L 121/55 L 116/58 L Blood Pressure [Left Arm] Pulse Oximetry 94 93 92 Oxygen Delivery Method Nasal Cannula Room Air Room Air Oxygen Flow Rate 1 01/19/25 03:17 01/19/25 03:18 01/19/25 03:18 Temperature 97.8 F 97.8 F 97.8 F Pulse Rate 76 76 Pulse Rate [Pulse Oximeter] 76 Respiratory Rate 17 17 17 Blood Pressure 101/57 L 101/57 L Blood Pressure [Left Arm] 101/57 L Pulse Oximetry 90 90 90 Oxygen Delivery Method Room Air Room Air Room Air Oxygen Flow Rate 01/19/25 03:35 01/19/25 04:05 01/19/25 04:29 Temperature 97.6 F 98.1 F 97.7 F Pulse Rate 71 69 73 Pulse Rate [Pulse Oximeter] Respiratory Rate 15 16 17 Blood Pressure 90/47 L 98/54 L 114/52 L Blood Pressure [Left Arm] Pulse Oximetry 90 92 90 Oxygen Delivery Method Room Air Room Air Room Air Oxygen Flow Rate 01/19/25 04:38 01/19/25 05:00 01/19/25 05:30 Temperature 97.9 F 97.5 F L 97.8 F Pulse Rate 72 72 71 Pulse Rate [Pulse Oximeter] Respiratory Rate 16 17 16 Blood Pressure 116/51 L 123/63 125/62 Blood Pressure [Left Arm] Pulse Oximetry 93 92 94 Oxygen Delivery Method Room Air Room Air Room Air Oxygen Flow Rate 01/19/25 06:00 01/19/25 06:05 01/19/25 07:00 Temperature 97.6 F 97.6 F Pulse Rate 71 69 Pulse Rate [Pulse Oximeter] Respiratory Rate 15 17 18 Blood Pressure 99/50 L 102/46 L Blood Pressure [Left Arm] Pulse Oximetry 92 91 94 Oxygen Delivery Method Room Air Room Air Oxygen Flow Rate 01/19/25 07:00 01/19/25 07:30 01/19/25 11:00 Temperature 98.1 F 98.1 F 98.2 F Pulse Rate 75 Pulse Rate [Pulse Oximeter] 75 70 Respiratory Rate 18 18 16 Blood Pressure 137/63 Blood Pressure [Left Arm] 137/63 107/47 L Pulse Oximetry 94 94 92 Oxygen Delivery Method Room Air Room Air Room Air Oxygen Flow Rate 01/19/25 12:03 01/19/25 15:00 08/11/25 15:00 Temperature 97.9 F Pulse Rate 72 Pulse Rate [Pulse Oximeter] 76 Respiratory Rate 18 18 Blood Pressure Blood Pressure [Left Arm] 141/60 H Pulse Oximetry 93 93 Oxygen Delivery Method Room Air Room Air Oxygen Flow Rate 01/19/25 16:25 Temperature Pulse Rate 75 Pulse Rate [Pulse Oximeter] Respiratory Rate Blood Pressure Blood Pressure [Left Arm] Pulse Oximetry Oxygen Delivery Method Oxygen Flow Rate Results Labs Labs: Laboratory Results - last 48 hr 01/18/25 01/18/25 01/18/25 09:48 18:40 20:24 WBC 12.58 H 11.71 H RBC 1.58 L 1.59 L Hgb 5.1 L* 5.2 L* Hct 16.1 L 16.1 L MCV 102 H 101 H MCH 32 33 MCHC 32 32 RDW Coeff of Jaden 14.4 Plt Count 292 302 Neut % (Auto) 55.3 Lymph % (Auto) 23.7 [place] % (Auto) 13.2 H Eos % (Auto) 0.9 Baso % (Auto) 0.2 Neut # (Auto) 6.50 Lymph # (Auto) 2.80 [place] # (Auto) 1.50 H Eos # (Auto) 0.10 Baso # (Auto) 0.00 Abs Immat Gran (auto) 0.80 H Imm/Tot Granulo (auto) 6.7 Absolute Retic 0.14 H Percent Retic 8.9 H Immature Retic Fraction 46.5 H Retic Hgb Equivalent 36.8 H D-Dimer Quant (PE/DVT) 2.12 H Sodium 133 L Potassium 4.2 Chloride 98 Carbon Dioxide 32 Anion Gap 3 L BUN 26 Creatinine 0.7 Estimated Creat Clear Estimated GFR 93 Glucose 104 Calcium 8.3 L Total Bilirubin Direct Bilirubin AST ALT Alkaline Phosphatase Lactate Dehydrogenase Troponin I 0.15 H* C-Reactive Protein NT-Pro-B Natriuret Pep 2500 H Total Protein Albumin Urine Color Urine Appearance Urine pH Ur Specific [place] Urine Protein Urine Glucose (UA) Urine Ketones Urine Blood Urine Nitrite Urine Bilirubin Urine Urobilinogen Ur Leukocyte Esterase Urine RBC Urine WBC Ur Squamous Epith Cells Urine Bacteria Stool Occult Blood Lab Acknowledgement Blood Type O Positive Antibody Screen NEGATIVE Crossmatch (AHG) See Detail 01/18/25 01/18/25 01/18/25 21:48 22:11 22:59 WBC RBC Hgb Hct MCV MCH MCHC RDW Coeff of Jaden Plt Count Neut % (Auto) Lymph % (Auto) [place] % (Auto) Eos % (Auto) Baso % (Auto) Neut # (Auto) Lymph # (Auto) [place] # (Auto) Eos # (Auto) Baso # (Auto) Abs Immat Gran (auto) Imm/Tot Granulo (auto) Absolute Retic Percent Retic Immature Retic Fraction Retic Hgb Equivalent D-Dimer Quant (PE/DVT) Sodium Potassium Chloride Carbon Dioxide Anion Gap BUN Creatinine Estimated Creat Clear Estimated GFR Glucose Calcium Total Bilirubin 0.5 Direct Bilirubin 0.4 AST 44 H ALT 19 Alkaline Phosphatase 40 Lactate Dehydrogenase 193 Troponin I 0.15 H* C-Reactive Protein NT-Pro-B Natriuret Pep Total Protein 4.7 L Albumin 2.5 L Urine Color Urine Appearance Urine pH Ur Specific [place] Urine Protein Urine Glucose (UA) Urine Ketones Urine Blood Urine Nitrite Urine Bilirubin Urine Urobilinogen Ur Leukocyte Esterase Urine RBC Urine WBC Ur Squamous Epith Cells Urine Bacteria Stool Occult Blood Lab Acknowledgement Test Added Test Added Blood Type Antibody Screen Crossmatch (AHG) 01/19/25 01/19/25 01/19/25 07:24 11:52 15:00 WBC 10.31 RBC 2.63 L Hgb 8.3 L Hct 25.0 L MCV 95 MCH 32 MCHC 33 RDW Coeff of Jaden 15.8 H Plt Count 250 Neut % (Auto) 50.7 Lymph % (Auto) 23.0 [place] % (Auto) 14.4 H Eos % (Auto) 1.1 Baso % (Auto) 0.1 Neut # (Auto) 5.24 Lymph # (Auto) 2.37 [place] # (Auto) 1.50 H Eos # (Auto) 0.11 Baso # (Auto) 0.01 Abs Immat Gran (auto) 1.10 H Imm/Tot Granulo (auto) 10.7 Absolute Retic Percent Retic Immature Retic Fraction Retic Hgb Equivalent D-Dimer Quant (PE/DVT) Sodium 135 Potassium 3.8 Chloride 100 Carbon Dioxide 29 Anion Gap 6 L BUN 21 Creatinine 0.6 Estimated Creat Clear 37.60 Estimated GFR 97 Glucose 89 Calcium 8.4 Total Bilirubin Direct Bilirubin AST ALT Alkaline Phosphatase Lactate Dehydrogenase Troponin I 0.12 H* C-Reactive Protein 7.1 H NT-Pro-B Natriuret Pep Total Protein Albumin Urine Color Dark yellow Urine Appearance Clear Urine pH 5.5 Ur Specific [place] 1.010 Urine Protein Negative Urine Glucose (UA) Negative Urine Ketones Negative Urine Blood Negative Urine Nitrite Negative Urine Bilirubin Negative Urine Urobilinogen 1.0 Ur Leukocyte Esterase Negative Urine RBC 0-2 Urine WBC 0-2 Ur Squamous Epith Cells None Urine Bacteria None Stool Occult Blood Positive A Lab Acknowledgement Blood Type Antibody Screen Crossmatch ([facility]) 01/19/25 16:15 WBC RBC Hgb 8.4 L Hct MCV MCH MCHC RDW Coeff of Jaden Plt Count Neut % (Auto) Lymph % (Auto) [place] % (Auto) Eos % (Auto) Baso % (Auto) Neut # (Auto) Lymph # (Auto) [place] # (Auto) Eos # (Auto) Baso # (Auto) Abs Immat Gran (auto) Imm/Tot Granulo (auto) Absolute Retic Percent Retic Immature Retic Fraction Retic Hgb Equivalent D-Dimer Quant (PE/DVT) Sodium Potassium Chloride Carbon Dioxide Anion Gap BUN Creatinine Estimated Creat Clear Estimated GFR Glucose Calcium Total Bilirubin Direct Bilirubin AST ALT Alkaline Phosphatase Lactate Dehydrogenase Troponin I C-Reactive Protein NT-Pro-B Natriuret Pep Total Protein Albumin Urine Color Urine Appearance Urine pH Ur Specific [place] Urine Protein Urine Glucose (UA) Urine Ketones Urine Blood Urine Nitrite Urine Bilirubin Urine Urobilinogen Ur Leukocyte Esterase Urine RBC Urine WBC Ur Squamous Epith Cells Urine Bacteria Stool Occult Blood Lab Acknowledgement Blood Type Antibody Screen Crossmatch ([facility]) Assessment and Plan Assessment and plan (1) Postoperative anemia: Problem comment: Suspicious for postop bleeding into the shoulder. Evaluation for other sites of occult bleeding including upper endoscopy and CT chest abdomen and pelvis show no other obvious site of bleeding. Not likely hemolysis. Status: Acute Total time spent: Total time spent is greater than 50% in coordination of care (as documented) at patient's floor/unit and/or counseling patient: (2) Dyspnea: Problem comment: Dyspnea likely due to acute blood loss anemia plus underlying COPD and coronary artery disease. Dyspnea resolved with blood transfusion Status: Acute Total time spent: Total time spent is greater than 50% in coordination of care (as documented) at patient's floor/unit and/or counseling patient: (3) Non-STEMI (non-ST elevated myocardial infarction): Problem comment: Patient has elevated troponin likely due to undiagnosed coronary artery disease in the context of acute blood loss anemia. Clinically improved with blood transfusion. No chest pain. Normal EKG. Echo pending Status: Acute Total time spent: Total time spent is greater than 50% in coordination of care (as documented) at patient's floor/unit and/or counseling patient: (4) Status post reverse arthroplasty of right shoulder: Problem comment: Right upper extremity reverse shoulder arthroplasty, biceps tenodesis (01/13/25, Dr. Garcia) Status: Acute Total time spent: Total time spent is greater than 50% in coordination of care (as documented) at patient's floor/unit and/or counseling patient: (5) COPD (chronic obstructive pulmonary disease): Problem comment: Appears well managed at this point Status: Chronic Total time spent: Total time spent is greater than 50% in coordination of care (as documented) at patient's floor/unit and/or counseling patient: Plan Assessment: 1. Reverse shoulder arthroplasty 2. Postop anemia Plan: 10 minutes after examining the patient she had a black stool. Therefore, the source of her anemia may be a small bowel bleed, not from her shoulder. The medical team can workup as appropriate.
--- NOTE | 2025-01-19 19:53 | PC.NURSE ---
End of shift-- Very pleasant and cooperative, alert and oriented patient. VSS and pt is afebrile. SPO2 maintained >90% on RA. Pt c/o pain today in shoulder and back and was given Oxycodone and Tylenol with stated relief. Dressing to right arm C/D/I and pt is wearing sling when she is up. Radial pulse WNL. Swelling noted in right arm from shoulder to hand. Telemetry shows NSR. LS CTA. Pt denied nausea and ate a regular dinner this evening without difficulty. Pt did have 2 moderate BMs this evening. The second BM was black. Fecal Occult sent and was positive. Md is aware. She was up to the chair and BR today with assist of 1, belt and cane and tolerated it well. M/L for Karina with patient permission for update. Report to Carolyn, Tomy.
[2025-01-20] VITALS (12 sets, daily range): BP systolic 103–163; BP diastolic 57–90; PULSE 70–93; RESP 16–22; TEMP 36.3–36.9; O2SAT 91–96
[2025-01-20] MEDS: OMEPRAZOLE 20 MG CAPSULE DR PO ×2 (06:07→16:55)
[2025-01-20] MEDS: LEVOTHYROXINE 112 MCG TABLET PO (06:07)
--- NOTE | 2025-01-20 06:45 | PC.NURSE ---
Arrived to find the patient in bed, alert and oriented and vitally stable. Right arm has remained in a sling during their stay. The dressing over their incision is clean, dry and intact. Surrounding tissue appears healthy. However, this effected arm is swollen form the lower arm to the hand. Plus one pitting edema of the hand. The skin on the upper arm looks tight. Full sensation and strong pulses in all extremities. Bowel sounds are active. Mentation has been variable. When fully awake she is at what would be normal for many, but when awoken she appears off from her usual. At one point in the late evening she was rocking back and forth, repeating, ?Don?t think like that.? She did not appear otherwise anxious after the occurrence. No further developments overnight. ?
[2025-01-20 06:48] LABS: Hematocrit* 25.7 % (33.0-51.0); Hemoglobin* 8.3 gm/dL (12.0-16.0); Immature Granulocytes Abs Auto 0.78 K/uL (0.00-0.30); Immature Granulocytes Pct Auto 9.6 %; Lymphocytes Absolute Auto 1.94 K/uL (0.90-2.90); Mean Corpuscular HGB Conc 32 gm/dL (32-36); Mean Corpuscular Hemoglobin 31 pg (26-34); Mean Corpuscular Volume 96 fL (80-100); RDW Coefficient of Variation % 17.2 % (11.5-15.5); Red Blood Count* 2.67 m/uL (4.00-5.20); White Blood Count* 8.10 K/uL (4.50-11.00)
[2025-01-20 06:51] LABS: Slide Review Reflex No
[2025-01-20] MEDS: DIVALPROEX DELAYED RELEASE 250 MG TABLET 750 MG PO (08:09)
[2025-01-20] MEDS: SENNOSIDES/DOCUSATE TABLET 2 TAB PO ×2 (08:10→20:39)
[2025-01-20] MEDS: SODIUM CHLORIDE 0.9 % (FLUSH) 10 ML SYRINGE 5 ML IVF ×3 (08:11→20:44)
[2025-01-20] MEDS: ACETAMINOPHEN 325 MG TABLET 650 MG PO ×2 (08:14→17:09)
--- NOTE | 2025-01-20 11:27 | PM.ORPN ---
Subjective Subjective Time Seen by Provider: 11:27 Date Seen: 01/20/25 Principal diagnosis: Postop reverse total shoulder and anemia Interval history: Berkley has pain in the shoulder. She is waiting for her pain medication. She states she is feeling discouraged. She will stay in-house another day. Ortho Exam Narrative Exam Narrative: Alert and oriented x3. Patient is in no acute distress. Converses without labored breathing. Hearing is grossly intact. Ambulates with a normal gait, sling use right upper extremity. Right upper extremity is swollen. CMS intact. She can slightly range her fingers, wrist, elbow but limited due to edema. Const Vital Signs, click to edit/add: Vital Signs - 24 hr 01/19/25 12:03 01/19/25 15:00 01/19/25 15:00 Temperature 97.9 F Pulse Rate 72 Pulse Rate [Bilateral Dorsalis Pedis] Pulse Rate [Bilateral Radial] Pulse Rate [Pulse Oximeter] 76 Respiratory Rate 18 18 Blood Pressure [Left Arm] 141/60 H Pulse Oximetry 93 93 Oxygen Delivery Method Room Air Room Air Oxygen Flow Rate 01/19/25 16:25 01/19/25 19:40 01/19/25 22:20 Temperature 97.9 F 98.0 F Pulse Rate 75 Pulse Rate [Bilateral Dorsalis Pedis] Pulse Rate [Bilateral Radial] Pulse Rate [Pulse Oximeter] 76 78 Respiratory Rate 18 18 Blood Pressure [Left Arm] 115/65 126/70 Pulse Oximetry 91 91 Oxygen Delivery Method Room Air Room Air Oxygen Flow Rate 01/19/25 22:21 01/19/25 23:00 01/19/25 23:14 Temperature Pulse Rate 71 Pulse Rate [Bilateral Dorsalis Pedis] 73 Pulse Rate [Bilateral Radial] 73 Pulse Rate [Pulse Oximeter] Respiratory Rate 18 18 Blood Pressure [Left Arm] Pulse Oximetry 91 Oxygen Delivery Method Room Air Oxygen Flow Rate 01/20/25 03:25 01/20/25 07:00 01/20/25 07:00 Temperature 97.9 F Pulse Rate 73 Pulse Rate [Bilateral Dorsalis Pedis] Pulse Rate [Bilateral Radial] 72 Pulse Rate [Pulse Oximeter] 73 Respiratory Rate 20 18 Blood Pressure [Left Arm] 117/65 122/78 Pulse Oximetry 96 96 Oxygen Delivery Method Nasal Cannula Room Air Oxygen Flow Rate 1 01/20/25 07:00 01/20/25 07:00 01/20/25 09:30 Temperature Pulse Rate Pulse Rate [Bilateral Dorsalis Pedis] Pulse Rate [Bilateral Radial] 72 73 Pulse Rate [Pulse Oximeter] 73 Respiratory Rate 18 18 Blood Pressure [Left Arm] 106/61 Pulse Oximetry 96 92 Oxygen Delivery Method Room Air Room Air Oxygen Flow Rate 1 01/20/25 09:48 Temperature Pulse Rate Pulse Rate [Bilateral Dorsalis Pedis] Pulse Rate [Bilateral Radial] 78 Pulse Rate [Pulse Oximeter] 93 Respiratory Rate Blood Pressure [Left Arm] 105/68 Pulse Oximetry Oxygen Delivery Method Oxygen Flow Rate Assessment and Plan Assessment and plan (1) Postoperative anemia: Problem details: Suspicious for postop bleeding into the shoulder. Evaluation for other sites of occult bleeding including upper endoscopy and CT chest abdomen and pelvis show no other obvious site of bleeding. Not likely hemolysis. Status: Acute (2) Status post reverse arthroplasty of right shoulder: Problem details: Right upper extremity reverse shoulder arthroplasty, biceps tenodesis (01/13/25, Dr. Garcia) Status: Acute Assessment and Plan: Berkley is encouraged to fully range her elbow, wrist, fingers. She can take her sling off for comfort and for exercises. Clinic appointment for tomorrow has been canceled. She will stay another day in-house. hgb steady at 8.3
--- NOTE | 2025-01-20 15:45 | PC.SOCIAL ---
Discharge planning: SW met with patient who states that she is doing okay. SW discussed options of returning to [facility] or going to TCU as patient will have a three night inpatient stay. Patient states that she would like SW to talk with Karina, her friend, about this. SW returned to speak with Karina and patient about TCU vs return to [facility]. Patient and Karina would like to try for [facility] and if they aren't able to accept, next would be [facility] followed by returning to [facility]. ADRIÁN sent referral to Jessica at [facility]. Jessica inquired about transportation for f/u appts. ADRIÁN explained likely her friend Karina would provide this but will reach out to her and get back to Jessica. ADRIÁN called Karina three times and left voicemails and is awaiting a return call. ADRIÁN updated Jessica that [facility] is still waiting. Jessica states this is the only thing they need to know prior to accepting. SW to continue to work towards discharge.
--- NOTE | 2025-01-20 16:35 | P.IMPN_ITS ---
Assessment and Plan Assessment and plan (1) Postoperative anemia: Problem comment: Suspicious for postop bleeding into the shoulder. Evaluation for other sites of occult bleeding including upper endoscopy and CT chest abdomen and pelvis show no other obvious site of bleeding. Not likely hemolysis. Status: Acute (2) Dyspnea: Problem comment: Dyspnea likely due to acute blood loss anemia plus underlying COPD and coronary artery disease. Dyspnea resolved with blood transfusion Status: Acute (3) Non-STEMI (non-ST elevated myocardial infarction): Problem comment: Patient has elevated troponin likely due to undiagnosed coronary artery disease in the context of acute blood loss anemia. Clinically improved with blood transfusion. No chest pain. Normal EKG. Echo pending Status: Acute (4) Esophagitis: Problem comment: On chronic PPI Status: Acute (5) History of esophagogastroduodenoscopy (EGD): Problem comment: Ulcer of esophagus without bleeding diaphragmatic hernia. Esophagitis without bleeding seen on EGD 01/19/2025 Status: Acute Plan Continue in-hospital for monitoring for ongoing bleeding, cardiac complications. Total Time Spent Total Time Spent: Total time spent today is 40 minutes in coordination of care and discussing with patient and other providers ongoing management of postop care for her shoulder, heart disease, bleeding. Subjective Date Seen: 01/20/25 Interval history: 69-year-old female 5 days post right reverse total shoulder arthroplasty presents with progressive dyspnea, anxiety, pain and swelling in her right shoulder. She had an uncomplicated shoulder surgery on January 13. Postoperatively she has had swelling in her right shoulder with pain and has also developed dyspnea and anxiety. Evaluation on admission to the hospital included the discovery of a hemoglobin of 5.1 compared to a preop hemoglobin from 12/31/2024 of 11.5. The cause for this was not obviously apparent. There was concern that this was an occult GI bleed verses bleeding into the soft tissue around her shoulder. She had a chest CTA and abdominal CT which were unremarkable. She underwent upper endoscopy which showed no active bleeding. She also had elevated troponin at 0.15. No previous history of coronary disease. Electrocardiogram was normal. She had no chest pain. 01/20/2025: She reports ongoing shoulder pain and fatigue. No shortness of breath or chest pain. No fever. No abdominal pain. She has been able to eat. Last night she had a Hemoccult-positive melanotic stool. Hemoglobin is stable. Exam Narrative: Exam Narrative: She is alert appears tired but otherwise in no distress. Respirations are clear to auscultation. Cardiovascular: S1, S2, regular rate and rhythm. Abdomen: Bowel sounds active. Abdomen is soft without tenderness or mass. Right upper extremity still has moderate edema. She has edema wear compression on her right arm. Lower extremities without significant edema. Const: Vital Signs, click to edit/add: Vital Signs - 24 hr 01/19/25 19:40 01/19/25 22:20 01/19/25 22:21 Temperature 97.9 F 98.0 F Pulse Rate Pulse Rate [Bilate ral Dorsalis Pedis ] Pulse Rate [Bilate ral Radial] Pulse Rate [Pulse Oximeter] 76 78 Respiratory Rate 18 18 18 Blood Pressure [Le ft Arm] 115/65 126/70 Pulse Oximetry 91 91 91 Oxygen Delivery Me thod Room Air Room Air Room Air Oxygen Flow Rate 01/19/25 23:00 01/19/25 23:14 01/20/25 03:25 Temperature Pulse Rate 71 Pulse Rate [Bilate ral Dorsalis Pedis ] 73 Pulse Rate [Bilate ral Radial] 73 Pulse Rate [Pulse Oximeter] 73 Respiratory Rate 18 20 Blood Pressure [Le ft Arm] 117/65 Pulse Oximetry 96 Oxygen Delivery Me thod Nasal Cannula Oxygen Flow Rate 1 01/20/25 07:00 01/20/25 07:00 01/20/25 07:00 Temperature 97.9 F Pulse Rate 73 Pulse Rate [Bilate ral Dorsalis Pedis ] Pulse Rate [Bilate ral Radial] 72 72 Pulse Rate [Pulse Oximeter] 73 Respiratory Rate 18 18 Blood Pressure [Le ft Arm] 122/78 Pulse Oximetry 96 Oxygen Delivery Me thod Room Air Oxygen Flow Rate 01/20/25 07:00 01/20/25 09:30 01/20/25 09:48 Temperature Pulse Rate Pulse Rate [Bilate ral Dorsalis Pedis ] Pulse Rate [Bilate ral Radial] 73 78 Pulse Rate [Pulse Oximeter] 93 Respiratory Rate 18 Blood Pressure [Le ft Arm] 106/61 105/68 Pulse Oximetry 96 92 Oxygen Delivery Me thod Room Air Room Air Oxygen Flow Rate 1 01/20/25 11:00 01/20/25 15:00 01/20/25 15:00 Temperature 97.5 F L Pulse Rate 77 Pulse Rate [Bilate ral Dorsalis Pedis ] Pulse Rate [Bilate ral Radial] 78 Pulse Rate [Pulse Oximeter] 70 70 Respiratory Rate 20 16 Blood Pressure [Le ft Arm] 103/57 L Pulse Oximetry 92 Oxygen Delivery Me thod Room Air Oxygen Flow Rate 01/20/25 15:00 01/20/25 15:00 Temperature 97.7 F Pulse Rate Pulse Rate [Bilate ral Dorsalis Pedis ] Pulse Rate [Bilate ral Radial] Pulse Rate [Pulse Oximeter] 73 Respiratory Rate 16 16 Blood Pressure [Le ft Arm] 107/62 Pulse Oximetry 93 93 Oxygen Delivery Me thod Room Air Room Air Oxygen Flow Rate Labs Labs: Laboratory Results - last 24 hr 01/19/25 01/20/25 15:00 06:05 WBC 8.10 RBC 2.67 L Hgb 8.3 L Hct 25.7 L MCV 96 MCH 31 MCHC 32 RDW Coeff of Jaden 17.2 H Plt Count 251 Neut % (Auto) 50.6 Lymph % (Auto) 24.0 [place] % (Auto) 12.5 H Eos % (Auto) 3.2 Baso % (Auto) 0.1 Neut # (Auto) 4.10 Lymph # (Auto) 1.94 [place] # (Auto) 1.00 H Eos # (Auto) 0.26 Baso # (Auto) 0.01 Abs Immat Gran (auto) 0.78 H Imm/Tot Granulo (auto) 9.6 Troponin I 0.07 H* C-Reactive Protein 7.8 H Stool Occult Blood Positive A
[2025-01-20 17:26] LABS: Hemoglobin* 8.3 gm/dL (12.0-16.0)
--- NOTE | 2025-01-20 17:33 | PC.NURSE ---
Berkley requested to go to the BR but when she stood up with 2 assist stated, Somethings not right. Sat back down in chair, see VSS at 1641. Once seated patient felt she felt normal again, rechecked VS at 1647 see EHR. updated, Hgb rechecked. Patient's feet massaged for RLS symptoms.
[2025-01-20] MEDS: DIVALPROEX DELAYED RELEASE 250 MG TABLET 1000 MG PO (17:43)
--- NOTE | 2025-01-20 18:19 | PC.NURSE ---
End of Shift ([id number]): RN was given report on this patient at 1700. Patient cooperative but with negative mentality, verbalizing she doesn't want to live through this discomfort anymore. Patient's legs have become restless this afternoon, and patient rates pain 8-9/10. Only tylenol given as it is the only pain med due, active ice also used on right shoulder. Patient is vitally stable. Patient is alert and oriented but also has periods of confusion, at times what patient verbalizes arevalo not make sense. Patient used the toilet x1, with 1 assist and cane. Patient tolerating regular diet, but does not have much of an appetite, eating 50% of meal. Patient is currently in bed, as there was discomfort up in the chair.
[2025-01-21] VITALS (11 sets, daily range): BP systolic 130–164; BP diastolic 67–93; PULSE 73–93; RESP 18–20; TEMP 36.4–36.8; O2SAT 91–95
[2025-01-21] MEDS: OMEPRAZOLE 20 MG CAPSULE DR PO ×2 (06:20→18:00)
[2025-01-21] MEDS: LEVOTHYROXINE 112 MCG TABLET PO (06:20)
[2025-01-21 06:32] LABS: Hematocrit* 23.5 % (33.0-51.0); Immature Granulocytes Abs Auto 0.69 K/uL (0.00-0.30); Immature Granulocytes Pct Auto 7.8 %; Lymphocytes Absolute Auto 1.78 K/uL (0.90-2.90); Mean Corpuscular HGB Conc 33 gm/dL (32-36); Mean Corpuscular Hemoglobin 32 pg (26-34); Mean Corpuscular Volume 96 fL (80-100); RDW Coefficient of Variation % 16.8 % (11.5-15.5); Red Blood Count* 2.44 m/uL (4.00-5.20); White Blood Count* 8.80 K/uL (4.50-11.00)
--- NOTE | 2025-01-21 06:45 | PC.NURSE ---
Arrived at 1930 to find the patient resting in bed uncomfortably and describing great unease from feeling confined in a small space and from her legs described as restless. After I was able to assess my other patient I came back to take the patient for a walk around the unit and then again two times later in the night. I also let her know we have medications available to help with the sensations in her legs but these were ultimately never administered over this shift. Her mentation is variable. Lucid and conversive at 1930 but then rambling and unable to describe what she means to me at 0. Once again lucid by 629. Her right arm is in a sling and swollen from the hand to the elbow. The skin on this extremity appears tight and shiny. Ice is being applied to the incision area. Her incision on the right elbow is covered with a dressing; clean, dry, and intact. Able to ambulate safely with close supervision in case of a fall and with the use of a cane. No other major developments overnight. ?
[2025-01-21 06:50] LABS: Hemoglobin* 7.7 gm/dL (12.0-16.0); Slide Review Reflex No
--- NOTE | 2025-01-21 08:19 | P.ORPN_ITS ---
Subjective Subjective Time Seen by Provider: 07:20 Date Seen: 01/21/25 Principal diagnosis: Postop reverse total shoulder and anemia Interval history: Berkley is uncomfortable this morning in her sling and compression sleeve. She states she has been ranging her fingers and wrist and elbow as much as she can. Ortho Exam Narrative Exam Narrative: Alert and oriented x3. Patient is in no acute distress. Converses without labored breathing. Hearing is grossly intact. CMS intact right upper extremity. Soft tissue edema has minimally improved in the hand and forearm, however swelling persists in the upper arm and shoulder dressing is removed. Wound is healing nicely with no drainage or warmth or erythema. A new dressing is applied. She is able to range her elbow, wrist, fingers. Const Vital Signs, click to edit/add: Vital Signs - 24 hr 01/20/25 09:30 01/20/25 09:48 01/20/25 11:00 Temperature 97.5 F L Pulse Rate Pulse Rate [Bilateral Radial] 73 78 Pulse Rate [Pulse Oximeter] 93 70 Respiratory Rate 20 Blood Pressure [Left Arm] 106/61 105/68 103/57 L Pulse Oximetry 92 92 Oxygen Delivery Method Room Air Room Air 01/20/25 15:00 01/20/25 15:00 01/20/25 15:00 Temperature Pulse Rate 77 Pulse Rate [Bilateral Radial] 78 Pulse Rate [Pulse Oximeter] 70 Respiratory Rate 16 16 Blood Pressure [Left Arm] Pulse Oximetry 93 Oxygen Delivery Method Room Air 01/20/25 15:00 01/20/25 16:41 01/20/25 16:47 Temperature 97.7 F Pulse Rate Pulse Rate [Bilateral Radial] Pulse Rate [Pulse Oximeter] 73 70 72 Respiratory Rate 16 22 20 Blood Pressure [Left Arm] 107/62 148/75 H 163/90 H Pulse Oximetry 93 91 92 Oxygen Delivery Method Room Air 01/20/25 19:25 01/20/25 22:15 01/20/25 22:42 Temperature 97.4 F L 98.5 F Pulse Rate Pulse Rate [Bilateral Radial] Pulse Rate [Pulse Oximeter] 79 78 Respiratory Rate 20 16 16 Blood Pressure [Left Arm] 137/65 139/64 Pulse Oximetry 92 91 91 Oxygen Delivery Method Room Air Room Air Room Air 01/20/25 22:57 01/21/25 02:25 01/21/25 07:00 Temperature 98.2 F Pulse Rate 72 86 Pulse Rate [Bilateral Radial] Pulse Rate [Pulse Oximeter] 74 Respiratory Rate 18 Blood Pressure [Left Arm] 139/83 Pulse Oximetry 95 Oxygen Delivery Method Room Air 01/21/25 07:30 Temperature 97.7 F Pulse Rate Pulse Rate [Bilateral Radial] Pulse Rate [Pulse Oximeter] 76 Respiratory Rate 20 Blood Pressure [Left Arm] 164/75 H Pulse Oximetry 94 Oxygen Delivery Method Room Air Assessment and Plan Assessment and plan (1) Postoperative anemia: Problem details: Suspicious for postop bleeding into the shoulder. Evaluation for other sites of occult bleeding including upper endoscopy and CT chest abdomen and pelvis show no other obvious site of bleeding. Not likely hemolysis. Status: Acute (2) Status post reverse arthroplasty of right shoulder: Problem details: Right upper extremity reverse shoulder arthroplasty, biceps tenodesis (01/13/25, Dr. Garcia) Status: Acute Assessment and Plan: Her sling it was very uncomfortable this morning with it pulling on her neck. The sling is removed. The compression dressing was removed as well to give her arm a break from compression. This felt good to her. I massaged her soft tissue edema from her fingers upwards through her forearm and upper arm. This felt good to her as well. I also elevated the right upper extremity on a pillow . She is encouraged to continue ranging her right upper extremity elbow, wrist, fingers, she can abduct the arm, forward flex the arm. She will avoid external rotation of the arm. Her wound is healing nicely with no sign of infection. A new dressing is applied this can be removed in 1 week.
[2025-01-21] MEDS: SENNOSIDES/DOCUSATE TABLET 2 TAB PO ×2 (09:14→21:03)
[2025-01-21] MEDS: SODIUM CHLORIDE 0.9 % (FLUSH) 10 ML SYRINGE 5 ML IVF (09:15)
[2025-01-21] MEDS: DIVALPROEX DELAYED RELEASE 250 MG TABLET 750 MG PO (09:15)
[2025-01-21] MEDS: IRBESARTAN 150 MG TABLET 75 MG PO (09:15)
[2025-01-21] MEDS: ACETAMINOPHEN 325 MG TABLET 650 MG PO ×2 (10:57→18:05)
[2025-01-21] MEDS: PEG-3350 SODIUM CL/BICARB-KCL 4,000 ML SOLN 4000 ML PO (11:59)
[2025-01-21] MEDS: bisacodyL 5 MG TABLET DR 10 MG PO (11:59)
--- NOTE | 2025-01-21 12:10 | P.IMPN_ITS ---
Assessment and Plan Assessment and plan (1) Gastrointestinal bleeding: Problem comment: Patient presents with acute blood loss anemia and now melanotic stools. Upper endoscopy showed mild esophagitis without bleeding. Obtain colonoscopy and continue to monitor. Status: Acute (2) Esophagitis: Problem comment: On chronic PPI. Esophagitis without bleeding seen on EGD 01/19/2025 Status: Acute (3) History of esophagogastroduodenoscopy (EGD): Problem comment: Ulcer of esophagus without bleeding diaphragmatic hernia. Esophagitis without bleeding seen on EGD 01/19/2025. Probably does not explain current bleeding Status: Acute (4) Non-STEMI (non-ST elevated myocardial infarction): Problem comment: Patient has elevated troponin likely due to undiagnosed coronary artery disease in the context of acute blood loss anemia. Clinically improved with blood transfusion. No chest pain. Normal EKG. Echo relatively unremarkable Status: Acute (5) Acute blood loss anemia: Problem comment: This appears to be predominantly GI bleeding not related to recent shoulder surgery. Status: Acute (6) Status post reverse arthroplasty of right shoulder: Problem comment: Right upper extremity reverse shoulder arthroplasty, biceps tenodesis (01/13/25, Dr. Garcia). There does not appear to be a postoperative complication Status: Acute (7) Resistant hypertension: Problem comment: Did see Dr. Jarad webb: Did switch to Coreg 12.5 mg twice a day and hydralazine 50 mg twice a day. Continue beta-lily due to non-STEMI. I am going to trial a low dose of irbesartan while she is hospitalized to see if she tolerates it for her heart disease and kidney disease. Status: Acute Plan Continue in hospital for evaluation and management acute blood loss anemia and presumed gastrointestinal source of bleeding. Total Time Spent Total Time Spent: Total time spent today is 40 minutes in coordination of care discussing with patient and other providers ongoing management of anemia and GI bleeding and heart disease. Subjective Date Seen: 01/21/25 Interval history: 69-year-old female 5 days post right reverse total shoulder arthroplasty presents with progressive dyspnea, anxiety, pain and swelling in her right shoulder. She had an uncomplicated shoulder surgery on January 13. Postoperatively she has had swelling in her right shoulder with pain and has also developed dyspnea and anxiety. Evaluation on admission to the hospital included the discovery of a hemoglobin of 5.1 compared to a preop hemoglobin from 12/31/2024 of 11.5. The cause for this was not obviously apparent. There was concern that this was an occult GI bleed verses bleeding into the soft tissue around her shoulder. She had a chest CTA and abdominal CT which were unremarkable. She underwent upper endoscopy which showed no active bleeding. She also had elevated troponin at 0.15. No previous history of coronary disease. Electrocardiogram was normal. She had no chest pain. 01/20/2025: She reports ongoing shoulder pain and fatigue. No shortness of breath or chest pain. No fever. No abdominal pain. She has been able to eat. Last night she had a Hemoccult-positive melanotic stool. Hemoglobin is stable. 01/21/2025: She reports doing a little better today. She started to do range of motion on her elbow on her own. No shortness of breath. She does report some right lower quadrant abdominal discomfort she says this is been intermittent problem preceding this admission. On admission abdominal CT showed relatively normal findings except for mild wall thickening of the sigmoid colon with minimal inflammatory stranding which could represent very mild diverticulitis or colitis. Exam Narrative: Exam Narrative: She is alert and appears in no distress. Still has moderate edema of the right upper extremity without severe bruising. She removes her forearm from the sling and shows me that she can do some range of motion today extending her elbow to about 20? short of full extension. Respirations are clear to auscultation. Cardiovascular: S1, S2, regular rate and rhythm. Abdomen: Bowel sounds active. Abdomen is soft without tenderness or mass. Lower extremities without edema. Intact pulses. Const: Vital Signs, click to edit/add: Vital Signs - 24 hr 01/20/25 15:00 01/20/25 15:00 01/20/25 15:00 Temperature Pulse Rate 77 Pulse Rate [Bilate ral Radial] 78 Pulse Rate [Pulse Oximeter] 70 Respiratory Rate 16 16 Blood Pressure [Le ft Arm] Pulse Oximetry 93 Oxygen Delivery Me thod Room Air 01/20/25 15:00 01/20/25 16:41 01/20/25 16:47 Temperature 97.7 F Pulse Rate Pulse Rate [Bilate ral Radial] Pulse Rate [Pulse Oximeter] 73 70 72 Respiratory Rate 16 22 20 Blood Pressure [Le ft Arm] 107/62 148/75 H 163/90 H Pulse Oximetry 93 91 92 Oxygen Delivery Me thod Room Air 01/20/25 19:25 01/20/25 22:15 01/20/25 22:42 Temperature 97.4 F L 98.5 F Pulse Rate Pulse Rate [Bilate ral Radial] Pulse Rate [Pulse Oximeter] 79 78 Respiratory Rate 20 16 16 Blood Pressure [Le ft Arm] 137/65 139/64 Pulse Oximetry 92 91 [facility] Room Air Room Air 01/20/25 22:57 01/21/25 02:25 01/21/25 07:00 Temperature 98.2 F Pulse Rate 72 86 Pulse Rate [Bilate ral Radial] Pulse Rate [Pulse Oximeter] 74 Respiratory Rate 18 Blood Pressure [Le ft Arm] 139/83 Pulse Oximetry 95 Oxygen Delivery [facility] Room Air 01/21/25 07:30 01/21/25 07:30 01/21/25 08:23 Temperature 97.7 F Pulse Rate Pulse Rate [Bilate ral Radial] Pulse Rate [Pulse Oximeter] 76 76 Respiratory Rate 20 20 20 Blood Pressure [Le ft Arm] 164/75 H Pulse Oximetry 94 94 Oxygen Delivery [facility] Room Air Room Air 01/21/25 08:50 01/21/25 09:10 01/21/25 11:00 Temperature 97.9 F Pulse Rate Pulse Rate [Bilate ral Radial] 84 87 Pulse Rate [Pulse Oximeter] 93 92 76 Respiratory Rate 20 Blood Pressure [Le ft Arm] 158/73 H 145/93 H 132/67 Pulse Oximetry 92 Oxygen Delivery [facility] Room Air Documenting provider has reviewed patient's vital signs: yes Labs Labs: Laboratory Results - last 24 hr 01/18/25 01/20/25 01/21/25 20:24 17:20 06:02 WBC 8.80 RBC 2.44 L Hgb 8.3 L 7.7 L* Hct 23.5 L MCV 96 MCH 32 MCHC 33 RDW Coeff of Jaden 16.8 H Plt Count 229 Neut % (Auto) 53.0 Lymph % (Auto) 20.2 [place] % (Auto) 15.9 H Eos % (Auto) 3.0 Baso % (Auto) 0.1 Neut # (Auto) 4.66 Lymph # (Auto) 1.78 [place] # (Auto) 1.40 H Eos # (Auto) 0.26 Baso # (Auto) 0.01 Abs Immat Gran (auto) 0.69 H Imm/Tot Granulo (auto) 7.8 Haptoglobin 256 H C-Reactive Protein 6.4 H
[2025-01-21 14:39] LABS: Hemoglobin* 9.1 gm/dL (12.0-16.0)
--- NOTE | 2025-01-21 15:18 | PC.SOCIAL ---
Addendum entered by STEPHANIE Holm 01/21/25 15:37: PAS completed and submitted; confirmation number [id number]. Secure emailed PAS confirmation to Jessica at [facility]. Original Note: Discharge planning: Met with pt regarding discharge plans and question from [facility] about who would be able to bring pt to follow up medical appointments from [facility] if she is accepted there. Pt states it would be her friend Karina and asked social insurance specialist to call Karina to confirm this with her. Pt also stated Karina would be her ride to the SNF at discharge. Called pt's friend, Karina Pineda [phone], at pt request. Karina confirmed she will be able to provide transportation for pt as needed at discharge and to follow up appointments. Called [facility] and spoke with Jessica in admissions, and shared this information with her. Jessica confirmed they are able to accept pt for a rehab bed at [facility] on 01/22/25 and need pt to arrive before 2:00. Called pt's friend Karina back and confirmed she can pick pt up for discharge tomorrow at noon. Met with pt who is pleased with the plan for discharge to [facility] tomorrow with her friend picking her up around noon. 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
[2025-01-21] MEDS: DIVALPROEX DELAYED RELEASE 250 MG TABLET 1000 MG PO (18:00)
--- NOTE | 2025-01-21 18:39 | PC.NURSE ---
End of Shift ([id number]): Patient pleasant and cooperative, A&O. VSS, afebrile. SpO2 maintained above 90% on RA. Tolerating clear liquid diet. Reports pain on her right shoulder, managed with PRN medication, see MAR. Bowel prep started today. 1A with walker and gait belt. ?
--- NOTE | 2025-01-21 22:42 | W.PM.CROSSCO ---
Subjective Subjective Principal diagnosis: Postop reverse total shoulder and anemia Interval history: patient not tolerating the GoLytely - she feels her breathing gets worse and she feels anxious. She doesn't think she will live thru this. vitals stable. will switch to Miralax - full bottle in 64 ounces of Gatorade; drink every 15 mins. suppository prn support and encouragement given. IV ativan prn.
[2025-01-21] MEDS: polyethylene glycoL 238 GM BULK BOTTLE PO (23:25)
[2025-01-22 02:53] VITALS: BP 151/80; PULSE 89; PULSE 95; RESP 18; TEMP 37.2; O2SAT 95
[2025-01-22 06:52] LABS: Hematocrit* 25.7 % (33.0-51.0); Hemoglobin* 8.2 gm/dL (12.0-16.0); Immature Granulocytes Abs Auto 0.31 K/uL (0.00-0.30); Immature Granulocytes Pct Auto 4.4 %; Mean Corpuscular HGB Conc 32 gm/dL (32-36); Mean Corpuscular Hemoglobin 31 pg (26-34); Mean Corpuscular Volume 97 fL (80-100); RDW Coefficient of Variation % 16.6 % (11.5-15.5); Red Blood Count* 2.64 m/uL (4.00-5.20); White Blood Count* 7.12 K/uL (4.50-11.00)
[2025-01-22 06:53] LABS: Lymphocytes Absolute Auto 1.30 K/uL (0.90-2.90); Slide Review Reflex No
[2025-01-22 07:00] VITALS: RESP 20; O2SAT 95
[2025-01-22 07:01] LABS: Chloride* 99 mmol/L (96-114); Potassium* 3.6 mmol/L (3.6-5.1); Sodium* 135 mmol/L (135-149)
[2025-01-22 07:04] LABS: Blood Urea Nitrogen* 9 mg/dL (7-30); Creatinine* 0.5 mg/dL (0.5-1.5); Est. Creatinine Clearance* 37.06; Estimated Glomerular Filt Rate 100 ml/min
[2025-01-22 07:05] LABS: Anion Gap 4 mEq/L (7-15); Calcium* 8.5 mg/dL (8.4-10.6); Carbon Dioxide* 32 mmol/L (20-32); Glucose* 90 mg/dL (60-115)
[2025-01-22 07:56] VITALS: BP 151/58; PULSE 77; RESP 20; O2SAT 95
--- NOTE | 2025-01-22 09:28 | P.ANES_ITS ---
Anesthesia Charges Start Date/Time Anesthesia Start Date: 01/22/25 Anesthesia Start Time: 08:42 Stop Date/Time Anesthesia Stop Date: 01/22/25 Anesthesia Stop Time: 09:28 Coding CPT Codes CPT Codes: ANES LWR INTST NDSC NOS - 58519 ([id number]) P3 - PATIENT W/SEVERE SYS DISEASE, QK - SOCIAL WORK FACULTY MEMBER 2-4 CNCRNT ANES PROC, QX - MANAGER LOCAL SVC W/ MD MED DIRECTION
--- NOTE | 2025-01-22 09:28 | W.ANESCHARGE ---
Anesthesia Charges Start Date/Time Anesthesia Start Date: 01/22/25 Anesthesia Start Time: 08:42 Stop Date/Time Anesthesia Stop Date: 01/22/25 Anesthesia Stop Time: 09:28 Coding CPT Codes CPT Codes: ANES LWR INTST NDSC NOS - 11999 ([id number]) P3 - PATIENT W/SEVERE SYS DISEASE, QK - POWDER CUTTING OPERATOR 2-4 CNCRNT ANES PROC, QX - VOCATIONAL ED INSTRUCTOR SVC W/ MD MED DIRECTION
[2025-01-22] MEDS: DIVALPROEX DELAYED RELEASE 250 MG TABLET 750 MG PO (10:44)
[2025-01-22] MEDS: IRBESARTAN 150 MG TABLET 75 MG PO (10:45)
[2025-01-22] MEDS: SODIUM CHLORIDE 0.9 % (FLUSH) 10 ML SYRINGE 5 ML IVF (10:48)
--- NOTE | 2025-01-22 10:53 | PC.SOCIAL ---
Discharge planning: Met with pt who is aware and pleased with plan for discharge today to [facility] for rehab. Provided pt with copy of the Important Message from Medicare and explained option to appeal. Pt is pleased with discharge plan. Pt expects to be transported at noon today by her friend Karina and requested social work job titles call to confirm with Karina. Secure emailed discharge orders and copy of PAS to Jessica in admissions at [facility] and called to confirm receipt of all needed information. Facility is aware of arrival time of around noon and will call back if any additional information is needed. Called pt's friend, Karina and confirmed she is bringing clothes for pt to the hospital and will transport at noon today to [facility].
--- NOTE | 2025-01-22 10:57 | PM.DS1 ---
DS: Providers Provider Date Seen: 01/22/25 Date of admission: 01/18/25 22:18 Primary care physician: Kim Gardner MD Admitting Clinician: Joe Lopez MD Attending Physician on discharge: Jethro De Los Santos MD Date of Discharge: 01/22/25 DS: Diagnosis Discharge Diagnosis (1) Acute blood loss anemia: Status: Acute Problem details: This appears to be predominantly GI bleeding not related to recent shoulder surgery. Received blood transfusion on admission and hemoglobin has been relatively stable since then. Hemoglobin of 11.5 January 02 prior to shoulder surgery. Hemoglobin of 5.1 on admission. Hemoglobin of 8.2 on discharge compared to 8.3 after blood transfusion. (2) Gastrointestinal bleeding: Status: Acute Problem details: Patient presents with acute blood loss anemia and now melanotic stools. Upper endoscopy showed mild esophagitis without bleeding. Colonoscopy showed small polyps and no apparent source of bleeding (3) Esophagitis: Status: Acute Problem details: On chronic PPI. Esophagitis without bleeding seen on EGD 01/19/2025. (4) Non-STEMI (non-ST elevated myocardial infarction): Status: Acute Problem details: Patient has elevated troponin likely due to undiagnosed coronary artery disease in the context of acute blood loss anemia. Clinically improved with blood transfusion. No chest pain. Normal EKG. Echo relatively unremarkable. Consider further testing for coronary disease if patient has any symptoms heart disease (5) Resistant hypertension: Status: Acute Problem details: Did see Dr. Abraham bright: Did switch to Coreg 12.5 mg twice a day and hydralazine 50 mg twice a day. Continue beta-lily due to non-STEMI. With anemia blood pressure was relatively low. Has now recovered. She was started on irbesartan for blood pressure control while she is being monitored in the hospital. Ongoing outpatient blood pressure monitoring recommended. If blood pressure remains elevated restart hydralazine. Check basic metabolic panel in 4 days (6) Status post reverse arthroplasty of right shoulder: Status: Acute Problem details: Right upper extremity reverse shoulder arthroplasty, biceps tenodesis (01/13/25, Dr. Garcia). There does not appear to have a postoperative complication. Making good progress with therapy in the hospital. Continue outpatient therapy for shoulder replacement surgery DS: Summary Hospital Course Hospital Course: 69-year-old female 5 days post right reverse total shoulder arthroplasty presents with progressive dyspnea, anxiety, pain and swelling in her right shoulder. She had an uncomplicated shoulder surgery on January 13. Postoperatively she has had swelling in her right shoulder with pain and has also developed dyspnea and anxiety. Evaluation on admission to the hospital included the discovery of a hemoglobin of 5.1 compared to a preop hemoglobin from 12/31/2024 of 11.5. The cause for this was not obviously apparent. There was concern that this was an occult GI bleed verses bleeding into the soft tissue around her shoulder. She had a chest CTA and abdominal CT which were unremarkable. She underwent upper endoscopy which showed no active bleeding. She also had elevated troponin at 0.15. No previous history of coronary disease. Electrocardiogram was normal. She had no chest pain. During hospital stay she had relatively stable hemoglobin. After her blood transfusion her hemoglobin was 8.3 and on discharge it is 8.2. She did have couple melanotic stools. EGD showed some esophagitis without obvious bleeding. Colonoscopy showed small polyps without bleeding. Given the large blood loss that she had it is probable that she has yet another source of GI bleeding. If recurrent bleeding occurs recommend hospitalization, possibly at tertiary care hospital, for further evaluation. She has had no symptoms referable to heart disease. Troponins trended down. Her elevation in troponin was thought likely due to undiagnosed heart disease in the face of acute blood loss anemia. She has had longstanding problems with hypertension. I initiated a trial of irbesartan for blood pressure control in the presence of heart disease. So far she has tolerated. Will need close follow-up of her blood pressure to determine need for further blood pressure management. If she continues to have elevated blood pressure consider increasing irbesartan or resuming prior hydralazine. Continue carvedilol for her heart disease as well. Status at Discharge Overall status at discharge: patient is progressing back to baseline Time Spent with Patient Time attestation: Total time spent providing and/or coordinating discharge services: Exam Narrative: Exam Narrative: She is alert and appears in no distress. Breathing is unlabored. Right Upper extremity edema is improved. Motion in her right upper extremities improved. Const: Vital Signs, click to edit/add: Vital Signs - 24 hr 01/21/25 11:00 01/21/25 15:00 01/21/25 15:00 Temperature 97.9 F Pulse Rate Pulse Rate [Bilate ral Radial] Pulse Rate [Pulse Oximeter] 76 74 Respiratory Rate 20 18 18 Blood Pressure [Le ft Arm] 132/67 Pulse Oximetry 92 91 Oxygen Delivery Me thod Room Air Room Air Oxygen Flow Rate 01/21/25 15:00 01/21/25 15:30 01/21/25 19:00 Temperature 97.6 F 98.1 F Pulse Rate 76 Pulse Rate [Bilate ral Radial] Pulse Rate [Pulse Oximeter] 74 91 Respiratory Rate 18 18 Blood Pressure [Le ft Arm] 132/70 130/70 Pulse Oximetry 91 91 Oxygen Delivery Me thod Room Air Room Air Oxygen Flow Rate 01/21/25 23:00 01/21/25 23:00 01/21/25 23:00 Temperature Pulse Rate 76 Pulse Rate [Bilate ral Radial] 73 Pulse Rate [Pulse Oximeter] 91 Respiratory Rate 18 18 Blood Pressure [Le ft Arm] Pulse Oximetry 91 Oxygen Delivery Il thod Room Air Oxygen Flow Rate 1 01/21/25 23:00 01/22/25 02:53 01/22/25 07:56 Temperature 98.1 F 99 F Pulse Rate Pulse Rate [Bilate ral Radial] 74 89 Pulse Rate [Pulse Oximeter] 91 95 77 Respiratory Rate 18 18 20 Blood Pressure [Le ft Arm] 147/77 H 151/80 H 151/58 H Pulse Oximetry 91 95 95 Oxygen Delivery Me thod Room Air Room Air Room Air Oxygen Flow Rate 1 Documenting provider has reviewed patient's vital signs: yes DS: Data Data Completed and Pending Labs on day of discharge: Labs from last 24 hours 01/22/25 01/21/25 05:53 14:25 WBC 7.12 RBC 2.64 L Hgb 8.2 L 9.1 L Hct 25.7 L MCV 97 MCH 31 MCHC 32 RDW Coeff of Jaden 16.6 H Plt Count 253 Neut % (Auto) 58.4 Lymph % (Auto) 17.8 L [place] % (Auto) 14.7 H Eos % (Auto) 4.6 Baso % (Auto) 0.1 Neut # (Auto) 4.15 Lymph # (Auto) 1.30 [place] # (Auto) 1.00 H Eos # (Auto) 0.33 Baso # (Auto) 0.01 Abs Immat Gran (auto) 0.31 H Imm/Tot Granulo (auto) 4.4 Sodium 135 Potassium 3.6 Chloride 99 Carbon Dioxide 32 Anion Gap 4 L BUN 9 Creatinine 0.5 Estimated Creat Clear 37.06 Estimated GFR 100 Glucose 90 Calcium 8.5 C-Reactive Protein 6.7 H Discharge Plan Discharge Disposition: er [facility] Date of Admission: 01/18/25 22:18 Attending Provider on Discharge: Lobo De Los Santos Consulting Providers: Denis Garcia Primary Care Provider: Kim Gardner Condition: Unchanged Discharge Medications: New irbesartan 150 mg Tablet 150 mg PO DAILY Qty: 30 0RF lorazepam 0.5 mg tablet 0.5 mg PO BID PRN (Reason: anxiety) Qty: 30 0RF oxycodone 5 mg tablet 2.5 mg PO Q4H PRN (Reason: pain) Qty: 30 0RF Continued carvedilol 25 mg tablet 12.5 mg PO BID Qty: 90 3RF Rx Instructions: must administer with a meal/food esomeprazole magnesium 40 mg capsule,delayed release(DR/EC) 40 mg PO DAILY Qty: 90 3RF fluticasone furoate-vilanterol 100-25 mcg/dose blister with device 1 inh inhalation DAILY Qty: 30 12RF Rx Instructions: Rinse mouth after inhalation albuterol sulfate 90 mcg/actuation HFA aerosol inhaler 2 puff inhalation Q4H PRN divalproex 500 mg tablet,delayed release (DR/EC) 1,000 mg PO HS Rx Instructions: Take 1 tab in the AM and 2 tabs in the PM ropinirole 1 mg tablet 1 - 2 mg PO BID@17,21 Rx Instructions: 1 tab at 1700, 2 tab at HS levothyroxine 112 mcg tablet 112 mcg PO DAILY Rx Instructions: 1 tab daily, except no tablet on Sundays cyclobenzaprine 5 mg tablet 5 mg PO HS PRN (Reason: muscle spasm) Rx Instructions: Use infrequently 1 tablet for muscle cramps will cause sedation. rosuvastatin 5 mg tablet 5 mg PO DAILY sennosides [Senna Lax] 8.6 mg Tablet 17.2 mg PO BID PRN (Reason: constipation) Qty: 100 0RF acetaminophen 500 mg capsule 500 - 1,000 mg PO Q6H MDD 4000mg per day PRN (Reason: pain) Qty: 100 0RF ondansetron 4 mg tablet,disintegrating 4 mg PO Q6H PRN (Reason: nausea and vomiting) Qty: 15 0RF divalproex 250 mg tablet,delayed release (DR/EC) 750 mg PO QAM Discontinued hydralazine 50 mg tablet 50 mg PO BID Qty: 180 3RF lorazepam 0.5 mg tablet 0.5 mg PO BID PRN oxycodone 5 mg Tablet 2.5 - 5 mg PO Q4-6H MDD 6 tabs per day PRN (Reason: Pain) Qty: 30 0RF Rx Instructions: Minimize. Discontinue as soon as possible Discharge Orders: Discharge Order (Routine); Ordered 01/22/25 Ordered By: Lobo De Los Santos Activity Level: Activity as Tolerated Discharge Diet: Heart Healthy (2 gm sodium, low fat) Follow Up Appointments: Kim Gardner MD [Primary Care Provider, [facility]] Forms: Patient Belongings, [facility] Info Instructions Admit to: SNF Discharge Potential: Good Length of Stay: <30 days Can use facility standing orders?: Yes Code Status: Full Code Rehab Potential: Good Therapy: Physical Therapy and Occupational Therapy Therapy Orders: Evaluate and Treat Oxygen: No Lab Orders: CBC and basic metabolic panel in 4 days
--- NOTE | 2025-01-22 11:18 | W.ANESCHARGE ---
Anesthesia Charges Start Date/Time Anesthesia Start Date: 01/22/25 Anesthesia Start Time: 08:42 Stop Date/Time Anesthesia Stop Date: 01/22/25 Anesthesia Stop Time: 09:28 Summary Extremes of Age - Over 70 or under 1: MDA Coding CPT Codes CPT Codes: ANES LWR INTST NDSC NOS - 68575 ([id number]) QK - CERTIFIED SURGICAL TECHNOLOGIST 2-4 CNCRNT ANES PROC, QX - CARTRIDGE LOADING OPERATOR SVC W/ MD MED DIRECTION, P3 - PATIENT W/SEVERE SYS DISEASE Additional Codes: Summary - Extremes of Age - Over 70 or under 1: MDA ([id number])
--- NOTE | 2025-01-22 13:08 | PC.NURSE ---
Discharge - Pt alert, oriented, cooperative. Up with assist of 1 and cane/gait belt. Tolerating RA and regular diet/fluids. Pt denied pain during shift, denied SOB, N/V. Pt using R arm sling appropriately and showed eagerness to learn and participate in exercises provided for R arm rehabilitation. IV removed with catheter intact. D/C education provided with verbalized understanding. Pt d/c'd to [address] [place] [address] via wheelchair with friend at approximately 1220.
== END 2025-01-22 12:20 | DRG 811 ==
LOC: ED 20:18 → MEDSURG 20:42
PROVIDERS: Family Medicine; Admitting Provider Internal Medicine; Emergency Provider Emergency Medicine Emergency Medical Services; PCP Family Medicine; Visit Provider Internal Medicine
DX: D62 Acute posthemorrhagic anemia (principal); I21.4 Non-ST elevation (NSTEMI) myocardial infarction; K92.1 Melena; Z59.19 Other inadequate housing; K22.10 Ulcer of esophagus without bleeding; K44.9 Diaphragmatic hernia without obstruction or gangrene; J44.9 Chronic obstructive pulmonary disease, unspecified; I1A.0 Resistant hypertension; G47.33 Obstructive sleep apnea (adult) (pediatric); Z99.89 Dependence on other enabling machines and devices; D12.0 Benign neoplasm of cecum; D12.4 Benign neoplasm of descending colon; D12.5 Benign neoplasm of sigmoid colon; D12.3 Benign neoplasm of transverse colon; F12.90 Cannabis use, unspecified, uncomplicated; F41.9 Anxiety disorder, unspecified; F31.9 Bipolar disorder, unspecified; Z96.611 Presence of right artificial shoulder joint; Z86.19 Personal history of other infectious and parasitic diseases; Z87.891 Personal history of nicotine dependence
CPT/HCPCS: 00731; 00811; 36415; 36430; 43235; 45385; 71045; 71275; 74177; 80048; 80076; 81001; 82270; 83010; 83615; 83880; 84484; 85018; 85025; 85027; 85045; 85379; 86140; 86850; 86900; 86901; 86922; 88305; 93005; 93306; 94761; 97110; 97116; 97162; 97165; 97530; 97535; 99100; 99284; 99285; A9270; J1938; J2060; J2704; P9016; Q9967

== ENCOUNTER 2025-03-05 09:45 | Outpatient (CLI) | payer MEDICARE, BC, SELFPAY | END 2025-03-05 09:46 | disposition home or self-care (01) | LOC: NFLDREF 09:46 | PROVIDERS: PCP Family Medicine; Visit Provider Internal Medicine | DX: I1A.0 Resistant hypertension (principal); Z00.00 Encounter for general adult medical examination without abnormal findings | CPT/HCPCS: 80053 ==

== ENCOUNTER 2025-03-18 07:41 | Outpatient (CLI) | payer MEDICARE, BC, SELFPAY | END 2025-03-18 07:42 | disposition home or self-care (01) | PROVIDERS: PCP Family Medicine; Visit Provider Family Medicine | DX: M85.80 Other specified disorders of bone density and structure, unspecified site (principal) | CPT/HCPCS: 80053; 80061; 82306; 82728; 84443 ==

== ENCOUNTER 2025-03-24 09:07 | Outpatient (CLI) | payer MEDICARE, BC, SELFPAY ==
--- NOTE | 2025-03-24 09:15 | CRLHL7_ITS ---
For Patients: As a result of the Century Cures Act, medical imaging exams and procedure reports are released immediately into your electronic medical record. You may view this report before your referring provider. If you have questions, please contact your health care provider. INDICATION: BILATERAL SCREENING MAMMOGRAM, ASYMPTOMATIC 70 Y/O FEMALE COMPARISON: 05/18/2023, 11/17/2021, 10/06/2020 TECHNIQUE: Digital mammogram in CC and MLO projections including computer-aided detection (CAD) and tomosynthesis. BREAST COMPOSITION: There are scattered areas of fibroglandular density. FINDINGS: No suspicious findings. ASSESSMENT: BI-RADS 1 Negative RECOMMENDATION: Annual screening mammogram. A lay language report of this examination will be provided to the patient. Dictated by: Lulu Castle MD @ 03/25/2025 06:53:38 (Electronically Signed)
== END 2025-03-24 09:08 | disposition home or self-care (01) ==
LOC: MAMMO 09:08
PROVIDERS: PCP Family Medicine; Visit Provider Family Medicine
DX: Z12.31 Encounter for screening mammogram for malignant neoplasm of breast (principal)
CPT/HCPCS: 77063; 77067

== ENCOUNTER 2025-05-06 09:57 | Outpatient (CLI) | payer MEDICARE, BC, SELFPAY ==
--- NOTE | 2025-05-06 10:00 | CRLHL7_ITS ---
For Patients: As a result of the Century Cures Act, medical imaging exams and procedure reports are released immediately into your electronic medical record. You may view this report before your referring provider. If you have questions, please contact your health care provider. INDICATION: Nicotine use. TECHNIQUE: Low-dose lung cancer screening non-contrast CT chest. Dose reduction techniques were used. COMPARISON: 03/11/2024. FINDINGS: MEDIASTINUM/SOFT TISSUES: No pleural or pericardial effusions. No pathologic lymphadenopathy. Aortic atherosclerosis. Unenhanced thoracic aorta and main pulmonary arteries are normal in caliber. Coronary artery calcifications. Heart size within normal limits. Soft tissues of thoracic wall unremarkable. LUNGS: No pneumothorax. Central airways are patent. Mild emphysema. Stable punctate medial left upper lobe nodule abutting the major fissure on image 36 of series 2. No new suspicious nodule. Mild bilateral scarring and atelectasis has slightly increased. Subtle ground-glass opacity in the right upper lobe. UPPER ABDOMEN: Visualized unenhanced upper abdomen is unremarkable. BONES: No acute or suspicious osseous abnormality. IMPRESSION: 1. Stable punctate left upper lobe nodule (Lung-RADS Category 2: Benign appearance or behavior). 2. Recommendation: Continue annual screening, if eligible, with low-dose chest CT in 12 months. 3. Right upper lobe ground-glass opacity is indeterminate and may reflect incidental subsegmental atelectasis. Infectious/inflammatory etiologies could be considered in the appropriate clinical setting. Dictated by Lucas Franco MD @ 05/08/2025 8:31:41 AM Please note that all CT scans at this facility use dose modulation, iterative reconstruction, and/or weight-based dosing when appropriate to reduce radiation dose to as low as reasonably achievable. Dictated by: Lucas Franco MD @ 05/08/2025 08:31:59 (Electronically Signed)
== END 2025-05-06 09:58 | disposition home or self-care (01) ==
LOC: CT 09:58
PROVIDERS: PCP Family Medicine; Visit Provider Family Medicine
DX: Z87.891 Personal history of nicotine dependence (principal); J43.9 Emphysema, unspecified; R91.8 Other nonspecific abnormal finding of lung field; R91.1 Solitary pulmonary nodule
CPT/HCPCS: 71271